=== PATIENT | male | born 1950 | race African-American/Black ===

== ENCOUNTER 2021-02-04 15:06 | Observation (INO) ==
[2021-02-04] MEDS ORDERED: diphenhydrAMINE 50 MG/ML VIAL IV STA (16:01)
[2021-02-04] MEDS ORDERED: FAMOTIDINE 20MG IV PUSH 20 MG/5 ML SYR IV STA (16:01)
[2021-02-04] MEDS ORDERED: dexAMETHasone**PF** 10 MG/ML VIAL IV ONE (16:01)
--- NOTE | 2021-02-04 16:18 | XRay Report ---
SINGLE VIEW CHEST CLINICAL HISTORY: Atypical chest pain. FINDINGS: 2 AP, portable, upright chest radiographs are compared to study dated 11/09/2017. The heart i s mildly enlarged. The pulmonary vasculature is noncongested. There is bibasilar atelectasis. The aniceto gs and pleural spaces are otherwise clear. No pneumothorax is seen. The skeletal structures are osteo penic. The bony thorax is grossly intact. Degenerative change is noted in the thoracic spine. IMPRESSION: No active disease in the chest. ACT 112: Negative or not required by law. Electronically signed by: Warren Gan M.D. 02/04/2021 4:17 PM
[2021-02-04 16:42] LABS: Basophils # (auto) 0.02 K/uL (0-0.2); Basophils % (auto) 0.2 %; Eosinophils # (auto) 0.04 K/uL (0-0.5); Eosinophils % (auto) 0.4 %; Hematocrit (blood only) 38.8 % (42-52); Hemoglobin 13.5 g/dL (14.0-18.0); Immature Granulocytes # (auto) 0.02 K/uL (0.00-0.02); Immature Granulocytes % (auto) 0.2 %; Lymphocytes # (auto) 0.83 K/uL (1.2-3.4); Lymphocytes % (auto) 9.3 %; Mean Corpuscular Hemoglobin 32.8 pg (25-34); Mean Corpuscular Hgb Conc 34.8 g/dL (32-36); Mean Corpuscular Volume 94.2 fL (80-100); Mean Platelet Volume 9.3 fL (7.4-10.4); Monocytes # (auto) 0.22 K/uL (0.11-0.59); Monocytes % (auto) 2.5 %; Neutrophils # (auto) 7.82 K/uL (1.4-6.5); Neutrophils % (auto) 87.4 %; Platelet Count 285 K/uL (130-400); RDW Coefficient of Variation 13.4 % (11.5-14.5); RDW Standard Deviation 46.4 fL (36.4-46.3); Red Blood Count 4.12 M/uL (4.7-6.1); White Blood Count 8.95 K/uL (4.8-10.8)
[2021-02-04 16:53] LABS: Partial Thromboplastin Time 27.1 Seconds (21.0-31.0); Prothrombin Time 9.9 Seconds (9.0-12.0)
[2021-02-04 17:00] LABS: Albumin Level 3.6 gm/dl (3.4-5.0); Aspartate Aminotransferase 36 U/L (15-37); BUN Creatinine Ratio 9.9 (10-20); Blood Urea Nitrogen 14 mg/dl (7-18); Calcium 9.2 mg/dl (8.5-10.1); Carbon Dioxide 26 mmol/L (21-32); Chloride 108 mmol/L (98-107); Creatinine Clr Calc Pharmacy 64.3 ml/min; Est GFR (African American) 56.1 ml/min; Est GFR (Non-African American) 48.4 ml/min; Glucose 208 mg/dl (70-99); Lipase 86 U/L (73-393); Potassium 4.8 mmol/L (3.5-5.1); Sodium 139 mmol/L (136-145)
--- NOTE | 2021-02-04 17:03 | Emergency Department Note ---
Impression & Plan Angioedema ED Provider Note NAME: GABRIEL GORMAN AGE: 70 SEX: M : 1950 ARRIVES VIA: Walk-In INFORMANT: Patient, ED PROVIDER(S): Tunde Mckeon DO CHIEF COMPLAINT: Swelling HPI: The patient is a 70-year-old male who presented to the emergency department for evaluation of swelling. The patient has been experiencing a rash over the course of the last month. He has a history of chronic renal disease. He has been seen by his primary care physician for the symptoms. He was also recently started on prednisone. He took the first dose of prednisone this morning. He started noticing swelling over his face and lips. He states the rash is no different. He denies having any difficulty breathing. He denies having any c ough or fever. He does take an ARMANDO inhibitor but has been taking this medication for many years. The patient has been taking all of his outpatient medications as usual. ROS: See above HPI for pertinent positives & negatives. A total of 10 systems reviewed and were otherwise negative. PAST MEDICAL HISTORY: See Below PAST SURGICAL HISTORY: See Below FAMILY HISTORY: See Below SOCIAL HISTORY: See Below HOME MEDICATIONS: See Below ALLERGIES: See Below VITALS: See Below PHYSICAL EXAMINATION: GENERAL: Patient is awake alert in no acute distress patient is resting comfo rtably and showing no signs of anxiety EYES: The conjunctivae are clear. The pupils are round and reactive. EARS, NOSE, MOUTH AND THROAT: The nose is without any evidence of any deformity. There is significant anterior angioedema noted of the lips and the buccal mucosa. There is no significant posterior angioedema appreciated. NECK: The neck is nontender and supple. RESPIRATORY: Normal respiratory effort is noted there is no evidence of wheezing rhonchi or rales CARDIOVASCULAR: Regular rate and rhythm noted there no murmurs rubs or gallops normal S1 normal S2. GASTROINTESTINAL: The abdomen is soft. Abdomen is nontender. MUSCULOSKELETAL/EXTREMITIES: There is no evidence of gross deformity full range of motion is noted in the hips and shoulders. SKIN: Trace pedal edema was noted bilaterally. Erythema was noted over the body with diffuse erythematous rash. NEUROLOGIC: Patient is awake alert and oriented x3. MEDICAL DECISION MAKING: The patient is a 70-year-old male who presents to the emergency department for an evaluation of angioedema. The patient was found to have angioedema and was sent to the emergency department for further evaluation. He was recently started on prednisone for a rash. I am not sure that the patient's angioedema secondary to prednisone. The patient also takes an ARMANDO inhibitor but he has been on this medication for many years. He was treated with Decadron Benadryl and Pepcid in the emergency department. On reevaluation he was slightly improved especially in his upper lip. There is no signs of a posterior angioedema. I discussed the patient's laboratory and radiographic studies with him. I discussed his case with the on-call [facility]. They have agreed to evaluate the patient in the emergency department for further management and disposition. Triage Nursing notes reviewed. Prior medical records reviewed Vital Signs: reviewed and remarkable for elevated blood pressure. Differential diagnosis: Allergic reaction, anaphylaxis, urticaria, Cantrell-Orlando syndrome, toxic epidermal necrolysis, erythema multiforme, contact dermatitis, cellulitis, as well as other pathologies. ER treatment provided: See below Diagnostics interpreted by me: ECG: EKG was obtained in the emergency department. My interpretation is normal sinus rhythm at 100 bpm. There is no ectopy. There was no acute ST segment abnormalities noted. This was compared to a tracing from November [id number]. No significant changes were noted. Cardiac Monitoring: An order was placed for continuous cardiac monitoring. The monitor shows a rate of 99 bpm with sinus rhythm. Laboratory studies: As stated above and show below. Imaging studies: See below Consultation(s): I discussed this case with Concha who is on-call for the [facility] group. She will evaluate the patient in the emergency department for further management and disposition. Past Med/Surg History Medical History Diabetes mellitus type 2, controlled Diabetic retinopathy Dyslipidemia Hypertension Near syncope Sleep apnea "CPAP" Social History Smoking Status: Never smoker Preferred Language: Setswana Feels Safe at Home: Yes Allergies Allergies Allergy/AdvReac Type Severity Reaction Status Date / Time prednisone Allergy Severe FACE, Verified 02/04/21 17:24 LIPS, & TONGUE SWELLS Home Meds Home Medications Medication Instructions Recorded Confirmed aspirin 81 mg tablet,delayed 81 mg PO DAILY 02/04/21 02/04/21 release atorvastatin 10 mg tablet 10 mg PO HS 02/04/21 02/04/21 carvedilol 12.5 mg tablet 12.5 mg PO BID 02/04/21 02/04/21 ergocalciferol (vitamin D2) 1,250 1,250 mcg PO MONTHLY 02/04/21 02/04/21 mcg (50,000 unit) capsule (Vitamin D2) fluocinolone 0.025 % topical 1 applic TOPICAL BID PRN 02/04/21 02/04/21 ointment glimepiride 4 mg tablet 4 mg PO DAILY 02/04/21 02/04/21 liraglutide 0.6 mg/0.1 mL (18 mg/3 1.2 mg SUBCUT DAILY 02/04/21 02/04/21 mL) subcutaneous pen injector (Calligoza 3-Everette) lisinopril 40 mg tablet 40 mg PO DAILY 02/04/21 02/04/21 metformin 500 mg tablet,extended 1,000 mg PO DAILY 02/04/21 02/04/21 release 24 hr sildenafil 50 mg tablet 50 mg PO DAILY PRN 02/04/21 02/04/21 travoprost 0.004 % eye drops 1 drp OPB HS 02/04/21 02/04/21 triamcinolone acetonide 0.1 % 1 applic TOPICAL DIRECTED PRN 02/04/21 02/04/21 topical cream Results & Data (ED) Vital Signs Vital Signs - 24 hr 02/04/21 15:49 02/04/21 17:33 Temperature 36.0 C L Temperature Source Temporal Artery Scan Pulse Rate 68 Pulse Rate [Right Finger] 99 H Respiratory Rate 18 18 Respiratory Effort / Characteristics Non-Labored Spontaneous Respiratory Depth Normal Blood Pressure 196/93 H Blood Pressure [Right Arm] 195/107 H Blood Pressure Mean 127 Blood Pressure Mean [Right Arm] 136 Blood Pressure Position [Right Arm] Lying Pulse Oximetry 96 95 Oxygen Delivery Method Room Air Room Air Sepsis Recent Fever Within 48 Hours No Sepsis New/Unexplained Change in Mental Status N/A Sepsis Action Taken by Nursing No Action Required Home Medications Current Medication List: was personally reviewed by me Laboratory Data Attestation: I reviewed the patient's lab results. Result diagrams: 02/04/21 16:34 02/04/21 16:34 Lab Results 02/04/21 02/04/21 02/04/21 Range/Units 16:34 16:34 16:34 WBC 8.95 (4.8-10.8) K/uL RBC 4.12 L (4.7-6.1) M/uL Hgb 13.5 L (14.0-18.0) g/dL Hct 38.8 L (42-52) % MCV 94.2 (80-100) fL MCH 32.8 (25-34) pg MCHC 34.8 (32-36) g/dL RDW Std Deviation 46.4 H (36.4-46.3) fL RDW Coeff of Kaelyn 13.4 (11.5-14.5) % Plt Count 285 (130-400) K/uL MPV 9.3 (7.4-10.4) fL Immature Gran % (Auto) 0.2 % Neut % (Auto) 87.4 % Lymph % (Auto) 9.3 % Harding % (Auto) 2.5 % Eos % (Auto) 0.4 % Baso % (Auto) 0.2 % Neut # (Auto) 7.82 H (1.4-6.5) K/uL Lymph # (Auto) 0.83 L (1.2-3.4) K/uL Harding # (Auto) 0.22 (0.11-0.59) K/uL Eos # (Auto) 0.04 (0-0.5) K/uL Baso # (Auto) 0.02 (0-0.2) K/uL Immature Gran # (Auto) 0.02 (0.00-0.02) K/uL PT 9.9 (9.0-12.0) Seconds INR 1.0 (0.9-1.1) APTT 27.1 (21.0-31.0) Seconds PTT Ratio 1.0 Sodium (136-145) mmol/L Potassium (3.5-5.1) mmol/L Chloride (98-107) mmol/L Carbon Dioxide (21-32) mmol/L Anion Gap (3-11) BUN (7-18) mg/dl Creatinine (0.6-1.4) mg/dl Est Cr Clr Drug Dosing ml/min Est GFR ( Amer) ml/min Est GFR (Non-Af Amer) ml/min BUN/Creatinine Ratio (10-20) Glucose (70-99) mg/dl Calcium (8.5-10.1) mg/dl Total Bilirubin (0.2-1) mg/dl AST (15-37) U/L ALT (12-78) U/L Alkaline Phosphatase (45-117) U/L Troponin I (0-0.045) ng/ml Total Protein (6.4-8.2) gm/dl Albumin (3.4-5.0) gm/dl Globulin (2.5-4.0) gm/dl Albumin/Globulin Ratio (0.9-2) Lipase (73-393) U/L COVID-19 Eval Order SARS-CoV-2 (PCR) (Negative) Blood Type O Positive Antibody Screen NEGATIVE 02/04/21 02/04/21 02/04/21 Range/Units 16:34 16:50 16:50 WBC (4.8-10.8) K/uL RBC (4.7-6.1) M/uL Hgb (14.0-18.0) g/dL Hct (42-52) % MCV (80-100) fL MCH (25-34) pg MCHC (32-36) g/dL RDW Std Deviation (36.4-46.3) fL RDW Coeff of Kaelyn (11.5-14.5) % Plt Count (130-400) K/uL MPV (7.4-10.4) fL Immature Gran % (Auto) % Neut % (Auto) % Lymph % (Auto) % Harding % (Auto) % Eos % (Auto) % Baso % (Auto) % Neut # (Auto) (1.4-6.5) K/uL Lymph # (Auto) (1.2-3.4) K/uL Harding # (Auto) (0.11-0.59) K/uL Eos # (Auto) (0-0.5) K/uL Baso # (Auto) (0-0.2) K/uL Immature Gran # (Auto) (0.00-0.02) K/uL PT (9.0-12.0) Seconds INR (0.9-1.1) APTT (21.0-31.0) Seconds PTT Ratio Sodium 139 (136-145) mmol/L Potassium 4.8 (3.5-5.1) mmol/L Chloride 108 H (98-107) mmol/L Carbon Dioxide 26 (21-32) mmol/L Anion Gap 5.0 (3-11) BUN 14 (7-18) mg/dl Creatinine 1.45 H (0.6-1.4) mg/dl Est Cr Clr Drug Dosing 64.3 ml/min Est GFR ( Amer) 56.1 ml/min Est GFR (Non-Af Amer) 48.4 ml/min BUN/Creatinine Ratio 9.9 L (10-20) Glucose 208 H (70-99) mg/dl Calcium 9.2 (8.5-10.1) mg/dl Total Bilirubin 0.4 (0.2-1) mg/dl AST 36 (15-37) U/L ALT 49 (12-78) U/L Alkaline Phosphatase 76 (45-117) U/L Troponin I < 0.015 (0-0.045) ng/ml Total Protein 7.6 (6.4-8.2) gm/dl Albumin 3.6 (3.4-5.0) gm/dl Globulin 4.0 (2.5-4.0) gm/dl Albumin/Globulin Ratio 0.9 (0.9-2) Lipase 86 (73-393) U/L COVID-19 Eval Order Covid19 at [facility] SARS-CoV-2 (PCR) NEGATIVE (Negative) Blood Type Antibody Screen Administered Medications Discontinued Medications Dexamethasone Sodium Phosphate (DexamethasonePf 10 Mg/Ml Vial) 10 mg IV NOW ONE Stop: 02/04/21 16:02 Last Admin: 02/04/21 16:36 Dose: 10 mg Documented by: [id number] Diphenhydramine HCl (Diphenhydramine 50 Mg/Ml Vial) 25 mg IV NOW STA Stop: 02/04/21 16:02 Last Admin: 02/04/21 16:36 Dose: 25 mg Documented by: [id number] Famotidine (Pepcid 20mg Iv Push) 20 mg in 5 mls @ 2.5 mls/min IV NOW STA Stop: 02/04/21 16:02 Last Admin: 02/04/21 16:36 Dose: 2.5 mls/min Documented by: [id number] Imaging Data Radiologist's Impression: Chest X-Ray 02/04/21 16:01 SINGLE VIEW CHEST CLINICAL HISTORY: Atypical chest pain. FINDINGS: 2 AP, portable, upright chest radiographs are compared to study dated 11/09/2017. The heart is mildly enlarged. The pulmonary vasculature is noncongested. There is bibasilar atelectasis. The lungs and pleural spaces are otherwise clear. No pneumothorax is seen. The skeletal structures are osteopenic. The bony thorax is grossly intact. Degenerative change is noted in the thoracic spine. IMPRESSION: No active disease in the chest. ACT 112: Negative or not required by law. Electronically signed by: Warren Gan M.D. 02/04/2021 4:17 PM Discharge Plan Visit Data Chief Complaint: Allergic Reaction Stated Complaint: FACIAL SWELLING ED Provider: Tunde Mckeon Discharge Problem: Angioedema Patient Disposition: Being Evaluated by Hospitalist Condition: Good Forms Stand Alone Forms: My [facility] Prescriptions Prescriptions: No Action carvedilol 12.5 mg tablet 12.5 mg PO BID RF: 0 sildenafil 50 mg tablet 50 mg PO DAILY PRN (Reason: Erectile Dysfunction) RF: 0 atorvastatin 10 mg tablet 10 mg PO HS RF: 0 travoprost 0.004 % drops 1 drp OPB HS RF: 0 aspirin 81 mg tablet,delayed release (DR/EC) 81 mg PO DAILY RF: 0 triamcinolone acetonide 0.1 % cream 1 applic TOPICAL DIRECTED PRN (Reason: AFFECTED AREA) RF: 0 glimepiride 4 mg tablet 4 mg PO DAILY RF: 0 fluocinolone 0.025 % ointment 1 applic TOPICAL BID PRN (Reason: Rash) RF: 0 ergocalciferol (vitamin D2) [Vitamin D2] 1,250 mcg (50,000 unit) Capsule 1,250 mcg PO MONTHLY RF: 0 lisinopril 40 mg tablet 40 mg PO DAILY RF: 0 metformin 500 mg tablet extended release 24 hr 1,000 mg PO DAILY RF: 0 Victoza 3-Everette 0.6 mg/0.1 mL (18 mg/3 mL) pen injector 1.2 mg SUBCUT DAILY RF: 0 Referrals Referrals: Dale White MD [Primary Care Provider] -
[2021-02-04 17:05] LABS: Alanine Aminotransferase 49 U/L (12-78); Albumin Globulin Ratio 0.9 (0.9-2); Alkaline Phosphatase 76 U/L (45-117); Bilirubin,Total 0.4 mg/dl (0.2-1); Total Protein 7.6 gm/dl (6.4-8.2); Troponin I < 0.015 ng/ml (0-0.045)
[2021-02-04] MEDS ORDERED: LABETALOL HCL IV 5 MG/ML 20ML IV PRN (19:11)
[2021-02-04] MEDS ORDERED: carvediloL 12.5 MG TAB PO ONE (19:17)
--- NOTE | 2021-02-04 19:18 | History & Physical Report ---
Date of Service February 04, 2021 Assessment & Plan (1) Angioedema: Plan: Pt is 70 y/o M with PMH DM 2, HTN, dyslipidemia, CKD III, LVH, gout, sleep apnea, obesity presented to ER with complaint of facial swelling started approximately 2 PM today. Patient with ongoing pruritic rash for several months. Took prednisone x 1 dose today for rash and later developed facial edema. Denies dysphagia, SOB, wheezing, N/V/D, abdominal pain. Patient is on ARMANDO inhibitor. Had discontinued all medications 1 month ago and resumed 2 days ago. In ER patient without any noted airway compromise, was given Benadryl 25 mg IV, Pepcid 20 mg IV, dexamethasone 10 mg IV. During ER course patient with moderate improvement with decreased facial edema Angioedema possible secondary to ARMANDO inhibitor Monitor closely Hold lisinopril Will hold prednisone currently Pepcid, Benadryl IV, dexamethasone IVF (2) Dermatitis: Plan: Patient with ongoing pruritic rash for several months and is following up with [facility] dermatology. Started light therapy Patient had skin biopsy on 01/08/2021: Subacute spongiotic dermatitis Continue topical steroid as needed Continue outpatient dermatology follow-up (3) Hypertension: Plan: In ER BP: 196/93, 206/105. BP retaken with large adult cuff: 171/91 Patient had discontinued medications for a month and resumed 2 days ago. Did not have any BP meds today Continue carvedilol Hold lisinopril as possible source of angioedema Labetalol IV as needed Follow BP, anticipate will need to add different BP agent (4) Diabetes mellitus, type II: Plan: Hold home Metformin, glimepiride, Victoza Basal bolus insulin per protocol A1c in a.m. (5) CKD (chronic kidney disease), stage III: Plan: Cr: 1.45. Baseline Cr: 1.3-1.5 Avoid nephrotoxic agents when possible, monitor renal function (6) Dyslipidemia: Plan: Continue atorvastatin DVT Prophylaxis -SCDs Full Code as per discussion with pt Follows with Dr White for routine care Pt was seen and care coordinated with Dr Souza. See addendum History of Present Illness Chief Complaint: Facial swelling Primary Care Provider: Dale White MD Pt is 70 y/o M with PMH DM 2, HTN, dyslipidemia, CKD III, LVH, gout, sleep apnea, obesity presented to ER with complaint of facial swelling started approximately 2 PM today. Patient with ongoing pruritic rash for several months and is following up with [facility] dermatology. He has been treated with topical steroid ointments and last week started light therapy. Patient states overall rash has improved however his skin has sloughed off and still has some itching. Today cardiology had prescribed prednisone 20 mg daily for this rash. Patient states he took a dose and then took a nap and when he woke up he noticed that his face was swollen. Reports entire face swollen including periorbital and lips. Denies any noted tongue edema. Denies trouble swallowing, shortness of breath, wheezing, nausea, vomiting, diarrhea, abdominal pain. Denies any new rash or hives. Of note patient discontinued all of his medications 01/08/2021 as he was concerned medications may be causing his rash. 2 days ago he resumed taking his medications however has not had medications today. Denies any other new medications, OTC meds, supplements, or topicals. Denies fever/chills, diaphoresis, ORTIZ, dizziness, syncope, vision changes, neck pain, CP, SOB, orthopnea, palpitations, cough, sore throat, choking, otalgia, rhinorrhea, abdominal pain, paresthesias, weakness, extremity weakness, extremity edema, urinary symptoms. In ER patient without any noted airway compromise, was given Benadryl 25 mg IV, Pepcid 20 mg IV, dexamethasone 10 mg IV. During ER course patient with decreased facial edema. Patient being admitted for further observation. Allergies Allergy/AdvReac Type Severity Reaction Status Date / Time prednisone Allergy Severe FACE, Verified 02/04/21 17:24 LIPS, & TONGUE SWELLS lisinopril Allergy Angioedema Verified 02/04/21 20:37 Home Medications Medication Instructions Recorded Confirmed Type aspirin 81 mg tablet,delayed 81 mg PO DAILY 02/04/21 02/04/21 History release atorvastatin 10 mg tablet 10 mg PO HS 02/04/21 02/04/21 History carvedilol 12.5 mg tablet 12.5 mg PO BID 02/04/21 02/04/21 History ergocalciferol (vitamin D2) 1,250 1,250 mcg PO MONTHLY 02/04/21 02/04/21 History mcg (50,000 unit) capsule (Vitamin D2) fluocinolone 0.025 % topical 1 applic TOPICAL BID PRN 02/04/21 02/04/21 History ointment glimepiride 4 mg tablet 4 mg PO DAILY 02/04/21 02/04/21 History liraglutide 0.6 mg/0.1 mL (18 mg/3 1.2 mg SUBCUT DAILY 02/04/21 02/04/21 History mL) subcutaneous pen injector (Victoza 3-Everette) lisinopril 40 mg tablet 40 mg PO DAILY 02/04/21 02/04/21 History metformin 500 mg tablet,extended 1,000 mg PO DAILY 02/04/21 02/04/21 History release 24 hr prednisone 20 mg tablet 20 mg PO DAILY 02/04/21 02/04/21 History sildenafil 50 mg tablet 50 mg PO DAILY PRN 02/04/21 02/04/21 History travoprost 0.004 % eye drops 1 drp OPB HS 02/04/21 02/04/21 History triamcinolone acetonide 0.1 % 1 applic TOPICAL DIRECTED PRN 02/04/21 02/04/21 History topical cream Past Med/Surg History Medical History (Updated 02/04/21 @ 19:47 by Isa Carrillo PA-C) CKD (chronic kidney disease), stage III Diabetes mellitus, type II Diabetic retinopathy Dyslipidemia Hypertension Near syncope Sleep apnea "CPAP" Surgical History (Updated 02/04/21 @ 19:33 by Isa Carrillo PA-C) Hx of colonoscopy Family History (Updated 02/04/21 @ 19:33 by Isa Carrillo PA-C) Other Cancer Coronary heart disease Diabetes Hypertension Social History (Updated 02/04/21 @ 19:33 by Isa Carrillo PA-C) Smoking Status: Never smoker Hx Alcohol Use: Yes Alcohol Intake Frequency: 2-4 x/Month Hx Substance Use: No Preferred Language: Lithuanian Feels Safe at Home: Yes Review of Systems Review of Systems: All systems reviewed & are unremarkable except as noted in HPI & below Physical Exam Physical Exam: General: no distress, obese Head: normocephalic, atraumatic Eyes: PERRL, EOM's intact, conjunctiva non-injected, anicteric; no periorbital edema Face: lower lip edema, slight edema over maxillary region/cheeks ENT: normal inspection external ears, nose, mucous membranes moist; no tongue edema, no uvula edema Neck: supple, trachea midline, non-tender Lungs: clear, no respiratory distress, no wheezing/rhonchi/rales CV: RRR, no murmur, no pretibial edema Abd: normal BS, soft, non-tender Ext: no cyanosis, no calf tenderness Neuro: A&O x 3, no focal deficits noted, normal affect Skin: warm, diffuse dry peeling skin Results & Data Results & Data ([facility]) Vital Signs (Past 12 Hours) Vital Signs Temp Pulse Pulse Resp BP BP Pulse Ox 02/04/21 18:42 88 16 206/105 H 95 02/04/21 17:33 99 H 18 195/107 H 95 02/04/21 15:49 36.0 C L 68 18 196/93 H 96 Laboratory Results Short CBC 02/04/21 02/04/21 Range/Units 16:34 16:34 WBC 8.95 (4.8-10.8) K/uL Hgb 13.5 L (14.0-18.0) g/dL Hct 38.8 L (42-52) % Plt Count 285 (130-400) K/uL Creatinine 1.45 H (0.6-1.4) mg/dl BMP 02/04/21 16:34 Sodium 139 Potassium 4.8 Chloride 108 H Carbon Dioxide 26 BUN 14 Creatinine 1.45 H Glucose 208 H Calcium 9.2 Cardiac Enzymes 02/04/21 Range/Units 16:34 Troponin I < 0.015 (0-0.045) ng/ml Liver Function 02/04/21 Range/Units 16:34 Total Bilirubin 0.4 (0.2-1) mg/dl AST 36 (15-37) U/L ALT 49 (12-78) U/L Alkaline Phosphatase 76 (45-117) U/L Albumin 3.6 (3.4-5.0) gm/dl Diagnostic Findings Chest X-Ray 02/04/21 16:01 SINGLE VIEW CHEST CLINICAL HISTORY: Atypical chest pain. FINDINGS: 2 AP, portable, upright chest radiographs are compared to study dated 11/09/2017. The heart is mildly enlarged. The pulmonary vasculature is noncongested. There is bibasilar atelectasis. The lungs and pleural spaces are otherwise clear. No pneumothorax is seen. The skeletal structures are osteopenic. The bony thorax is grossly intact. Degenerative change is noted in the thoracic spine. IMPRESSION: No active disease in the chest. ACT 112: Negative or not required by law. Electronically signed by: Warren Gan M.D. 02/04/2021 4:17 PM Code Status & VTE Plan VTE Prophylaxis Plan VTE Prophylaxis will be ordered: Yes Supervising Physician Co-Signing Physician Notes Patient is a 70-year-old male with history of diabetes mellitus, hypertension, CKD and other medical problems presents with history of facial swelling which he started to notice today afternoon. Patient is currently being treated for generalized pruritic rash for the last several months by [facility] dermatology and was recently started on prednisone. Patient noticed to have swelling of his lips and face after having a nap today. He denies any dysphagia, odynophagia, shortness of breath, wheezing, hoarseness. He believes the reaction is secondary to prednisone. Patient discontinued his home medications 3 weeks ago due to concern for causing the generalized rash and resumed taking them 2 days ago. He denies taking lisinopril today. Please review HPI for complete details of presentation. He tolerated dexamethasone while in ED. Swelling much improved. Blood work showed creatinine 1.45, hyperglycemia 208. Chest x-ray showed no acute findings. On exam patient is morbidly obese, no apparent distress, normocephalic atraumatic, EOMI, no periorbital edema,+ upper and lower lip swelling, no tongue edema noted, lungs are clear to auscultation, normal breath sounds, S1-S2, no murmur, abdomen soft, nontender, normal bowel sounds, alert, awake, oriented, grossly no focal deficits,+ generalized rash noted. Patient is admitted from management of angioedema. Likely secondary to lisinopril. Will hold lisinopril. Agree with IV dexamethasone, Pepcid, Benadryl. Close monitoring for airway compromise. Agree with insulin therapy while hospitalized for management of diabetes mellitus and holding Metformin. Needs follow-up with dermatology upon discharge. I personally reviewed the record. Patient is interviewed and examined at bedside. Patient's care is coordinated with Isa Carrillo PA-C. Please refer to the documentation above for details of patient's presentation and for discussion of other issues. (1) Angioedema Encounter type: initial encounter Qualified Code(s): T78.3XXA - Angioneurotic edema, initial encounter
[2021-02-05] MEDS ORDERED: PHARMACY GLYCEMIC MGMT CONSULT PRN (04:39)
[2021-02-05] MEDS ORDERED: ACETAMINOPHEN 325 MG TAB PO PRN (04:39)
[2021-02-05] MEDS ORDERED: POLYETHYLENE (MIRALAX) 17 GM PACK PO PRN (04:39)
[2021-02-05] MEDS ORDERED: ONDANSETRON INJ 2 MG/ML 2 ML VIAL IV PRN (04:39)
[2021-02-05] MEDS ORDERED: DEXTROSE 50% 50 ML SYRINGE IV PRN (04:39)
[2021-02-05] MEDS ORDERED: diphenhydrAMINE 50 MG/ML VIAL IV SCH ×2 (04:39→06:00)
[2021-02-05] MEDS ORDERED: GLUCOSE 10 TABS/TUBE PO PRN (04:39)
[2021-02-05] MEDS ORDERED: GLUCOSE 40% GEL 15 GM TUBE PO PRN (04:39)
[2021-02-05] MEDS ORDERED: CARBOHYDRATES FOR HYPOGLYCEMIA PO PRN (04:39)
[2021-02-05] MEDS ORDERED: GLUCAGON FOR INJ 1 MG VIAL SQ PRN (04:39)
[2021-02-05] MEDS ORDERED: SODIUM CHLORIDE 0.9% 1000ML 1,000 ML IV SCH (05:30)
[2021-02-05] MEDS ORDERED: INSULIN GLARGINE SOLOSTAR 100 UNITS/ML 3 ML PEN SC STA ×2 (05:41→05:58)
[2021-02-05 05:42] LABS: Hematocrit (blood only) 34.9 % (42-52); Hemoglobin 12.2 g/dL (14.0-18.0); Mean Corpuscular Hemoglobin 32.3 pg (25-34); Mean Corpuscular Volume 92.3 fL (80-100); Mean Platelet Volume 9.4 fL (7.4-10.4); Platelet Count 299 K/uL (130-400); RDW Coefficient of Variation 13.1 % (11.5-14.5); RDW Standard Deviation 43.7 fL (36.4-46.3); Red Blood Count 3.78 M/uL (4.7-6.1); White Blood Count 10.01 K/uL (4.8-10.8)
[2021-02-05] MEDS ORDERED: dexAMETHasone 6 MG in SYRINGE 0 ML IV SCH (06:00)
[2021-02-05] MEDS ORDERED: FAMOTIDINE 20 MG in SYRINGE 3 ML IV SCH (06:00)
[2021-02-05] MEDS: INSULIN ASPART 100 UNITS/ML 3 ML PEN SC SCH ×2 (06:04→09:59)
[2021-02-05 06:14] LABS: BUN Creatinine Ratio 11.3 (10-20); Calcium 8.6 mg/dl (8.5-10.1); Creatinine Clr Calc Pharmacy 65.6 ml/min; Est GFR (African American) 57.6 ml/min; Est GFR (Non-African American) 49.7 ml/min; Magnesium 2.2 mg/dl (1.8-2.4); Potassium 4.3 mmol/L (3.5-5.1)
[2021-02-05 06:37] LABS: Beta-Hydroxybutyrate 1.01 mg/dl (0.2-2.81)
[2021-02-05] MEDS ORDERED: INSULIN HUMAN REGULAR PER UNIT 5 UNITS in SYRINGE 4.95 ML IV STA (06:56)
[2021-02-05 07:29] LABS: Estimated Average Glucose 151 mg/dl; Hemoglobin A1C 6.9 % (4.5-5.6)
--- NOTE | 2021-02-05 08:50 | Hospitalist Progress Note ---
Date of Service February 05, 2021 Assessment & Plan (1) Angioedema: Plan: Pt is a 70 y/o M w/ DM 2, HTN, dyslipidemia, CKD III, LVH, gout, sleep apnea, obesity presented to ER with complaint of facial swelling started approximately 2 PM. Patient with ongoing pruritic rash for several months. Took prednisone x 1 dose today for rash and later developed facial edema. Denies dysphagia, SOB, wheezing, N/V/D, abdominal pain. Patient is on ARMANDO inhibitor. Had discontinued all medications 1 month ago and resumed 2 days ago. In ER patient without any noted airway compromise, was given Benadryl 25 mg IV, Pepcid 20 mg IV, dexamethasone 10 mg IV. During ER course patient with moderate improvement with decreased facial edema Angioedema possible secondary to ARMANDO inhibitor Monitor closely Hold lisinopril Will hold prednisone currently Pepcid, Benadryl IV, dexamethasone IVF 02/06 -clinically patient is doing well, never had any neck swelling, shortness of breath, wheezing He is eager to go home Recommend to avoid any unusual foods, fruits, or nuts Recommend to stop lisinopril for now and monitor blood pressure at home Patient will closely follow-up with PCP and dermatology, both appointments already scheduled Will discharge on Pepcid and Benadryl (2) Dermatitis: Plan: Patient with ongoing pruritic rash for several months and is following up with [facility] dermatology. Started light therapy Patient had skin biopsy on 01/08/2021: Subacute spongiotic dermatitis Continue topical steroid as needed Continue outpatient dermatology follow-up -next appointment tomorrow, February 06 (3) Hypertension: Plan: In ER BP: 196/93, 206/105. BP retaken with large adult cuff: 171/91 Current BP this AM 159/88. Patient had discontinued medications for a month and resumed 2 days ago. Did not have any BP meds on day of admission Continue carvedilol Hold lisinopril as possible source of angioedema Labetalol IV as needed Follow BP, anticipate will need to add different BP agent Patient follow-up as outpatient for BP (4) Diabetes mellitus, type II: Plan: Hold home Metformin, glimepiride, Victoza Basal bolus insulin per protocol current A1c 6.9% Resume home meds on DC (5) CKD (chronic kidney disease), stage III: Plan: Cr: 1.45. Baseline Cr: 1.3-1.5 Avoid nephrotoxic agents when possible, monitor renal function (6) Dyslipidemia: Plan: Continue atorvastatin DVT Prophylaxis -SCDs Full Code as per discussion with pt Follows with Dr White for routine care Admission and Anticipated Discharge Date Admission Date: February 04, 2021 Subjective Patient seen in follow-up of angioedema Patient reports that his facial swelling and lip swelling is significantly decreased and he is eager to go home He never had any shortness of breath, neck swelling, chest pain His only complaint is skin pruritus While talking to the patient, scheduling from dermatology called the patient about the appointment tomorrow. His appointment was rescheduled from 10 AM to 2 PM. Review of Systems Review of Systems: All systems reviewed & are unremarkable except as noted in Subjective Physical Exam Physical Exam: General: no distress, obese M Head: normocephalic, atraumatic Eyes: PERRL, EOM's intact, conjunctiva non-injected, anicteric; no periorbital edema Face: lower lip edema, slight edema over maxillary region/cheeks ENT: normal inspection external ears, nose, mucous membranes moist; no tongue edema, no uvula edema Neck: supple, trachea midline, non-tender Lungs: clear, no respiratory distress, no wheezing/rhonchi/rales CV: RRR, no murmur, no pretibial edema Abd: normal BS, soft, non-tender, +obese Ext: no cyanosis, no calf tenderness, moves extremities spontaneously and to difficulty Neuro: A&O x 3, answers questions appropriately, no facial asymmetry, speech fluent, moves extremities Skin: warm, diffuse dry peeling skin Results & Data Results & Data ([facility]) Vital Signs (Past 12 Hours) Vital Signs Temp Pulse Pulse Resp BP BP Pulse Ox 02/05/21 04:21 94 H 18 184/90 H 95 02/04/21 23:00 37 C 85 90 16 181/96 H 181/96 H 99 02/04/21 22:27 216/94 H 02/04/21 21:20 86 19 188/79 H 98 Laboratory Results 02/05/21 02/05/21 02/05/21 Range/Units 05:55 05:14 05:14 WBC 10.01 (4.8-10.8) K/uL RBC 3.78 L (4.7-6.1) M/uL Hgb 12.2 L (14.0-18.0) g/dL Hct 34.9 L (42-52) % MCV 92.3 (80-100) fL MCH 32.3 (25-34) pg MCHC 35.0 (32-36) g/dL RDW Std Deviation 43.7 (36.4-46.3) fL RDW Coeff of Kaelyn 13.1 (11.5-14.5) % Plt Count 299 (130-400) K/uL MPV 9.4 (7.4-10.4) fL Immature Gran % (Auto) % Neut % (Auto) % Lymph % (Auto) % [place] % (Auto) % Eos % (Auto) % Baso % (Auto) % Neut # (Auto) (1.4-6.5) K/uL Lymph # (Auto) (1.2-3.4) K/uL [place] # (Auto) (0.11-0.59) K/uL Eos # (Auto) (0-0.5) K/uL Baso # (Auto) (0-0.2) K/uL Immature Gran # (Auto) (0.00-0.02) K/uL PT (9.0-12.0) Seconds INR (0.9-1.1) APTT (21.0-31.0) Seconds PTT Ratio Sodium (136-145) mmol/L Potassium (3.5-5.1) mmol/L Chloride (98-107) mmol/L Carbon Dioxide (21-32) mmol/L Anion Gap (3-11) BUN (7-18) mg/dl Creatinine (0.6-1.4) mg/dl Est Cr Clr Drug Dosing ml/min Est GFR ( Amer) ml/min Est GFR (Non-Af Amer) ml/min BUN/Creatinine Ratio (10-20) Glucose (70-99) mg/dl POC Glucose 301 H* (70-99) mg/dl Estimat Average Glucose 151 mg/dl Hemoglobin A1c 6.9 H (4.5-5.6) % Calcium (8.5-10.1) mg/dl Magnesium (1.8-2.4) mg/dl Total Bilirubin (0.2-1) mg/dl AST (15-37) U/L ALT (12-78) U/L Alkaline Phosphatase (45-117) U/L Troponin I (0-0.045) ng/ml Total Protein (6.4-8.2) gm/dl Albumin (3.4-5.0) gm/dl Globulin (2.5-4.0) gm/dl Albumin/Globulin Ratio (0.9-2) Lipase (73-393) U/L Beta-Hydroxybutyric Acd (0.2-2.81) mg/dl COVID-19 Eval Order SARS-CoV-2 (PCR) (Negative) Blood Type Antibody Screen 02/05/21 02/04/21 02/04/21 Range/Units 05:14 16:50 16:50 WBC (4.8-10.8) K/uL RBC (4.7-6.1) M/uL Hgb (14.0-18.0) g/dL Hct (42-52) % MCV (80-100) fL MCH (25-34) pg MCHC (32-36) g/dL RDW Std Deviation (36.4-46.3) fL RDW Coeff of Kaelyn (11.5-14.5) % Plt Count (130-400) K/uL MPV (7.4-10.4) fL Immature Gran % (Auto) % Neut % (Auto) % Lymph % (Auto) % [place] % (Auto) % Eos % (Auto) % Baso % (Auto) % Neut # (Auto) (1.4-6.5) K/uL Lymph # (Auto) (1.2-3.4) K/uL [place] # (Auto) (0.11-0.59) K/uL Eos # (Auto) (0-0.5) K/uL Baso # (Auto) (0-0.2) K/uL Immature Gran # (Auto) (0.00-0.02) K/uL PT (9.0-12.0) Seconds INR (0.9-1.1) APTT (21.0-31.0) Seconds PTT Ratio Sodium 139 (136-145) mmol/L Potassium 4.3 (3.5-5.1) mmol/L Chloride 109 H (98-107) mmol/L Carbon Dioxide 25 (21-32) mmol/L Anion Gap 5.0 (3-11) BUN 16 (7-18) mg/dl Creatinine 1.42 H (0.6-1.4) mg/dl Est Cr Clr Drug Dosing 65.6 ml/min Est GFR ( Amer) 57.6 ml/min Est GFR (Non-Af Amer) 49.7 ml/min BUN/Creatinine Ratio 11.3 (10-20) Glucose 328 H* (70-99) mg/dl POC Glucose (70-99) mg/dl Estimat Average Glucose mg/dl Hemoglobin A1c (4.5-5.6) % Calcium 8.6 (8.5-10.1) mg/dl Magnesium 2.2 (1.8-2.4) mg/dl Total Bilirubin (0.2-1) mg/dl AST (15-37) U/L ALT (12-78) U/L Alkaline Phosphatase (45-117) U/L Troponin I (0-0.045) ng/ml Total Protein (6.4-8.2) gm/dl Albumin (3.4-5.0) gm/dl Globulin (2.5-4.0) gm/dl Albumin/Globulin Ratio (0.9-2) Lipase (73-393) U/L Beta-Hydroxybutyric Acd 1.01 (0.2-2.81) mg/dl COVID-19 Eval Order Covid19 at [facility] SARS-CoV-2 (PCR) NEGATIVE (Negative) Blood Type Antibody Screen 02/04/21 02/04/21 02/04/21 Range/Units 16:34 16:34 16:34 WBC 8.95 (4.8-10.8) K/uL RBC 4.12 L (4.7-6.1) M/uL Hgb 13.5 L (14.0-18.0) g/dL Hct 38.8 L (42-52) % MCV 94.2 (80-100) fL MCH 32.8 (25-34) pg MCHC 34.8 (32-36) g/dL RDW Std Deviation 46.4 H (36.4-46.3) fL RDW Coeff of Kaelyn 13.4 (11.5-14.5) % Plt Count 285 (130-400) K/uL MPV 9.3 (7.4-10.4) fL Immature Gran % (Auto) 0.2 % Neut % (Auto) 87.4 % Lymph % (Auto) 9.3 % [place] % (Auto) 2.5 % Eos % (Auto) 0.4 % Baso % (Auto) 0.2 % Neut # (Auto) 7.82 H (1.4-6.5) K/uL Lymph # (Auto) 0.83 L (1.2-3.4) K/uL [place] # (Auto) 0.22 (0.11-0.59) K/uL Eos # (Auto) 0.04 (0-0.5) K/uL Baso # (Auto) 0.02 (0-0.2) K/uL Immature Gran # (Auto) 0.02 (0.00-0.02) K/uL PT 9.9 (9.0-12.0) Seconds INR 1.0 (0.9-1.1) APTT 27.1 (21.0-31.0) Seconds PTT Ratio 1.0 Sodium 139 (136-145) mmol/L Potassium 4.8 (3.5-5.1) mmol/L Chloride 108 H (98-107) mmol/L Carbon Dioxide 26 (21-32) mmol/L Anion Gap 5.0 (3-11) BUN 14 (7-18) mg/dl Creatinine 1.45 H (0.6-1.4) mg/dl Est Cr Clr Drug Dosing 64.3 ml/min Est GFR ( Amer) 56.1 ml/min Est GFR (Non-Af Amer) 48.4 ml/min BUN/Creatinine Ratio 9.9 L (10-20) Glucose 208 H (70-99) mg/dl POC Glucose (70-99) mg/dl Estimat Average Glucose mg/dl Hemoglobin A1c (4.5-5.6) % Calcium 9.2 (8.5-10.1) mg/dl Magnesium (1.8-2.4) mg/dl Total Bilirubin 0.4 (0.2-1) mg/dl AST 36 (15-37) U/L ALT 49 (12-78) U/L Alkaline Phosphatase 76 (45-117) U/L Troponin I < 0.015 (0-0.045) ng/ml Total Protein 7.6 (6.4-8.2) gm/dl Albumin 3.6 (3.4-5.0) gm/dl Globulin 4.0 (2.5-4.0) gm/dl Albumin/Globulin Ratio 0.9 (0.9-2) Lipase 86 (73-393) U/L Beta-Hydroxybutyric Acd (0.2-2.81) mg/dl COVID-19 Eval Order SARS-CoV-2 (PCR) (Negative) Blood Type Antibody Screen 02/04/21 Range/Units 16:34 WBC (4.8-10.8) K/uL RBC (4.7-6.1) M/uL Hgb (14.0-18.0) g/dL Hct (42-52) % MCV (80-100) fL MCH (25-34) pg MCHC (32-36) g/dL RDW Std Deviation (36.4-46.3) fL RDW Coeff of Kaelyn (11.5-14.5) % Plt Count (130-400) K/uL MPV (7.4-10.4) fL Immature Gran % (Auto) % Neut % (Auto) % Lymph % (Auto) % [place] % (Auto) % Eos % (Auto) % Baso % (Auto) % Neut # (Auto) (1.4-6.5) K/uL Lymph # (Auto) (1.2-3.4) K/uL [place] # (Auto) (0.11-0.59) K/uL Eos # (Auto) (0-0.5) K/uL Baso # (Auto) (0-0.2) K/uL Immature Gran # (Auto) (0.00-0.02) K/uL PT (9.0-12.0) Seconds INR (0.9-1.1) APTT (21.0-31.0) Seconds PTT Ratio Sodium (136-145) mmol/L Potassium (3.5-5.1) mmol/L Chloride (98-107) mmol/L Carbon Dioxide (21-32) mmol/L Anion Gap (3-11) BUN (7-18) mg/dl Creatinine (0.6-1.4) mg/dl Est Cr Clr Drug Dosing ml/min Est GFR ( Amer) ml/min Est GFR (Non-Af Amer) ml/min BUN/Creatinine Ratio (10-20) Glucose (70-99) mg/dl POC Glucose (70-99) mg/dl Estimat Average Glucose mg/dl Hemoglobin A1c (4.5-5.6) % Calcium (8.5-10.1) mg/dl Magnesium (1.8-2.4) mg/dl Total Bilirubin (0.2-1) mg/dl AST (15-37) U/L ALT (12-78) U/L Alkaline Phosphatase (45-117) U/L Troponin I (0-0.045) ng/ml Total Protein (6.4-8.2) gm/dl Albumin (3.4-5.0) gm/dl Globulin (2.5-4.0) gm/dl Albumin/Globulin Ratio (0.9-2) Lipase (73-393) U/L Beta-Hydroxybutyric Acd (0.2-2.81) mg/dl COVID-19 Eval Order SARS-CoV-2 (PCR) (Negative) Blood Type O Positive Antibody Screen NEGATIVE Medications Administered Current Inpatient Medications Acetaminophen (Acetaminophen 325 Mg Tab) 650 mg PO Q4H PRN PRN Reason: Pain or Fever Stop: 03/07/21 04:38 Aspirin (Aspirin 81 Mg Ectab) 81 mg PO DAILY SHMUEL Stop: 03/07/21 08:59 Atorvastatin Calcium (Atorvastatin 10 Mg Tab) 10 mg PO HS SHMUEL Stop: 03/07/21 20:59 Carvedilol (Carvedilol 12.5 Mg Tab) 12.5 mg PO BID SHMUEL Stop: 03/07/21 08:59 Dextrose (Dextrose 50% 50 Ml Syringe) 25 - 50 ml IV UD PRN; Protocol PRN Reason: Hypoglycemia Protocol Stop: 03/07/21 04:38 Diphenhydramine HCl (Diphenhydramine 50 Mg/Ml Vial) 25 mg IV Q6H SHMUEL Stop: 03/07/21 05:59 Last Admin: 02/05/21 06:08 Dose: 25 mg Documented by: Glucagon (Glucagon For Inj 1 Mg Vial) 1 mg SQ UD PRN; Protocol PRN Reason: Hypoglycemia Protocol Stop: 03/07/21 04:38 Glucose (Glucose 10 Tabs/Tube) 4 - 8 tabs PO UD PRN; Protocol PRN Reason: Hypoglycemia Protocol Stop: 03/07/21 04:38 Glucose (Glucose 40% Gel 15 Gm Tube) 15 - 30 gm PO UD PRN; Protocol PRN Reason: Hypoglycemia Protocol Stop: 03/07/21 04:38 Sodium Chloride (Nss 1000ml) 1,000 mls @ 80 mls/hr IV .[id number] [facility] Stop: 02/05/21 17:59 Last Admin: 02/05/21 06:28 Dose: 80 mls/hr Documented by: Famotidine 20 mg/ Syringe 5 mls @ 2.5 mls/min IV Q12H [facility] Stop: 03/07/21 05:59 Last Admin: 02/05/21 06:07 Dose: 2.5 mls/min Documented by: Dexamethasone 6 mg/ Syringe 1.5 mls @ 1 mls/min IV Q8H [facility] Stop: 03/07/21 05:59 Last Admin: 02/05/21 06:06 Dose: 1 mls/min Documented by: Insulin Aspart (Insulin Aspart 100 Units/Ml 3 Ml Pen) 0 units SC ACHS [facility]; Protocol Stop: 03/07/21 05:44 Last Admin: 02/05/21 06:04 Dose: 11 units Documented by: Labetalol HCl (Labetalol Hcl Iv 5 Mg/Ml 20ml) 10 mg IV Q6H PRN PRN Reason: Hypertension Stop: 03/06/21 19:10 Miscellaneous (Carbohydrates For Hypoglycemia ) 15 - 30 gm PO UD PRN PRN Reason: Hypoglycemia Protocol Stop: 03/07/21 04:38 Miscellaneous (*Fluocinolone*Order Awaiting Action) 1 ea N/A QS SHMUEL Stop: 03/07/21 07:59 Miscellaneous Information (Pharmacy Glycemic Mgmt Consult) 1 ea N/A UD PRN PRN Reason: Consult Stop: 03/07/21 04:38 Ondansetron HCl (Ondansetron Inj 2 Mg/Ml 2 Ml Vial) 4 mg IV Q6H PRN PRN Reason: Nausea Stop: 03/07/21 04:38 Polyethylene Glycol (Polyethylene (Miralax) 17 Gm Pack) 17 gm PO DAILY PRN PRN Reason: Constipation Stop: 03/07/21 04:38 Travoprost (Travoprost Z 0.004% Oph Soln 2.5 Ml Btl) 1 drops OPB HS SHMUEL Stop: 03/07/21 20:59 (1) Angioedema Encounter type: initial encounter Qualified Code(s): T78.3XXA - Angioneurotic edema, initial encounter
[2021-02-05] MEDS ORDERED: carvediloL 12.5 MG TAB PO SCH (09:00)
[2021-02-05] MEDS ORDERED: ASPIRIN 81 MG ECTAB PO SCH (09:00)
[2021-02-05 09:04] VITALS: TEMP 98.2
--- NOTE | 2021-02-05 09:45 | Discharge Summary ---
Date of Service February 05, 2021 Admission HPI Per Admitting Provider Pt is 70 y/o M with PMH DM 2, HTN, dyslipidemia, CKD III, LVH, gout, sleep apnea, obesity presented to ER with complaint of facial swelling started approximately 2 PM today. Patient with ongoing pruritic rash for several months and is following up with [facility] dermatology. He has been treated with topical steroid ointments and last week started light therapy. Patient states overall rash has improved however his skin has sloughed off and still has some itching. Today cardiology had prescribed prednisone 20 mg daily for this rash. Patient states he took a dose and then took a nap and when he woke up he noticed that his face was swollen. Reports entire face swollen including periorbital and lips. Denies any noted tongue edema. Denies trouble swallowing, shortness of breath, wheezing, nausea, vomiting, diarrhea, abdominal pain. Denies any new rash or hives. Of note patient discontinued all of his medications 01/08/2021 as he was concerned medications may be causing his rash. 2 days ago he resumed taking his medications however has not had medications today. Denies any other new medications, OTC meds, supplements, or topicals. Denies fever/chills, diaphoresis, ORTIZ, dizziness, syncope, vision changes, neck pain, CP, SOB, orthopnea, palpitations, cough, sore throat, choking, otalgia, rhinorrhea, abdominal pain, paresthesias, weakness, extremity weakness, extremity edema, urinary symptoms. In ER patient without any noted airway compromise, was given Benadryl 25 mg IV, Pepcid 20 mg IV, dexamethasone 10 mg IV. During ER course patient with decreased facial edema. Patient being admitted for further observation. Admission Exam Per Admitting Provider General: no distress, obese Head: normocephalic, atraumatic Eyes: PERRL, EOM's intact, conjunctiva non-injected, anicteric; no periorbital edema Face: lower lip edema, slight edema over maxillary region/cheeks ENT: normal inspection external ears, nose, mucous membranes moist; no tongue edema, no uvula edema Neck: supple, trachea midline, non-tender Lungs: clear, no respiratory distress, no wheezing/rhonchi/rales CV: RRR, no murmur, no pretibial edema Abd: normal BS, soft, non-tender Ext: no cyanosis, no calf tenderness Neuro: A&O x 3, no focal deficits noted, normal affect Skin: warm, diffuse dry peeling skin Principal Diagnosis Angioedema, possibly secondary to medication/lisinopril Discharge Exam General: no distress, obese M Head: normocephalic, atraumatic Eyes: PERRL, EOM's intact, conjunctiva non-injected, anicteric; no periorbital edema Face: lower lip edema, slight edema over maxillary region/cheeks ENT: normal inspection external ears, nose, mucous membranes moist; no tongue edema, no uvula edema Neck: supple, trachea midline, non-tender Lungs: clear, no respiratory distress, no wheezing/rhonchi/rales CV: RRR, no murmur, no pretibial edema Abd: normal BS, soft, non-tender, +obese Ext: no cyanosis, no calf tenderness, moves extremities spontaneously and to difficulty Neuro: A&O x 3, answers questions appropriately, no facial asymmetry, speech fluent, moves extremities Skin: warm, diffuse dry peeling skin Discharge Data Allergies Allergy/AdvReac Type Severity Reaction Status Date / Time prednisone Allergy Severe FACE, Verified 02/04/21 17:24 LIPS, & TONGUE SWELLS lisinopril Allergy Angioedema Verified 02/04/21 20:37 Consultations 02/04/21 17:57 ED Decision to Admit Stat Hospital Course (1) Angioedema: Pt is a 70 y/o M w/ DM 2, HTN, dyslipidemia, CKD III, LVH, gout, sleep apnea, obesity presented to ER with complaint of facial swelling started approximately 2 PM. Patient with ongoing pruritic rash for several months. Took prednisone x 1 dose today for rash and later developed facial edema. Denies dysphagia, SOB, wheezing, N/V/D, abdominal pain. Patient is on ARMANDO inhibitor. Had discontinued all medications 1 month ago and resumed 2 days ago. In ER patient without any noted airway compromise, was given Benadryl 25 mg IV, Pepcid 20 mg IV, dexamethasone 10 mg IV. During ER course patient with moderate improvement with decreased facial edema Angioedema possible secondary to ARMANDO inhibitor Monitor closely Hold lisinopril Will hold prednisone currently Pepcid, Benadryl IV, dexamethasone IVF 02/06 -clinically patient is doing well, never had any neck swelling, shortness of breath, wheezing He is eager to go home Recommend to avoid any unusual foods, fruits, or nuts Recommend to stop lisinopril for now and monitor blood pressure at home Patient will closely follow-up with PCP and dermatology, both appointments already scheduled Will discharge on Pepcid and Benadryl (2) Dermatitis: Patient with ongoing pruritic rash for several months and is following up with [facility] dermatology. Started light therapy Patient had skin biopsy on 01/08/2021: Subacute spongiotic dermatitis Continue topical steroid as needed Continue outpatient dermatology follow-up -next appointment tomorrow, February 06 (3) Hypertension: In ER BP: 196/93, 206/105. BP retaken with large adult cuff: 171/91 Current BP this AM 159/88. Patient had discontinued medications for a month and resumed 2 days ago. Did not have any BP meds on day of admission Continue carvedilol Hold lisinopril as possible source of angioedema Labetalol IV as needed Follow BP, anticipate will need to add different BP agent Patient follow-up as outpatient for BP (4) Diabetes mellitus, type II: Hold home Metformin, glimepiride, Victoza Basal bolus insulin per protocol current A1c 6.9% Resume home meds on DC (5) CKD (chronic kidney disease), stage III: Cr: 1.45. Baseline Cr: 1.3-1.5 Avoid nephrotoxic agents when possible, monitor renal function (6) Dyslipidemia: Continue atorvastatin DVT Prophylaxis -SCDs Full Code as per discussion with pt Follows with Dr White for routine care Total Time Total Time Spent Total Time Spent (In Minutes): 35 Discharge Plan Discharge Items Patient Disposition: Home - Self-Care Reason For Visit: ANGIOEDEMA Discharge Diagnosis: Angioedema, possibly secondary to medication/lisinopril Condition on Discharge: Good Activity: Per Instructions section Non-emergency contact: Primary Care Provider Call non-emergency contact if: you have any medication questions and your symptoms worsen Follow-up/Referrals: Dale White MD [Primary Care Provider] - (Date & Time 02/11/2021 11:20 AM Provider Dale White MD Department General Internal Medicine [facility] ) Diet: Carb Consistent or DM2, Heart Healthy and Low Sodium (2gm) Fluids: 1800ml (7 cups) Addtl Attending Provider Instructions: Please follow-up with your primary care doctor, the appointment was scheduled for you for January 11. You also have an appointment with dermatology, tomorrow, February 06, at 2 PM. Recommend low-sodium diet and fluid restriction up to 7 cups a day of fluid. Recommend checking your blood pressure at home if you are able to. Your blood pressure medications may need further adjustment, therefore it is very important that you follow-up with your primary care doctor. As discussed, for now do not take lisinopril as this may have caused your swelling/allergic reaction. Also do not take prednisone for now until discussed further with your healthcare providers. Take Pepcid and Benadryl, as prescribed, to help with facial swelling. Benadryl can make you drowsy, and so avoid driving or operating heavy machinery while taking it. Pending Studies at Discharge: No Stand-Alone Forms: My [facility] [employer], Smoking Cessation Medications and DC Order Prescriptions: New diphenhydramine HCl [Benadryl] 25 mg capsule 25 mg PO Q6H Qty: 14 RF: 0 famotidine [Pepcid AC] 20 mg tablet 20 mg PO BID 5 Days Qty: 10 RF: 0 Continued carvedilol 12.5 mg tablet 12.5 mg PO BID RF: 0 atorvastatin 10 mg tablet 10 mg PO HS RF: 0 travoprost 0.004 % drops 1 drp OPB HS RF: 0 aspirin 81 mg tablet,delayed release (DR/EC) 81 mg PO DAILY RF: 0 triamcinolone acetonide 0.1 % cream 1 applic TOPICAL DIRECTED PRN (Reason: AFFECTED AREA) RF: 0 glimepiride 4 mg tablet 4 mg PO DAILY RF: 0 fluocinolone 0.025 % ointment 1 applic TOPICAL BID PRN (Reason: Rash) RF: 0 ergocalciferol (vitamin D2) [Vitamin D2] 1,250 mcg (50,000 unit) Capsule 1,250 mcg PO MONTHLY RF: 0 metformin 500 mg tablet extended release 24 hr 1,000 mg PO DAILY RF: 0 Victoza 3-Everette 0.6 mg/0.1 mL (18 mg/3 mL) pen injector 1.2 mg SUBCUT DAILY RF: 0 Discontinued sildenafil 50 mg tablet 50 mg PO DAILY PRN (Reason: Erectile Dysfunction) RF: 0 lisinopril 40 mg tablet 40 mg PO DAILY RF: 0 prednisone 20 mg tablet 20 mg PO DAILY RF: 0 Discharge Orders: Discharge Order (Routine); Ordered 02/05/21 Ordered By: Joe Burris/Other Patient Handouts: A1C, Managing Type 2 Diabetes Admission Data Admit Date/Time: 02/04/21 18:29 Attending Provider: Joe Alva Admit Provider: Kel Souza Primary Care Provider: Dale White Other Providers: Kel Souza
[2021-02-05 11:00] VITALS: PULSE 70
[2021-02-05 11:56] VITALS: BP 148/82; O2SAT 98
[2021-02-05] MEDS ORDERED: ATORVASTATIN 10 MG TAB PO SCH (21:00)
[2021-02-05] MEDS ORDERED: TRAVOPROST Z 0.004% OPH SOLN 2.5 ML BTL OPB SCH (21:00)
--- NOTE | 2021-02-06 05:39 | Electrocardiogram Report ---
Test Reason : Blood Pressure : / mmHG Vent. Rate : 100 BPM Atrial Rate : 100 BPM P-R Int : 186 ms QRS Dur : 096 ms QT Int : 362 ms P-R-T Axes : 059 -42 071 degrees QTc Int : 466 ms Normal sinus rhythm Left axis deviation Abnormal ECG When compared with ECG of 11-NOV-2017 07:18, No significant change was found Confirmed by Xavier Anderson ([id number] on 02/06/2021 5:39:10 AM Referred By: REFERRED SELF Confirmed By:Xavier Anderson
== END 2021-02-05 12:40 | disposition home or self-care (01) ==
LOC: ED 15:06 → EDINP 15:06 → SUATTDRO 18:29 → EDINP 23:00
DX: T78.3XXA Angioneurotic edema, initial encounter; E66.9 Obesity, unspecified; L30.9 Dermatitis, unspecified; Z79.899 Other long term (current) drug therapy; G47.30 Sleep apnea, unspecified; Z79.84 Long term (current) use of oral hypoglycemic drugs; Z79.82 Long term (current) use of aspirin; E11.22 Type 2 diabetes mellitus with diabetic chronic kidney disease; I12.9 Hypertensive chronic kidney disease with stage 1 through stage 4 chronic kidney disease, or unspecified chronic kidney disease; N18.30 Chronic kidney disease, stage 3 unspecified; E78.5 Hyperlipidemia, unspecified

== ENCOUNTER 2021-02-16 16:01 | Inpatient (IN) ==
[2021-02-16] MEDS ORDERED: SODIUM CHLORIDE 0.9% 1000ML 1,000 ML IV ONE ×3 (16:07→17:44)
[2021-02-16] MEDS ORDERED: ACETAMINOPHEN 500 MG TAB PO STA (16:07)
[2021-02-16] MEDS ORDERED: PIPERACILLIN/TAZOBACTAM 4.5 GM/120 ML BAG IV ONE (16:08)
[2021-02-16] MEDS ORDERED: PIPERACILL/TAZOBAC CONSULT ACTIVE PRN (16:08)
[2021-02-16] MEDS ORDERED: ACETAMINOPHEN 650 MG SUPP PR STA (16:08)
[2021-02-16] MEDS ORDERED: ACETAMINOPHEN 1000 MG/100 ML IV IV ONE (16:10)
[2021-02-16] MEDS ORDERED: RAPID SEQUENCE INDUCTION BAG ONE (16:13)
--- NOTE | 2021-02-16 16:39 | Emergency Department Note ---
Impression & Plan Hyperthermia, Acute alteration in mental status, Respiratory failure, Acute hyperglycemia, Lung mass, Sepsis ED Provider Note NAME: GABRIEL GORMAN AGE: 70 SEX: M : 1950 ARRIVES VIA: Ambulance INFORMANT: EMS personnel ED PROVIDER(S): Tunde Mckeon DO CHIEF COMPLAINT: Altered normal status HPI: The patient is a 70-year-old male who presented to the emergency department for an evaluation of altered mental status. I received a prehospital notification about the patient. He was hyperthermic and altered in his car. The patient's gives some of the history. She states that over the last few days he has been very tired and sleeping more than usual. He was going to call off of work today but instead decided to go to work because he could not get coverage for his job. She thinks that he left the house at around 230. She went out and saw his car was still in the driveway. She is unsure if he drove anywhere but when she went to look into the vehicle she realized he was still in the car. He was obtunded. 911 was called. They found him to have an axillary temperature of 106 degrees. The patient was wearing a heavy coat. The patient had no history of trauma. He is being treated for a rash that has been taking Benadryl and prednisone. This is his only new medication and has been on it for many weeks. The patient was recently mid to our facility for angioedema. He was not complaining of any headache. He has had no lower extremity pain but has had swelling. The patient otherwise has been compliant with his outpatient occasions he was for to be tensive and hyperglycemic prior to arrival as well. ROS: See above HPI for pertinent positives & negatives. A total of 10 systems reviewed and were otherwise negative. PAST MEDICAL HISTORY: See Below PAST SURGICAL HISTORY: See Below FAMILY HISTORY: See Below SOCIAL HISTORY: See Below HOME MEDICATIONS: See Below ALLERGIES: See Below VITALS: See Below PHYSICAL EXAMINATION: GENERAL: The patient is obtunded and has an I gel airway in place. The patient is breathing on his own. EYES: The conjunctivae are clear. The pupils are round and reactive. EARS, NOSE, MOUTH AND THROAT: The nose is without any evidence of any deformity. Mucous membranes are dry. NECK: The neck is nontender and supple. RESPIRATORY: Diminished and ineffective breath sounds are noted bilaterally. CARDIOVASCULAR: Irregular rhythm was noted to auscultation. Tachycardic rate was also noted. GASTROINTESTINAL: The abdomen is soft. Abdomen is nontender. MUSCULOSKELETAL/EXTREMITIES: There is no evidence of gross deformity full range of motion is noted in the hips and shoulders. SKIN: Skin was warm and dry. Pedal edema was noted bilaterally. NEUROLOGIC: GCS of 3. The patient does not appear to be moving his extremities at all. Reportedly the patient moves his right leg with a started running fluid through an IO in his right leg. MEDICAL DECISION MAKING: The patient is a 70-year-old male who presented to the emergency department for an evaluation of altered mental status. The patient was found in his vehicle. He was hypothermic. He required airway intervention prior to arrival and then definitive airway management upon arrival to the emergency department. The patient was treated as he was septic but he was also treated for heatstroke. His temperature was brought down gradually and eventually significantly improved. The patient continued to have dysautonomia. He was very diaphoretic. His blood pressure was fluctuating but most of the time was hypotension. He was treated with IV fluids and IV antibiotics. His blood glucose was treated with IV fluids. He was reevaluated multiple times. The patient required a central line for further resuscitation. [facility] have agreed to evaluate the patient in the emergency department for further management and disposition. The patient had a lumbar puncture. The patient also had further neuroimaging ordered by the admitting team. Triage Nursing notes reviewed. Prior medical records reviewed Vital Signs: reviewed and remarkable for hypotension. Differential diagnosis: Infection, hypoglycemia, electrolyte abnormalities, overdose, toxicologic, card iac sources, intracerebral event, neurologic, trauma, as well as other pathologies. ER treatment provided: See below Diagnostics interpreted by me: ECG: EKG was obtained in the emergency department. My interpretation is sinus tachycardia at [address] segment abnormalities were noted. Peak T waves are noted. This was compared to a tracing from February 042020. The ST segment in the T wave abnormalities are new compared to previous. Cardiac Monitoring: An order was placed for continuous cardiac monitoring. The monitor shows a rate of 87 bpm with sinus rhythm. Laboratory studies: As stated above and show below. Imaging studies: See below Consultation(s): 1900: I discussed this case with Gabbie [facility] will evaluate the patient in the emergency department. ED COURSE: Procedures: Endotracheal Intubation Indication respiratory failure. The patient was on 100% oxygen via NRB prior to the procedure. Suction, airway equipment, RSI drugs, respiratory equipment, and appropriate personnel were prepared prior to the initiation of the procedure. A time out was taken. Induction was performed with etomidate and rocuronium. After observing the clinical benefit of the medications, the airway was easily visualized utilizing a glide scope. A 8.0 size ETT tube was placed atraumatically to 25 cm using standard technique. The cuff inflated without signs of malfunction. There were bilateral breath sounds, positive colormetric change, no gastric sounds, a good capnography waveform, and post procedure pulse oximetry was 98%. There were no complications. Femoral Central Venous Catheter Indication: Sepsis Catheter Type: Triple-lumen Location: Left femoral vein At this time, the risks of the procedure are less than the risks of NOT performing the procedure. A time out was taken and the correct patient and site identified. The patient was placed in the supine position and the skin was prepped in the standard fashion with chlorhexidine and full sterile drapes applied. The proper landmarks were identified with ultrasound, anesthetized with 1% lidocaine without epinephrine, and the needle was inserted through the skin in the standard fashion. The needle was carefully advanced into blood vessel lumen with ultrasound guidance. The guidewire was placed uneventfully. The vessel is dilated and the catheter was placed. It was sutured into posit ion. There was good blood return from all ports. The patient tolerated the procedure well and there were no complications. Lumbar Puncture Indication: Fever . Verbal consent was obtained after the risks and benefits were explained, including but not limited to headache, bleeding/clotting, scarring, infection, pain, and bone/joint/nerve damage. At this time, the risks of the procedure are less than the risks of NOT performing the procedure. A time out was taken and the correct patient and site identified. The patient was placed in the right lateral recumbent position and the back was prepped with betadine and draped in the standard fashion. The L3 intervertebral space was identified, and the spinal needle was inserted through the skin with the bevel parallel to the dural fibers. The needle was carefully advanced into the lumbar cistern and 4 tubes of bloody CSF was obtained. The stylet was replaced and the needle was removed. A bandaid was placed and the patient was placed in the supine position. The patient tolerated the procedure well and there were no complications. PDMP:reviewed and no issues Critical Care: I have personally spent greater than 65 minutes of critical care time in the direct management of this patient. This includes bedside care, interpretation of diagnostic studies, and testing, discussion with consultants, patient, and f amily members, and other required patient management activities. This 65 minutes is in excess of all separately billable procedures. Past Med/Surg History Medical History CKD (chronic kidney disease), stage III Diabetes mellitus, type II Diabetic retinopathy Dyslipidemia Hypertension Near syncope Sleep apnea "CPAP" Surgical History Hx of colonoscopy Family History Other Cancer Coronary heart disease Diabetes Hypertension Social History Smoking Status: Never smoker Hx Alcohol Use: No Hx Substance Use: No Preferred Language: Citizen Of [place] Communication Ability: Effective Mental Health Worker Required: No Beliefs That Will Affect Care: None Current Living Situation: Spouse and Family Other Information That Helps Us Care for You: No Feels Safe at Home: Yes Safety Concerns: Feels Safe At This Time Assistive Devices: Oxygen - Continuous Allergies Allergies Allergy/AdvReac Type Severity Reaction Status Date / Time lisinopril Allergy Severe Angioedema Verified 02/16/21 17:06 prednisone Allergy Severe FACE, Verified 02/16/21 17:06 LIPS, & TONGUE SWELLS Home Meds Home Medications Medication Instructions Recorded Confirmed aspirin 81 mg tablet,delayed 81 mg PO DAILY 02/04/21 02/16/21 release atorvastatin 10 mg tablet 10 mg PO HS 02/04/21 02/16/21 carvedilol 12.5 mg tablet 12.5 mg PO BID 02/04/21 02/16/21 ergocalciferol (vitamin D2) 1,250 1,250 mcg PO MONTHLY 02/04/21 02/16/21 mcg (50,000 unit) capsule (Vitamin D2) fluocinolone 0.025 % topical 1 applic TOPICAL BID PRN 02/04/21 02/16/21 ointment glimepiride 4 mg tablet 4 mg PO DAILY 02/04/21 02/16/21 liraglutide 0.6 mg/0.1 mL (18 mg/3 1.2 mg SUBCUT DAILY 02/04/21 02/16/21 mL) subcutaneous pen injector (Victoza 3-Everette) metformin 500 mg tablet,extended 1,000 mg PO DAILY 02/04/21 02/16/21 release 24 hr travoprost 0.004 % eye drops 1 drp OPB HS 02/04/21 02/16/21 triamcinolone acetonide 0.1 % 1 applic TOPICAL DIRECTED PRN 02/04/21 02/16/21 topical cream famotidine 20 mg tablet (Pepcid) 20 mg PO BID 02/16/21 02/16/21 Previous Rx's Medication Instructions Recorded diphenhydramine HCl 25 mg capsule 25 mg PO Q6H #14 cap 02/05/21 (Benadryl) Results & Data (ED) Vital Signs Vital Signs - 24 hr 02/16/21 16:07 02/16/21 16:23 02/16/21 16:31 Temperature Temperature Source Pulse Rate 120 H 144 H 135 H Pulse Rate from SpO2 Sensor 125 H 144 H Respiratory Rate 32 H 18 19 Respiratory Effort / Characteristics Blood Pressure 80/44 L 115/87 Blood Pressure Mean 56 96 Pulse Oximetry 100 98 96 Oxygen Delivery Method Oxygen Flow Rate Fraction of Inspired Oxygen 60 Sepsis New/Unexplained Change in Mental Status Sepsis Action Taken by Nursing End-Tidal CO2 02/16/21 16:41 02/16/21 17:15 02/16/21 17:30 Temperature 38.2 C H Temperature Source Rectal Pulse Rate 127 H 113 H Pulse Rate from SpO2 Sensor 118 H 112 H Respiratory Rate 24 Respiratory Effort / Characteristics Mechanically Ventilated Blood Pressure 80/44 L 129/67 97/72 L Blood Pressure Mean 56 87 80 Pulse Oximetry 98 97 Oxygen Delivery Method Mechanical Vent Oxygen Flow Rate Fraction of Inspired Oxygen Sepsis New/Unexplained Change in Mental Status N/A Sepsis Action Taken by Nursing Physician Notified End-Tidal CO2 43 42 02/16/21 17:39 02/16/21 17:45 02/16/21 18:00 Temperature 37.9 C H Temperature Source Rectal Pulse Rate 109 H 107 H Pulse Rate from SpO2 Sensor 109 H 107 H Respiratory Rate Respiratory Effort / Characteristics Blood Pressure 89/74 L 152/131 H Blood Pressure Mean 79 138 Pulse Oximetry 98 98 Oxygen Delivery Method Mechanical Vent Mechanical Vent Other Oxygen Flow Rate 60 60 Fraction of Inspired Oxygen Sepsis New/Unexplained Change in Mental Status Sepsis Action Taken by Nursing End-Tidal CO2 39 40 02/16/21 18:17 02/16/21 18:28 02/16/21 18:30 Temperature 36.8 C Temperature Source Rectal Pulse Rate 102 H 101 H Pulse Rate from SpO2 Sensor 100 H Respiratory Rate Respiratory Effort / Characteristics Blood Pressure 132/61 Blood Pressure Mean 84 Pulse Oximetry 93 96 Oxygen Delivery Method Mechanical Vent Mechanical Vent Oxygen Flow Rate 60 60 Fraction of Inspired Oxygen Sepsis New/Unexplained Change in Mental Status Sepsis Action Taken by Nursing End-Tidal CO2 38 37 02/16/21 19:00 02/16/21 19:12 02/16/21 19:14 Temperature Temperature Source Pulse Rate 92 H Pulse Rate from SpO2 Sensor Respiratory Rate Respiratory Effort / Characteristics Blood Pressure 120/62 Blood Pressure Mean 81 Pulse Oximetry 92 100 99 Oxygen Delivery Method Mechanical Vent Mechanical Vent Oxygen Flow Rate Fraction of Inspired Oxygen Sepsis New/Unexplained Change in Mental Status Sepsis Action Taken by Nursing End-Tidal CO2 31 02/16/21 19:15 02/16/21 19:30 02/16/21 19:45 Temperature Temperature Source Pulse Rate 86 83 81 Pulse Rate from SpO2 Sensor Respiratory Rate Respiratory Effort / Characteristics Blood Pressure 103/54 L 83/63 L 88/54 L Blood Pressure Mean 70 69 65 Pulse Oximetry Oxygen Delivery Method Oxygen Flow Rate Fraction of Inspired Oxygen Sepsis New/Unexplained Change in Mental Status Sepsis Action Taken by Nursing End-Tidal CO2 26 27 02/16/21 20:00 Temperature 34.9 C L Temperature Source Pulse Rate 79 Pulse Rate from SpO2 Sensor Respiratory Rate Respiratory Effort / Characteristics Blood Pressure 88/65 L Blood Pressure Mean 72 Pulse Oximetry 100 Oxygen Delivery Method Oxygen Flow Rate Fraction of Inspired Oxygen Sepsis New/Unexplained Change in Mental Status Sepsis Action Taken by Nursing End-Tidal CO2 26 Home Medications Current Medication List: was personally reviewed by me Laboratory Data Attestation: I reviewed the patient's lab results. Result diagrams: 02/17/21 05:14 02/17/21 05:14 Lab Results 02/16/21 02/16/21 02/16/21 Range/Units 17:41 17:41 17:41 WBC 12.19 H (4.8-10.8) K/uL RBC 3.96 L (4.7-6.1) M/uL Hgb 12.9 L (14.0-18.0) g/dL POC Hgb (14.0-18.0) g/dl Hct 38.5 L (42-52) % POC Hct (42-52) % MCV 97.2 (80-100) fL MCH 32.6 (25-34) pg MCHC 33.5 (32-36) g/dL RDW Std Deviation 48.0 H (36.4-46.3) fL RDW Coeff of Kaelyn 13.6 (11.5-14.5) % Plt Count 316 (130-400) K/uL MPV 9.4 (7.4-10.4) fL Immature Gran % (Auto) 0.9 % Neut % (Auto) 79.5 % Lymph % (Auto) 12.6 % Sevier % (Auto) 3.6 % Eos % (Auto) 3.2 % Baso % (Auto) 0.2 % Neut # (Auto) 9.69 H (1.4-6.5) K/uL Lymph # (Auto) 1.54 (1.2-3.4) K/uL Sevier # (Auto) 0.44 (0.11-0.59) K/uL Eos # (Auto) 0.39 (0-0.5) K/uL Baso # (Auto) 0.02 (0-0.2) K/uL Immature Gran # (Auto) 0.11 H (0.00-0.02) K/uL Absolute Nucleated RBC 0.04 H (0-0) K/uL Nucleated RBC % (auto) 0.3 % PT 14.8 H (9.0-12.0) Seconds INR 1.5 H (0.9-1.1) APTT 25.9 (21.0-31.0) Seconds PTT Ratio 1.0 ABG pH (7.35-7.45) ABG pCO2 (35-46) mmHg ABG pO2 (80-95) mmHg ABG HCO3 (19-24) mmol/L ABG O2 Saturation (90-95) % ABG Base Excess (-9-1.8) mEq/L Lb Test (Pos) VBG pH (7.36-7.41) VBG pCO2 (38-50) mmHg VBG pO2 mmHg VBG HCO3 mmol/L VBG O2 Saturation % VBG Base Excess mEq/L Carboxyhemoglobin % THgb Barometric Pressure mm/Hg Oxygen Given POC Sodium (135-144) mmol/L Sodium 138 (136-145) mmol/L POC Potassium (3.3-5.0) mmol/L Potassium 5.2 H (3.5-5.1) mmol/L POC Chloride (101-112) mmol/L Chloride 110 H (98-107) mmol/L Carbon Dioxide 22 (21-32) mmol/L POC Total CO2 (24-31) mmol/L Anion Gap 7.0 (3-11) POC Anion Gap (16-25) mmol/L POC BUN (7-18) mg/dl BUN 21 H (7-18) mg/dl Creatinine 2.72 H (0.6-1.4) mg/dl POC Creatinine (0.6-1.3) mg/dl Est Cr Clr Drug Dosing Not Reportable Est GFR ( Amer) 26.2 ml/min Est GFR (Non-Af Amer) 22.6 ml/min BUN/Creatinine Ratio 7.8 L (10-20) Glucose 350 H* (70-99) mg/dl POC Glucose (70-99) mg/dl POC Glucose (other) (70-99) mg/dl Osmolality (280-300) mOsm/kg Lactate (0.4-2.0) mmol/L Calcium 7.1 L (8.5-10.1) mg/dl POC Ioniz Calcium Mahsa (1.12-1.32) mmol/l Magnesium 1.6 L (1.8-2.4) mg/dl Total Bilirubin 0.5 (0.2-1) mg/dl AST 31 (15-37) U/L ALT 29 (12-78) U/L Alkaline Phosphatase 66 (45-117) U/L Ammonia (11-32) umol/L Total Creatine Kinase 248 (39-308) U/L CK-MB (CK-2) 1.4 (0.5-3.6) ng/ml CK/CKMB % Calc 0.6 (0-3.0) Troponin I 0.089 H* (0-0.045) ng/ml C-Reactive Protein (0-0.29) mg/dl NT-Pro-B Natriuret Pep 329 (0-900) pg/ml Total Protein 6.2 L (6.4-8.2) gm/dl Albumin 2.5 L (3.4-5.0) gm/dl Globulin 3.7 (2.5-4.0) gm/dl Albumin/Globulin Ratio 0.7 L (0.9-2) Beta-Hydroxybutyric Acd 2.88 H (0.2-2.81) mg/dl Procalcitonin (0-0.5) ng/ml Random Cortisol mcg/dl Urine Color Urine Appearance (Clear) Urine pH (4.5-7.5) Ur Specific [place] (1.000-1.030) Urine Protein (Negative) Urine Glucose (UA) (Negative) Urine Ketones (Negative) Urine Blood (Negative) Urine Nitrite (Negative) Urine Bilirubin (Negative) Urine Urobilinogen (Negative) Ur Leukocyte Esterase (Negative) Urine WBC (Auto) (0-5) /hpf Urine RBC (Auto) (0-4) /hpf U Hyaline Cast (Auto) (0-5) /lpf U Epithel Cells (Auto) (0-5) /lpf Urine Bacteria (Auto) (Negative) Urine Yeast Urine Osmolality (500-800) mOsm/kg Ur Random Sodium mmol/L Urine Opiates Screen (Neg) Ur Methadone, Qual (Neg) Urine Barbiturates (Neg) Ur Phencyclidine (PCP) (Neg) U Amphetamin/Meth Scrn (Neg) MDMA (Ecstasy) Screen (Neg) U Benzodiazepines Scrn (Neg) Ur Cocaine Metabolite (Neg) U Marijuana (THC) Screen (Neg) Ethyl Alcohol mg/dL (0-3) mg/dl COVID-19 Eval Order SARS-CoV-2 (PCR) (Negative) 02/16/21 02/16/21 02/16/21 Range/Units 17:41 17:41 17:41 WBC (4.8-10.8) K/uL RBC (4.7-6.1) M/uL Hgb (14.0-18.0) g/dL POC Hgb (14.0-18.0) g/dl Hct (42-52) % POC Hct (42-52) % MCV (80-100) fL MCH (25-34) pg MCHC (32-36) g/dL RDW Std Deviation (36.4-46.3) fL RDW Coeff of Kaelyn (11.5-14.5) % Plt Count (130-400) K/uL MPV (7.4-10.4) fL Immature Gran % (Auto) % Neut % (Auto) % Lymph % (Auto) % [place]vier % (Auto) % Eos % (Auto) % Baso % (Auto) % Neut # (Auto) (1.4-6.5) K/uL Lymph # (Auto) (1.2-3.4) K/uL [place] # (Auto) (0.11-0.59) K/uL Eos # (Auto) (0-0.5) K/uL Baso # (Auto) (0-0.2) K/uL Immature Gran # (Auto) (0.00-0.02) K/uL Absolute Nucleated RBC (0-0) K/uL Nucleated RBC % (auto) % PT (9.0-12.0) Seconds INR (0.9-1.1) APTT (21.0-31.0) Seconds PTT Ratio ABG pH (7.35-7.45) ABG pCO2 (35-46) mmHg ABG pO2 (80-95) mmHg ABG HCO3 (19-24) mmol/L ABG O2 Saturation (90-95) % ABG Base Excess (-9-1.8) mEq/L Lb Test (Pos) VBG pH 7.26 L (7.36-7.41) VBG pCO2 50 (38-50) mmHg VBG pO2 54 mmHg VBG HCO3 22 mmol/L VBG O2 Saturation 80.9 % VBG Base Excess -5.4 mEq/L Carboxyhemoglobin 0.0 % THgb Barometric Pressure 733.8 mm/Hg Oxygen Given POC Sodium (135-144) mmol/L Sodium (136-145) mmol/L POC Potassium (3.3-5.0) mmol/L Potassium (3.5-5.1) mmol/L POC Chloride (101-112) mmol/L Chloride (98-107) mmol/L Carbon Dioxide (21-32) mmol/L POC Total CO2 (24-31) mmol/L Anion Gap (3-11) POC Anion Gap (16-25) mmol/L POC BUN (7-18) mg/dl BUN (7-18) mg/dl Creatinine (0.6-1.4) mg/dl POC Creatinine (0.6-1.3) mg/dl Est Cr Clr Drug Dosing Est GFR ( Amer) ml/min Est GFR (Non-Af Amer) ml/min BUN/Creatinine Ratio (10-20) Glucose (70-99) mg/dl POC Glucose (70-99) mg/dl POC Glucose (other) (70-99) mg/dl Osmolality (280-300) mOsm/kg Lactate 2.8 H* (0.4-2.0) mmol/L Calcium (8.5-10.1) mg/dl POC Ioniz Calcium Mahsa (1.12-1.32) mmol/l Magnesium (1.8-2.4) mg/dl Total Bilirubin (0.2-1) mg/dl AST (15-37) U/L ALT (12-78) U/L Alkaline Phosphatase (45-117) U/L Ammonia (11-32) umol/L Total Creatine Kinase (39-308) U/L CK-MB (CK-2) (0.5-3.6) ng/ml CK/CKMB % Calc (0-3.0) Troponin I (0-0.045) ng/ml C-Reactive Protein (0-0.29) mg/dl NT-Pro-B Natriuret Pep (0-900) pg/ml Total Protein (6.4-8.2) gm/dl Albumin (3.4-5.0) gm/dl Globulin (2.5-4.0) gm/dl Albumin/Globulin Ratio (0.9-2) Beta-Hydroxybutyric Acd (0.2-2.81) mg/dl Procalcitonin (0-0.5) ng/ml Random Cortisol mcg/dl Urine Color Urine Appearance (Clear) Urine pH (4.5-7.5) Ur Specific [place] (1.000-1.030) Urine Protein (Negative) Urine Glucose (UA) (Negative) Urine Ketones (Negative) Urine Blood (Negative) Urine Nitrite (Negative) Urine Bilirubin (Negative) Urine Urobilinogen (Negative) Ur Leukocyte Esterase (Negative) Urine WBC (Auto) (0-5) /hpf Urine RBC (Auto) (0-4) /hpf U Hyaline Cast (Auto) (0-5) /lpf U Epithel Cells (Auto) (0-5) /lpf Urine Bacteria (Auto) (Negative) Urine Yeast Urine Osmolality (500-800) mOsm/kg Ur Random Sodium mmol/L Urine Opiates Screen (Neg) Ur Methadone, Qual (Neg) Urine Barbiturates (Neg) Ur Phencyclidine (PCP) (Neg) U Amphetamin/Meth Scrn (Neg) MDMA (Ecstasy) Screen (Neg) U Benzodiazepines Scrn (Neg) Ur Cocaine Metabolite (Neg) U Marijuana (THC) Screen (Neg) Ethyl Alcohol mg/dL (0-3) mg/dl COVID-19 Eval Order SARS-CoV-2 (PCR) (Negative) 02/16/21 02/16/21 02/16/21 Range/Units 17:41 17:41 17:41 WBC (4.8-10.8) K/uL RBC (4.7-6.1) M/uL Hgb (14.0-18.0) g/dL POC Hgb (14.0-18.0) g/dl Hct (42-52) % POC Hct (42-52) % MCV (80-100) fL MCH (25-34) pg MCHC (32-36) g/dL RDW Std Deviation (36.4-46.3) fL RDW Coeff of Akelyn (11.5-14.5) % Plt Count (130-400) K/uL MPV (7.4-10.4) fL Immature Gran % (Auto) % Neut % (Auto) % Lymph % (Auto) % Sevier % (Auto) % Eos % (Auto) % Baso % (Auto) % Neut # (Auto) (1.4-6.5) K/uL Lymph # (Auto) (1.2-3.4) K/uL [place] # (Auto) (0.11-0.59) K/uL Eos # (Auto) (0-0.5) K/uL Baso # (Auto) (0-0.2) K/uL Immature Gran # (Auto) (0.00-0.02) K/uL Absolute Nucleated RBC (0-0) K/uL Nucleated RBC % (auto) % PT (9.0-12.0) Seconds INR (0.9-1.1) APTT (21.0-31.0) Seconds PTT Ratio ABG pH (7.35-7.45) ABG pCO2 (35-46) mmHg ABG pO2 (80-95) mmHg ABG HCO3 (19-24) mmol/L ABG O2 Saturation (90-95) % ABG Base Excess (-9-1.8) mEq/L Lb Test (Pos) VBG pH (7.36-7.41) VBG pCO2 (38-50) mmHg VBG pO2 mmHg VBG HCO3 mmol/L VBG O2 Saturation % VBG Base Excess mEq/L Carboxyhemoglobin % THgb Barometric Pressure mm/Hg Oxygen Given POC Sodium (135-144) mmol/L Sodium (136-145) mmol/L POC Potassium (3.3-5.0) mmol/L Potassium (3.5-5.1) mmol/L POC Chloride (101-112) mmol/L Chloride (98-107) mmol/L Carbon Dioxide (21-32) mmol/L POC Total CO2 (24-31) mmol/L Anion Gap (3-11) POC Anion Gap (16-25) mmol/L POC BUN (7-18) mg/dl BUN (7-18) mg/dl Creatinine (0.6-1.4) mg/dl POC Creatinine (0.6-1.3) mg/dl Est Cr Clr Drug Dosing Est GFR ( Amer) ml/min Est GFR (Non-Af Amer) ml/min BUN/Creatinine Ratio (10-20) Glucose (70-99) mg/dl POC Glucose (70-99) mg/dl POC Glucose (other) (70-99) mg/dl Osmolality 307 H (280-300) mOsm/kg Lactate (0.4-2.0) mmol/L Calcium (8.5-10.1) mg/dl POC Ioniz Calcium Mahsa (1.12-1.32) mmol/l Magnesium (1.8-2.4) mg/dl Total Bilirubin (0.2-1) mg/dl AST (15-37) U/L ALT (12-78) U/L Alkaline Phosphatase (45-117) U/L Ammonia (11-32) umol/L Total Creatine Kinase (39-308) U/L CK-MB (CK-2) (0.5-3.6) ng/ml CK/CKMB % Calc (0-3.0) Troponin I (0-0.045) ng/ml C-Reactive Protein (0-0.29) mg/dl NT-Pro-B Natriuret Pep (0-900) pg/ml Total Protein (6.4-8.2) gm/dl Albumin (3.4-5.0) gm/dl Globulin (2.5-4.0) gm/dl Albumin/Globulin Ratio (0.9-2) Beta-Hydroxybutyric Acd (0.2-2.81) mg/dl Procalcitonin 12.26 H (0-0.5) ng/ml Random Cortisol 31.19 mcg/dl Urine Color Urine Appearance (Clear) Urine pH (4.5-7.5) Ur Specific [place] (1.000-1.030) Urine Protein (Negative) Urine Glucose (UA) (Negative) Urine Ketones (Negative) Urine Blood (Negative) Urine Nitrite (Negative) Urine Bilirubin (Negative) Urine Urobilinogen (Negative) Ur Leukocyte Esterase (Negative) Urine WBC (Auto) (0-5) /hpf Urine RBC (Auto) (0-4) /hpf U Hyaline Cast (Auto) (0-5) /lpf U Epithel Cells (Auto) (0-5) /lpf Urine Bacteria (Auto) (Negative) Urine Yeast Urine Osmolality (500-800) mOsm/kg Ur Random Sodium mmol/L Urine Opiates Screen (Neg) Ur Methadone, Qual (Neg) Urine Barbiturates (Neg) Ur Phencyclidine (PCP) (Neg) U Amphetamin/Meth Scrn (Neg) MDMA (Ecstasy) Screen (Neg) U Benzodiazepines Scrn (Neg) Ur Cocaine Metabolite (Neg) U Marijuana (THC) Screen (Neg) Ethyl Alcohol mg/dL (0-3) mg/dl COVID-19 Eval Order SARS-CoV-2 (PCR) (Negative) 02/16/21 02/16/21 02/16/21 Range/Units 17:46 17:53 18:12 WBC (4.8-10.8) K/uL RBC (4.7-6.1) M/uL Hgb (14.0-18.0) g/dL POC Hgb 12.9 L (14.0-18.0) g/dl Hct (42-52) % POC Hct 38 L (42-52) % MCV (80-100) fL MCH (25-34) pg MCHC (32-36) g/dL RDW Std Deviation (36.4-46.3) fL RDW Coeff of Kaelyn (11.5-14.5) % Plt Count (130-400) K/uL MPV (7.4-10.4) fL Immature Gran % (Auto) % Neut % (Auto) % Lymph % (Auto) % [place] % (Auto) % Eos % (Auto) % Baso % (Auto) % Neut # (Auto) (1.4-6.5) K/uL Lymph # (Auto) (1.2-3.4) K/uL [place] # (Auto) (0.11-0.59) K/uL Eos # (Auto) (0-0.5) K/uL Baso # (Auto) (0-0.2) K/uL Immature Gran # (Auto) (0.00-0.02) K/uL Absolute Nucleated RBC (0-0) K/uL Nucleated RBC % (auto) % PT (9.0-12.0) Seconds INR (0.9-1.1) APTT (21.0-31.0) Seconds PTT Ratio ABG pH (7.35-7.45) ABG pCO2 (35-46) mmHg ABG pO2 (80-95) mmHg ABG HCO3 (19-24) mmol/L ABG O2 Saturation (90-95) % ABG Base Excess (-9-1.8) mEq/L Lb Test (Pos) VBG pH (7.36-7.41) VBG pCO2 (38-50) mmHg VBG pO2 mmHg VBG HCO3 mmol/L VBG O2 Saturation % VBG Base Excess mEq/L Carboxyhemoglobin % THgb Barometric Pressure mm/Hg Oxygen Given POC Sodium 139 (135-144) mmol/L Sodium (136-145) mmol/L POC Potassium 5.3 H (3.3-5.0) mmol/L Potassium (3.5-5.1) mmol/L POC Chloride 105 (101-112) mmol/L Chloride (98-107) mmol/L Carbon Dioxide (21-32) mmol/L POC Total CO2 21 L (24-31) mmol/L Anion Gap (3-11) POC Anion Gap 19.0 (16-25) mmol/L POC BUN 21 H (7-18) mg/dl BUN (7-18) mg/dl Creatinine (0.6-1.4) mg/dl POC Creatinine 2.6 H (0.6-1.3) mg/dl Est Cr Clr Drug Dosing Est GFR ( Amer) ml/min Est GFR (Non-Af Amer) ml/min BUN/Creatinine Ratio (10-20) Glucose (70-99) mg/dl POC Glucose (70-99) mg/dl POC Glucose (other) 341 H (70-99) mg/dl Osmolality (280-300) mOsm/kg Lactate (0.4-2.0) mmol/L Calcium (8.5-10.1) mg/dl POC Ioniz Calcium Mahsa 1.07 L (1.12-1.32) mmol/l Magnesium (1.8-2.4) mg/dl Total Bilirubin (0.2-1) mg/dl AST (15-37) U/L ALT (12-78) U/L Alkaline Phosphatase (45-117) U/L Ammonia (11-32) umol/L Total Creatine Kinase (39-308) U/L CK-MB (CK-2) (0.5-3.6) ng/ml CK/CKMB % Calc (0-3.0) Troponin I 0.096 H* (0-0.045) ng/ml C-Reactive Protein 5.01 H (0-0.29) mg/dl NT-Pro-B Natriuret Pep (0-900) pg/ml Total Protein (6.4-8.2) gm/dl Albumin (3.4-5.0) gm/dl Globulin (2.5-4.0) gm/dl Albumin/Globulin Ratio (0.9-2) Beta-Hydroxybutyric Acd (0.2-2.81) mg/dl Procalcitonin (0-0.5) ng/ml Random Cortisol mcg/dl Urine Color Urine Appearance (Clear) Urine pH (4.5-7.5) Ur Specific [place] (1.000-1.030) Urine Protein (Negative) Urine Glucose (UA) (Negative) Urine Ketones (Negative) Urine Blood (Negative) Urine Nitrite (Negative) Urine Bilirubin (Negative) Urine Urobilinogen (Negative) Ur Leukocyte Esterase (Negative) Urine WBC (Auto) (0-5) /hpf Urine RBC (Auto) (0-4) /hpf U Hyaline Cast (Auto) (0-5) /lpf U Epithel Cells (Auto) (0-5) /lpf Urine Bacteria (Auto) (Negative) Urine Yeast Urine Osmolality (500-800) mOsm/kg Ur Random Sodium mmol/L Urine Opiates Screen (Neg) Ur Methadone, Qual (Neg) Urine Barbiturates (Neg) Ur Phencyclidine (PCP) (Neg) U Amphetamin/Meth Scrn (Neg) MDMA (Ecstasy) Screen (Neg) U Benzodiazepines Scrn (Neg) Ur Cocaine Metabolite (Neg) U Marijuana (THC) Screen (Neg) Ethyl Alcohol mg/dL (0-3) mg/dl COVID-19 Eval Order Covid19 at [facility] SARS-CoV-2 (PCR) (Negative) 02/16/21 02/16/21 02/16/21 Range/Units 18:12 18:16 18:16 WBC (4.8-10.8) K/uL RBC (4.7-6.1) M/uL Hgb (14.0-18.0) g/dL POC Hgb (14.0-18.0) g/dl Hct (42-52) % POC Hct (42-52) % MCV (80-100) fL MCH (25-34) pg MCHC (32-36) g/dL RDW Std Deviation (36.4-46.3) fL RDW Coeff of Kaelyn (11.5-14.5) % Plt Count (130-400) K/uL MPV (7.4-10.4) fL Immature Gran % (Auto) % Neut % (Auto) % Lymph % (Auto) % [place] % (Auto) % Eos % (Auto) % Baso % (Auto) % Neut # (Auto) (1.4-6.5) K/uL Lymph # (Auto) (1.2-3.4) K/uL [place] # (Auto) (0.11-0.59) K/uL Eos # (Auto) (0-0.5) K/uL Baso # (Auto) (0-0.2) K/uL Immature Gran # (Auto) (0.00-0.02) K/uL Absolute Nucleated RBC (0-0) K/uL Nucleated RBC % (auto) % PT (9.0-12.0) Seconds INR (0.9-1.1) APTT (21.0-31.0) Seconds PTT Ratio ABG pH (7.35-7.45) ABG pCO2 (35-46) mmHg ABG pO2 (80-95) mmHg ABG HCO3 (19-24) mmol/L ABG O2 Saturation (90-95) % ABG Base Excess (-9-1.8) mEq/L Lb Test (Pos) VBG pH (7.36-7.41) VBG pCO2 (38-50) mmHg VBG pO2 mmHg VBG HCO3 mmol/L VBG O2 Saturation % VBG Base Excess mEq/L Carboxyhemoglobin % THgb Barometric Pressure mm/Hg Oxygen Given POC Sodium (135-144) mmol/L Sodium (136-145) mmol/L POC Potassium (3.3-5.0) mmol/L Potassium (3.5-5.1) mmol/L POC Chloride (101-112) mmol/L Chloride (98-107) mmol/L Carbon Dioxide (21-32) mmol/L POC Total CO2 (24-31) mmol/L Anion Gap (3-11) POC Anion Gap (16-25) mmol/L POC BUN (7-18) mg/dl BUN (7-18) mg/dl Creatinine (0.6-1.4) mg/dl POC Creatinine (0.6-1.3) mg/dl Est Cr Clr Drug Dosing Est GFR ( Amer) ml/min Est GFR (Non-Af Amer) ml/min BUN/Creatinine Ratio (10-20) Glucose (70-99) mg/dl POC Glucose (70-99) mg/dl POC Glucose (other) (70-99) mg/dl Osmolality (280-300) mOsm/kg Lactate (0.4-2.0) mmol/L Calcium (8.5-10.1) mg/dl POC Ioniz Calcium Mahsa (1.12-1.32) mmol/l Magnesium (1.8-2.4) mg/dl Total Bilirubin (0.2-1) mg/dl AST (15-37) U/L ALT (12-78) U/L Alkaline Phosphatase (45-117) U/L Ammonia (11-32) umol/L Total Creatine Kinase (39-308) U/L CK-MB (CK-2) (0.5-3.6) ng/ml CK/CKMB % Calc (0-3.0) Troponin I (0-0.045) ng/ml C-Reactive Protein (0-0.29) mg/dl NT-Pro-B Natriuret Pep (0-900) pg/ml Total Protein (6.4-8.2) gm/dl Albumin (3.4-5.0) gm/dl Globulin (2.5-4.0) gm/dl Albumin/Globulin Ratio (0.9-2) Beta-Hydroxybutyric Acd (0.2-2.81) mg/dl Procalcitonin (0-0.5) ng/ml Random Cortisol mcg/dl Urine Color Dark Yellow Urine Appearance Turbid A (Clear) Urine pH 5.0 (4.5-7.5) Ur Specific [place] 1.024 (1.000-1.030) Urine Protein 1+ H (Negative) Urine Glucose (UA) Negative (Negative) Urine Ketones Trace H (Negative) Urine Blood 3+ H (Negative) Urine Nitrite Negative (Negative) Urine Bilirubin Negative (Negative) Urine Urobilinogen Negative (Negative) Ur Leukocyte Esterase Trace H (Negative) Urine WBC (Auto) 5-10 H (0-5) /hpf Urine RBC (Auto) >30 H (0-4) /hpf U Hyaline Cast (Auto) 5-10 H (0-5) /lpf U Epithel Cells (Auto) >30 H (0-5) /lpf Urine Bacteria (Auto) Negative (Negative) Urine Yeast Not Reportable Urine Osmolality (500-800) mOsm/kg Ur Random Sodium mmol/L Urine Opiates Screen Neg (Neg) Ur Methadone, Qual Neg (Neg) Urine Barbiturates Neg (Neg) Ur Phencyclidine (PCP) Neg (Neg) U Amphetamin/Meth Scrn Neg (Neg) MDMA (Ecstasy) Screen Neg (Neg) U Benzodiazepines Scrn Neg (Neg) Ur Cocaine Metabolite Neg (Neg) U Marijuana (THC) Screen Neg (Neg) Ethyl Alcohol mg/dL (0-3) mg/dl COVID-19 Eval Order SARS-CoV-2 (PCR) NEGATIVE (Negative) 02/16/21 02/16/21 02/16/21 Range/Units 18:16 18:16 19:13 WBC (4.8-10.8) K/uL RBC (4.7-6.1) M/uL Hgb (14.0-18.0) g/dL POC Hgb (14.0-18.0) g/dl Hct (42-52) % POC Hct (42-52) % MCV (80-100) fL MCH (25-34) pg MCHC (32-36) g/dL RDW Std Deviation (36.4-46.3) fL RDW Coeff of Kaelyn (11.5-14.5) % Plt Count (130-400) K/uL MPV (7.4-10.4) fL Immature Gran % (Auto) % Neut % (Auto) % Lymph % (Auto) % [place] % (Auto) % Eos % (Auto) % Baso % (Auto) % Neut # (Auto) (1.4-6.5) K/uL Lymph # (Auto) (1.2-3.4) K/uL [place] # (Auto) (0.11-0.59) K/uL Eos # (Auto) (0-0.5) K/uL Baso # (Auto) (0-0.2) K/uL Immature Gran # (Auto) (0.00-0.02) K/uL Absolute Nucleated RBC (0-0) K/uL Nucleated RBC % (auto) % PT (9.0-12.0) Seconds INR (0.9-1.1) APTT (21.0-31.0) Seconds PTT Ratio ABG pH 7.31 L (7.35-7.45) ABG pCO2 42 (35-46) mmHg ABG pO2 133 H (80-95) mmHg ABG HCO3 21 (19-24) mmol/L ABG O2 Saturation 98.6 H (90-95) % ABG Base Excess -5.3 (-9-1.8) mEq/L Lb Test Pos (Pos) VBG pH (7.36-7.41) VBG pCO2 (38-50) mmHg VBG pO2 mmHg VBG HCO3 mmol/L VBG O2 Saturation % VBG Base Excess mEq/L Carboxyhemoglobin % THgb Barometric Pressure 734.4 mm/Hg Oxygen Given 60% POC Sodium (135-144) mmol/L Sodium (136-145) mmol/L POC Potassium (3.3-5.0) mmol/L Potassium (3.5-5.1) mmol/L POC Chloride (101-112) mmol/L Chloride (98-107) mmol/L Carbon Dioxide (21-32) mmol/L POC Total CO2 (24-31) mmol/L Anion Gap (3-11) POC Anion Gap (16-25) mmol/L POC BUN (7-18) mg/dl BUN (7-18) mg/dl Creatinine (0.6-1.4) mg/dl POC Creatinine (0.6-1.3) mg/dl Est Cr Clr Drug Dosing Est GFR ( Amer) ml/min Est GFR (Non-Af Amer) ml/min BUN/Creatinine Ratio (10-20) Glucose (70-99) mg/dl POC Glucose (70-99) mg/dl POC Glucose (other) (70-99) mg/dl Osmolality (280-300) mOsm/kg Lactate (0.4-2.0) mmol/L Calcium (8.5-10.1) mg/dl POC Ioniz Calcium Mahsa (1.12-1.32) mmol/l Magnesium (1.8-2.4) mg/dl Total Bilirubin (0.2-1) mg/dl AST (15-37) U/L ALT (12-78) U/L Alkaline Phosphatase (45-117) U/L Ammonia (11-32) umol/L Total Creatine Kinase (39-308) U/L CK-MB (CK-2) (0.5-3.6) ng/ml CK/CKMB % Calc (0-3.0) Troponin I (0-0.045) ng/ml C-Reactive Protein (0-0.29) mg/dl NT-Pro-B Natriuret Pep (0-900) pg/ml Total Protein (6.4-8.2) gm/dl Albumin (3.4-5.0) gm/dl Globulin (2.5-4.0) gm/dl Albumin/Globulin Ratio (0.9-2) Beta-Hydroxybutyric Acd (0.2-2.81) mg/dl Procalcitonin (0-0.5) ng/ml Random Cortisol mcg/dl Urine Color Urine Appearance (Clear) Urine pH (4.5-7.5) Ur Specific [place] (1.000-1.030) Urine Protein (Negative) Urine Glucose (UA) (Negative) Urine Ketones (Negative) Urine Blood (Negative) Urine Nitrite (Negative) Urine Bilirubin (Negative) Urine Urobilinogen (Negative) Ur Leukocyte Esterase (Negative) Urine WBC (Auto) (0-5) /hpf Urine RBC (Auto) (0-4) /hpf U Hyaline Cast (Auto) (0-5) /lpf U Epithel Cells (Auto) (0-5) /lpf Urine Bacteria (Auto) (Negative) Urine Yeast Urine Osmolality 546 (500-800) mOsm/kg Ur Random Sodium 64 mmol/L Urine Opiates Screen (Neg) Ur Methadone, Qual (Neg) Urine Barbiturates (Neg) Ur Phencyclidine (PCP) (Neg) U Amphetamin/Meth Scrn (Neg) MDMA (Ecstasy) Screen (Neg) U Benzodiazepines Scrn (Neg) Ur Cocaine Metabolite (Neg) U Marijuana (THC) Screen (Neg) Ethyl Alcohol mg/dL (0-3) mg/dl COVID-19 Eval Order SARS-CoV-2 (PCR) (Negative) 02/16/21 02/16/21 02/16/21 Range/Units 19:35 19:42 19:42 WBC (4.8-10.8) K/uL RBC (4.7-6.1) M/uL Hgb (14.0-18.0) g/dL POC Hgb (14.0-18.0) g/dl Hct (42-52) % POC Hct (42-52) % MCV (80-100) fL MCH (25-34) pg MCHC (32-36) g/dL RDW Std Deviation (36.4-46.3) fL RDW Coeff of Kaelyn (11.5-14.5) % Plt Count (130-400) K/uL MPV (7.4-10.4) fL Immature Gran % (Auto) % Neut % (Auto) % Lymph % (Auto) % [place] % (Auto) % Eos % (Auto) % Baso % (Auto) % Neut # (Auto) (1.4-6.5) K/uL Lymph # (Auto) (1.2-3.4) K/uL [place] # (Auto) (0.11-0.59) K/uL Eos # (Auto) (0-0.5) K/uL Baso # (Auto) (0-0.2) K/uL Immature Gran # (Auto) (0.00-0.02) K/uL Absolute Nucleated RBC (0-0) K/uL Nucleated RBC % (auto) % PT (9.0-12.0) Seconds INR (0.9-1.1) APTT (21.0-31.0) Seconds PTT Ratio ABG pH (7.35-7.45) ABG pCO2 (35-46) mmHg ABG pO2 (80-95) mmHg ABG HCO3 (19-24) mmol/L ABG O2 Saturation (90-95) % ABG Base Excess (-9-1.8) mEq/L Lb Test (Pos) VBG pH (7.36-7.41) VBG pCO2 (38-50) mmHg VBG pO2 mmHg VBG HCO3 mmol/L VBG O2 Saturation % VBG Base Excess mEq/L Carboxyhemoglobin % THgb Barometric Pressure mm/Hg Oxygen Given POC Sodium (135-144) mmol/L Sodium 139 (136-145) mmol/L POC Potassium (3.3-5.0) mmol/L Potassium 5.5 H (3.5-5.1) mmol/L POC Chloride (101-112) mmol/L Chloride 111 H (98-107) mmol/L Carbon Dioxide 22 (21-32) mmol/L POC Total CO2 (24-31) mmol/L Anion Gap 6.0 (3-11) POC Anion Gap (16-25) mmol/L POC BUN (7-18) mg/dl BUN 22 H (7-18) mg/dl Creatinine 2.76 H (0.6-1.4) mg/dl POC Creatinine (0.6-1.3) mg/dl Est Cr Clr Drug Dosing 33.1 Est GFR ( Amer) 25.8 ml/min Est GFR (Non-Af Amer) 22.2 ml/min BUN/Creatinine Ratio 7.8 L (10-20) Glucose 379 H* (70-99) mg/dl POC Glucose (70-99) mg/dl POC Glucose (other) (70-99) mg/dl Osmolality (280-300) mOsm/kg Lactate 2.5 H* (0.4-2.0) mmol/L Calcium 6.9 L (8.5-10.1) mg/dl POC Ioniz Calcium Mahsa (1.12-1.32) mmol/l Magnesium (1.8-2.4) mg/dl Total Bilirubin (0.2-1) mg/dl AST (15-37) U/L ALT (12-78) U/L Alkaline Phosphatase (45-117) U/L Ammonia 17.8 (11-32) umol/L Total Creatine Kinase 354 H (39-308) U/L CK-MB (CK-2) (0.5-3.6) ng/ml CK/CKMB % Calc (0-3.0) Troponin I (0-0.045) ng/ml C-Reactive Protein (0-0.29) mg/dl NT-Pro-B Natriuret Pep (0-900) pg/ml Total Protein (6.4-8.2) gm/dl Albumin (3.4-5.0) gm/dl Globulin (2.5-4.0) gm/dl Albumin/Globulin Ratio (0.9-2) Beta-Hydroxybutyric Acd 4.70 H (0.2-2.81) mg/dl Procalcitonin (0-0.5) ng/ml Random Cortisol mcg/dl Urine Color Urine Appearance (Clear) Urine pH (4.5-7.5) Ur Specific [place] (1.000-1.030) Urine Protein (Negative) Urine Glucose (UA) (Negative) Urine Ketones (Negative) Urine Blood (Negative) Urine Nitrite (Negative) Urine Bilirubin (Negative) Urine Urobilinogen (Negative) Ur Leukocyte Esterase (Negative) Urine WBC (Auto) (0-5) /hpf Urine RBC (Auto) (0-4) /hpf U Hyaline Cast (Auto) (0-5) /lpf U Epithel Cells (Auto) (0-5) /lpf Urine Bacteria (Auto) (Negative) Urine Yeast Urine Osmolality (500-800) mOsm/kg Ur Random Sodium mmol/L Urine Opiates Screen (Neg) Ur Methadone, Qual (Neg) Urine Barbiturates (Neg) Ur Phencyclidine (PCP) (Neg) U Amphetamin/Meth Scrn (Neg) MDMA (Ecstasy) Screen (Neg) U Benzodiazepines Scrn (Neg) Ur Cocaine Metabolite (Neg) U Marijuana (THC) Screen (Neg) Ethyl Alcohol mg/dL (0-3) mg/dl COVID-19 Eval Order SARS-CoV-2 (PCR) (Negative) 02/16/21 02/16/21 Range/Units 19:42 19:51 WBC (4.8-10.8) K/uL RBC (4.7-6.1) M/uL Hgb (14.0-18.0) g/dL POC Hgb (14.0-18.0) g/dl Hct (42-52) % POC Hct (42-52) % MCV (80-100) fL MCH (25-34) pg MCHC (32-36) g/dL RDW Std Deviation (36.4-46.3) fL RDW Coeff of Kaelyn (11.5-14.5) % Plt Count (130-400) K/uL MPV (7.4-10.4) fL Immature Gran % (Auto) % Neut % (Auto) % Lymph % (Auto) % [place] % (Auto) % Eos % (Auto) % Baso % (Auto) % Neut # (Auto) (1.4-6.5) K/uL Lymph # (Auto) (1.2-3.4) K/uL [place] # (Auto) (0.11-0.59) K/uL Eos # (Auto) (0-0.5) K/uL Baso # (Auto) (0-0.2) K/uL Immature Gran # (Auto) (0.00-0.02) K/uL Absolute Nucleated RBC (0-0) K/uL Nucleated RBC % (auto) % PT (9.0-12.0) Seconds INR (0.9-1.1) APTT (21.0-31.0) Seconds PTT Ratio ABG pH (7.35-7.45) ABG pCO2 (35-46) mmHg ABG pO2 (80-95) mmHg ABG HCO3 (19-24) mmol/L ABG O2 Saturation (90-95) % ABG Base Excess (-9-1.8) mEq/L Lb Test (Pos) VBG pH (7.36-7.41) VBG pCO2 (38-50) mmHg VBG pO2 mmHg VBG HCO3 mmol/L VBG O2 Saturation % VBG Base Excess mEq/L Carboxyhemoglobin % THgb Barometric Pressure mm/Hg Oxygen Given POC Sodium (135-144) mmol/L Sodium (136-145) mmol/L POC Potassium (3.3-5.0) mmol/L Potassium (3.5-5.1) mmol/L POC Chloride (101-112) mmol/L Chloride (98-107) mmol/L Carbon Dioxide (21-32) mmol/L POC Total CO2 (24-31) mmol/L Anion Gap (3-11) POC Anion Gap (16-25) mmol/L POC BUN (7-18) mg/dl BUN (7-18) mg/dl Creatinine (0.6-1.4) mg/dl POC Creatinine (0.6-1.3) mg/dl Est Cr Clr Drug Dosing Est GFR ( Amer) ml/min Est GFR (Non-Af Amer) ml/min BUN/Creatinine Ratio (10-20) Glucose (70-99) mg/dl POC Glucose 334 H* (70-99) mg/dl POC Glucose (other) (70-99) mg/dl Osmolality (280-300) mOsm/kg Lactate (0.4-2.0) mmol/L Calcium (8.5-10.1) mg/dl POC Ioniz Calcium Mahsa (1.12-1.32) mmol/l Magnesium (1.8-2.4) mg/dl Total Bilirubin (0.2-1) mg/dl AST (15-37) U/L ALT (12-78) U/L Alkaline Phosphatase (45-117) U/L Ammonia (11-32) umol/L Total Creatine Kinase (39-308) U/L CK-MB (CK-2) (0.5-3.6) ng/ml CK/CKMB % Calc (0-3.0) Troponin I (0-0.045) ng/ml C-Reactive Protein (0-0.29) mg/dl NT-Pro-B Natriuret Pep (0-900) pg/ml Total Protein (6.4-8.2) gm/dl Albumin (3.4-5.0) gm/dl Globulin (2.5-4.0) gm/dl Albumin/Globulin Ratio (0.9-2) Beta-Hydroxybutyric Acd (0.2-2.81) mg/dl Procalcitonin (0-0.5) ng/ml Random Cortisol mcg/dl Urine Color Urine Appearance (Clear) Urine pH (4.5-7.5) Ur Specific [place] (1.000-1.030) Urine Protein (Negative) Urine Glucose (UA) (Negative) Urine Ketones (Negative) Urine Blood (Negative) Urine Nitrite (Negative) Urine Bilirubin (Negative) Urine Urobilinogen (Negative) Ur Leukocyte Esterase (Negative) Urine WBC (Auto) (0-5) /hpf Urine RBC (Auto) (0-4) /hpf U Hyaline Cast (Auto) (0-5) /lpf U Epithel Cells (Auto) (0-5) /lpf Urine Bacteria (Auto) (Negative) Urine Yeast Urine Osmolality (500-800) mOsm/kg Ur Random Sodium mmol/L Urine Opiates Screen (Neg) Ur Methadone, Qual (Neg) Urine Barbiturates (Neg) Ur Phencyclidine (PCP) (Neg) U Amphetamin/Meth Scrn (Neg) MDMA (Ecstasy) Screen (Neg) U Benzodiazepines Scrn (Neg) Ur Cocaine Metabolite (Neg) U Marijuana (THC) Screen (Neg) Ethyl Alcohol mg/dL < 3.0 (0-3) mg/dl COVID-19 Eval Order SARS-CoV-2 (PCR) (Negative) Administered Medications Albuterol (Albut/Ipratrop 3mg/0.5mg Neb 3 Ml Vial) 3 ml NEB Q6 [facility] Stop: 03/19/21 06:59 Last Admin: 02/17/21 07:41 Dose: 3 ml Documented by: [id number] Aspirin (Aspirin 81 Mg Ectab) 81 mg PO DAILY [facility] Stop: 03/19/21 08:59 Last Admin: 02/17/21 08:05 Dose: Not Given Documented by: [id number] Fentanyl Citrate (Fentanyl Bolus From Bag) 50 mcg IV Q60M PRN PRN Reason: Pain or Agitation Stop: 03/02/21 20:33 Last Admin: 02/17/21 00:40 Dose: 50 mcg Documented by: [id number] Admin: 02/16/21 23:00 Dose: 50 mcg Documented by: [id number] Admin: 02/16/21 22:00 Dose: 50 mcg Documented by: [id number] Heparin Sodium (Porcine) (Heparin Sod 5,000 Unit/0.5 Ml Vial) 5,000 units SQ Q8 [facility] Stop: 03/18/21 21:59 Last Admin: 02/17/21 05:18 Dose: 5,000 units Documented by: [id number] Admin: 02/16/21 23:48 Dose: Not Given Documented by: [id number] Insulin Human Regular 250 (units/ Sodium Chloride) 250 mls @ 9 mls/hr IV .Q24H [facility]; Protocol Stop: 03/18/21 19:44 Last Titration: 02/17/21 07:04 Dose: 5.4 units/hr, 5.4 mls/hr Documented by: [id number] Cosigned by: [id number] Titration: 02/17/21 06:00 Dose: 5.4 units/hr, 5.4 mls/hr Documented by: [id number] Cosigned by: [id number] Titration: 02/17/21 05:30 Dose: 5.4 units/hr, 5.4 mls/hr Documented by: [id number] Cosigned by: [id number] Titration: 02/17/21 05:00 Dose: 0 units/hr, 0 mls/hr Documented by: [id number] Cosigned by: [id number] Titration: 02/17/21 04:04 Dose: 9 units/hr, 9 mls/hr Documented by: [id number] Cosigned by: [id number] Titration: 02/17/21 03:10 Dose: 7.5 units/hr, 7.5 mls/hr Documented by: [id number] Cosigned by: [id number] Titration: 02/17/21 02:00 Dose: 9.4 units/hr, 9.4 mls/hr Documented by: [id number] Cosigned by: [id number] Titration: 02/17/21 01:00 Dose: 6.7 units/hr, 6.7 mls/hr Documented by: [id number] Cosigned by: [id number] Titration: 02/17/21 00:04 Dose: 6.7 units/hr, 6.7 mls/hr Documented by: [id number] Cosigned by: [id number] Titration: 02/16/21 22:38 Dose: 5.6 units/hr, 5.6 mls/hr Documented by: [id number] Cosigned by: [id number] Admin: 02/16/21 21:45 Dose: 4.7 units/hr, 4.7 mls/hr Documented by: [id number] Cosigned by: [id number] Fentanyl Citrate (Fentanyl Drip) 1,250 mcg in 250 mls @ 35 mls/hr IV .Q7H9M [facility]; Protocol Stop: 03/02/21 20:44 Last Titration: 02/17/21 07:04 Dose: 175 mcg/hr, 35 mls/hr Documented by: [id number] Cosigned by: [id number] Titration: 02/17/21 06:33 Dose: 175 mcg/hr, 35 mls/hr Documented by: [id number] Cosigned by: [id number] Titration: 02/17/21 04:30 Dose: 225 mcg/hr, 45 mls/hr Documented by: [id number] Cosigned by: [id number] Admin: 02/17/21 04:03 Dose: 200 mcg/hr, 40 mls/hr Documented by: [id number] Cosigned by: [id number] Titration: 02/17/21 04:03 Dose: 200 mcg/hr, 40 mls/hr Documented by: [id number] Cosigned by: [id number] Titration: 02/17/21 00:20 Dose: 200 mcg/hr, 40 mls/hr Documented by: [id number] Cosigned by: [id number] Titration: 02/16/21 23:00 Dose: 100 mcg/hr, 20 mls/hr Documented by: [id number] Cosigned by: [id number] Admin: 02/16/21 21:48 Dose: 25 mcg/hr, 5 mls/hr Documented by: [id number] Cosigned by: [id number] Famotidine 20 mg/ Syringe 5 mls @ 2.5 mls/min IV BID [facility] Stop: 03/18/21 21:40 Last Admin: 02/17/21 08:05 Dose: 2.5 mls/min Documented by: [id number] Admin: 02/16/21 22:11 Dose: 2.5 mls/min Documented by: [id number] Norepinephrine Bitartrate (Levophed/D5w) 8 mg in 508 mls @ 63.795 mls/hr IV .Q7H58M [facility]; Protocol Stop: 03/19/21 00:29 Last Titration: 02/17/21 07:03 Dose: 0.13 mcg/kg/min, 63.8 mls/hr Documented by: [id number] Cosigned by: [id number] Titration: 02/17/21 06:41 Dose: 0.13 mcg/kg/min, 63.8 mls/hr Documented by: [id number] Titration: 02/17/21 06:30 Dose: 0.11 mcg/kg/min, 54 mls/hr Documented by: [id number] Titration: 02/17/21 06:12 Dose: 0.09 mcg/kg/min, 44.2 mls/hr Documented by: [id number] Titration: 02/17/21 05:30 Dose: 0.07 mcg/kg/min, 34.4 mls/hr Documented by: [id number] Admin: 02/17/21 00:46 Dose: 0.05 mcg/kg/min, 24.5 mls/hr Documented by: [id number] Cosigned by: [id number] Doxycycline Hyclate 100 mg/ (Dextrose) 110 mls @ 50 mls/hr IV Q12H [facility] Stop: 02/24/21 07:29 Last Admin: 02/17/21 08:05 Dose: 50 mls/hr Documented by: [id number] Insulin Aspart (Insulin Aspart 100 Units/Ml 3 Ml Pen) 0 units SC ACHS [facility] Stop: 03/18/21 20:59 Last Admin: 02/17/21 08:06 Dose: Not Given Documented by: [id number] Cosigned by: [id number] Admin: 02/16/21 22:11 Dose: Not Given Documented by: [id number] Midazolam HCl (Midazolam Hcl 1 Mg/Ml 2ml Vial) 2 mg IV Q2H PRN PRN Reason: RASS goal -1 Stop: 03/18/21 20:33 Last Admin: 02/17/21 00:23 Dose: 2 mg Documented by: [id number] Admin: 02/16/21 22:08 Dose: 2 mg Documented by: [id number] Travoprost (Travoprost Z 0.004% Oph Soln 2.5 Ml Btl) 1 drops OPB HS [facility] Stop: 03/18/21 21:40 Last Admin: 02/17/21 00:19 Dose: 1 drops Documented by: [id number] Discontinued Medications Acetaminophen (Acetaminophen 500 Mg Tab) 1,000 mg PO NOW STA Stop: 02/16/21 16:08 Last Admin: 02/16/21 16:14 Dose: 1,000 mg Documented by: [id number] Acetaminophen (Acetaminophen 650 Mg Supp) 650 mg IA NOW STA Stop: 02/16/21 16:09 Last Admin: 02/16/21 17:31 Dose: Not Given Documented by: [id number] Acetaminophen (Acetaminophen 1000 Mg/100 Ml Iv) Confirm Administered Dose 1,000 mg IV .STK-MED ONE Stop: 02/16/21 16:11 Last Admin: 02/16/21 17:31 Dose: Not Given Documented by: [id number] Acetaminophen (Acetaminophen 1000 Mg/100 Ml Iv) 1,000 mg IV ONE ONE Stop: 02/16/21 16:41 Last Admin: 02/16/21 17:33 Dose: 1,000 mg Documented by: [id number] Albuterol (Albuterol Hfa 8 Gm Inhaler) 4 puffs INH Q6R [facility] Stop: 03/19/21 00:59 Last Admin: 02/17/21 05:35 Dose: Not Given Documented by: [id number] Fentanyl Citrate (Fentanyl Citrate 100 Mcg/2 Ml Vial) Confirm Administered Dose 100 mcg .ROUTE .STK-MED ONE Stop: 02/16/21 21:02 Last Admin: 02/16/21 21:05 Dose: Not Given Documented by: [id number] Fentanyl Citrate (Fentanyl Citrate 100 Mcg/2 Ml Vial) 100 mcg IV NOW STA Stop: 02/16/21 21:03 Last Admin: 02/16/21 21:05 Dose: 100 mcg Documented by: [id number] Sodium Chloride (Nss 1000ml) 1,000 mls @ 999 mls/hr IV .Q1H1M ONE Stop: 02/16/21 17:07 Last Infusion: 02/16/21 18:22 Dose: 0 mls/hr Documented by: [id number] Admin: 02/16/21 17:16 Dose: 999 mls/hr Documented by: [id number] Piperacillin Sod/Tazobactam Sod (Zosyn) 4.5 gm in 120 mls @ 240 mls/hr IV NOW ONE Stop: 02/16/21 16:37 Last Infusion: 02/16/21 18:09 Dose: 0 mls/hr Documented by: [id number] Admin: 02/16/21 17:14 Dose: 240 mls/hr Documented by: [id number] Sodium Chloride (Nss 1000ml) 1,000 mls @ 999 mls/hr IV .Q1H1M ONE Stop: 02/16/21 17:28 Last Infusion: 02/16/21 18:52 Dose: 0 mls/hr Documented by: [id number] Admin: 02/16/21 17:34 Dose: 999 mls/hr Documented by: [id number] Sodium Chloride (Nss 1000ml) 1,000 mls @ 999 mls/hr IV .Q1H1M ONE Stop: 02/16/21 18:44 Last Infusion: 02/16/21 18:53 Dose: 0 mls/hr Documented by: [id number] Admin: 02/16/21 17:46 Dose: 999 mls/hr Documented by: [id number] Sodium Chloride (Nss 1000ml) 1,000 mls @ 250 mls/hr IV .Q4H STA Stop: 02/16/21 23:22 Last Infusion: 02/16/21 23:31 Dose: 0 mls/hr Documented by: [id number] Admin: 02/16/21 19:31 Dose: 250 mls/hr Documented by: [id number] Magnesium Sulfate/Dextrose (Magnesium Sulfate / D5w) 1 gm in 100 mls @ 100 mls/hr IV Q1H [facility] Stop: 02/16/21 21:26 Last Infusion: 02/16/21 21:30 Dose: 0 mls/hr Documented by: [id number] Admin: 02/16/21 20:30 Dose: 100 mls/hr Documented by: [id number] Infusion: 02/16/21 20:30 Dose: 100 mls/hr Documented by: [id number] Admin: 02/16/21 19:36 Dose: 100 mls/hr Documented by: [id number] Vancomycin HCl 2,500 mg/ (Sodium Chloride) 550 mls @ 180 mls/hr IV ONE STA Stop: 02/16/21 23:13 Last Infusion: 02/16/21 23:50 Dose: 0 mls/hr Documented by: [id number] Admin: 02/16/21 20:46 Dose: 180 mls/hr Documented by: [id number] Calcium Gluconate () 1,000 mg in 60 mls @ 240 mls/hr IV NOW STA Stop: 02/16/21 20:53 Last Infusion: 02/16/21 21:04 Dose: 0 mls/hr Documented by: [id number] Admin: 02/16/21 20:49 Dose: 240 mls/hr Documented by: [id number] Sodium Chloride (Nss 1000ml) 1,000 mls @ 125 mls/hr IV .Q8H [facility] Stop: 03/18/21 23:29 Last Admin: 02/17/21 07:36 Dose: Not Given Documented by: [id number] Infusion: 02/17/21 07:36 Dose: 0 mls/hr Documented by: [id number] Infusion: 02/17/21 05:49 Dose: 125 mls/hr Documented by: [id number] Infusion: 02/17/21 05:19 Dose: 0 mls/hr Documented by: [id number] Infusion: 02/17/21 02:38 Dose: 125 mls/hr Documented by: [id number] Admin: 02/17/21 00:39 Dose: 200 mls/hr Documented by: [id number] Piperacillin Sod/Tazobactam (Sod 4.5 gm/ Dextrose) 120 mls @ 30 mls/hr IV Q8H SHMUEL; Protocol Stop: 02/23/21 21:59 Last Infusion: 02/16/21 22:11 Dose: 0 mls/hr Documented by: [id number] Admin: 02/16/21 22:11 Dose: 30 mls/hr Documented by: [id number] Ceftriaxone Sodium 2,000 mg/ (Dextrose) 70 mls @ 140 mls/hr IV Q12H SHMUEL; Protocol Stop: 02/26/21 22:29 Last Infusion: 02/17/21 00:53 Dose: 0 mls/hr Documented by: [id number] Admin: 02/17/21 00:23 Dose: 140 mls/hr Documented by: [id number] Ampicillin Sodium 2,000 mg/ (Sodium Chloride) 100 mls @ 200 mls/hr IV Q6H SHMUEL; Protocol Stop: 02/26/21 22:29 Last Infusion: 02/17/21 05:49 Dose: 0 mls/hr Documented by: [id number] Admin: 02/17/21 05:19 Dose: 200 mls/hr Documented by: [id number] Infusion: 02/17/21 00:53 Dose: 0 mls/hr Documented by: [id number] Admin: 02/17/21 00:23 Dose: 200 mls/hr Documented by: [id number] Acyclovir Sodium 730 mg/ (Dextrose) 264.6 mls @ 250 mls/hr IV Q12H SHMUEL; Protocol Stop: 02/26/21 22:29 Last Infusion: 02/17/21 01:43 Dose: 0 mls/hr Documented by: [id number] Admin: 02/17/21 00:39 Dose: 250 mls/hr Documented by: [id number] Dexamethasone 10 mg/ Syringe 2.5 mls @ 1 mls/min IV ONE ONE Stop: 02/16/21 22:47 Last Admin: 02/17/21 00:18 Dose: 1 mls/min Documented by: [id number] Insulin Human Regular (Novolin-R Bolus From Bag) 4.5 units IV ONE ONE Stop: 02/16/21 20:16 Last Admin: 02/16/21 21:46 Dose: 4.5 units Documented by: [id number] Cosigned by: [id number] Ipratropium Orange (Ipratropium Orange Hfa Inhaler) 4 puffs INH Q6R SHMUEL Stop: 03/19/21 00:59 Last Admin: 02/17/21 05:35 Dose: Not Given Documented by: [id number] Midazolam HCl (Midazolam Hcl 1 Mg/Ml 2ml Vial) 2 mg IV NOW STA Stop: 02/16/21 19:23 Last Admin: 02/16/21 19:36 Dose: 2 mg Documented by: [id number] Midazolam HCl (Midazolam Hcl 1 Mg/Ml 2ml Vial) Confirm Administered Dose 2 mg .ROUTE .STK-MED ONE Stop: 02/16/21 19:24 Last Admin: 02/16/21 19:36 Dose: Not Given Documented by: [id number] Miscellaneous (Rapid Sequence Induction Bag) Confirm Administered Dose 1 ea .ROUTE .STK-MED ONE Stop: 02/16/21 16:14 Last Admin: 02/16/21 18:09 Dose: 1 ea Documented by: [id number] Miscellaneous (Stat Iv Infusion Titration Per Protocol) 1 ea N/A NOW STA Stop: 02/17/21 00:30 Last Admin: 02/17/21 01:16 Dose: 1 ea Documented by: [id number] Naloxone HCl (Naloxone Hcl 0.4 Mg/1 Ml Vial/Carp) 0.4 mg IV NOW STA Stop: 02/16/21 20:16 Last Admin: 02/16/21 20:46 Dose: Not Given Documented by: [id number] Imaging Data Radiologist's Impression: Head CT 02/16/21 16:07 CT head/brain wo con CLINICAL HISTORY: ams COMPARISON STUDY: November 09, 2017 TECHNIQUE: Axial CT of the brain is performed from the vertex to the skull base. IV contrast was not administered for this examination. A dose lowering technique was utilized adhering to the principles of ALARA. CT DOSE: 638.56 mGycm FINDINGS: No intra or extra-axial mass lesions are visualized. There is no CT evidence of acute cortical infarction. There is no evidence of midline shift. There is no acute hemorrhage. No acute depressed calvarial fractures are visualized. There are patchy white matter hypodensities likely on a small vessel basis. There is no evidence of pathologic ventricular dilatation. Opacification of bilateral ethmoid air cells is seen and extending to nasopharyngeal region with opacification of upper airways. Visualized portion of bilateral frontal and maxillary sinuses as well as mastoid air cells are patent and well-aerated. IMPRESSION: 1. No acute intracranial hemorrhage, no midline shift or space occupying lesions. 2. Opacification of bilateral ethmoid air cells as well as visualized upper airways. Further evaluation with CT evaluation of paranasal sinuses is suggested. ACT 112: Negative or not required by law. The above report was generated using voice recognition software. It may contain grammatical, syntax or spelling errors. Electronically signed by: Juliane Vazquez DO 02/16/2021 5:41 PM Abdomen/Pelvis CT 02/16/21 16:12 CT SCAN OF THE ABDOMEN AND PELVIS WITHOUT CONTRAST CLINICAL HISTORY: ams COMPARISON STUDY: December 27, 2007 TECHNIQUE: CT scan of the abdomen and pelvis was performed from the lung bases to the proximal femurs. Images are reviewed in the axial, sagittal, and coronal planes. IV contrast was not administered for this examination. A dose lowering technique was utilized adhering to the principles of ALARA. CT DOSE: FINDINGS: Lower chest: For findings and lower chest please refer to report of the CT of the chest performed at the same time. Liver: The unenhanced liver is normal in size, contour, and attenuation. S uboptimal evaluation due to beam hardening artifact Gallbladder: Unremarkable. Spleen: Normal in size and attenuation. Pancreas: Unremarkable. Adrenal glands: Unremarkable. Kidneys: The unenhanced kidneys are normal in size without hydronephrosis. There is no contour deforming renal mass lesion. No renal calculi are identified. Bowel: Small hiatal hernia is seen. Bowel loops are nondilated. Appendix shows normal morphology and gas filled. Moderate stool content is seen within transverse colon. Catheter is seen within distal rectum. Peritoneum: There is no intraperitoneal free air or abdominal ascites. Vasculature: Abdominal aorta is normal in caliber, slightly tortuous with multiple calcifications within its wall. Adenopathy: Multiple retroperitoneal lymph nodes are seen measuring up to 1.0 cm in short axis. Pelvic viscera: Urinary bladder is decompressed with Baez balloon within its lumen. Prostate gland is mildly enlarged. Skeletal structures: Multilevel degenerative changes of the spine. No definite aggressive osseous lesions are seen. IMPRESSION: 1. No acute intra-abdominal process. Nondilated loops of bowel. Normal appendix. 2. Decompressed urinary bladder with Baez balloon within its lumen. 3. No hydronephrosis or nephrolithiasis. 4. The rest of findings as above. ACT 112: Negative or not required by law. The above report was generated using voice recognition software. It may contain grammatical, syntax or spelling errors. Electronically signed by: Juliane Vazquez DO 02/16/2021 6:[address] 02/16/21 16:12 CT chest diagnostic wo con CLINICAL HISTORY: ams COMPARISON STUDY: No previous studies for comparison. CT DOSE: 1560.07 mGycm TECHNIQUE: CT of the thorax was performed from the thoracic inlet to the lung bases. Images are reviewed in the axial, sagittal, and coronal planes. IV contrast was not administered for this examination. A dose lowering technique was utilized adhering to the principles of ALARA. FINDINGS: Suboptimal exam due to beam hardening artifact from patient's arms. Bilateral axillary lymph nodes are prominent, measuring up to 1.9 cm on the left. Multiple supra clavicle lymph nodes are seen. Limited exam due to beam hardening artifact from overlying EKG leads. Mottled mediastinal lymph nodes is difficult to evaluate due to beam hardening and motion artifact. Thyroid: Visualized portion of thyroid gland shows no evidence of focal lesions. Esophagus is fluid-filled, not well visualized. Thoracic aorta: The thoracic aorta is normal in course and caliber, noting standard 3 vessel arch anatomy. Heart: The heart is normal in size and configuration, without pericardial effusion. Lungs and pleural spaces: Tracheobronchial tree is patent. Tracheal tube is terminating within lumen of intrathoracic trachea. Consolidative opacities are seen at dependent portions of bilateral lower lobes which might represent atelectasis or related to aspiration. Minimal pleural effusion is seen on the right. -15 x 11 mm solid pulmonary nodule is seen within subpleural aspect of the right middle lobe and is concerning for neoplastic etiology. () Upper abdomen: Partially visualized upper abdominal viscera is within normal limits. Skeletal structures: Multilevel degenerative changes of the spine. No definite aggressive osseous lesions are seen. IMPRESSION: 1. Mild opacities at dependent portions of bilateral lower lobes might represent atelectasis or related to aspiration. 2. Large solid nodule within the right middle lobe and bilateral axillary lymphadenopathy is concerning for neoplastic etiology. Please correlate this findings with prior history of malignancy. 3. Suboptimal exam due to beam hardening artifact. 4. The rest of findings as above. ACT 112: Negative or not required by law. The above report was generated using voice recognition software. It may contain grammatical, syntax or spelling errors. Electronically signed by: Juliane Vazquez DO 02/16/2021 6:04 PM Discharge Plan Visit Data Chief Complaint: Unresponsive Stated Complaint: UNRESPONSIVE ED Provider: Tunde Mckeon Discharge Problem: Hyperthermia, Acute alteration in mental status, Respiratory failure, Acute hyperglycemia, Lung mass, Sepsis Patient Disposition: Admitted As Inpatient Condition: Critical Discharge Instructions Interventions: ED Discharge Assessment Last Done: 02/16/21 21:27 Discharge Problem: Respiratory failure Qualifiers: Chronicity: acute Respiratory failure complication: unspecified whether with hypoxia or hypercapnia Qualified Code(s): J96.00 - Acute respiratory failure, unspecified whether with hypoxia or hypercapnia Sepsis Qualifiers: Sepsis type: sepsis due to unspecified organism Sepsis acute organ dysfunction status: with acute organ dysfunction Severe sepsis acute organ dysfunction type: encephalopathy Severe sepsis shock status: unspecified Qualified Code(s): A41.9 - Sepsis, unspecified organism
[2021-02-16] MEDS: ACETAMINOPHEN 1000 MG/100 ML IV IV ONE ×2 (16:44→17:33)
--- NOTE | 2021-02-16 17:42 | CT Scan Report ---
CT head/brain wo con CLINICAL HISTORY: ams COMPARISON STUDY: November 09, 2017 TECHNIQUE: Axial CT of the brain is performed from the vertex to the skull base. IV contrast was not administered for this examination. A dose lowering technique was utilized adhering to the principles of ALARA. CT DOSE: 638.56 mGycm FINDINGS: No intra or extra-axial mass lesions are visualized. There is no CT evidence of acute cortical infarc tion. There is no evidence of midline shift. There is no acute hemorrhage. No acute depressed calvar ial fractures are visualized. There are patchy white matter hypodensities likely on a small vessel basis. There is no evidence of pathologic ventricular dilatation. Opacification of bilateral ethmoid air cells is seen and extending to nasopharyngeal region with opac ification of upper airways. Visualized portion of bilateral frontal and maxillary sinuses as well as mastoid air cells are patent and well-aerated. IMPRESSION: 1. No acute intracranial hemorrhage, no midline shift or space occupying lesions. 2. Opacification of bilateral ethmoid air cells as well as visualized upper airways. Further evaluat ion with CT evaluation of paranasal sinuses is suggested. ACT 112: Negative or not required by law. The above report was generated using voice recognition software. It may contain grammatical, syntax o r spelling errors. Electronically signed by: Juliane Vazquez DO 02/16/2021 5:41 PM
[2021-02-16 17:54] LABS: Basophils # (auto) 0.02 K/uL (0-0.2); Basophils % (auto) 0.2 %; Eosinophils # (auto) 0.39 K/uL (0-0.5); Eosinophils % (auto) 3.2 %; Hematocrit (blood only) 38.5 % (42-52); Hemoglobin 12.9 g/dL (14.0-18.0); Immature Granulocytes # (auto) 0.11 K/uL (0.00-0.02); Immature Granulocytes % (auto) 0.9 %; Lymphocytes # (auto) 1.54 K/uL (1.2-3.4); Lymphocytes % (auto) 12.6 %; Mean Corpuscular Hemoglobin 32.6 pg (25-34); Mean Corpuscular Hgb Conc 33.5 g/dL (32-36); Mean Corpuscular Volume 97.2 fL (80-100); Mean Platelet Volume 9.4 fL (7.4-10.4); Monocytes # (auto) 0.44 K/uL (0.11-0.59); Monocytes % (auto) 3.6 %; Neutrophils # (auto) 9.69 K/uL (1.4-6.5); Neutrophils % (auto) 79.5 %; Nucleated RBC # (auto) 0.04 K/uL (0-0); Nucleated RBC % (auto) 0.3 %; Platelet Count 316 K/uL (130-400); RDW Coefficient of Variation 13.6 % (11.5-14.5); Red Blood Count 3.96 M/uL (4.7-6.1); White Blood Count 12.19 K/uL (4.8-10.8)
[2021-02-16 18:01] LABS: Base Excess VBG -5.4 mEq/L; Oxygen Saturation VBG 80.9 %; pH VBG 7.26 (7.36-7.41)
[2021-02-16 18:04] LABS: INR 1.5 (0.9-1.1); Partial Thromboplastin Time 25.9 Seconds (21.0-31.0); Prothrombin Time 14.8 Seconds (9.0-12.0)
[2021-02-16 18:05] LABS: iSTAT Creatinine 2.6 mg/dl (0.6-1.3); iSTAT Hemoglobin 12.9 g/dl (14.0-18.0); iSTAT Ionized Calcium 1.07 mmol/l (1.12-1.32); iSTAT Potassium 5.3 mmol/L (3.3-5.0)
--- NOTE | 2021-02-16 18:05 | CT Scan Report ---
CT chest diagnostic wo con CLINICAL HISTORY: ams COMPARISON STUDY: No previous studies for comparison. CT DOSE: 1560.07 mGycm TECHNIQUE: CT of the thorax was performed from the thoracic inlet to the lung bases. Images are revi ewed in the axial, sagittal, and coronal planes. IV contrast was not administered for this examinatio n. A dose lowering technique was utilized adhering to the principles of ALARA. FINDINGS: Suboptimal exam due to beam hardening artifact from patient's arms. Bilateral axillary lymph nodes are prominent, measuring up to 1.9 cm on the left. Multiple supra clav icle lymph nodes are seen. Limited exam due to beam hardening artifact from overlying EKG leads. Tracy led mediastinal lymph nodes is difficult to evaluate due to beam hardening and motion artifact. Thyroid: Visualized portion of thyroid gland shows no evidence of focal lesions. Esophagus is fluid-f illed, not well visualized. Thoracic aorta: The thoracic aorta is normal in course and caliber, noting standard 3 vessel arch debby heidi. Heart: The heart is normal in size and configuration, without pericardial effusion. Lungs and pleural spaces: Tracheobronchial tree is patent. Tracheal tube is terminating within lumen of intrathoracic trachea. Consolidative opacities are seen at dependent portions of bilateral lower lobes which might represent atelectasis or related to aspiration. Minimal pleural effusion is seen on the right. -15 x 11 mm solid pulmonary nodule is seen within subpleural aspect of the right middle lobe and is c oncerning for neoplastic etiology. () Upper abdomen: Partially visualized upper abdominal viscera is within normal limits. Skeletal structures: Multilevel degenerative changes of the spine. No definite aggressive osseous les ions are seen. IMPRESSION: 1. Mild opacities at dependent portions of bilateral lower lobes might represent atelectasis or rela jyoti to aspiration. 2. Large solid nodule within the right middle lobe and bilateral axillary lymphadenopathy is concern ing for neoplastic etiology. Please correlate this findings with prior history of malignancy. 3. Suboptimal exam due to beam hardening artifact. 4. The rest of findings as above. ACT 112: Negative or not required by law. The above report was generated using voice recognition software. It may contain grammatical, syntax o r spelling errors. Electronically signed by: Juliane Vazquez DO 02/16/2021 6:04 PM
--- NOTE | 2021-02-16 18:14 | CT Scan Report ---
CT SCAN OF THE ABDOMEN AND PELVIS WITHOUT CONTRAST CLINICAL HISTORY: ams COMPARISON STUDY: December 27, 2007 TECHNIQUE: CT scan of the abdomen and pelvis was performed from the lung bases to the proximal femurs . Images are reviewed in the axial, sagittal, and coronal planes. IV contrast was not administered fo r this examination. A dose lowering technique was utilized adhering to the principles of ALARA. CT DOSE: FINDINGS: Lower chest: For findings and lower chest please refer to report of the CT of the chest performed at the same time. Liver: The unenhanced liver is normal in size, contour, and attenuation. Suboptimal evaluation due to beam hardening artifact Gallbladder: Unremarkable. Spleen: Normal in size and attenuation. Pancreas: Unremarkable. Adrenal glands: Unremarkable. Kidneys: The unenhanced kidneys are normal in size without hydronephrosis. There is no contour deform ing renal mass lesion. No renal calculi are identified. Bowel: Small hiatal hernia is seen. Bowel loops are nondilated. Appendix shows normal morphology and gas filled. Moderate stool content is seen within transverse colon. Catheter is seen within distal re ctum. Peritoneum: There is no intraperitoneal free air or abdominal ascites. Vasculature: Abdominal aorta is normal in caliber, slightly tortuous with multiple calcifications wit hin its wall. Adenopathy: Multiple retroperitoneal lymph nodes are seen measuring up to 1.0 cm in short axis. Pelvic viscera: Urinary bladder is decompressed with Baez balloon within its lumen. Prostate gland i s mildly enlarged. Skeletal structures: Multilevel degenerative changes of the spine. No definite aggressive osseous les ions are seen. IMPRESSION: 1. No acute intra-abdominal process. Nondilated loops of bowel. Normal appendix. 2. Decompressed urinary bladder with Baez balloon within its lumen. 3. No hydronephrosis or nephrolithiasis. 4. The rest of findings as above. ACT 112: Negative or not required by law. The above report was generated using voice recognition software. It may contain grammatical, syntax o r spelling errors. Electronically signed by: Juliane Vazquez DO 02/16/2021 6:12 PM
[2021-02-16 18:34] LABS: Appearance Urine Turbid (Clear); Bacteria Urine Automated Negative (Negative); Bilirubin Urine Negative (Negative); Blood Urine 3+ (Negative); Color Urine Dark Yellow; Epithelial Cell Urine Auto >30 /lpf (0-5); Glucose Urine UA Negative (Negative); Ketones Urine Trace (Negative); Leukocyte Esterase Urine Trace (Negative); Nitrite Urine Negative (Negative); Protein Urine 1+ (Negative); Specific Gravity Urine 1.024 (1.000-1.030); Urobilinogen Urine Negative (Negative)
[2021-02-16 18:53] LABS: Alanine Aminotransferase 29 U/L (12-78); Albumin Level 2.5 gm/dl (3.4-5.0); Aspartate Aminotransferase 31 U/L (15-37); Bilirubin,Total 0.5 mg/dl (0.2-1); Est GFR (African American) 26.2 ml/min; Est GFR (Non-African American) 22.6 ml/min
[2021-02-16 18:54] LABS: Albumin Globulin Ratio 0.7 (0.9-2); Alkaline Phosphatase 66 U/L (45-117); BUN Creatinine Ratio 7.8 (10-20); Beta-Hydroxybutyrate 2.88 mg/dl (0.2-2.81); Blood Urea Nitrogen 21 mg/dl (7-18); Calcium 7.1 mg/dl (8.5-10.1); Carbon Dioxide 22 mmol/L (21-32); Chloride 110 mmol/L (98-107); Creatine Kinase 248 U/L (39-308); Creatine Kinase MB 1.4 ng/ml (0.5-3.6); Globulin 3.7 gm/dl (2.5-4.0); Glucose 350 mg/dl (70-99); Magnesium 1.6 mg/dl (1.8-2.4); NT Pro B Type Natriuretic Pept 329 pg/ml (0-900); Potassium 5.2 mmol/L (3.5-5.1); Sodium 138 mmol/L (136-145); Total Protein 6.2 gm/dl (6.4-8.2); Troponin I 0.089 ng/ml (0-0.045)
[2021-02-16 18:54] LABS: RBC Urine Automated >30 /hpf (0-4)
[2021-02-16] MEDS ORDERED: MIDAZOLAM HCL 1 MG/ML 2ML VIAL IV STA (19:22)
[2021-02-16] MEDS ORDERED: MIDAZOLAM HCL 1 MG/ML 2ML VIAL ONE (19:23)
[2021-02-16] MEDS ORDERED: SODIUM CHLORIDE 0.9% 1000ML 1,000 ML IV STA (19:23)
[2021-02-16 19:34] LABS: Amphetamines+Metham, Urine Neg (Neg); Barbiturates, Urine Neg (Neg); Benzodiazepine, Urine Neg (Neg); Cocaine, Urine Neg (Neg); MDMA (Ecstacy), Urine Neg (Neg); Methadone, Urine Neg (Neg); Opiate, Urine Neg (Neg); Phencyclidine, Urine Neg (Neg)
[2021-02-16] MEDS ORDERED: INSULIN PROTOCOL GOAL RANGE ONE (19:34)
[2021-02-16] MEDS ORDERED: STAT IV Infusion **Titration per Protocol STA ×2 (19:34→20:34)
[2021-02-16] MEDS ORDERED: SEVERE STRESS LEVEL ONE (19:34)
[2021-02-16] MEDS: MAGNESIUM SULFATE / D5W 1 GM/100 ML BAG IV SCH ×2 (19:36→20:30)
[2021-02-16] MEDS ORDERED: VANCOMYCIN CONSULT ACTIVE PRN ×2 (19:43)
[2021-02-16] MEDS ORDERED: VANCOMYCIN HCL 1,000 MG/270 ML BAG IV STA (19:43)
[2021-02-16 19:44] LABS: Base Excess ABG -5.3 mEq/L (-9-1.8); HCO3 ABG 21 mmol/L (19-24); Oxygen Saturation ABG 98.6 % (90-95); PCO2 ABG 42 mmHg (35-46); PO2 ABG 133 mmHg (80-95); pH ABG 7.31 (7.35-7.45)
[2021-02-16] MEDS ORDERED: INSULIN REGULAR 250 UNITS in SODIUM CHLORIDE 0.9% 247.5 ML IV SCH (19:45)
[2021-02-16 19:50] LABS: Allen Test Pos (Pos)
[2021-02-16] MEDS ORDERED: VANCOMYCIN HCL 2,500 MG in SODIUM CHLORIDE 0.9% 500 ML IV STA (20:10)
[2021-02-16] MEDS ORDERED: CARBOHYDRATES FOR HYPOGLYCEMIA PO PRN (20:15)
[2021-02-16] MEDS ORDERED: GLUCAGON FOR INJ 1 MG VIAL IM PRN (20:15)
[2021-02-16] MEDS ORDERED: NALOXONE HCL 0.4 MG/1 ML VIAL/CARP IV STA (20:15)
[2021-02-16] MEDS ORDERED: GLUCOSE 40% GEL 15 GM TUBE PO PRN (20:15)
[2021-02-16] MEDS ORDERED: GLUCOSE 10 TABS/TUBE PO PRN (20:15)
[2021-02-16] MEDS ORDERED: NovoLIN-R BOLUS FROM BAG IV ONE (20:15)
[2021-02-16] MEDS ORDERED: DEXTROSE 50% 50 ML SYRINGE IV PRN (20:15)
--- NOTE | 2021-02-16 20:15 | History & Physical Report ---
Date of Service February 16, 2021 Assessment & Plan (1) Encephalopathy: Plan: Multifactorial : Severe sepsis SIRS plus lactic acid elevation plus ARF on CKD Possible sources : HCAP (recent confinement) possible aspiration Complicated UTI, history of BPH infected skin lesions hx spongiotic dermatitis Hypotension, hypovolemia Hyperglycemia, DM2 on oral medications, recent hemoglobin A1c was 6.9 this month Incidental finding of pulmonary nodule with adenopathy possible malignancy chronic anemia, hemoglobin better than baseline secondary to hemoconcentration ICU CS, Vanco, Zosyn Vent management Monitor creatinine, lactic acid response to IVF May need pressor therapy Appropriate to hold home BP meds given hypotension. IV insulin BG goal 1 40-1 80 Outpatient work-up for pulmonary nodule. DVT prophylaxis. Heparin subcu Full code Total critical care time was 45 minutes. Patient requesting update from providers. Ms. Debra Burroughs, contact #[phone]. Text document was generated using [employer] voice recognition software. It may contain grammatical or spelling errors. Kindly contact undersigned for clarification of any documentation item in question. History of Present Illness Chief Complaint: Altered mental status as per records Primary Care Provider: Dale White MD History obtained from patient's family, and records. Unable to obtain history from patient secondary to intubated state. Medical history significant for hypertension, hyperlipidemia, JENNIFER on CPAP, DM2 on oral medications, CRI (baseline creatinine 1.4), chronic anemia (baseline hemoglobin 12-13), spongiotic dermatitis status post phototherapy. Last confinement February 04-2020 for angioedema possibly secondary to lisinopril. Swelling also coincided with first dose of prednisone taken for spongiotic dermatitis. Patient not well as per family following discharge from the hospital. Patient struggling with itchy skin lesions at home following discharge. Patient able to go to outpatient therapy sessions and follow-up at diabetes physician's office. Patient seen at PCPs office few days ago on hospital follow-up visit. Patient complaining itchy rash and dysuria symptoms. Patient prescribed topical steroids along with hydroxyzine as needed for itching. Some drainage noted from neck scratching as per . Increasing weakness noted over the last few days as per family. Patient looking very tired and sleeping more than usual. Patient found patient in the driveway obtunded today. Patient found to have temperature 100.6. EMS called. Patient subsequently intubated upon arrival at the ER. 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 Allergies Allergy/AdvReac Type Severity Reaction Status Date / Time lisinopril Allergy Severe Angioedema Verified 02/16/21 17:06 prednisone Allergy Severe FACE, Verified 02/16/21 17:06 LIPS, & TONGUE SWELLS Home Medications Medication Instructions Recorded Confirmed Type aspirin 81 mg tablet,delayed 81 mg PO DAILY 02/04/21 02/16/21 History release atorvastatin 10 mg tablet 10 mg PO HS 02/04/21 02/16/21 History carvedilol 12.5 mg tablet 12.5 mg PO BID 02/04/21 02/16/21 History ergocalciferol (vitamin D2) 1,250 1,250 mcg PO MONTHLY 02/04/21 02/16/21 History mcg (50,000 unit) capsule (Vitamin D2) fluocinolone 0.025 % topical 1 applic TOPICAL BID PRN 02/04/21 02/16/21 History ointment glimepiride 4 mg tablet 4 mg PO DAILY 02/04/21 02/16/21 History liraglutide 0.6 mg/0.1 mL (18 mg/3 1.2 mg SUBCUT DAILY 02/04/21 02/16/21 History mL) subcutaneous pen injector (Victoza 3-Everette) metformin 500 mg tablet,extended 1,000 mg PO DAILY 02/04/21 02/16/21 History release 24 hr travoprost 0.004 % eye drops 1 drp OPB HS 02/04/21 02/16/21 History triamcinolone acetonide 0.1 % 1 applic TOPICAL DIRECTED PRN 02/04/21 02/16/21 History topical cream diphenhydramine HCl 25 mg capsule 25 mg PO Q6H #14 cap 02/05/21 02/16/21 Rx (Benadryl) famotidine 20 mg tablet (Pepcid) 20 mg PO BID 02/16/21 02/16/21 History Past Med/Surg History Medical History (Updated 02/17/21 @ 09:03 by Cheyanne Mueller MD, PhD) CKD (chronic kidney disease), stage III Diabetes mellitus, type II Diabetic retinopathy Dyslipidemia Gout Hypertension Near syncope Sleep apnea "CPAP" Spongiotic dermatitis Surgical History Hx of colonoscopy Family History Other Cancer Coronary heart disease Diabetes Hypertension Social History Smoking Status: Never smoker Hx Alcohol Use: No Hx Substance Use: No Preferred Language: Uzbek Communication Ability: Effective 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 Beliefs That Will Affect Care: None Current Living Situation: Spouse and Family Other Information That Helps Us Care for You: No Feels Safe at Home: Yes Safety Concerns: Feels Safe At This Time Assistive Devices: Oxygen - Continuous Review of Systems Review of Systems: Could not be reliably obtained Physical Exam Physical Exam: GENERAL: Sedated, morbidly obese, no respiratory distress SKIN: Normal color, cool HEENT: [place] palpebral conjunctivae, no ptosis, dry buccal mucosa, ET in place NECK : Supple, short neck, thickening anterior neck with scant drainage CHEST : Bilateral rhonchi, no tenderness HEART : RRR, no obvious murmurs ABDOMEN: Some distention, nontender EXTREMITIES :bilateral LE swelling, no LE tenderness, no other conspicuous deformities noted NEUROLOGIC : Sedated, no facial asymmetry, no other gross focality Results & Data Results & Data ([facility]) Vital Signs (Past 12 Hours) Vital Signs Temp Pulse Resp BP Pulse Ox 02/16/21 20:00 34.9 C L 79 88/65 L 100 02/16/21 19:45 81 88/54 L 02/16/21 19:30 83 83/63 L 02/16/21 19:15 86 103/54 L 02/16/21 19:14 99 02/16/21 19:12 100 02/16/21 19:00 92 H 120/62 92 02/16/21 18:30 101 H 132/61 96 02/16/21 18:28 36.8 C 02/16/21 18:17 102 H 93 02/16/21 18:00 107 H 152/131 H 98 02/16/21 17:45 109 H 89/74 L 98 02/16/21 17:39 37.9 C H 02/16/21 17:30 113 H 97/72 L 97 02/16/21 17:15 129/67 98 02/16/21 16:41 38.2 C H 127 H 24 80/44 L 02/16/21 16:31 135 H 19 96 02/16/21 16:23 144 H 18 115/87 98 02/16/21 16:07 120 H 32 H 80/44 L 100 Laboratory Results Laboratory Results WBC 12.19 K/uL (4.8-10.8) H 02/16/21 17:41 RBC 3.96 M/uL (4.7-6.1) L 02/16/21 17:41 Hgb 12.9 g/dL (14.0-18.0) L 02/16/21 17:41 POC Hgb 12.9 g/dl (14.0-18.0) L 02/16/21 17:53 Hct 38.5 % (42-52) L 02/16/21 17:41 POC Hct 38 % (42-52) L 02/16/21 17:53 MCV 97.2 fL (80-100) 02/16/21 17:41 MCH 32.6 pg (25-34) 02/16/21 17:41 MCHC 33.5 g/dL (32-36) 02/16/21 17:41 RDW Std Deviation 48.0 fL (36.4-46.3) H 02/16/21 17:41 RDW Coeff of Kaelyn 13.6 % (11.5-14.5) 02/16/21 17:41 Plt Count 316 K/uL (130-400) 02/16/21 17:41 MPV 9.4 fL (7.4-10.4) 02/16/21 17:41 Immature Gran % (Auto) 0.9 % 02/16/21 17:41 Neut % (Auto) 79.5 % 02/16/21 17:41 Lymph % (Auto) 12.6 % 02/16/21 17:41 [place] % (Auto) 3.6 % 02/16/21 17:41 Eos % (Auto) 3.2 % 02/16/21 17:41 Baso % (Auto) 0.2 % 02/16/21 17:41 Neut # (Auto) 9.69 K/uL (1.4-6.5) H 02/16/21 17:41 Lymph # (Auto) 1.54 K/uL (1.2-3.4) 02/16/21 17:41 [place] # (Auto) 0.44 K/uL (0.11-0.59) 02/16/21 17:41 Eos # (Auto) 0.39 K/uL (0-0.5) 02/16/21 17:41 Baso # (Auto) 0.02 K/uL (0-0.2) 02/16/21 17:41 Immature Gran # (Auto) 0.11 K/uL (0.00-0.02) H 02/16/21 17:41 Absolute Nucleated RBC 0.04 K/uL (0-0) H 02/16/21 17:41 Nucleated RBC % (auto) 0.3 % 02/16/21 17:41 PT 14.8 Seconds (9.0-12.0) H 02/16/21 17:41 INR 1.5 (0.9-1.1) H 02/16/21 17:41 APTT 25.9 Seconds (21.0-31.0) 02/16/21 17:41 PTT Ratio 1.0 02/16/21 17:41 ABG pH 7.31 (7.35-7.45) L 02/16/21 19:13 ABG pCO2 42 mmHg (35-46) 02/16/21 19:13 ABG pO2 133 mmHg (80-95) H 02/16/21 19:13 ABG HCO3 21 mmol/L (19-24) 02/16/21 19:13 ABG O2 Saturation 98.6 % (90-95) H 02/16/21 19:13 ABG Base Excess -5.3 mEq/L (-9-1.8) 02/16/21 19:13 Lb Test Pos (Pos) 02/16/21 19:13 VBG pH 7.26 (7.36-7.41) L 02/16/21 17:41 VBG pCO2 50 mmHg (38-50) 02/16/21 17:41 VBG pO2 54 mmHg 02/16/21 17:41 VBG HCO3 22 mmol/L 02/16/21 17:41 VBG O2 Saturation 80.9 % 02/16/21 17:41 VBG Base Excess -5.4 mEq/L 02/16/21 17:41 Carboxyhemoglobin 0.0 % THgb 02/16/21 17:41 Barometric Pressure 734.4 mm/Hg 02/16/21 19:13 Oxygen Given 60% 02/16/21 19:13 POC Sodium 139 mmol/L (135-144) 02/16/21 17:53 Sodium 138 mmol/L (136-145) 02/16/21 17:41 POC Potassium 5.3 mmol/L (3.3-5.0) H 02/16/21 17:53 Potassium 5.2 mmol/L (3.5-5.1) H 02/16/21 17:41 POC Chloride 105 mmol/L (101-112) 02/16/21 17:53 Chloride 110 mmol/L (98-107) H 02/16/21 17:41 Carbon Dioxide 22 mmol/L (21-32) 02/16/21 17:41 POC Total CO2 21 mmol/L (24-31) L 02/16/21 17:53 Anion Gap 7.0 (3-11) 02/16/21 17:41 POC Anion Gap 19.0 mmol/L (16-25) 02/16/21 17:53 POC BUN 21 mg/dl (7-18) H 02/16/21 17:53 BUN 21 mg/dl (7-18) H 02/16/21 17:41 Creatinine 2.72 mg/dl (0.6-1.4) H 02/16/21 17:41 POC Creatinine 2.6 mg/dl (0.6-1.3) H 02/16/21 17:53 Est Cr Clr Drug Dosing Not Reportable 02/16/21 17:41 Est GFR ( Amer) 26.2 ml/min 02/16/21 17:41 Est GFR (Non-Af Amer) 22.6 ml/min 02/16/21 17:41 BUN/Creatinine Ratio 7.8 (10-20) L 02/16/21 17:41 Glucose 350 mg/dl (70-99) H* 02/16/21 17:41 POC Glucose 334 mg/dl (70-99) H* 02/16/21 19:51 POC Glucose (other) 341 mg/dl (70-99) H 02/16/21 17:53 Lactate 2.8 mmol/L (0.4-2.0) H* 02/16/21 17:41 Calcium 7.1 mg/dl (8.5-10.1) L 02/16/21 17:41 POC Ioniz Calcium [place] 1.07 mmol/l (1.12-1.32) L 02/16/21 17:53 Magnesium 1.6 mg/dl (1.8-2.4) L 02/16/21 17:41 Total Bilirubin 0.5 mg/dl (0.2-1) 02/16/21 17:41 AST 31 U/L (15-37) 02/16/21 17:41 ALT 29 U/L (12-78) 02/16/21 17:41 Alkaline Phosphatase 66 U/L (45-117) 02/16/21 17:41 Ammonia 17.8 umol/L (11-32) 02/16/21 19:42 Total Creatine Kinase 248 U/L (39-308) 02/16/21 17:41 CK-MB (CK-2) 1.4 ng/ml (0.5-3.6) 02/16/21 17:41 CK/CKMB % Calc 0.6 (0-3.0) 02/16/21 17:41 Troponin I 0.089 ng/ml (0-0.045) H* 02/16/21 17:41 NT-Pro-B Natriuret Pep 329 pg/ml (0-900) 02/16/21 17:41 Total Protein 6.2 gm/dl (6.4-8.2) L 02/16/21 17:41 Albumin 2.5 gm/dl (3.4-5.0) L 02/16/21 17:41 Globulin 3.7 gm/dl (2.5-4.0) 02/16/21 17:41 Albumin/Globulin Ratio 0.7 (0.9-2) L 02/16/21 17:41 Beta-Hydroxybutyric Acd 2.88 mg/dl (0.2-2.81) H 02/16/21 17:41 Random Cortisol 31.19 mcg/dl 02/16/21 17:41 Urine Color Dark Yellow 02/16/21 18:16 Urine Appearance Turbid (Clear) A 02/16/21 18:16 Urine pH 5.0 (4.5-7.5) 02/16/21 18:16 Ur Specific [place] 1.024 (1.000-1.030) 02/16/21 18:16 Urine Protein 1+ (Negative) H 02/16/21 18:16 Urine Glucose (UA) Negative (Negative) 02/16/21 18:16 Urine Ketones Trace (Negative) H 02/16/21 18:16 Urine Blood 3+ (Negative) H 02/16/21 18:16 Urine Nitrite Negative (Negative) 02/16/21 18:16 Urine Bilirubin Negative (Negative) 02/16/21 18:16 Urine Urobilinogen Negative (Negative) 02/16/21 18:16 Ur Leukocyte Esterase Trace (Negative) H 02/16/21 18:16 Urine WBC (Auto) 5-10 /hpf (0-5) H 02/16/21 18:16 Urine RBC (Auto) >30 /hpf (0-4) H 02/16/21 18:16 U Hyaline Cast (Auto) 5-10 /lpf (0-5) H 02/16/21 18:16 U Epithel Cells (Auto) >30 /lpf (0-5) H 02/16/21 18:16 Urine Bacteria (Auto) Negative (Negative) 02/16/21 18:16 Urine Yeast Not Reportable 02/16/21 18:16 Urine Osmolality 546 mOsm/kg (500-800) 02/16/21 18:16 Ur Random Sodium 64 mmol/L 02/16/21 18:16 Urine Opiates Screen Neg (Neg) 02/16/21 18:16 Ur Methadone, Qual Neg (Neg) 02/16/21 18:16 Urine Barbiturates Neg (Neg) 02/16/21 18:16 Ur Phencyclidine (PCP) Neg (Neg) 02/16/21 18:16 U Amphetamin/Meth Scrn Neg (Neg) 02/16/21 18:16 MDMA (Ecstasy) Screen Neg (Neg) 02/16/21 18:16 U Benzodiazepines Scrn Neg (Neg) 02/16/21 18:16 Ur Cocaine Metabolite Neg (Neg) 02/16/21 18:16 U Marijuana (THC) Screen Neg (Neg) 02/16/21 18:16 Ethyl Alcohol mg/dL < 3.0 mg/dl (0-3) 02/16/21 19:42 COVID-19 Eval Order Covid19 at [facility] 02/16/21 18:12 SARS-CoV-2 (PCR) NEGATIVE (Negative) 02/16/21 18:[address] 02/16/21 16:07 CT head/brain wo con CLINICAL HISTORY: ams COMPARISON STUDY: November 09, 2017 TECHNIQUE: Axial CT of the brain is performed from the vertex to the skull base. IV contrast was not administered for this examination. A dose lowering technique was utilized adhering to the principles of ALARA. CT DOSE: 638.56 mGycm FINDINGS: No intra or extra-axial mass lesions are visualized. There is no CT evidence of acute cortical infarction. There is no evidence of midline shift. There is no acute hemorrhage. No acute depressed calvarial fractures are visualized. There are patchy white matter hypodensities likely on a small vessel basis. There is no evidence of pathologic ventricular dilatation. Opacification of bilateral ethmoid air cells is seen and extending to nasopharyngeal region with opacification of upper airways. Visualized portion of bilateral frontal and maxillary sinuses as well as mastoid air cells are patent and well-aerated. IMPRESSION: 1. No acute intracranial hemorrhage, no midline shift or space occupying lesions. 2. Opacification of bilateral ethmoid air cells as well as visualized upper airways. Further evaluation with CT evaluation of paranasal sinuses is suggested. ACT 112: Negative or not required by law. The above report was generated using voice recognition software. It may contain grammatical, syntax or spelling errors. Electronically signed by: Juliane Vazquez DO 02/16/2021 5:41 PM Abdomen/Pelvis CT 02/16/21 16:12 CT SCAN OF THE ABDOMEN AND PELVIS WITHOUT CONTRAST CLINICAL HISTORY: ams COMPARISON STUDY: December 27, 2007 TECHNIQUE: CT scan of the abdomen and pelvis was performed from the lung bases to the proximal femurs. Images are reviewed in the axial, sagittal, and coronal planes. IV contrast was not administered for this examination. A dose lowering technique was utilized adhering to the principles of ALARA. CT DOSE: FINDINGS: Lower chest: For findings and lower chest please refer to report of the CT of the chest performed at the same time. Liver: The unenhanced liver is normal in size, contour, and attenuation. Suboptimal evaluation due to beam hardening artifact Gallbladder: Unremarkable. Spleen: Normal in size and attenuation. Pancreas: Unremarkable. Adrenal glands: Unremarkable. Kidneys: The unenhanced kidneys are normal in size without hydronephrosis. There is no contour deforming renal mass lesion. No renal calculi are identified. Bowel: Small hiatal hernia is seen. Bowel loops are nondilated. Appendix shows normal morphology and gas filled. Moderate stool content is seen within transverse colon. Catheter is seen within distal rectum. Peritoneum: There is no intraperitoneal free air or abdominal ascites. Vasculature: Abdominal aorta is normal in caliber, slightly tortuous with multiple calcifications within its wall. Adenopathy: Multiple retroperitoneal lymph nodes are seen measuring up to 1.0 cm in short axis. Pelvic viscera: Urinary bladder is decompressed with Baez balloon within its lumen. Prostate gland is mildly enlarged. Skeletal structures: Multilevel degenerative changes of the spine. No definite aggressive osseous lesions are seen. IMPRESSION: 1. No acute intra-abdominal process. Nondilated loops of bowel. Normal appendix. 2. Decompressed urinary bladder with Baez balloon within its lumen. 3. No hydronephrosis or nephrolithiasis. 4. The rest of findings as above. ACT 112: Negative or not required by law. The above report was generated using voice recognition software. It may contain grammatical, syntax or spelling errors. Electronically signed by: Juliane Vazquez DO 02/16/2021 6:[address] 02/16/21 16:12 CT chest diagnostic wo con CLINICAL HISTORY: ams COMPARISON STUDY: No previous studies for comparison. CT DOSE: 1560.07 mGycm TECHNIQUE: CT of the thorax was performed from the thoracic inlet to the lung bases. Images are reviewed in the axial, sagittal, and coronal planes. IV contrast was not administered for this examination. A dose lowering technique was utilized adhering to the principles of ALARA. FINDINGS: Suboptimal exam due to beam hardening artifact from patient's arms. Bilateral axillary lymph nodes are prominent, measuring up to 1.9 cm on the left. Multiple supra clavicle lymph nodes are seen. Limited exam due to beam hardening artifact from overlying EKG leads. Mottled mediastinal lymph nodes is difficult to evaluate due to beam hardening and motion artifact. Thyroid: Visualized portion of thyroid gland shows no evidence of focal lesions. Esophagus is fluid-filled, not well visualized. Thoracic aorta: The thoracic aorta is normal in course and caliber, noting standard 3 vessel arch anatomy. Heart: The heart is normal in size and configuration, without pericardial effusion. Lungs and pleural spaces: Tracheobronchial tree is patent. Tracheal tube is terminating within lumen of intrathoracic trachea. Consolidative opacities are seen at dependent portions of bilateral lower lobes which might represent atelectasis or related to aspiration. Minimal pleural effusion is seen on the right. -15 x 11 mm solid pulmonary nodule is seen within subpleural aspect of the right middle lobe and is concerning for neoplastic etiology. () Upper abdomen: Partially visualized upper abdominal viscera is within normal limits. Skeletal structures: Multilevel degenerative changes of the spine. No definite aggressive osseous lesions are seen. IMPRESSION: 1. Mild opacities at dependent portions of bilateral lower lobes might represent atelectasis or related to aspiration. 2. Large solid nodule within the right middle lobe and bilateral axillary lymphadenopathy is concerning for neoplastic etiology. Please correlate this findings with prior history of malignancy. 3. Suboptimal exam due to beam hardening artifact. 4. The rest of findings as above. ACT 112: Negative or not required by law. The above report was generated using voice recognition software. It may contain grammatical, syntax or spelling errors. Electronically signed by: Juliane Vazquez DO 02/16/2021 6:04 PM Diagnostic Findings EKG as per my interpretation rate 125, sinus tachycardia, LAD, LAFB, low voltage
[2021-02-16 20:22] LABS: BUN Creatinine Ratio 7.8 (10-20); Calcium 6.9 mg/dl (8.5-10.1); Creatinine Clr Calc Pharmacy 33.1 ml/min; Est GFR (African American) 25.8 ml/min; Est GFR (Non-African American) 22.2 ml/min; Potassium 5.5 mmol/L (3.5-5.1)
[2021-02-16] MEDS ORDERED: CALCIUM GLUCONATE 1,000 MG/60 ML BAG IV STA (20:39)
[2021-02-16] MEDS ORDERED: fentaNYL citrate 100 MCG/2 ML VIAL ONE (21:01)
[2021-02-16] MEDS ORDERED: fentaNYL citrate 100 MCG/2 ML VIAL IV STA (21:02)
--- NOTE | 2021-02-16 21:26 | Critical Care Consultation ---
Date of Consultation February 16, 2021 Assessment & Plan (1) Sepsis: Reason Critically Ill: 70-year-old male presents to the ICU mechanically ventilated for acute hypoxic respiratory failure, sepsis, and encephalopathy after being found unresponsive in his car earlier today. Neuro - Acute encephalopathyunsure of etiology at this time, CT head without acute intracranial finding -Cannot rule out meningitis as a source at this time. LP performed and CSF labs, cultures, bio fire, and cytology pending -10 mg IV Decadron administered -Added acyclovir and modified antibiotics for [employer] coverage -BUN mildly elevated, no liver dysfunction. -Follow-up MRI and EEG Sedationfentanyl drip, Versed push as needed Cardiac - Currently hemodynamically stable without vasopressors, NSR on monitor Troponin 0 0.089, no ST elevation on EKG. Trend troponin for now Continuous monitoring on telemetry We will hold antihypertensive meds for now as patient's blood pressures have been soft with sedation Respiratory - Acute hypoxic respiratory failurelikely in the setting of pneumonia -CT chest with bilateral lower lobe opacities suggestive of aspiration pneumonia -Patient does have a large nodule within the right middle lobe with bilateral axillary lymphadenopathic concerning for neoplastic etiology. -Ventilator settings: 18/450/8/70 percent -See ID for pneumonia -Continuous monitoring pulse ox -Daily chest x-ray -Follow-up a.m. ABG GI - NG tube, low intermittent wall suction CT abdomen and pelvis without acute findings Continue famotidine RENAL/LYTES - JAVON on CKDcreatinine 2.7 with baseline 1.6 -Mild hyperkalemia, no significant acidosis -Suspect this is prerenal in the setting of sepsis, will continue with IV fluid resuscitation and trend BMPs for now -Monitor - Foleystrict I's and O's ENDO - DM type IIholding Metformin -Currently hyperglycemic, starting on insulin drip per ICU hyperglycemic protocol HEME - H&H stable, monitor routine CBCs ID - Sepsispatient with leukocytosis, febrile, elevated lactate, procalcitonin pending -Likely pulmonary source but cannot rule out meningitis at this time -Possible UTI on UA, urine culture pending -Blood cultures pending -LP: [employer] cultures and cytology pending. Meningitis bio fire pending -Continue with broad-spectrum antibiotics with added [employer] coverage for now. Vancomycin, ceftriaxone, ampicillin, acyclovir LINES/IV ACCESS - CVC left femoral, peripheral IVs, ET tube, NG tube, Baez DVT PROPHYLAXIS - SCDs, heparin I have personally spent 70 minutes of critical care time in the direct management of this patient. This is a life/limb threatening event. This includes time spent evaluating patient, direct bedside care, chart review, placing orders, interpretation of diagnostic studies, discussion with consultants, patient, and family members, as well as other required patient management activities. This time is exclusive of all separately billable procedures, and teaching time and separate from and in addition to any other critical care service time. Thank you for allowing us to participate in the care of this patient. Please refer to my attending physician's documentation for any further recommendations. (2) CKD (chronic kidney disease), stage III: (3) Diabetes mellitus, type II: (4) Sleep apnea: (5) Hypertension: (6) Dyslipidemia: (7) Diabetic retinopathy: (8) Pneumonia: (9) Sepsis with acute hypoxic respiratory failure: (10) Fever: (11) Encephalopathy acute: (12) JAVON (acute kidney injury): (13) Hypothyroid: (14) Pulmonary nodule: History of Present Illness Attending Physician: Kel Souza MD History of Present Illness Mr. Burroughs is a 70-year-old male with past medical history including CKD, DM type II dyslipidemia, HTN. He recently was admitted for angioedema from lisinopril and has been being treated for a chronic rash by dermatology. He presented to the emergency department earlier this afternoon with altered mental status. Patient was noted to be found obtunded in his car by his . stated that the patient had been tired and sleeping a lot over the past few days and was initially going to call off work but could not find coverage. He left the house approximately 2:30 this afternoon when she noticed him still in the driveway sitting in the vehicle. EMS arrived to the scene to find the patient hyperthermic and the patient was wearing a heavy coat in the heated car with temperature 106 degrees. Patient's stated that the patient was not complain of a headache prior to this event. Patient was found to be unresponsive on arrival to the emergency department and was intubated emergently. CT head was negative for acute intracranial findings. CT chest was consistent with aspiration pneumonia. CT abdomen pelvis unremarkable. Central line is placed in the emergency department, he has not required vasopressors at this time. Lab work did show elevated lactate, leukocytosis consistent with sepsis. He was treated broad-spectrum antibiotics in the emergency department. Patient admitted to ICU for further management at this time and is currently undergoing work-up for possible meningitis. Allergies Allergy/AdvReac Type Severity Reaction Status Date / Time lisinopril Allergy Severe Angioedema Verified 02/16/21 17:06 prednisone Allergy Severe FACE, Verified 02/16/21 17:06 LIPS, & TONGUE SWELLS Home Medications Medication Instructions Recorded Confirmed Type aspirin 81 mg tablet,delayed 81 mg PO DAILY 02/04/21 02/16/21 History release atorvastatin 10 mg tablet 10 mg PO HS 02/04/21 02/16/21 History carvedilol 12.5 mg tablet 12.5 mg PO BID 02/04/21 02/16/21 History ergocalciferol (vitamin D2) 1,250 1,250 mcg PO MONTHLY 02/04/21 02/16/21 History mcg (50,000 unit) capsule (Vitamin D2) fluocinolone 0.025 % topical 1 applic TOPICAL BID PRN 02/04/21 02/16/21 History ointment glimepiride 4 mg tablet 4 mg PO DAILY 02/04/21 02/16/21 History liraglutide 0.6 mg/0.1 mL (18 mg/3 1.2 mg SUBCUT DAILY 02/04/21 02/16/21 History mL) subcutaneous pen injector (Victoza 3-Everette) metformin 500 mg tablet,extended 1,000 mg PO DAILY 02/04/21 02/16/21 History release 24 hr travoprost 0.004 % eye drops 1 drp OPB HS 02/04/21 02/16/21 History triamcinolone acetonide 0.1 % 1 applic TOPICAL DIRECTED PRN 02/04/21 02/16/21 History topical cream diphenhydramine HCl 25 mg capsule 25 mg PO Q6H #14 cap 02/05/21 02/16/21 Rx (Benadryl) famotidine 20 mg tablet (Pepcid) 20 mg PO BID 02/16/21 02/16/21 History Patient History Medical History CKD (chronic kidney disease), stage III Diabetes mellitus, type II Diabetic retinopathy Dyslipidemia Hypertension Near syncope Sleep apnea "CPAP" Surgical History Hx of colonoscopy Family History Other Cancer Coronary heart disease Diabetes Hypertension Social History Smoking Status: Never smoker Hx Alcohol Use: No Hx Substance Use: No Preferred Language: Peruvian Communication Ability: Effective Metal Window Frame Maker Required: No Beliefs That Will Affect Care: None Current Living Situation: Spouse and Family Other Information That Helps Us Care for You: No Feels Safe at Home: Yes Safety Concerns: Feels Safe At This Time Assistive Devices: Glasses Review of Systems Review of Systems: Unobtainable due to cognitive status and Unobtainable due to endotracheal tube Physical Exam Constitutional: + obese and + mechanically ventilated Eyes: PERRL, conjunctivae normal, anicteric sclerae ENMT: external ear and nose normal, oropharynx normal Neck: trachea midline, no thyromegaly Respiratory: Rhonchi auscultated bilateral lower lobes. Symmetrical chest wall movement. Mechanically ventilated Cardiovascular: RRR, no murmur, no edema Heart Sounds: normal S1 and normal S2 Extremities: normal capillary refill; no edema Gastrointestinal (Abdomen): Abdomen obese, soft, normal bowel sounds auscultated Skin: Skin warm and dry. Generalized rash. Neurologic: Unable to assess due to sedation t/endotracheal tube Psychiatric: Unable to assess due to sedation/endotracheal tube Genitourinary: Indwelling Baez catheter present Results & Data Results & Data ([facility]) Vital Signs (Past 12 Hours) Vital Signs Temp Pulse Resp BP Pulse Ox 02/16/21 20:58 25 H 98 02/16/21 20:28 34.7 C L 02/16/21 20:00 34.9 C L 79 88/65 L 100 02/16/21 19:45 81 88/54 L 02/16/21 19:30 83 83/63 L 02/16/21 19:15 86 103/54 L 02/16/21 19:14 99 02/16/21 19:12 100 02/16/21 19:00 92 H 120/62 92 02/16/21 18:30 101 H 132/61 96 02/16/21 18:28 36.8 C 02/16/21 18:17 102 H 93 02/16/21 18:00 107 H 152/131 H 98 02/16/21 17:45 109 H 89/74 L 98 02/16/21 17:39 37.9 C H 02/16/21 17:30 113 H 97/72 L 97 02/16/21 17:15 129/67 98 02/16/21 16:41 38.2 C H 127 H 24 80/44 L 02/16/21 16:31 135 H 19 96 02/16/21 16:23 144 H 18 115/87 98 02/16/21 16:07 120 H 32 H 80/44 L 100 Coding Level of Care Code Critical Care 1st 30-74 mins Diagnoses CKD (chronic kidney disease), stage III N18.30 Diabetes mellitus, type II E11.9 Sleep apnea G47.30 Hypertension I10 Dyslipidemia E78.5 Diabetic retinopathy E11.319 Sepsis A41.9 Pneumonia J18.9 Sepsis with acute hypoxic respiratory failure A41.9; R65.20; J96.01 Fever R50.9 Encephalopathy acute G93.40 JAVON (acute kidney injury) N17.9 Hypothyroid E03.9 Pulmonary nodule R91.1
[2021-02-16 21:31] LABS: Beta-Hydroxybutyrate 4.7 mg/dl (0.2-2.81)
[2021-02-16] MEDS ORDERED: ACETAMINOPHEN 1,000 MG/100 ML VIAL IV PRN (21:41)
[2021-02-16] MEDS ORDERED: LORazepam 0.5 MG/1 ML VIAL IV PRN (21:41)
[2021-02-16] MEDS ORDERED: LORazepam 1 MG/2 ML VIAL IV PRN (21:41)
[2021-02-16] MEDS ORDERED: PROMETHAZINE HCL 12.5 MG in SODIUM CHLORIDE 0.9% 50 ML IV PRN (21:41)
[2021-02-16] MEDS ORDERED: LORazepam 2 MG/4 ML VIAL IV PRN (21:41)
[2021-02-16] MEDS ORDERED: fentaNYL citrate 100 MCG/2 ML VIAL IV PRN (21:41)
[2021-02-16] MEDS: fentaNYL DRIP 1,250 MCG/250 ML BAG IV SCH (21:48)
[2021-02-16 21:53] LABS: C Reactive Protein 5.01 mg/dl (0-0.29); Troponin I 0.096 ng/ml (0-0.045)
[2021-02-16] MEDS ORDERED: PIPERACILLIN/TAZOBACTAM 4.5 GM in DEXTROSE 5% 100 ML IV SCH (22:00)
[2021-02-16] MEDS: MIDAZOLAM HCL 1 MG/ML 2ML VIAL IV PRN (22:08)
[2021-02-16] MEDS: INSULIN ASPART 100 UNITS/ML 3 ML PEN SC SCH (22:11)
[2021-02-16] MEDS: FAMOTIDINE 20 MG in SYRINGE 3 ML IV SCH (22:11)
[2021-02-16] MEDS ORDERED: cefTRIAXone SODIUM 2,000 MG in DEXTROSE 5% 50 ML IV SCH (22:30)
[2021-02-16] MEDS ORDERED: DEXTROSE 5% IV SCH ×2 (22:30)
[2021-02-16] MEDS ORDERED: ACYCLOVIR SOD IV SCH ×2 (22:30)
[2021-02-16] MEDS ORDERED: dexAMETHasone 10 MG in SYRINGE 0 ML IV ONE (22:45)
[2021-02-16 23:15] LABS: CSF Glucose 202 mg/dl (40-70)
[2021-02-16] MEDS: HEPARIN SOD 5,000 UNIT/0.5 ML VIAL SQ SCH (23:48)
[2021-02-17 00:11] LABS: Appearance CSF BLOODY; CSF Xanthrochromic Xanthochromic; Color CSF RED; Mononuclear WBC CSF 34.8 %; Polynuclear WBC CSF 65.2 %; Red Blood Cell CSF (A) 13000 /uL (0-)
[2021-02-17 00:12] LABS: CSF Count Tube # 3
[2021-02-17 00:15] LABS: CSF Chemistry Tube # 1; White Blood Cell CSF (A) 23 /uL (0-5)
[2021-02-17 00:16] LABS: Cryptococcus neoformans/ga PCR Not Detected (NotDetected); Cytomegalovirus PCR Not Detected (NotDetected); Enterovirus PCR Not Detected (NotDetected); Escherichia coli K1 PCR Not Detected (NotDetected); Haemophilius influenzae PCR Not Detected (NotDetected); Herpes Simplex Virus 1 PCR Not Detected (NotDetected); Herpes Simplex Virus 2 PCR Not Detected (NotDetected); Human Herpes Virus 6 PCR Not Detected (NotDetected); Human Parechovirus PCR Not Detected (NotDetected); Listeria monocytogenes PCR Not Detected (NotDetected); Neisseria meningitidis PCR Not Detected (NotDetected); Streptococcus agalactiae PCR Not Detected (NotDetected); Streptococcus pneumoniae PCR Not Detected (NotDetected); Varicella Zoster Virus PCR Not Detected (NotDetected)
[2021-02-17] MEDS: TRAVOPROST Z 0.004% OPH SOLN 2.5 ML BTL OPB SCH ×2 (00:19→19:59)
[2021-02-17 00:22] LABS: Troponin I 0.111 ng/ml (0-0.045)
[2021-02-17] MEDS: MIDAZOLAM HCL 1 MG/ML 2ML VIAL IV PRN (00:23)
[2021-02-17] MEDS: AMPICILLIN 2,000 MG in SODIUM CHLOR 0.9% AD-VAN 100 ML IV SCH ×2 (00:23→05:19)
[2021-02-17] MEDS ORDERED: STAT IV Infusion **Titration per Protocol STA ×2 (00:29→10:51)
[2021-02-17] MEDS ORDERED: NOREPINEPHRINE/D5W 8 MG/508 ML BAG IV SCH (00:30)
[2021-02-17] MEDS: SODIUM CHLORIDE 0.9% 1000ML 1,000 ML IV SCH ×2 (00:39→07:36)
[2021-02-17] MEDS ORDERED: ALBUTEROL HFA 8 GM INHALER INH SCH (01:00)
[2021-02-17] MEDS ORDERED: IPRATROPIUM BROMIDE HFA INHALER INH SCH (01:00)
[2021-02-17 02:03] LABS: Beta-Hydroxybutyrate 1.68 mg/dl (0.2-2.81)
[2021-02-17 02:16] LABS: BUN Creatinine Ratio 8.4 (10-20); Calcium 7.3 mg/dl (8.5-10.1); Creatinine Clr Calc Pharmacy 31.7 ml/min; Est GFR (African American) 24.1 ml/min; Est GFR (Non-African American) 20.8 ml/min; Magnesium 2.5 mg/dl (1.8-2.4); Potassium 4.9 mmol/L (3.5-5.1)
[2021-02-17 02:32] LABS: Beta-Hydroxybutyrate 0.85 mg/dl (0.2-2.81)
[2021-02-17] MEDS: fentaNYL DRIP 1,250 MCG/250 ML BAG IV SCH (04:03)
[2021-02-17] MEDS: HEPARIN SOD 5,000 UNIT/0.5 ML VIAL SQ SCH ×3 (05:18→22:15)
[2021-02-17 05:34] LABS: Basophils # (auto) 0.03 K/uL (0-0.2); Basophils % (auto) 0.3 %; Eosinophils # (auto) 0.03 K/uL (0-0.5); Eosinophils % (auto) 0.3 %; Hematocrit (blood only) 44.4 % (42-52); Hemoglobin 14.6 g/dL (14.0-18.0); Immature Granulocytes # (auto) 0.03 K/uL (0.00-0.02); Immature Granulocytes % (auto) 0.3 %; Lymphocytes # (auto) 1.83 K/uL (1.2-3.4); Lymphocytes % (auto) 19.1 %; Mean Corpuscular Hemoglobin 32.3 pg (25-34); Mean Corpuscular Hgb Conc 32.9 g/dL (32-36); Mean Corpuscular Volume 98.2 fL (80-100); Mean Platelet Volume 9.3 fL (7.4-10.4); Monocytes # (auto) 0.56 K/uL (0.11-0.59); Monocytes % (auto) 5.9 %; Neutrophils # (auto) 7.09 K/uL (1.4-6.5); Neutrophils % (auto) 74.1 %; Platelet Count 321 K/uL (130-400); RDW Coefficient of Variation 13.8 % (11.5-14.5); RDW Standard Deviation 49.1 fL (36.4-46.3); Red Blood Count 4.52 M/uL (4.7-6.1); White Blood Count 9.57 K/uL (4.8-10.8)
[2021-02-17 06:00] LABS: BUN Creatinine Ratio 8.3 (10-20); Calcium 7.6 mg/dl (8.5-10.1); Creatinine Clr Calc Pharmacy 30.1 ml/min; Est GFR (African American) 22.6 ml/min; Est GFR (Non-African American) 19.5 ml/min; Magnesium 2.4 mg/dl (1.8-2.4); Potassium 5.1 mmol/L (3.5-5.1)
[2021-02-17 06:05] LABS: Troponin I 0.07 ng/ml (0-0.045)
[2021-02-17] MEDS ORDERED: ALBUT/IPRATROP 3MG/0.5MG NEB 3 ML VIAL NEB SCH ×2 (07:00→13:00)
--- NOTE | 2021-02-17 07:14 | Magnetic Resonance Report ---
MR brain wo con INDICATION: Patient found unresponsive. Now on ventilator. TECHNIQUE: Multiplanar and multisequence MR images of the brain were obtained without intravenous con trast. Comparison: Comparison is made to MRI brain 06/21/2012 FINDINGS: On diffusion weighted imaging, there is no evidence of an acute infarct. A focus of DWI uptake in the right cerebellum does not demonstrate associated ADC abnormality. Foci of T2 and FLAIR hyperintensity are noted in the paraventricular areas consistent with chronic sm all vessel ischemic disease. There is no evidence of acute intraparenchymal hemorrhage. There is no evidence of acute intraparenchymal hemorrhage. No intra or extra axial fluid collections are seen. Th ere are no masses, mass effect, or midline shift. There are no enhancing lesions. The ventricular sys tem is normal in appearance. The corpus callosum, pituitary gland, and cerebellar tonsils appear kevin sly unremarkable. Flow voids of the major intracranial arterial vessels are identified. Soft tissue thickening is seen most prominently in the ethmoid air cells sphenoid sinuses. IMPRESSION: Mild sinus disease without infarct or hemorrhage. Expected age-related changes. ACT 112: Negative or not required by law. Electronically signed by: Caden Pendleton M.D. 02/17/2021 7:13 AM
--- NOTE | 2021-02-17 07:26 | Critical Care Progress Note ---
Date of Service February 17, 2021 Assessment & Plan (1) Sepsis: Plan: Assessment: 70yo male with HTN, HLD, DM2, CKD3, LVH, JENNIFER, obesity, angioedema, and gout presented to the ED via EMS after being found unresponsive and hyperthermic, currently mechanically ventilated and requiring vasopressor support. Critical care indication: need for pressor support, need for mechanical ventilation Plan: Neurologic CAM-ICU: unable to perform GCS E(1) V(NT) M(3) Sedation: fentanyl, versed Analgesia: fentanyl CT head negative for acute process, MRI brain notable only for expected age- related changes and mild sinus disease without infarct or hemorrhage LP with elevated protein and WBCs; differential includes meningitis, traumatic tap; CSF biofire negative UDS negative for substances of abuse Lactate 2.5, CK 900, CRP 5.0 Decadron IV 10mg administered Continue empiric antibiotic therapy as below Cardiac Patient in SNR; BP intermittently hypotensive despite pressor support Hold home antihypertensives, continue norepinephrine gtt Troponin mildly elevated on arrival, has since peaked; continue to trend Follow up echo results Continue ASA Respiratory Patient without prior history of respiratory disease, presented in acute hypoxic respiratory failure Maintaining adequate oxygen saturation on mechanical ventilation Continue mechanical ventilation (18/450/8/70), wean as tolerated Continue scheduled duonebs [id number] solid pulmonary nodule of the right middle lobe appreciated on CT ches t; suspect unrelated to current presentation Follow-up morning ABG, daily CXR Gastrointestinal Diet: NPO CT abdomen/pelvis without acute process NG tube in place; continue lower intermittent suction Continue famotidine IV bid Renal/electrolytes JAVON on admission with Cr elevated to 2.7 (history of CKD, baseline creatinine ~1.3) Patient noted with mild hyperkalemia likely secondary to sepsis, improved with ISS, albuterol Replete electrolytes as needed Currently with +7L positive fluid balance, low urine output; IVF held at this time Per nephrology, proteinuria/hematuria new and not c/w infection; lupus profile recommended given h/o dermatitis Genitourinary Urine output low overnight, no obstructive pattern or hydronephrosis see on CT abdomen Tolentino catheter draining normal-appearing urine at this time Strict I/O's Endocrine BSG remain labile on insulin gtt; glycemic consult placed Home DM2 regimen held on admission Hematologic Hgb stable at this time; will monitor for any drops in the setting of heparin gtt INR 1.5 on admission without a history of coagulopathy, anticoagulant use Follow daily CBC Blood type: O pos Infectious disease Febrile on admission with leukocytosis, elevated lactate, elevated procalcitonin Differential includes PNA, meningitis, bacteremia, others Urine, blood cultures spending; tick-borne virus panel pending CSF Gram stain negative, culture pending, CSF AFB, fungal cultures pending, CSF biofire negative MRSA nares positive Continue empiric antibiotic treatment with vancomycin, cefepime, doxycycline Integumentary No concerns at this time Lines/access Left femoral line, PIV x2, ET tube, NG tube, tolentino catheter Prophylaxis DVT ppx: heparin GI ppx: famotidine Thank you the opportunity to participate in this patient's care. Please see Dr. Mark's documentation for further recommendations. Admission and Anticipated Discharge Date Admission Date: February 16, 2021 Supervising Physician Co-Signing Physician Notes Patient seen exam with the resident physician. I agree with his assessment and plan aside for any additions/exceptions noted: Presentation concerning for septic shock with unclear source of sepsis at this time. Possible bacteremia. Cultures pending. CT chest with bilateral infiltrates and a right middle lobe lung nodule. CSF findings reviewed. Leukocytosis seen. This was a traumatic lumbar puncture. Protein elevated. Possible aseptic meningitis. Bio fire from CSF fluid negative. CSF cytology pending. Less likely paraneoplastic syndrome. Serotonin syndrome or neuroleptic malignant syndrome seems less likely as well given that he is not on any serotonergic agents or antipsychotics. CK level mildly elevated. JAVON likely secondary to ischemic ATN. 60 mg of IV Lasix given due to decreased urine output. He is roughly 6-1/2 L positive since hospital admission. We'll hold on further fluid administration. Continue low-dose Levophed to maintain mean arterial pressures above 65. We'll consider neurology consultation if no improvement in mental status. MRI of the brain without any significant acute findings. EEG results pending. Echo results pending. Meningitis dose antibiotics discontinued. Continue cefepime and doxycycline. Patient does have a standing history of rash which has been biopsied. Nephrology consulted. UMESH and Sjogren labs ordered. Subjective Overnight, patient continued to require vasopressors. BP was largely normotensive with intermittent hypotension. This morning, patient remains unres ponsive. ROS unobtainable d/t cognitive status. Review of Systems Review of Systems: See HPI Physical Exam Physical Exam: Constitutional: laying in bed, mechanically ventilated, sedated and unresponsive HEENT: NCAT, generalized facial edema noted, mucous membranes dry, endotracheal tube in place CV: heart sounds distant, no murmur appreciated, BL LE 2+ pitting edema appreciated Resp: mechanically ventilated, breath sounds present but distant bilaterally without wheezes or crackles, bilateral chest rise appreciated GI: soft, nondistended, nontender, BS present Skin: flaking rash of shoulders appreciated Neuro: stirs to painful stimuli, no meaningful verbal response, GCS E(1) V(NT) M(3) Results & Data Results & Data ([facility]) Vital Signs (Past 12 Hours) Vital Signs Temp Pulse Pulse Resp BP BP Pulse Ox 02/17/21 06:11 36.1 C L 101 H 83/71 L 99 02/17/21 05:46 35.9 C L 99 H 81/56 L 98 02/17/21 05:43 35.8 C L 100 H 75/61 L 99 02/17/21 05:27 35.6 C L 99 H 116/86 100 02/17/21 05:13 35.4 C L 101 H 131/96 100 02/17/21 04:56 35.3 C L 99 H 133/105 H 100 02/17/21 04:42 35.1 C L 99 H 106/80 100 02/17/21 04:26 34.9 C L 98 H 105/86 100 02/17/21 04:13 93 H 24 100 02/17/21 04:12 34.7 C L 97 H 82/63 L 100 02/17/21 03:57 34.6 C L 96 H 102/82 02/17/21 03:41 34.3 C L 94 H 108/91 100 02/17/21 03:27 34.1 C L 93 H 104/83 100 02/17/21 03:11 33.9 C L 92 H 117/96 100 02/17/21 02:56 33.9 C L 94 H 105/91 100 02/17/21 02:42 33.6 C L 91 H 109/91 100 02/17/21 02:26 90 130/104 H 96 02/17/21 02:11 91 H 110/95 98 02/17/21 01:56 90 108/86 98 02/17/21 01:41 89 109/85 98 02/17/21 01:26 88 88/75 L 99 02/17/21 01:11 86 92/67 L 98 02/17/21 00:45 87 108/56 L 98 02/17/21 00:30 90 104/53 L 98 02/17/21 00:29 92 H 80/62 L 97 02/16/21 23:52 82 15 108/60 98 02/16/21 23:00 34.2 C L 90 16 112/60 98 02/16/21 22:45 96 H 28 H 98 02/16/21 22:00 34.4 C L 90 154/75 H 97 02/16/21 21:47 34.5 C L 87 20 112/69 94 02/16/21 21:41 88 02/16/21 20:58 25 H 98 02/16/21 20:28 34.7 C L 02/16/21 20:00 34.9 C L 79 88/65 L 100 02/16/21 19:45 81 88/54 L 02/16/21 19:30 83 83/63 L Resident Activity Tracking Resident Involvement: Resident Care Provided Care Provided: Adult Hospital Medicine
[2021-02-17] MEDS ORDERED: PHARMACY GLYCEMIC MGMT CONSULT PRN (07:56)
[2021-02-17] MEDS ORDERED: CEFEPIME 2,000 MG in SYRINGE 0 ML IV ONE (08:00)
[2021-02-17] MEDS: DOXYCYCLINE HYCLATE 100 MG in DEXTROSE 5% 100 ML IV SCH ×2 (08:05→19:58)
[2021-02-17] MEDS: FAMOTIDINE 20 MG in SYRINGE 3 ML IV SCH (08:05)
[2021-02-17] MEDS: INSULIN ASPART 100 UNITS/ML 3 ML PEN SC SCH ×4 (08:06→20:09)
--- NOTE | 2021-02-17 08:40 | Nephrology Consultation ---
Date of Consultation February 17, 2021 Assessment & Plan (1) Acute on chronic renal failure: Stage 2 possibly oliguric JAVON on CKD 3a: likeliest is ATN from hemodynamic changes with MRSA septicemia. Baseline creatinine 1.4, CKD 3A; historically no proteinuria and with intermittent microhematuria, never worked up as it has not been consistent. chemistries acceptable this AM. admission UA not c/w infection. he was found obtunded and has septic shock >> both of which put him at risk for rhabdomyolysis, though my index of suspicion for this is low. chemistries relatively appropriate though K 5.1 may well trend upward. -bmp q12 hrs > will reorder this now -lasix prn -trend CK -check lupus profile given dermatitis hx > UMESH and complement levels ordered; consider anti Ro/SSA if +; if renal biopsy needed, will need to be transferred -no urgent indication for dialysis however cannot rule out need next 24-48 hrs -confirmed pharmacy will dose vanco by level -f/u pending cxs > at risk for staphylococcal bacteremia with sloughing skin lesions Care coordinated w/ Vinay Mark and Libby. (2) Oliguria and anuria: concern for oliguria -- f/u response to lasix which appears to be promising History of Present Illness Reason for Consultation: JAVON Requesting Physician: Dr Mark Attending Physician: Kel Souza MD History of Present Illness 70 y/o M whom I'm asked to se/e for JAVON was admitted last evening for septic shock after being found unresponsive. He had a few days of worsening fatigue prior to admission and was sleeping more than usual per his family. He got in his car to go to work but his found him still in the driveway obtunded in his car several hours later. EMS found his axillary temperature to be 106F. He was 38.2 in ER Tmax; then hypothermic to 33.6 at 020 0 this am. He was when I saw him at 0945 this am currently in the ICU on a ventilator and a norepinephrine gtt at 0.05 mcg/min. He has nonproteinuric CKD 3a at baseline w/ creatinine 1.4; at baseline as recently as 02/05/21. On presentation his creatinine was 2.7; this morning it is 3.1. His LP profile is concerning for meningitis. Other PMH includes HTN w/ LVH, HL, JENNIFER on CPAP, DM on metformin and GLP1 receptor agonist, gout. In December he developed severe pruritis which lasted through the beginning of this month. Skin bx 01/08 revealed subacute spongiotic dermatitis. He had some UV treatments and follows w/ dermatology. In early February had even more severe itching > was started on prednisone 02/04; went to ER same day for evaluation of facial/lip swelling and obs'd. Angioedema attr ibuted ? to lisinopril, though he has been on this medication since 1999 w/o issues. He resumed phototherapy after obs here early February. He is getting doxycycline, cefepime. Also had a dose of vancomycin. He has made 260 mL of urine so far. He has had 7 L fluid same timeframe. However shortly after these data were collected he had 60 mg IV lasix. Allergies Allergy/AdvReac Type Severity Reaction Status Date / Time lisinopril Allergy Severe Angioedema Verified 02/16/21 17:06 prednisone Allergy Severe FACE, Verified 02/16/21 17:06 LIPS, & TONGUE SWELLS Home Medications Medication Instructions Recorded Confirmed Type aspirin 81 mg tablet,delayed 81 mg PO DAILY 02/04/21 02/16/21 History release atorvastatin 10 mg tablet 10 mg PO HS 02/04/21 02/16/21 History carvedilol 12.5 mg tablet 12.5 mg PO BID 02/04/21 02/16/21 History ergocalciferol (vitamin D2) 1,250 1,250 mcg PO MONTHLY 02/04/21 02/16/21 History mcg (50,000 unit) capsule (Vitamin D2) fluocinolone 0.025 % topical 1 applic TOPICAL BID PRN 02/04/21 02/16/21 History ointment glimepiride 4 mg tablet 4 mg PO DAILY 02/04/21 02/16/21 History liraglutide 0.6 mg/0.1 mL (18 mg/3 1.2 mg SUBCUT DAILY 02/04/21 02/16/21 History mL) subcutaneous pen injector (Victoza 3-Everette) metformin 500 mg tablet,extended 1,000 mg PO DAILY 02/04/21 02/16/21 History release 24 hr travoprost 0.004 % eye drops 1 drp OPB HS 02/04/21 02/16/21 History triamcinolone acetonide 0.1 % 1 applic TOPICAL DIRECTED PRN 02/04/21 02/16/21 History topical cream diphenhydramine HCl 25 mg capsule 25 mg PO Q6H #14 cap 02/05/21 02/16/21 Rx (Benadryl) famotidine 20 mg tablet (Pepcid) 20 mg PO BID 02/16/21 02/16/21 History Patient History Medical History (Updated 02/17/21 @ 09:03 by Cheyanne Mueller MD, PhD) CKD (chronic kidney disease), stage III Diabetes mellitus, type II Diabetic retinopathy Dyslipidemia Gout Hypertension Near syncope Sleep apnea "CPAP" Spongiotic dermatitis Surgical History Hx of colonoscopy Family History Other Cancer Coronary heart disease Diabetes Hypertension Social History Smoking Status: Never smoker Hx Alcohol Use: No Hx Substance Use: No Preferred Language: Yoruba Communication Ability: Effective Margin Analyst Required: No Beliefs That Will Affect Care: None Current Living Situation: Spouse and Family Other Information That Helps Us Care for You: No Feels Safe at Home: Yes Safety Concerns: Feels Safe At This Time Assistive Devices: Oxygen - Continuous Review of Systems Review of Systems: Unobtainable due to endotracheal tube Physical Exam Constitutional: well developed, well nourished and + mechanically ventilated; no acute distress Eyes: periorbital edema ENMT: Ears: no external ear abnormality Nose: no external nose abnormality Mouth: + lip abnormality (swollen lips) and + dry oral mucous membranes Neck: no nuchal rigidity Respiratory: normal respiratory effort Auscultation: + diminished lung sounds Cardiovascular: Rate/Rhythm: regular rate and regular rhythm Heart Sounds: normal S1 and normal S2 Extremities: + edema (2-3+ dependent) Gastrointestinal (Abdomen): Inspection/Auscultation: normal bowel sounds Percussion/Palpation: abdomen soft; abdomen nontender Musculoskeletal: Extremities: + abnormal strength (sedated) Skin: anterior chest skin sloughing Neurologic: sedated Genitourinary: tolentino w/ flowing yellow urine clear Results & Data ([facility]) Vital Signs (Past 12 Hours) Vital Signs Temp Pulse Pulse Resp BP BP Pulse Ox 02/17/21 07:38 92 H 20 99 02/17/21 06:11 36.1 C L 101 H 83/71 L 99 02/17/21 05:46 35.9 C L 99 H 81/56 L 98 02/17/21 05:43 35.8 C L 100 H 75/61 L 99 02/17/21 05:27 35.6 C L 99 H 116/86 100 02/17/21 05:13 35.4 C L 101 H 131/96 100 02/17/21 04:56 35.3 C L 99 H 133/105 H 100 02/17/21 04:42 35.1 C L 99 H 106/80 100 02/17/21 04:26 34.9 C L 98 H 105/86 100 02/17/21 04:13 93 H 24 100 02/17/21 04:12 34.7 C L 97 H 82/63 L 100 02/17/21 03:57 34.6 C L 96 H 102/82 100 02/17/21 03:41 34.3 C L 94 H 108/91 100 02/17/21 03:27 34.1 C L 93 H 104/83 100 02/17/21 03:11 33.9 C L 92 H 117/96 100 02/17/21 02:56 33.9 C L 94 H 105/91 100 02/17/21 02:42 33.6 C L 91 H 109/91 100 02/17/21 02:26 90 130/104 H 96 02/17/21 02:11 91 H 110/95 98 02/17/21 01:56 90 108/86 98 02/17/21 01:41 89 109/85 98 02/17/21 01:26 88 88/75 L 99 02/17/21 01:11 86 92/67 L 98 02/17/21 00:45 87 108/56 L 98 02/17/21 00:30 90 104/53 L 98 02/17/21 00:29 92 H 80/62 L 97 02/16/21 23:52 82 15 108/60 98 02/16/21 23:00 34.2 C L 90 16 112/60 98 02/16/21 22:45 96 H 28 H 98 02/16/21 22:00 34.4 C L 90 154/75 H 97 02/16/21 21:47 34.5 C L 87 20 112/69 94 02/16/21 21:41 88 02/16/21 20:58 25 H 98 02/16/21 20:28 34.7 C L Laboratory Results 02/17/21 05:14 02/17/21 05:14 CKD 354 > 900 pH ABG 7.31 CRP 5 lactate 2.8>2.5 procalcitonin 12.3 URINE 3+ blood, 1+ protein, 1024; >30 RBC and epis; trace LE; 5-10 WBC; trace ketones CSF > red bloody, 23 WBC, 202 glucose, 78 protein tox screen negative blood cx positive MRSA Diagnostic Findings abd/pelvis CT > no acute intrabdominal process; kidneys/adrenals unremarkable head CT: 1. No acute intracranial hemorrhage, no midline shift or space occupying lesions. 2. Opacification of bilateral ethmoid air cells as well as visualized upper airways. Further evaluation with CT evaluation of paranasal sinuses is suggested. CT chest Suboptimal exam due to beam hardening artifact from patient's arms. Bilateral axillary lymph nodes are prominent, measuring up to 1.9 cm on the left. Multiple supra clavicle lymph nodes are seen. Limited exam due to beam hardening artifact from overlying EKG leads. Mottled mediastinal lymph nodes is difficult to evaluate due to beam hardening and motion artifact. Thyroid: Visualized portion of thyroid gland shows no evidence of focal lesions. Esophagus is fluid-filled, not well visualized. Thoracic aorta: The thoracic aorta is normal in course and caliber, noting standard 3 vessel arch anatomy. Heart: The heart is normal in size and configuration, without pericardial effusion. Lungs and pleural spaces: Tracheobronchial tree is patent. Tracheal tube is terminating within lumen of intrathoracic trachea. Consolidative opacities are seen at dependent portions of bilateral lower lobes which might represent atelectasis or related to aspiration. Minimal pleural effusion is seen on the right. -15 x 11 mm solid pulmonary nodule is seen within subpleural aspect of the right middle lobe and is concerning for neoplastic etiology. () Upper abdomen: Partially visualized upper abdominal viscera is within normal limits. Skeletal structures: Multilevel degenerative changes of the spine. No definite aggressive osseous lesions are seen. IMPRESSION: 1. Mild opacities at dependent portions of bilateral lower lobes might represent atelectasis or related to aspiration. 2. Large solid nodule within the right middle lobe and bilateral axillary lymphadenopathy is concerning for neoplastic etiology. Please correlate this findings with prior history of malignancy. 3. Suboptimal exam due to beam hardening artifact. 4. The rest of findings as above. MRI brain Mild sinus disease without infarct or hemorrhage. Expected age-related changes.
[2021-02-17] MEDS ORDERED: ASPIRIN 81 MG ECTAB PO SCH (09:00)
[2021-02-17] MEDS ORDERED: CEFEPIME 500 MG in SYRINGE 0 ML IV SCH (09:00)
[2021-02-17] MEDS ORDERED: FUROSEMIDE 60 MG in SYRINGE 0 ML IV ONE (10:00)
[2021-02-17] MEDS ORDERED: INSULIN PROTOCOL GOAL RANGE ONE (10:51)
--- NOTE | 2021-02-17 10:57 | Pharmacy Report ---
Pharmacy Glycemic Short Note 2 - Date of Service February 17, 2021 - Glycemic Short BSG Results (Last 24 hours): 02/16/21 02/16/21 02/16/21 17:41 17:53 19:42 Glucose 350 H* 379 H* POC Glucose POC Glucose (other) 341 H 02/16/21 02/16/21 02/16/21 19:51 21:41 22:36 Glucose POC Glucose 334 H* 348 H* 345 H* POC Glucose (other) 02/16/21 02/16/21 02/17/21 22:42 23:58 00:12 Glucose 378 H* 327 H* POC Glucose 309 H* POC Glucose (other) 02/17/21 02/17/21 02/17/21 00:56 02:04 03:07 Glucose POC Glucose 255 H 275 H 197 H POC Glucose (other) 02/17/21 02/17/21 02/17/21 03:56 05:03 05:14 Glucose 113 H POC Glucose 199 H 145 H POC Glucose (other) 02/17/21 02/17/21 06:02 07:09 Glucose POC Glucose 142 H 101 H POC Glucose (other) OUTPATIENT ANTIDIABETIC REGIMEN: * Metformin 1000mg PO daily * Liraglutide 1.2mg SQ daily * Glimepiride 4mg PO daily * A1c = 6.9% 02/05/21 ASSESSMENT: * Type 2 diabetic admitted for unresponsiveness, encephalopathy, likely sepsis from pulmonary source * Patient was initiated on IV insulin drip and remains on IV insulin drip at this time. BSGs have dropped into the low 100s, below goal range. * Patient is intubated, receiving pressor support (norepi @0.05mcg/kg/min), receiving broad spectrum ABX and is NPO (no plans to advance diet yet) * Given current stressors, IV insulin drip would be best suited to achieve our glycemic goals safely. SQ insulin absorption less reliable when pressors are in use. PLAN FOR INPATIENT GLYCEMIC CONTROL: * Hold outpatient oral diabetes medications * Continue IV insulin infusion at this time, change goal range to 110-180mg/dL. Check BSGs using iSTAT while on pressor support. PLAN FOR DISCHARGE: * to be determined.
[2021-02-17 10:58] LABS: INR 1.1 (0.9-1.1); Prothrombin Time 11.3 Seconds (9.0-12.0)
[2021-02-17] MEDS: ASPIRIN 81 MG CHEW PO SCH (11:11)
--- NOTE | 2021-02-17 12:00 | Billing Data ---
Date of Service February 17, 2021 Coding Level of Care Code Critical Care 1st 30-74 mins Time Spent (min) 36
--- NOTE | 2021-02-17 12:07 | Pharmacy Report ---
Pharmacy Abx Dose Short Note - Date of Service February 17, 2021 - Assessment & Plan Assessment * 70 year old M receiving VANCOMYCIN + CEFEPIME + DOXYCYCLINE for treatment of sepsis, likely from pulmonary source * Pharmacy has been consulted to dose Vancomycin * Day # 2 vancomycin, Day # 1 Cefepime. * Has started abx for possible bacterial meningitis yesterday (vanco + ceftriaxone + ampicillin + acyclovir), however CSF biofire negative and abx adjusted to target pulm source * BLCXs pending * MRSA nasal swab positive * Urine cx pending * Renal fxn appears to be worsening. SCr is climbing and UOP very low (<0.5mL/kg/hr) Plan Vancomycin * 2500mg (~19.4mg/kg) load x 1 given last evening * Random level this AM ~ 12 hours after load = 17.7mcg/mL * Given poor renal elimination at this time, will give only 500mg repeat dose x 1 today and recheck random level tomorrow AM * Goal trough level for pulm infxn : 15 to 20 mcg/mL or AUC:MATHIEU 400-600 Pharmacy will continue to follow and will adjust dose/frequency as necessary. Thank you.
[2021-02-17] MEDS ORDERED: INSULIN GLARGINE SOLOSTAR 100 UNITS/ML 3 ML PEN SC STA (13:56)
[2021-02-17] MEDS ORDERED: VANCOMYCIN HCL 500 MG in 0.9 % SODIUM CHLORIDE 100 ML IV SCH (14:00)
--- NOTE | 2021-02-17 15:33 | Hospitalist Progress Note ---
Date of Service February 17, 2021 Assessment & Plan (1) Encephalopathy: Plan: Septic Shock Possible Sources: MRSA Bacteremia, Aspiration Pneumonia ,infected skin lesions Acute Metabolic Encephalopathy -MRI Brain:Mild sinus disease without infarct or hemorrhage. Expected age- related changes. -Blood Cultures: Gram-positive cocci CSF cultures pending Urine culture negative ECHO: Technically difficult study. Small, underfilled LV chamber size with moderate concentric LVH. EF 60 to 65%. No segmental left ventricular wall motion abnormalities. Poorly visualized valvular structures. No significant pericardial effusion. -Elevated Lactate levels -On pressors this morning -Sedated and Intubated -Continue broad-spectrum antibiotics cefepime, vancomycin, doxy -We will likely need CLARK and repeat Blood cultures -Appreciate Rv Technician help -ID consulted -Repeated Blood Cultures tomorrow Acute Kidney Injury Likely ATN Given Proteinuria/Hematuria: DD: Lupus Appreciate Nephrology Input Avoid Nephrotoxic agents as able Monitor renal function Currently no indication for dialysis DM II HbA1C:6.9 Hold Metformin Continue Insulin therapy Monitor BGs H/O Subacute spongiotic dermatitis Follows with dermatology as outpatient Lymphadenopathy CT chest showed bilateral axillary lymphadenopathy DD Rheumatological Vs Neoplastic process Needs further work up as outpatient Elevated Troponin Likely Type II ME in setting of septic shock Hypertension Hold Coreg for now monitor BP DVT Px: Heparin SQ Code Status Full Code Admission and Anticipated Discharge Date Admission Date: February 16, 2021 Subjective Patient is seen and examined bedside Sedated and Intubated this morning Unable to provide any history Discussed with ICU team today On pressors this morning Blood Culture growing Gram positive cocci in clusters Review of Systems Review of Systems: Unobtainable due to endotracheal tube Physical Exam Physical Exam: Physical Exam: Vitals signs as noted above General Appearance:Morbidly Obese, Intubated Head: normocephalic, Atraumatic Eyes: normal inspection Neck: supple, Trachea midline Respiratory/Chest: Decreased breath sounds, CTA, No accessory muscle use Cardiovascular: S1, S2, No murmur Abdomen/GI:Soft, Non tender, Bowel sounds present Extremities/Musculoskeletal:normal inspection, B/L LE edema Neurologic/Psych:Sedated and Intubated Skin: normal color, warm, +Chronic skin changes Results & Data Results & Data ([facility]) Vital Signs (Past 12 Hours) Vital Signs Temp Pulse Resp BP Pulse Ox 02/17/21 14:21 36.6 C 93 H 131/78 100 02/17/21 13:51 36.6 C 93 H 135/80 99 02/17/21 13:21 36.7 C 94 H 125/71 100 02/17/21 12:50 36.7 C 93 H 108/86 100 02/17/21 12:23 36.8 C 99 02/17/21 11:51 36.9 C 95 H 113/73 99 02/17/21 11:21 36.9 C 91 H 113/71 98 02/17/21 11:14 89 22 98 02/17/21 10:51 36.9 C 87 110/69 02/17/21 10:21 36.9 C 89 110/69 98 02/17/21 09:51 36.8 C 88 120/80 96 02/17/21 09:21 36.7 C 88 120/65 94 02/17/21 08:51 36.7 C 90 109/69 94 02/17/21 08:16 36.7 C 85 124/70 98 02/17/21 08:01 36.7 C 88 103/68 99 02/17/21 07:45 36.7 C 90 116/69 99 02/17/21 07:38 92 H 20 99 02/17/21 07:30 36.6 C 93 H 106/80 99 02/17/21 07:15 36.6 C 92 H 109/70 99 02/17/21 07:00 36.5 C 97 H 91/71 L 99 02/17/21 06:11 36.1 C L 101 H 83/71 L 99 02/17/21 05:46 35.9 C L 99 H 81/56 L 98 02/17/21 05:43 35.8 C L 100 H 75/61 L 99 02/17/21 05:27 35.6 C L 99 H 116/86 100 02/17/21 05:13 35.4 C L 101 H 131/96 100 02/17/21 04:56 35.3 C L 99 H 133/105 H 100 02/17/21 04:42 35.1 C L 99 H 106/80 100 02/17/21 04:26 34.9 C L 98 H 105/86 100 02/17/21 04:13 93 H 24 100 02/17/21 04:12 34.7 C L 97 H 82/63 L 100 02/17/21 03:57 34.6 C L 96 H 102/82 100 02/17/21 03:41 34.3 C L 94 H 108/91 100 Laboratory Results Short CBC 02/16/21 02/17/21 Range/Units 17:41 05:14 WBC 12.19 H 9.57 (4.8-10.8) K/uL Hgb 12.9 L 14.6 (14.0-18.0) g/dL Hct 38.5 L 44.4 (42-52) % Plt Count 316 321 (130-400) K/uL BMP 02/16/21 02/16/21 02/16/21 17:41 19:42 22:42 Sodium 138 139 Potassium 5.2 H 5.5 H Chloride 110 H 111 H Carbon Dioxide 22 22 BUN 21 H 22 H Creatinine 2.72 H 2.76 H Glucose 350 H* 379 H* 378 H* Calcium 7.1 L 6.9 L 02/17/21 02/17/21 00:12 05:14 Sodium 142 142 Potassium 4.9 5.1 Chloride 113 H 113 H Carbon Dioxide 23 24 BUN 25 H 26 H Creatinine 2.92 H 3.08 H Glucose 327 H* 113 H Calcium 7.3 L 7.6 L Cardiac Enzymes 02/16/21 02/16/21 02/16/21 Range/Units 17:41 17:46 19:42 Total Creatine Kinase 248 354 H (39-308) U/L CK-MB (CK-2) 1.4 (0.5-3.6) ng/ml Troponin I 0.089 H* 0.096 H* (0-0.045) ng/ml 02/16/21 02/17/21 02/17/21 Range/Units 22:42 05:14 05:14 Total Creatine Kinase 902 H (39-308) U/L CK-MB (CK-2) (0.5-3.6) ng/ml Troponin I 0.111 H* 0.070 H* (0-0.045) ng/ml Liver Function 02/16/21 Range/Units 17:41 Total Bilirubin 0.5 (0.2-1) mg/dl AST 31 (15-37) U/L ALT 29 (12-78) U/L Alkaline Phosphatase 66 (45-117) U/L Albumin 2.5 L (3.4-5.0) gm/dl Urine 02/16/21 Range/Units 18:16 Urine Color Dark Yellow Urine Appearance Turbid A (Clear) Urine pH 5.0 (4.5-7.5) Ur Specific [place] 1.024 (1.000-1.030) Urine Protein 1+ H (Negative) Urine Glucose (UA) Negative (Negative)
[2021-02-17] MEDS ORDERED: ALBUT/IPRATROP 3MG/0.5MG NEB 3 ML VIAL NEB PRN (16:02)
--- NOTE | 2021-02-17 16:16 | Electrocardiogram Report ---
Test Reason : Blood Pressure : / mmHG Vent. Rate : 124 BPM Atrial Rate : 124 BPM P-R Int : 158 ms QRS Dur : 084 ms QT Int : 298 ms P-R-T Axes : 079 -52 070 degrees QTc Int : 428 ms Sinus tachycardia Left axis deviation Low voltage QRS Poor R wave progression, consider anterior IL vs. lead placement vs. LVH Abnormal ECG When compared with ECG of 04-FEB-2021 16:44, Minimal criteria for Anterior infarct are now Present T wave amplitude has increased in Lateral leads Confirmed by Tunde Doll ([id number]) on 02/17/2021 4:16:29 PM Referred By: REFERRED SELF Confirmed By:Tunde Doll
[2021-02-17 18:43] LABS: BUN Creatinine Ratio 9.8 (10-20); Calcium 7.2 mg/dl (8.5-10.1); Creatinine Clr Calc Pharmacy 28.3 ml/min; Est GFR (Non-African American) 18.1 ml/min
[2021-02-17] MEDS: CEFEPIME 1,000 MG in SYRINGE 0 ML IV SCH (19:58)
[2021-02-17] MEDS: FAMOTIDINE 20 MG TAB PO SCH (19:59)
[2021-02-17] MEDS: ATORVASTATIN 10 MG TAB PO SCH (19:59)
[2021-02-17] MEDS ORDERED: SODIUM BICARB 8.4% INJ 50 MEQ/50 ML SYR IV STA (20:42)
[2021-02-17] MEDS ORDERED: DEXTROSE 50% 50 ML SYRINGE IV ONE (20:48)
[2021-02-17] MEDS ORDERED: INSULIN GLARGINE SOLOSTAR 100 UNITS/ML 3 ML PEN SC SCH (21:00)
[2021-02-17] MEDS ORDERED: INSULIN HUMAN REGULAR PER UNIT 5 UNITS in SYRINGE 4.95 ML IV ONE (22:10)
[2021-02-17] MEDS ORDERED: CALCIUM GLUCONATE 10% 1,000 MG in SODIUM CHLORIDE 0.9% 50 ML IV STA (23:11)
[2021-02-17 23:43] LABS: Base Excess VBG -4.7 mEq/L; HCO3 VBG 21 mmol/L; Oxygen Saturation VBG 64.9 %; PCO2 VBG 39 mmHg (38-50); PO2 VBG 36 mmHg; pH VBG 7.34 (7.36-7.41)
[2021-02-18] MEDS: INSULIN ASPART 100 UNITS/ML 3 ML PEN SC SCH ×7 (00:32→23:13)
[2021-02-18 05:35] LABS: Basophils # (auto) 0.02 K/uL (0-0.2); Basophils % (auto) 0.1 %; Eosinophils # (auto) 0.01 K/uL (0-0.5); Eosinophils % (auto) 0.1 %; Hemoglobin 12.4 g/dL (14.0-18.0); Immature Granulocytes # (auto) 0.06 K/uL (0.00-0.02); Immature Granulocytes % (auto) 0.4 %; Lymphocytes # (auto) 2.03 K/uL (1.2-3.4); Mean Corpuscular Hemoglobin 32.4 pg (25-34); Mean Corpuscular Hgb Conc 33.5 g/dL (32-36); Mean Corpuscular Volume 96.6 fL (80-100); Mean Platelet Volume 9.7 fL (7.4-10.4); Monocytes # (auto) 0.75 K/uL (0.11-0.59); Monocytes % (auto) 5.2 %; Neutrophils # (auto) 11.67 K/uL (1.4-6.5); Neutrophils % (auto) 80.2 %; Platelet Count 274 K/uL (130-400); RDW Standard Deviation 49.5 fL (36.4-46.3); Red Blood Count 3.83 M/uL (4.7-6.1); White Blood Count 14.54 K/uL (4.8-10.8)
[2021-02-18 06:00] LABS: BUN Creatinine Ratio 13.5 (10-20); Calcium 7.8 mg/dl (8.5-10.1); Creatinine Clr Calc Pharmacy 33.3 ml/min; Est GFR (African American) 25.6 ml/min; Est GFR (Non-African American) 22.1 ml/min; Magnesium 2.5 mg/dl (1.8-2.4)
[2021-02-18] MEDS: HEPARIN SOD 5,000 UNIT/0.5 ML VIAL SQ SCH ×3 (06:02→20:56)
[2021-02-18] MEDS ORDERED: VANCOMYCIN TROUGH ONE (07:30)
[2021-02-18] MEDS: DOXYCYCLINE HYCLATE 100 MG in DEXTROSE 5% 100 ML IV SCH ×2 (08:23→20:19)
[2021-02-18] MEDS: CEFEPIME 1,000 MG in SYRINGE 0 ML IV SCH ×2 (08:23→20:56)
[2021-02-18] MEDS ORDERED: FAMOTIDINE 20 MG in SYRINGE 3 ML IV SCH (09:00)
[2021-02-18] MEDS ORDERED: INSULIN GLARGINE SOLOSTAR 100 UNITS/ML 3 ML PEN SC ONE (09:00)
--- NOTE | 2021-02-18 11:57 | Pharmacy Report ---
Pharmacy Abx Dose Short Note - Date of Service February 18, 2021 - Assessment & Plan Assessment * 70 year old M receiving VANCOMYCIN + CEFEPIME + DOXYCYCLINE for treatment of sepsis, MRSA bacteremia, likely from pulmonary or SSTI source * Pharmacy has been consulted to dose Vancomycin * Day # 3 vancomycin, Day # 2 Cefepime. * Has started abx for possible bacterial meningitis yesterday (vanco + ceftriaxone + ampicillin + acyclovir), however CSF biofire negative and abx adjusted to target pulm source * BLCXs: 1 of 2 growing staph species. PCR testing reveals MRSA. Repeat BLCX's have not yet been ordered. * MRSA nasal swab positive * Renal fxn appears to be improving. SCr is falling and UOP increasing (<0.5mL/kg/hr) Plan Vancomycin * 2500mg (~19.4mg/kg) load x 1 given 02/16 * Random level this AM ~ 12 hours after load = 17.7mcg/mL * 500mg given 02/17 * Level drawn ~ 20 hrs after 02/17 dose = 12.2 --> significant delay obtaining today's lab result * Will change maintenance dose of 1250mg Q 24 hrs as calculated AUC < 400 over last 24 hrs in patient with MRSA bacteremia * Will check level again prior to next dose given changing renal fxn * Goal trough level for bacteremia / pulm infxn : 15 to 20 mcg/mL or AUC:MATHIEU 400-600 (500-600 may be warranted initially) Pharmacy will continue to follow and will adjust dose/frequency as necessary. Thank you.
--- NOTE | 2021-02-18 12:20 | Pharmacy Report ---
Pharmacy Glycemic Short Note 2 - Date of Service February 18, 2021 - Glycemic Short BSG Results (Last 24 hours): 02/17/21 02/17/21 02/17/21 09:07 10:07 11:16 Glucose POC Glucose POC Glucose (other) 134 H 145 H 145 H 02/17/21 02/17/21 02/17/21 12:18 13:09 13:50 Glucose POC Glucose 124 H 99 114 H POC Glucose (other) 02/17/21 02/17/21 02/17/21 16:00 18:11 20:07 Glucose 126 H POC Glucose 121 H 137 H POC Glucose (other) 02/17/21 02/17/21 02/18/21 21:52 23:11 04:28 Glucose POC Glucose 206 H 193 H 208 H POC Glucose (other) 02/18/21 02/18/21 05:19 09:08 Glucose 200 H POC Glucose 167 H POC Glucose (other) OUTPATIENT ANTIDIABETIC REGIMEN: * Metformin 1000mg PO daily * Liraglutide 1.2mg SQ daily * Glimepiride 4mg PO daily * A1c = 6.9% 02/05/21 ASSESSMENT: 02/18 * Patient was transitioned off the insulin drip yesterday afternoon * Patient has been extubated, pressors have been weaned off. * Fasting BSG 167 this AM with 20 units basal on board + 7 units correctional insulin overnight - will continue to up-titrate. Will give larger dose this AM given upward trend in BSGs following transition off insulin drip yesterday. * Diet remains poor. Therefore will scale the evening dose of Lantus. 02/17 * Type 2 diabetic admitted for unresponsiveness, encephalopathy, likely sepsis from pulmonary source * Patient was initiated on IV insulin drip and remains on IV insulin drip at this time. BSGs have dropped into the low 100s, below goal range. * Patient is intubated, receiving pressor support (norepi @0.05mcg/kg/min), receiving broad spectrum ABX and is NPO (no plans to advance diet yet) * Given current stressors, IV insulin drip would be best suited to achieve our glycemic goals safely. SQ insulin absorption less reliable when pressors are in use. PLAN FOR INPATIENT GLYCEMIC CONTROL: * Basal insulin: * Lantus 24 units x 1 this AM, scaled dosing this PM: 0 units if BSG less than 150, 15 units if BSG 150-200, 20 units if BSG above 200 * Bolus insulin: * Novolog SQ ACHS and at 0000 + [id number] * Goal range: Low 110 - High 140 mg/dL * Correction factor: 15 mg/dL/unit * Carb ratio: 1 unit per 6 grams CHO consumed with meals PLAN FOR DISCHARGE: * to be determined.
--- NOTE | 2021-02-18 12:41 | Hospitalist Progress Note ---
Date of Service February 18, 2021 Assessment & Plan (1) Encephalopathy: Plan: Septic Shock Possible Sources: MRSA Bacteremia, Aspiration Pneumonia ,infected skin lesions Acute Metabolic Encephalopathy -MRI Brain:Mild sinus disease without infarct or hemorrhage. Expected age- related changes. -Blood Cultures: Gram-positive cocci - MRSA CSF cultures pending CSF biofire negative Urine culture negative ECHO: Technically difficult study. Small, underfilled LV chamber size with moderate concentric LVH. EF 60 to 65%. No segmental left ventricular wall motion abnormalities. Poorly visualized valvular structures. No significant pericardial effusion. 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 Contacted plastic surgery however nobody available at this time. Per nephrology patient should have inpatient dermatology work-up, immunology/allergy work-up possibly renal biopsy, ? lymph node biopsy, and would recommend tertiary care center. Acute Kidney Injury Likely ATN Given Proteinuria/Hematuria: DD: Lupus Appreciate Nephrology Input Avoid Nephrotoxic agents as able Monitor renal function Currently no indication for dialysis DM II HbA1C:6.9 Hold Metformin Continue Insulin therapy Monitor BGs H/O Subacute spongiotic dermatitis Follows with dermatology as outpatient Lymphadenopathy CT chest showed bilateral axillary lymphadenopathy DD Rheumatological Vs Neoplastic process Needs further work up as outpatient Elevated Troponin Likely Type II TN in setting of septic shock Hypertension Hold Coreg for now monitor BP DVT Px: Heparin SQ Code Status Full Code Admission and Anticipated Discharge Date Admission Date: February 16, 2021 Subjective Patient seen in follow up of septic shock / MRSA bacteremia, JAVON on CKD extubated yesterday, currently breathing on room air He is able to answer some questions appropriately His main complaint remains skin itchiness, and patient continues to scratch Currently denies any chest pain shortness of breath abdominal pain, nausea vomiting Cannot really answer me how he got into the hospital and surprised to be in the hospital Discussed with rotary dryer operator and nephrology Plastic surgery currently unavailable Blood Culture growing MRSA Review of Systems Review of Systems: All systems reviewed & are unremarkable except as noted in Subjective Physical Exam Physical Exam: General Appearance:Morbidly Obese M, extubated, currently on RA Head: normocephalic, Atraumatic Eyes: normal inspection however eyelids edematous Neck: supple Respiratory/Chest: Decreased breath sounds, CTA, No accessory muscle use Cardiovascular: S1, S2, No murmur Abdomen/GI:Soft, Non tender, Bowel sounds present Extremities/Musculoskeletal:normal inspection, B/L LE edema Neurologic/Psych: Awake and able to answer some questions appropriately, speech slow but fluent, moves extremities Skin: normal color, warm, +Chronic skin changes/extensive skin sloughing Results & Data Results & Data ([facility]) Vital Signs (Past 12 Hours) Vital Signs Temp Pulse Resp BP Pulse Ox 02/18/21 08:21 36.9 C 02/18/21 06:21 118/70 94 02/18/21 05:21 103 H 13 129/77 94 02/18/21 04:21 37.0 C 108 H 130/92 93 02/18/21 03:21 103 H 158/88 H 93 02/18/21 02:21 37.3 C 158/135 H 96 02/18/21 01:21 109 H 160/83 H 95 Laboratory Results 02/18/21 02/18/21 02/18/21 Range/Units 09:38 09:08 05:19 WBC (4.8-10.8) K/uL RBC (4.7-6.1) M/uL Hgb (14.0-18.0) g/dL Hct (42-52) % MCV (80-100) fL MCH (25-34) pg MCHC (32-36) g/dL RDW Std Deviation (36.4-46.3) fL RDW Coeff of Kaelyn (11.5-14.5) % Plt Count (130-400) K/uL MPV (7.4-10.4) fL Immature Gran % (Auto) % Neut % (Auto) % Lymph % (Auto) % [place] % (Auto) % Eos % (Auto) % Baso % (Auto) % Neut # (Auto) (1.4-6.5) K/uL Lymph # (Auto) (1.2-3.4) K/uL [place] # (Auto) (0.11-0.59) K/uL Eos # (Auto) (0-0.5) K/uL Baso # (Auto) (0-0.2) K/uL Immature Gran # (Auto) (0.00-0.02) K/uL VBG pH (7.36-7.41) VBG pCO2 (38-50) mmHg VBG pO2 mmHg VBG HCO3 mmol/L VBG O2 Saturation % VBG Base Excess mEq/L Sodium (136-145) mmol/L Potassium (3.5-5.1) mmol/L Chloride (98-107) mmol/L Carbon Dioxide (21-32) mmol/L Anion Gap (3-11) BUN (7-18) mg/dl Creatinine (0.6-1.4) mg/dl Est Cr Clr Drug Dosing ml/min Est GFR ( Amer) ml/min Est GFR (Non-Af Amer) ml/min BUN/Creatinine Ratio (10-20) Glucose (70-99) mg/dl POC Glucose 167 H (70-99) mg/dl Calcium (8.5-10.1) mg/dl Magnesium (1.8-2.4) mg/dl Procalcitonin 34.24 H (0-0.5) ng/ml Vancomycin Trough 12.2 (See Comment) mcg/ml [facility] Screen Complement C3 Complement C4 Bld Cult Staph aureus PCR (Negative) Blood Culture MRSA PCR (Negative) 02/18/21 02/18/21 02/18/21 Range/Units 05:19 05:19 05:19 WBC 14.54 H (4.8-10.8) K/uL RBC 3.83 L (4.7-6.1) M/uL Hgb 12.4 L (14.0-18.0) g/dL Hct 37.0 L (42-52) % MCV 96.6 (80-100) fL MCH 32.4 (25-34) pg MCHC 33.5 (32-36) g/dL RDW Std Deviation 49.5 H (36.4-46.3) fL RDW Coeff of Kaelyn 14.0 (11.5-14.5) % Plt Count 274 (130-400) K/uL MPV 9.7 (7.4-10.4) fL Immature Gran % (Auto) 0.4 % Neut % (Auto) 80.2 % Lymph % (Auto) 14.0 % [place] % (Auto) 5.2 % Eos % (Auto) 0.1 % Baso % (Auto) 0.1 % Neut # (Auto) 11.67 H (1.4-6.5) K/uL Lymph # (Auto) 2.03 (1.2-3.4) K/uL [place] # (Auto) 0.75 H (0.11-0.59) K/uL Eos # (Auto) 0.01 (0-0.5) K/uL Baso # (Auto) 0.02 (0-0.2) K/uL Immature Gran # (Auto) 0.06 H (0.00-0.02) K/uL VBG pH (7.36-7.41) VBG pCO2 (38-50) mmHg VBG pO2 mmHg VBG HCO3 mmol/L VBG O2 Saturation % VBG Base Excess mEq/L Sodium 145 (136-145) mmol/L Potassium 5.0 (3.5-5.1) mmol/L Chloride 117 H (98-107) mmol/L Carbon Dioxide 22 (21-32) mmol/L Anion Gap 6.0 (3-11) BUN 38 H (7-18) mg/dl Creatinine 2.78 H D (0.6-1.4) mg/dl Est Cr Clr Drug Dosing 33.3 ml/min Est GFR ( Amer) 25.6 ml/min Est GFR (Non-Af Amer) 22.1 ml/min BUN/Creatinine Ratio 13.5 (10-20) Glucose 200 H (70-99) mg/dl POC Glucose (70-99) mg/dl Calcium 7.8 L (8.5-10.1) mg/dl Magnesium 2.5 H (1.8-2.4) mg/dl Procalcitonin (0-0.5) ng/ml Vancomycin Trough (See Comment) mcg/ml [facility] Screen Pending Complement C3 Pending Complement C4 Pending Bld Cult Staph aureus PCR (Negative) Blood Culture MRSA PCR (Negative) 02/18/21 02/17/21 02/17/21 Range/Units 04:28 23:14 23:14 WBC (4.8-10.8) K/uL RBC (4.7-6.1) M/uL Hgb (14.0-18.0) g/dL Hct (42-52) % MCV (80-100) fL MCH (25-34) pg MCHC (32-36) g/dL RDW Std Deviation (36.4-46.3) fL RDW Coeff of Kaelyn (11.5-14.5) % Plt Count (130-400) K/uL MPV (7.4-10.4) fL Immature Gran % (Auto) % Neut % (Auto) % Lymph % (Auto) % [place] % (Auto) % Eos % (Auto) % Baso % (Auto) % Neut # (Auto) (1.4-6.5) K/uL Lymph # (Auto) (1.2-3.4) K/uL [place] # (Auto) (0.11-0.59) K/uL Eos # (Auto) (0-0.5) K/uL Baso # (Auto) (0-0.2) K/uL Immature Gran # (Auto) (0.00-0.02) K/uL VBG pH 7.34 L (7.36-7.41) VBG pCO2 39 (38-50) mmHg VBG pO2 36 mmHg VBG HCO3 21 mmol/L VBG O2 Saturation 64.9 % VBG Base Excess -4.7 mEq/L Sodium (136-145) mmol/L Potassium 5.0 (3.5-5.1) mmol/L Chloride (98-107) mmol/L Carbon Dioxide (21-32) mmol/L Anion Gap (3-11) BUN (7-18) mg/dl Creatinine (0.6-1.4) mg/dl Est Cr Clr Drug Dosing ml/min Est GFR ( Amer) ml/min Est GFR (Non-Af Amer) ml/min BUN/Creatinine Ratio (10-20) Glucose (70-99) mg/dl POC Glucose 208 H (70-99) mg/dl Calcium (8.5-10.1) mg/dl Magnesium (1.8-2.4) mg/dl Procalcitonin (0-0.5) ng/ml Vancomycin Trough (See Comment) mcg/ml [facility] Screen Complement C3 Complement C4 Bld Cult Staph aureus PCR (Negative) Blood Culture MRSA PCR (Negative) 02/17/21 02/17/21 02/17/21 Range/Units 23:11 21:52 20:07 WBC (4.8-10.8) K/uL RBC (4.7-6.1) M/uL Hgb (14.0-18.0) g/dL Hct (42-52) % MCV (80-100) fL MCH (25-34) pg MCHC (32-36) g/dL RDW Std Deviation (36.4-46.3) fL RDW Coeff of Kaelyn (11.5-14.5) % Plt Count (130-400) K/uL MPV (7.4-10.4) fL Immature Gran % (Auto) % Neut % (Auto) % Lymph % (Auto) % [place] % (Auto) % Eos % (Auto) % Baso % (Auto) % Neut # (Auto) (1.4-6.5) K/uL Lymph # (Auto) (1.2-3.4) K/uL [place] # (Auto) (0.11-0.59) K/uL Eos # (Auto) (0-0.5) K/uL Baso # (Auto) (0-0.2) K/uL Immature Gran # (Auto) (0.00-0.02) K/uL VBG pH (7.36-7.41) VBG pCO2 (38-50) mmHg VBG pO2 mmHg VBG HCO3 mmol/L VBG O2 Saturation % VBG Base Excess mEq/L Sodium (136-145) mmol/L Potassium (3.5-5.1) mmol/L Chloride (98-107) mmol/L Carbon Dioxide (21-32) mmol/L Anion Gap (3-11) BUN (7-18) mg/dl Creatinine (0.6-1.4) mg/dl Est Cr Clr Drug Dosing ml/min Est GFR ( Amer) ml/min Est GFR (Non-Af Amer) ml/min BUN/Creatinine Ratio (10-20) Glucose (70-99) mg/dl POC Glucose 193 H 206 H 137 H (70-99) mg/dl Calcium (8.5-10.1) mg/dl Magnesium (1.8-2.4) mg/dl Procalcitonin (0-0.5) ng/ml Vancomycin Trough (See Comment) mcg/ml [facility] Screen Complement C3 Complement C4 Bld Cult Staph aureus PCR (Negative) Blood Culture MRSA PCR (Negative) 02/17/21 02/17/21 02/17/21 Range/Units 19:47 18:11 16:00 WBC (4.8-10.8) K/uL RBC (4.7-6.1) M/uL Hgb (14.0-18.0) g/dL Hct (42-52) % MCV (80-100) fL MCH (25-34) pg MCHC (32-36) g/dL RDW Std Deviation (36.4-46.3) fL RDW Coeff of Kaelyn (11.5-14.5) % Plt Count (130-400) K/uL MPV (7.4-10.4) fL Immature Gran % (Auto) % Neut % (Auto) % Lymph % (Auto) % [place] % (Auto) % Eos % (Auto) % Baso % (Auto) % Neut # (Auto) (1.4-6.5) K/uL Lymph # (Auto) (1.2-3.4) K/uL [place] # (Auto) (0.11-0.59) K/uL Eos # (Auto) (0-0.5) K/uL Baso # (Auto) (0-0.2) K/uL Immature Gran # (Auto) (0.00-0.02) K/uL VBG pH (7.36-7.41) VBG pCO2 (38-50) mmHg VBG pO2 mmHg VBG HCO3 mmol/L VBG O2 Saturation % VBG Base Excess mEq/L Sodium 143 (136-145) mmol/L Potassium 5.6 H (3.5-5.1) mmol/L Chloride 117 H (98-107) mmol/L Carbon Dioxide 13 L (21-32) mmol/L Anion Gap 14.0 H (3-11) BUN 32 H (7-18) mg/dl Creatinine 3.27 H (0.6-1.4) mg/dl Est Cr Clr Drug Dosing 28.3 ml/min Est GFR ( Amer) 21.0 ml/min Est GFR (Non-Af Amer) 18.1 ml/min BUN/Creatinine Ratio 9.8 L (10-20) Glucose 126 H (70-99) mg/dl POC Glucose 121 H (70-99) mg/dl Calcium 7.2 L (8.5-10.1) mg/dl Magnesium (1.8-2.4) mg/dl Procalcitonin (0-0.5) ng/ml Vancomycin Trough (See Comment) mcg/ml [facility] Screen Complement C3 Complement C4 Bld Cult Staph aureus PCR (Negative) Blood Culture MRSA PCR (Negative) 02/17/21 02/17/21 02/16/21 Range/Units 13:50 13:09 22:44 WBC (4.8-10.8) K/uL RBC (4.7-6.1) M/uL Hgb (14.0-18.0) g/dL Hct (42-52) % MCV (80-100) fL MCH (25-34) pg MCHC (32-36) g/dL RDW Std Deviation (36.4-46.3) fL RDW Coeff of Kaelyn (11.5-14.5) % Plt Count (130-400) K/uL MPV (7.4-10.4) fL Immature Gran % (Auto) % Neut % (Auto) % Lymph % (Auto) % [place] % (Auto) % Eos % (Auto) % Baso % (Auto) % Neut # (Auto) (1.4-6.5) K/uL Lymph # (Auto) (1.2-3.4) K/uL [place] # (Auto) (0.11-0.59) K/uL Eos # (Auto) (0-0.5) K/uL Baso # (Auto) (0-0.2) K/uL Immature Gran # (Auto) (0.00-0.02) K/uL VBG pH (7.36-7.41) VBG pCO2 (38-50) mmHg VBG pO2 mmHg VBG HCO3 mmol/L VBG O2 Saturation % VBG Base Excess mEq/L Sodium (136-145) mmol/L Potassium (3.5-5.1) mmol/L Chloride (98-107) mmol/L Carbon Dioxide (21-32) mmol/L Anion Gap (3-11) BUN (7-18) mg/dl Creatinine (0.6-1.4) mg/dl Est Cr Clr Drug Dosing ml/min Est GFR ( Amer) ml/min Est GFR (Non-Af Amer) ml/min BUN/Creatinine Ratio (10-20) Glucose (70-99) mg/dl POC Glucose 114 H 99 (70-99) mg/dl Calcium (8.5-10.1) mg/dl Magnesium (1.8-2.4) mg/dl Procalcitonin (0-0.5) ng/ml Vancomycin Trough (See Comment) mcg/ml [facility] Screen Complement C3 Complement C4 Bld Cult Staph aureus PCR Positive A (Negative) Blood Culture MRSA PCR Positive A* (Negative) Medications Administered Current Inpatient Medications Albuterol (Albut/Ipratrop 3mg/0.5mg Neb 3 Ml Vial) 3 ml NEB Q6R PRN PRN Reason: Wheezing Stop: 03/19/21 12:59 Aspirin (Aspirin 81 Mg Chew) 81 mg PO DAILY SHMUEL Stop: 03/19/21 11:29 Last Admin: 02/17/21 11:11 Dose: 81 mg Documented by: Atorvastatin Calcium (Atorvastatin 10 Mg Tab) 10 mg PO HS SHMUEL Stop: 03/19/21 20:59 Last Admin: 02/17/21 19:59 Dose: Not Given Documented by: Dextrose (Dextrose 50% 50 Ml Syringe) 25 - 50 ml IV UD PRN; Protocol PRN Reason: Hypoglycemia Protocol Stop: 03/18/21 20:14 Famotidine (Famotidine 20 Mg Tab) 20 mg PO BID SHMUEL Stop: 03/19/21 20:59 Last Admin: 02/17/21 19:59 Dose: Not Given Documented by: Glucagon (Glucagon For Inj 1 Mg Vial) 1 mg IM UD PRN; Protocol PRN Reason: Hypoglycemia Protocol Stop: 03/18/21 20:14 Glucose (Glucose 40% Gel 15 Gm Tube) 15 - 30 gm PO UD PRN; Protocol PRN Reason: Hypoglycemia Protocol Stop: 03/18/21 20:14 Glucose (Glucose 10 Tabs/Tube) 4 - 8 tabs PO UD PRN; Protocol PRN Reason: Hypoglycemia Protocol Stop: 03/18/21 20:14 Heparin Sodium (Porcine) (Heparin Sod 5,000 Unit/0.5 Ml Vial) 5,000 units SQ Q8 SHMUEL Stop: 03/18/21 21:59 Last Admin: 02/18/21 06:02 Dose: 5,000 units Documented by: Fentanyl Citrate (Fentanyl Drip) 1,250 mcg in 250 mls @ 0 mls/hr IV .Q0M SHMUEL; Protocol Stop: 03/02/21 20:44 Last Titration: 02/17/21 09:54 Dose: 0 mcg/hr, 0 mls/hr Documented by: Promethazine HCl 12.5 mg/ (Sodium Chloride) 50.5 mls @ 202 mls/hr IV Q6H PRN PRN Reason: Nausea And Vomiting Stop: 03/18/21 21:40 Acetaminophen (Ofirmev) 1,000 mg in 100 mls @ 400 mls/hr IV Q8H PRN PRN Reason: Fever/Mild Pain (Pain 1,2,3) Stop: 02/19/21 21:40 Doxycycline Hyclate 100 mg/ (Dextrose) 110 mls @ 50 mls/hr IV Q12H [facility] Stop: 02/24/21 07:29 Last Infusion: 02/18/21 10:40 Dose: Infused Documented by: Cefepime HCl 1,000 mg/ Syringe 11.3 mls @ 5.5 mls/min IV Q12H [facility] Stop: 02/24/21 19:59 Last Admin: 02/18/21 08:23 Dose: 5.5 mls/min Documented by: Vancomycin HCl 1,250 mg/ (Sodium Chloride) 275 mls @ 125 mls/hr IV Q24H [facility]; Protocol Stop: 02/25/21 11:59 Insulin Aspart (Insulin Aspart 100 Units/Ml 3 Ml Pen) 0 units SC Q4 SHMUEL Stop: 03/19/21 15:59 Last Admin: 02/18/21 09:24 Dose: 2 units Documented by: Insulin Glargine (Insulin Glargine Solostar 100 Units/Ml 3 Ml Pen) 0 units SC BID SHMUEL; Protocol Stop: 03/20/21 20:59 Miscellaneous (Carbohydrates For Hypoglycemia ) 15 - 30 gm PO PRN PRN PRN Reason: Hypoglycemia Treatment Stop: 03/18/21 20:14 Miscellaneous Information (Vancomycin Consult Active) 1 ea N/A UD PRN PRN Reason: Consult Stop: 03/18/21 19:42 Miscellaneous Information (Pharmacy Glycemic Mgmt Consult) 1 ea N/A UD PRN PRN Reason: Consult Stop: 03/19/21 07:55 Travoprost (Travoprost Z 0.004% Oph Soln 2.5 Ml Btl) 1 drops OPB HS SHMUEL Stop: 03/18/21 21:40 Last Admin: 02/17/21 19:59 Dose: 1 drops Documented by:
[2021-02-18] MEDS: VANCOMYCIN HCL 1,250 MG in SODIUM CHLORIDE 0.9% 250 ML IV SCH (16:23)
--- NOTE | 2021-02-18 16:31 | Nephrology Progress Note ---
Date of Service February 18, 2021 Assessment & Plan (1) Acute on chronic renal failure: Plan: improving and non oliguric Stage 2 JAVON on CKD 3a: likeliest is ATN from hemodynamic changes with septic shock, presume MRSA septicemia. Baseline creatinine 1.4, CKD 3A; historically no proteinuria and with intermittent microhematuria, never worked up as it has not been consistent. chemistries acceptable this AM. admission UA not c/w infection. he was found obtunded and has septic shock >> both of which put him at risk for rhabdomyolysis, though my index of suspicion for this is low. chemistries relatively appropriate though K 5.1 may well trend upward. -bmp daily -would recheck CK w/ am labs - order in -lasix prn -f/u lupus profile given dermatitis hx > [facility]ESH and complement levels ordered; consider anti Ro/SSA if +; will need renal bx if these are + -no urgent indication for dialysis however cannot rule out need next 24-48 hrs though from a renal standpoint he is improved -keep tolentino for now -confirmed pharmacy will dose vanco by level -f/u pending cxs > at risk for staphylococcal bacteremia with sloughing skin lesions though with one of 4 bottles positive may be contaminant (still MRSA though) Low threshold for tertiary care center eval given his atypical presentation (second admission with life threatening sx in 2 wks), lack of definitive dx (w hat is driving skin problems and allergic response), and need for in house allergy/immunology, dermatology, possible need for IR including potential need for kidney biopsy/?lymph node biopsy Care coordinated w/ Vinay Mark and Nida. Admission and Anticipated Discharge Date Admission Date: February 16, 2021 Subjective extubated and on RA now; still quite confused which limits ROS; denies sob or orthopnea; denies pain w/ rash Review of Systems Review of Systems: Unobtainable due to reduced consciousness Physical Exam Constitutional: well developed, well nourished, + obese, + altered mental status and comfortable; no acute distress Eyes: eyes nearly swollen shut ENMT: Ears: no external ear abnormality Nose: no external nose abnormality Mouth: + lip abnormality (swollen lips) and + dry oral mucous membranes Neck: no nuchal rigidity Respiratory: normal respiratory effort Auscultation: + diminished lung sounds no resp distress; upper respiratory sounds present Cardiovascular: Rate/Rhythm: regular rhythm and + tachycardic Heart Sounds: normal S1 and normal S2 Extremities: + edema (2+ dependent) Gastrointestinal (Abdomen): Inspection/Auscultation: normal bowel sounds Percussion/Palpation: abdomen soft; abdomen nontender Musculoskeletal: Extremities: + abnormal strength (generalized) Skin: skin sloughing and dry/ scaly in other places Results & Data ([facility]) Vital Signs (Past 12 Hours) Vital Signs Temp Pulse Resp BP Pulse Ox 02/18/21 08:21 36.9 C 02/18/21 06:21 118/70 94 02/18/21 05:21 103 H 13 129/77 94 02/18/21 04:21 37.0 C 108 H 130/92 93 Laboratory Results 02/18/21 05:19 02/18/21 05:19
[2021-02-18] MEDS: ASPIRIN 81 MG CHEW PO SCH (17:16)
[2021-02-18] MEDS: FAMOTIDINE 20 MG TAB PO SCH ×2 (17:16→20:29)
[2021-02-18] MEDS: ATORVASTATIN 10 MG TAB PO SCH (20:28)
[2021-02-18] MEDS: EUCERIN CR 120 GM JAR EXT SCH ×2 (20:28→20:56)
[2021-02-18] MEDS: INSULIN GLARGINE SOLOSTAR 100 UNITS/ML 3 ML PEN SC SCH (20:29)
[2021-02-18] MEDS: TRAVOPROST Z 0.004% OPH SOLN 2.5 ML BTL OPB SCH (20:30)
[2021-02-19] MEDS: INSULIN ASPART 100 UNITS/ML 3 ML PEN SC SCH ×5 (04:27→16:46)
[2021-02-19 05:39] LABS: Basophils # (auto) 0.02 K/uL (0-0.2); Basophils % (auto) 0.2 %; Eosinophils # (auto) 0.06 K/uL (0-0.5); Eosinophils % (auto) 0.5 %; Hematocrit (blood only) 33.1 % (42-52); Hemoglobin 11.1 g/dL (14.0-18.0); Immature Granulocytes # (auto) 0.03 K/uL (0.00-0.02); Immature Granulocytes % (auto) 0.2 %; Lymphocytes # (auto) 2.18 K/uL (1.2-3.4); Lymphocytes % (auto) 17.6 %; Mean Corpuscular Hemoglobin 32.4 pg (25-34); Mean Corpuscular Hgb Conc 33.5 g/dL (32-36); Mean Corpuscular Volume 96.5 fL (80-100); Mean Platelet Volume 9.6 fL (7.4-10.4); Monocytes % (auto) 4.9 %; Neutrophils # (auto) 9.47 K/uL (1.4-6.5); Neutrophils % (auto) 76.6 %; Platelet Count 272 K/uL (130-400); RDW Coefficient of Variation 14.1 % (11.5-14.5); RDW Standard Deviation 49.9 fL (36.4-46.3); Red Blood Count 3.43 M/uL (4.7-6.1); White Blood Count 12.36 K/uL (4.8-10.8)
[2021-02-19 06:16] LABS: Albumin Globulin Ratio 0.6 (0.9-2); Albumin Level 2.7 gm/dl (3.4-5.0); BUN Creatinine Ratio 17.5 (10-20); Bilirubin,Total 0.4 mg/dl (0.2-1); Creatinine Clr Calc Pharmacy 49.9 ml/min; Est GFR (African American) 42.1 ml/min; Est GFR (Non-African American) 36.3 ml/min; Globulin 4.4 gm/dl (2.5-4.0); Magnesium 2.8 mg/dl (1.8-2.4); Phosphorus 2.5 mg/dl (2.5-4.9); Potassium 4.6 mmol/L (3.5-5.1); Total Protein 7.1 gm/dl (6.4-8.2)
[2021-02-19] MEDS: HEPARIN SOD 5,000 UNIT/0.5 ML VIAL SQ SCH ×2 (06:42→16:17)
--- NOTE | 2021-02-19 08:16 | Hospitalist Progress Note ---
Date of Service February 19, 2021 Assessment & Plan (1) Encephalopathy: Plan: Septic Shock Possible Sources: MRSA Bacteremia, Aspiration Pneumonia ,infected skin lesions Acute Metabolic Encephalopathy -MRI Brain:Mild sinus disease without infarct or hemorrhage. Expected age- related changes. -Blood Cultures: Gram-positive cocci - MRSA CSF cultures pending CSF biofire negative Urine culture negative ECHO: Technically difficult study. Small, underfilled LV chamber size with moderate concentric LVH. EF 60 to 65%. No segmental left ventricular wall motion abnormalities. Poorly visualized valvular structures. No significant pericardial effusion. -Elevated Lactate levels - 02/18 - Now off pressors and extubated -Continue broad-spectrum antibiotics cefepime, vancomycin, doxy -will likely need CLARK -Repeated Blood Cultures -Appreciate Car Dispatcher help -ID consulted - eval pending 02/18 - Discussed in detail with host and roguer. 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 Contacted plastic surgery however nobody available at this time. Per nephrology patient should have inpatient dermatology work-up, immunology/allergy work-up possibly renal biopsy, ? lymph node biopsy, and would recommend tertiary care center. Acute Kidney Injury Likely ATN Given Proteinuria/Hematuria: DD: Lupus Appreciate Nephrology Input Avoid Nephrotoxic agents as able Monitor renal function Currently no indication for dialysis Current Cr down to 1.8 Rhabdomyolysis CK now elevated at 1600 - IV fluids - monitor CK - renal function actually seems improved DM II HbA1C:6.9 Hold Metformin Continue Insulin therapy Monitor BGs H/O Subacute spongiotic dermatitis Follows with dermatology as outpatient Lymphadenopathy CT chest showed bilateral axillary lymphadenopathy DD Rheumatological Vs Neoplastic process Needs further work up as outpatient Elevated Troponin Likely Type II LA in setting of septic shock Hypertension Hold Coreg for now monitor BP DVT Px: Heparin SQ Code Status Full Code Admission and Anticipated Discharge Date Admission Date: February 16, 2021 Subjective Patient seen in follow up of septic shock / MRSA bacteremia, JAVON on CKD Now extubated, currently breathing on room air He is able to answer some questions appropriately but also repeatedly asks the same question His main complaint remains skin itchiness, and patient continues to scratch Currently denies any chest pain shortness of breath abdominal pain, nausea vomiting Cannot really answer me how he got into the hospital and surprised to be in the hospital Discussed with host and nephrology in detail yesterday - asked for transfer to [facility] - bed awaiting Plastic surgery currently unavailable Blood Culture growing MRSA updated over the phone Review of Systems Review of Systems: All systems reviewed & are unremarkable except as noted in Subjective Physical Exam Physical Exam: General Appearance:Morbidly Obese M, extubated, currently on RA Head: normocephalic, Atraumatic Eyes: normal inspection however eyelids edematous (edema seems improved though) Neck: supple Respiratory/Chest: Decreased breath sounds, CTA, No accessory muscle use Cardiovascular: S1, S2, No murmur Abdomen/GI:Soft, Non tender, Bowel sounds present Extremities/Musculoskeletal:normal inspection, B/L LE edema Neurologic/Psych: Awake and able to answer some questions appropriately, speech slow but fluent, moves extremities Skin: normal color, warm, +Chronic skin changes/extensive skin sloughing Results & Data Results & Data ([facility]) Vital Signs (Past 12 Hours) Vital Signs Temp Pulse BP Pulse Ox 02/19/21 02:57 36.8 C 104 H 176/125 H 100 02/19/21 00:00 107 H 02/18/21 23:00 37.1 C 108 H 172/114 H 99 02/18/21 22:00 97 Laboratory Results 02/19/21 02/19/21 02/19/21 Range/Units 07:33 05:25 05:25 WBC 12.36 H (4.8-10.8) K/uL RBC 3.43 L (4.7-6.1) M/uL Hgb 11.1 L (14.0-18.0) g/dL Hct 33.1 L (42-52) % MCV 96.5 (80-100) fL MCH 32.4 (25-34) pg MCHC 33.5 (32-36) g/dL RDW Std Deviation 49.9 H (36.4-46.3) fL RDW Coeff of Kaelyn 14.1 (11.5-14.5) % Plt Count 272 (130-400) K/uL MPV 9.6 (7.4-10.4) fL Immature Gran % (Auto) 0.2 % Neut % (Auto) 76.6 % Lymph % (Auto) 17.6 % Geary % (Auto) 4.9 % Eos % (Auto) 0.5 % Baso % (Auto) 0.2 % Neut # (Auto) 9.47 H (1.4-6.5) K/uL Lymph # (Auto) 2.18 (1.2-3.4) K/uL Geary # (Auto) 0.60 H (0.11-0.59) K/uL Eos # (Auto) 0.06 (0-0.5) K/uL Baso # (Auto) 0.02 (0-0.2) K/uL Immature Gran # (Auto) 0.03 H (0.00-0.02) K/uL Sodium 148 H (136-145) mmol/L Potassium 4.6 (3.5-5.1) mmol/L Chloride 120 H (98-107) mmol/L Carbon Dioxide 23 (21-32) mmol/L Anion Gap 5.0 (3-11) BUN 32 H (7-18) mg/dl Creatinine 1.84 H D (0.6-1.4) mg/dl Est Cr Clr Drug Dosing 49.9 ml/min Est GFR ( Amer) 42.1 ml/min Est GFR (Non-Af Amer) 36.3 ml/min BUN/Creatinine Ratio 17.5 (10-20) Glucose 127 H (70-99) mg/dl POC Glucose 113 H (70-99) mg/dl Calcium 8.0 L (8.5-10.1) mg/dl Phosphorus 2.5 (2.5-4.9) mg/dl Magnesium 2.8 H (1.8-2.4) mg/dl Total Bilirubin 0.4 (0.2-1) mg/dl AST 76 H (15-37) U/L ALT 62 (12-78) U/L Alkaline Phosphatase 53 (45-117) U/L Total Creatine Kinase 1670 H (39-308) U/L Total Protein 7.1 (6.4-8.2) gm/dl Albumin 2.7 L (3.4-5.0) gm/dl Globulin 4.4 H (2.5-4.0) gm/dl Albumin/Globulin Ratio 0.6 L (0.9-2) Vancomycin Trough (See Comment) mcg/ml 02/19/21 02/18/21 02/18/21 Range/Units 04:16 23:09 20:14 WBC (4.8-10.8) K/uL RBC (4.7-6.1) M/uL Hgb (14.0-18.0) g/dL Hct (42-52) % MCV (80-100) fL MCH (25-34) pg MCHC (32-36) g/dL RDW Std Deviation (36.4-46.3) fL RDW Coeff of Kaelyn (11.5-14.5) % Plt Count (130-400) K/uL MPV (7.4-10.4) fL Immature Gran % (Auto) % Neut % (Auto) % Lymph % (Auto) % Geary % (Auto) % Eos % (Auto) % Baso % (Auto) % Neut # (Auto) (1.4-6.5) K/uL Lymph # (Auto) (1.2-3.4) K/uL Geary # (Auto) (0.11-0.59) K/uL Eos # (Auto) (0-0.5) K/uL Baso # (Auto) (0-0.2) K/uL Immature Gran # (Auto) (0.00-0.02) K/uL Sodium (136-145) mmol/L Potassium (3.5-5.1) mmol/L Chloride (98-107) mmol/L Carbon Dioxide (21-32) mmol/L Anion Gap (3-11) BUN (7-18) mg/dl Creatinine (0.6-1.4) mg/dl Est Cr Clr Drug Dosing ml/min Est GFR ( Amer) ml/min Est GFR (Non-Af Amer) ml/min BUN/Creatinine Ratio (10-20) Glucose (70-99) mg/dl POC Glucose 113 H 129 H 127 H (70-99) mg/dl Calcium (8.5-10.1) mg/dl Phosphorus (2.5-4.9) mg/dl Magnesium (1.8-2.4) mg/dl Total Bilirubin (0.2-1) mg/dl AST (15-37) U/L ALT (12-78) U/L Alkaline Phosphatase (45-117) U/L Total Creatine Kinase (39-308) U/L Total Protein (6.4-8.2) gm/dl Albumin (3.4-5.0) gm/dl Globulin (2.5-4.0) gm/dl Albumin/Globulin Ratio (0.9-2) Vancomycin Trough (See Comment) mcg/ml 02/18/21 02/18/21 02/18/21 Range/Units 16:07 13:51 09:38 WBC (4.8-10.8) K/uL RBC (4.7-6.1) M/uL Hgb (14.0-18.0) g/dL Hct (42-52) % MCV (80-100) fL MCH (25-34) pg MCHC (32-36) g/dL RDW Std Deviation (36.4-46.3) fL RDW Coeff of Kaelyn (11.5-14.5) % Plt Count (130-400) K/uL MPV (7.4-10.4) fL Immature Gran % (Auto) % Neut % (Auto) % Lymph % (Auto) % Geary % (Auto) % Eos % (Auto) % Baso % (Auto) % Neut # (Auto) (1.4-6.5) K/uL Lymph # (Auto) (1.2-3.4) K/uL Geary # (Auto) (0.11-0.59) K/uL Eos # (Auto) (0-0.5) K/uL Baso # (Auto) (0-0.2) K/uL Immature Gran # (Auto) (0.00-0.02) K/uL Sodium (136-145) mmol/L Potassium (3.5-5.1) mmol/L Chloride (98-107) mmol/L Carbon Dioxide (21-32) mmol/L Anion Gap (3-11) BUN (7-18) mg/dl Creatinine (0.6-1.4) mg/dl Est Cr Clr Drug Dosing ml/min Est GFR ( Amer) ml/min Est GFR (Non-Af Amer) ml/min BUN/Creatinine Ratio (10-20) Glucose (70-99) mg/dl POC Glucose 111 H 115 H (70-99) mg/dl Calcium (8.5-10.1) mg/dl Phosphorus (2.5-4.9) mg/dl Magnesium (1.8-2.4) mg/dl Total Bilirubin (0.2-1) mg/dl AST (15-37) U/L ALT (12-78) U/L Alkaline Phosphatase (45-117) U/L Total Creatine Kinase (39-308) U/L Total Protein (6.4-8.2) gm/dl Albumin (3.4-5.0) gm/dl Globulin (2.5-4.0) gm/dl Albumin/Globulin Ratio (0.9-2) Vancomycin Trough 12.2 (See Comment) mcg/ml 02/18/21 Range/Units 09:08 WBC (4.8-10.8) K/uL RBC (4.7-6.1) M/uL Hgb (14.0-18.0) g/dL Hct (42-52) % MCV (80-100) fL MCH (25-34) pg MCHC (32-36) g/dL RDW Std Deviation (36.4-46.3) fL RDW Coeff of Kaelyn (11.5-14.5) % Plt Count (130-400) K/uL MPV (7.4-10.4) fL Immature Gran % (Auto) % Neut % (Auto) % Lymph % (Auto) % Geary % (Auto) % Eos % (Auto) % Baso % (Auto) % Neut # (Auto) (1.4-6.5) K/uL Lymph # (Auto) (1.2-3.4) K/uL Geary # (Auto) (0.11-0.59) K/uL Eos # (Auto) (0-0.5) K/uL Baso # (Auto) (0-0.2) K/uL Immature Gran # (Auto) (0.00-0.02) K/uL Sodium (136-145) mmol/L Potassium (3.5-5.1) mmol/L Chloride (98-107) mmol/L Carbon Dioxide (21-32) mmol/L Anion Gap (3-11) BUN (7-18) mg/dl Creatinine (0.6-1.4) mg/dl Est Cr Clr Drug Dosing ml/min Est GFR ( Amer) ml/min Est GFR (Non-Af Amer) ml/min BUN/Creatinine Ratio (10-20) Glucose (70-99) mg/dl POC Glucose 167 H (70-99) mg/dl Calcium (8.5-10.1) mg/dl Phosphorus (2.5-4.9) mg/dl Magnesium (1.8-2.4) mg/dl Total Bilirubin (0.2-1) mg/dl AST (15-37) U/L ALT (12-78) U/L Alkaline Phosphatase (45-117) U/L Total Creatine Kinase (39-308) U/L Total Protein (6.4-8.2) gm/dl Albumin (3.4-5.0) gm/dl Globulin (2.5-4.0) gm/dl Albumin/Globulin Ratio (0.9-2) Vancomycin Trough (See Comment) mcg/ml Medications Administered Current Inpatient Medications Albuterol (Albut/Ipratrop 3mg/0.5mg Neb 3 Ml Vial) 3 ml NEB Q6R PRN PRN Reason: Wheezing Stop: 03/19/21 12:59 Aspirin (Aspirin 81 Mg Chew) 81 mg PO DAILY SHMUEL Stop: 03/19/21 11:29 Last Admin: 02/18/21 17:16 Dose: 81 mg Documented by: Atorvastatin Calcium (Atorvastatin 10 Mg Tab) 10 mg PO HS SHMUEL Stop: 03/19/21 20:59 Last Admin: 02/18/21 20:28 Dose: 10 mg Documented by: Carvedilol (Carvedilol 3.125 Mg Tab) 3.125 mg PO BID SHMUEL Stop: 03/21/21 08:59 Dextrose (Dextrose 50% 50 Ml Syringe) 25 - 50 ml IV UD PRN; Protocol PRN Reason: Hypoglycemia Protocol Stop: 03/18/21 20:14 Famotidine (Famotidine 20 Mg Tab) 20 mg PO BID SHMUEL Stop: 03/19/21 20:59 Last Admin: 02/18/21 20:29 Dose: 20 mg Documented by: Glucagon (Glucagon For Inj 1 Mg Vial) 1 mg IM UD PRN; Protocol PRN Reason: Hypoglycemia Protocol Stop: 03/18/21 20:14 Glucose (Glucose 40% Gel 15 Gm Tube) 15 - 30 gm PO UD PRN; Protocol PRN Reason: Hypoglycemia Protocol Stop: 03/18/21 20:14 Glucose (Glucose 10 Tabs/Tube) 4 - 8 tabs PO UD PRN; Protocol PRN Reason: Hypoglycemia Protocol Stop: 10/13/21 20:14 Heparin Sodium (Porcine) (Heparin Sod 5,000 Unit/0.5 Ml Vial) 5,000 units SQ Q8 SHMUEL Stop: 03/18/21 21:59 Last Admin: 02/19/21 06:42 Dose: 5,000 units Documented by: Promethazine HCl 12.5 mg/ (Sodium Chloride) 50.5 mls @ 202 mls/hr IV Q6H PRN PRN Reason: Nausea And Vomiting Stop: 03/18/21 21:40 Acetaminophen (Ofirmev) 1,000 mg in 100 mls @ 400 mls/hr IV Q8H PRN PRN Reason: Fever/Mild Pain (Pain 1,2,3) Stop: 02/19/21 21:40 Doxycycline Hyclate 100 mg/ (Dextrose) 110 mls @ 50 mls/hr IV Q12H [facility] Stop: 02/24/21 07:29 Last Infusion: 02/18/21 23:14 Dose: Infused Documented by: Cefepime HCl 1,000 mg/ Syringe 11.3 mls @ 5.5 mls/min IV Q12H [facility] Stop: 02/24/21 19:59 Last Admin: 02/18/21 20:56 Dose: 5.5 mls/min Documented by: Vancomycin HCl 1,250 mg/ (Sodium Chloride) 275 mls @ 125 mls/hr IV Q24H [facility]; Protocol Stop: 02/25/21 11:59 Last Infusion: 02/18/21 19:10 Dose: Infused Documented by: Insulin Aspart (Insulin Aspart 100 Units/Ml 3 Ml Pen) 0 units SC Q4 [facility] Stop: 03/19/21 15:59 Last Admin: 02/19/21 04:27 Dose: Not Given Documented by: Insulin Glargine (Insulin Glargine Solostar 100 Units/Ml 3 Ml Pen) 0 units SC BID SHMUEL; Protocol Stop: 03/20/21 20:59 Last Admin: 02/18/21 20:29 Dose: Not Given Documented by: Miscellaneous (Carbohydrates For Hypoglycemia ) 15 - 30 gm PO PRN PRN PRN Reason: Hypoglycemia Treatment Stop: 03/18/21 20:14 Miscellaneous Information (Vancomycin Consult Active) 1 ea N/A UD PRN PRN Reason: Consult Stop: 03/18/21 19:42 Miscellaneous Information (Pharmacy Glycemic Mgmt Consult) 1 ea N/A UD PRN PRN Reason: Consult Stop: 03/19/21 07:55 Multi-Ingredient Cream (Eucerin Cr 120 Gm Jar) 1 appln EXT BID [facility] Stop: 03/20/21 20:59 Last Admin: 02/18/21 20:56 Dose: 1 appln Documented by: Travoprost (Travoprost Z 0.004% Oph Soln 2.5 Ml Btl) 1 drops OPB HS SHMUEL Stop: 03/18/21 21:40 Last Admin: 02/18/21 20:30 Dose: 1 drops Documented by:
[2021-02-19] MEDS ORDERED: carvediloL 3.125 MG TAB PO SCH (09:00)
[2021-02-19] MEDS: CEFEPIME 1,000 MG in SYRINGE 0 ML IV SCH (10:06)
[2021-02-19] MEDS: DOXYCYCLINE HYCLATE 100 MG in DEXTROSE 5% 100 ML IV SCH (10:06)
[2021-02-19] MEDS: ASPIRIN 81 MG CHEW PO SCH (10:07)
[2021-02-19] MEDS: FAMOTIDINE 20 MG TAB PO SCH (10:08)
[2021-02-19] MEDS: EUCERIN CR 120 GM JAR EXT SCH (10:08)
[2021-02-19] MEDS: INSULIN GLARGINE SOLOSTAR 100 UNITS/ML 3 ML PEN SC SCH (10:09)
[2021-02-19] MEDS ORDERED: DEXTROSE 5% 500 ML IV SCH (10:30)
[2021-02-19] MEDS ORDERED: VANCOMYCIN TROUGH ONE (11:30)
[2021-02-19] MEDS ORDERED: INSULIN GLARGINE SOLOSTAR 100 UNITS/ML 3 ML PEN SC ONE ×2 (12:00→16:00)
--- NOTE | 2021-02-19 12:08 | Pharmacy Report ---
Pharmacy Glycemic Short Note 2 - Date of Service February 19, 2021 - Glycemic Short BSG Results (Last 24 hours): 02/18/21 02/18/21 02/18/21 13:51 16:07 20:14 Glucose POC Glucose 115 H 111 H 127 H 02/18/21 02/19/21 02/19/21 23:09 04:16 05:25 Glucose 127 H POC Glucose 129 H 113 H 02/19/21 07:33 Glucose POC Glucose 113 H OUTPATIENT ANTIDIABETIC REGIMEN: * Metformin 1000mg PO daily * Liraglutide 1.2mg SQ daily * Glimepiride 4mg PO daily * A1c = 6.9% 02/05/21 ASSESSMENT: 02/19 * BSGs well controlled over last 24 hours * Fasting BSG 111-129 with 24 units Lantus on board. Will split Lantus dosing BID and scale dosing as pt's PO intake nil and insulin needs likely to decline w/ depletion of glycogen stores. Of note, Nephrology has added D5W x 500mL today to provide free water. * Will decrease Novolog doses at this time - although difficult to assess given NPO status and no need for correctional insulin doses in last 24 hrs, however given low basal needs a more conservative Novolog regimen should be considered 02/18 * Patient was transitioned off the insulin drip yesterday afternoon * Patient has been extubated, pressors have been weaned off. * Fasting BSG 167 this AM with 20 units basal on board + 7 units correctional insulin overnight - will continue to up-titrate. Will give larger dose this AM given upward trend in BSGs following transition off insulin drip yesterday. * Diet remains poor. Therefore will scale the evening dose of Lantus. 02/17 * Type 2 diabetic admitted for unresponsiveness, encephalopathy, likely sepsis from pulmonary source * Patient was initiated on IV insulin drip and remains on IV insulin drip at this time. BSGs have dropped into the low 100s, below goal range. * Patient is intubated, receiving pressor support (norepi @0.05mcg/kg/min), receiving broad spectrum ABX and is NPO (no plans to advance diet yet) * Given current stressors, IV insulin drip would be best suited to achieve our glycemic goals safely. SQ insulin absorption less reliable when pressors are in use. PLAN FOR INPATIENT GLYCEMIC CONTROL: * Basal insulin: * Lantus SQ BID: 0 units if BSG less than 120, 15 units if BSG 120-180, 15 units if BSG above 180 * Bolus insulin: * Novolog SQ Q 6 hrs * Goal range: Low 110 - High 140 mg/dL * Correction factor: 20 mg/dL/unit * Carb ratio: 1 unit per 7 grams CHO consumed with meals PLAN FOR DISCHARGE: * to be determined.
--- NOTE | 2021-02-19 12:41 | Pharmacy Report ---
Pharmacy Abx Dose Short Note - Date of Service February 19, 2021 - Assessment & Plan Assessment * 70 year old M receiving VANCOMYCIN for treatment of sepsis, MRSA bacteremia, likely from pulmonary or SSTI source * Pharmacy has been consulted to dose Vancomycin * Day # 4 vancomycin * BLCXs: 1 of 2 growing MRSA. Repeat BLCX's collected 02/18 - no growth to date * MRSA nasal swab positive * ID consult to be performed this AM * Renal fxn appears to be improving. SCr continues to fall, UOP however remains < 0.5mL/kg/hr - pt is NPO and not receiving maintenance IVFs Plan Vancomycin * Received 1250mg IV x 1 yesterday @ 1600 * Level drawn ~ 20 hrs afterward = 9.9 * Will change maintenance dose of 1000mg Q 12 hrs renal clearance of vanco appears to be increasing and risks associated w/ underdosing in the setting of MRSA bacteremia are high * Will check level again prior to noon dose tomorrow given changing renal fxn * Goal trough level for bacteremia / pulm infxn : 15 to 20 mcg/mL or AUC:MATHIEU 400-600 (500-600 may be warranted initially) Pharmacy will continue to follow and will adjust dose/frequency as necessary. Thank you.
[2021-02-19] MEDS: VANCOMYCIN HCL 1,250 MG in SODIUM CHLORIDE 0.9% 250 ML IV SCH (13:48)
[2021-02-19 14:42] LABS: Anti Nuclear Antibody Screen POSITIVE (NEGATIVE); Complement C3 132 mg/dL (82-185)
--- NOTE | 2021-02-19 15:38 | Nephrology Progress Note ---
Date of Service February 19, 2021 Assessment & Plan (1) Acute on chronic renal failure: Plan: improving non oliguric Stage 2 JAVON on CKD 3a: likeliest is ATN from hemodynamic changes with septic shock, presume MRSA septicemia. Baseline creatinine 1.4, CKD 3A; historically no proteinuria and with intermittent microhematuria, never worked up as it has not been consistent. chemistries acceptable this AM. admission UA not c/w infection. he was found obtunded and has septic shock >> both of which put him at risk for rhabdomyolysis, though my index of suspicion f or this is low. chemistries relatively appropriate though K 5.1 may well trend upward. -bmp twice daily with skin sloughing/Cantrell [place] d/t dehydration risk -would recheck CK w/ am labs again > uptrend noted >>>had hypernatremia this AM >> gave 500 mL D5W >>>Dr Alva to resume coreg for HTN -lasix prn ->>>>f/u lupus profile given dermatitis hx > UMESH is + and complement levels wnl; ordered anti Histone AB, f/u UMESH titers, and anti Ro/SSA if +; will need consideration of renal bx if anti Ro/SSA is + -no urgent indication for dialysis -keep tolentino for now -confirmed pharmacy will dose vanco by level -f/u pending cxs > at risk for staphylococcal bacteremia with sloughing skin lesions though with one of 4 bottles positive may be contaminant (still MRSA though) -- f/u ID recs Awaiting tertiary care center eval given his atypical presentation (second admission with life threatening sx in 2 wks), lack of definitive dx (what is driving skin problems and allergic response), and need for in house allergy/immunology, dermatology, possible need for IR including potential need for kidney biopsy/?lymph node biopsy Care coordinated w/ Dr Alva. Admission and Anticipated Discharge Date Admission Date: February 16, 2021 Subjective seen on rounds at 1130; inf dzs c/s pending as is mini swallow study; pt thirsty, more alert/interactive. no sob, no uncontrolled pain, no n, no orthopnea Review of Systems Review of Systems: All systems reviewed & are unremarkable except as noted in Subjective Physical Exam Constitutional: well developed, well nourished, + obese, + altered mental status (but less confused than yesterday) and comfortable; no acute distress ENMT: Ears: no external ear abnormality Nose: no external nose abnormality Mouth: + lip abnormality (swollen lips) and + dry oral mucous membranes Neck: no nuchal rigidity Respiratory: normal respiratory effort Auscultation: + diminished lung sounds Cardiovascular: Rate/Rhythm: regular rhythm and + tachycardic Heart Sounds: normal S1 and normal S2 Extremities: + edema (2+ dependent) Gastrointestinal (Abdomen): Inspection/Auscultation: normal bowel sounds Percussion/Palpation: abdomen soft; abdomen nontender Musculoskeletal: Extremities: + abnormal strength (generalized) Skin: whole body dry peeling skin and some sloughing; R maxillary area lesion Genitourinary: tolentino w/ ample urine Results & Data ([facility]) Vital Signs (Past 12 Hours) Vital Signs Pulse Pulse Ox 02/19/21 10:00 106 H 02/19/21 08:10 100 H 100 02/19/21 08:00 96 H Laboratory Results 02/19/21 05:25 02/19/21 05:25 CK 1900s now mag, phos not low
[2021-02-19] MEDS ORDERED: carvediloL 12.5 MG TAB PO ONE (16:00)
--- NOTE | 2021-02-19 16:56 | Electroencephalogram ---
EEG Procedure Note Date of Service February 17, 2021 Start / End Times Start Time: 09:46 End Time: 10:[address] Carrera History A 70-year-old male with altered mental status. EEG performed for ration epileptiform activity. Home Medication List Medication Instructions Recorded Confirmed Type aspirin 81 mg tablet,delayed 81 mg PO DAILY 02/04/21 02/16/21 History release atorvastatin 10 mg tablet 10 mg PO HS 02/04/21 02/16/21 History carvedilol 12.5 mg tablet 12.5 mg PO BID 02/04/21 02/16/21 History ergocalciferol (vitamin D2) 1,250 1,250 mcg PO MONTHLY 02/04/21 02/16/21 History mcg (50,000 unit) capsule (Vitamin D2) fluocinolone 0.025 % topical 1 applic TOPICAL BID PRN 02/04/21 02/16/21 History ointment glimepiride 4 mg tablet 4 mg PO DAILY 02/04/21 02/16/21 History liraglutide 0.6 mg/0.1 mL (18 mg/3 1.2 mg SUBCUT DAILY 02/04/21 02/16/21 History mL) subcutaneous pen injector (Victoza 3-Everette) metformin 500 mg tablet,extended 1,000 mg PO DAILY 02/04/21 02/16/21 History release 24 hr travoprost 0.004 % eye drops 1 drp OPB HS 02/04/21 02/16/21 History triamcinolone acetonide 0.1 % 1 applic TOPICAL DIRECTED PRN 02/04/21 02/16/21 History topical cream diphenhydramine HCl 25 mg capsule 25 mg PO Q6H #14 cap 02/05/21 02/16/21 Rx (Benadryl) famotidine 20 mg tablet (Pepcid) 20 mg PO BID 02/16/21 02/16/21 History Inpatient Medication List Aspirin (Aspirin 81 Mg Chew) 81 mg PO DAILY [facility] Stop: 03/19/21 11:29 Last Admin: 02/19/21 10:07 Dose: 81 mg Documented by: [id number] Admin: 02/18/21 17:16 Dose: 81 mg Documented by: [id number] Admin: 02/17/21 11:11 Dose: 81 mg Documented by: [id number] Atorvastatin Calcium (Atorvastatin 10 Mg Tab) 10 mg PO [facility] Stop: 03/19/21 20:59 Last Admin: 02/18/21 20:28 Dose: 10 mg Documented by: [id number] Admin: 02/17/21 19:59 Dose: Not Given Documented by: [id number] Carvedilol (Carvedilol 3.125 Mg Tab) 3.125 mg PO BID [facility] Stop: 03/21/21 08:59 Last Admin: 02/19/21 10:07 Dose: 3.125 mg Documented by: [id number] Famotidine (Famotidine 20 Mg Tab) 20 mg PO BID [facility] Stop: 03/19/21 20:59 Last Admin: 02/19/21 10:08 Dose: 20 mg Documented by: [id number] Admin: 02/18/21 20:29 Dose: 20 mg Documented by: [id number] Admin: 02/18/21 17:16 Dose: 20 mg Documented by: [id number] Admin: 02/17/21 19:59 Dose: Not Given Documented by: [id number] Heparin Sodium (Porcine) (Heparin Sod 5,000 Unit/0.5 Ml Vial) 5,000 units SQ Q8 [facility] Stop: 03/18/21 21:59 Last Admin: 02/19/21 16:17 Dose: 5,000 units Documented by: [id number] Admin: 02/19/21 06:42 Dose: 5,000 units Documented by: [id number] Admin: 02/18/21 20:56 Dose: 5,000 units Documented by: [id number] Admin: 02/18/21 17:02 Dose: 5,000 units Documented by: [id number] Admin: 02/18/21 06:02 Dose: 5,000 units Documented by: [id number] Admin: 02/17/21 22:15 Dose: 5,000 units Documented by: [id number] Admin: 02/17/21 13:43 Dose: 5,000 units Documented by: [id number] Admin: 02/17/21 05:18 Dose: 5,000 units Documented by: [id number] Admin: 02/16/21 23:48 Dose: Not Given Documented by: [id number] Insulin Aspart (Insulin Aspart 100 Units/Ml 3 Ml Pen) 0 units SC Q6 [facility] Stop: 03/21/21 11:59 Last Admin: 02/19/21 16:46 Dose: 1 units Documented by: [id number] Cosigned by: [id number] Admin: 02/19/21 13:46 Dose: 4 units Documented by: [id number] Cosigned by: [id number] Insulin Glargine (Insulin Glargine Solostar 100 Units/Ml 3 Ml Pen) 0 units SC BID [facility]; Protocol Stop: 03/20/21 20:59 Last Admin: 02/19/21 10:09 Dose: Not Given Documented by: [id number] Admin: 02/18/21 20:29 Dose: Not Given Documented by: [id number] Multi-Ingredient Cream (Eucerin Cr 120 Gm Jar) 1 appln EXT BID [facility] Stop: 03/20/21 20:59 Last Admin: 02/19/21 10:08 Dose: 1 appln Documented by: [id number] Admin: 02/18/21 20:56 Dose: 1 appln Documented by: [id number] Admin: 02/18/21 20:28 Dose: 1 appln Documented by: [id number] Travoprost (Travoprost Z 0.004% Oph Soln 2.5 Ml Btl) 1 drops OPB HS [facility] Stop: 03/18/21 21:40 Last Admin: 02/18/21 20:30 Dose: 1 drops Documented by: [id number] Admin: 02/17/21 19:59 Dose: 1 drops Documented by: [id number] Admin: 02/17/21 00:19 Dose: 1 drops Documented by: [id number] Discontinued Medications Acetaminophen (Acetaminophen 500 Mg Tab) 1,000 mg PO NOW STA Stop: 02/16/21 16:08 Last Admin: 02/16/21 16:14 Dose: 1,000 mg Documented by: [id number] Acetaminophen (Acetaminophen 650 Mg Supp) 650 mg ND NOW STA Stop: 02/16/21 16:09 Last Admin: 02/16/21 17:31 Dose: Not Given Documented by: [id number] Acetaminophen (Acetaminophen 1000 Mg/100 Ml Iv) Confirm Administered Dose 1,000 mg IV .STK-MED ONE Stop: 02/16/21 16:11 Last Admin: 02/16/21 17:31 Dose: Not Given Documented by: [id number] Acetaminophen (Acetaminophen 1000 Mg/100 Ml Iv) 1,000 mg IV ONE ONE Stop: 02/16/21 16:41 Last Admin: 02/16/21 17:33 Dose: 1,000 mg Documented by: [id number] Albuterol (Albuterol Hfa 8 Gm Inhaler) 4 puffs INH Q6R [facility] Stop: 03/19/21 00:59 Last Admin: 02/17/21 05:35 Dose: Not Given Documented by: [id number] Albuterol (Albut/Ipratrop 3mg/0.5mg Neb 3 Ml Vial) 3 ml NEB Q6 [facility] Stop: 03/19/21 06:59 Last Admin: 02/17/21 07:41 Dose: 3 ml Documented by: [id number] Albuterol (Albut/Ipratrop 3mg/0.5mg Neb 3 Ml Vial) 3 ml NEB Q6R [facility] Stop: 03/19/21 12:59 Last Admin: 02/17/21 16:03 Dose: Not Given Documented by: [id number] Aspirin (Aspirin 81 Mg Ectab) 81 mg PO DAILY [facility] Stop: 03/19/21 08:59 Last Admin: 02/17/21 08:05 Dose: Not Given Documented by: [id number] Carvedilol (Carvedilol 12.5 Mg Tab) 12.5 mg PO NOW ONE Stop: 02/19/21 16:01 Last Admin: 02/19/21 16:44 Dose: 12.5 mg Documented by: [id number] Dextrose (Dextrose 50% 50 Ml Syringe) 50 ml IV NOW ONE Stop: 02/17/21 20:49 Last Admin: 02/17/21 21:10 Dose: 50 ml Documented by: [id number] Fentanyl Citrate (Fentanyl Bolus From Bag) 50 mcg IV Q60M PRN PRN Reason: Pain or Agitation Stop: 03/02/21 20:33 Last Admin: 02/17/21 00:40 Dose: 50 mcg Documented by: [id number] Admin: 02/16/21 23:00 Dose: 50 mcg Documented by: [id number] Admin: 02/16/21 22:00 Dose: 50 mcg Documented by: [id number] Fentanyl Citrate (Fentanyl Citrate 100 Mcg/2 Ml Vial) Confirm Administered Dose 100 mcg .ROUTE .STK-MED ONE Stop: 02/16/21 21:02 Last Admin: 02/16/21 21:05 Dose: Not Given Documented by: [id number] Fentanyl Citrate (Fentanyl Citrate 100 Mcg/2 Ml Vial) 100 mcg IV NOW STA Stop: 02/16/21 21:03 Last Admin: 02/16/21 21:05 Dose: 100 mcg Documented by: [id number] Sodium Chloride (Nss 1000ml) 1,000 mls @ 999 mls/hr IV .Q1H1M ONE Stop: 02/16/21 17:07 Last Infusion: 02/16/21 18:22 Dose: 0 mls/hr Documented by: [id number] Admin: 02/16/21 17:16 Dose: 999 mls/hr Documented by: [id number] Piperacillin Sod/Tazobactam Sod (Zosyn) 4.5 gm in 120 mls @ 240 mls/hr IV NOW ONE Stop: 02/16/21 16:37 Last Infusion: 02/16/21 18:09 Dose: 0 mls/hr Documented by: [id number] Admin: 02/16/21 17:14 Dose: 240 mls/hr Documented by: [id number] Sodium Chloride (Nss 1000ml) 1,000 mls @ 999 mls/hr IV .Q1H1M ONE Stop: 02/16/21 17:28 Last Infusion: 02/16/21 18:52 Dose: 0 mls/hr Documented by: [id number] Admin: 02/16/21 17:34 Dose: 999 mls/hr Documented by: [id number] Sodium Chloride (Nss 1000ml) 1,000 mls @ 999 mls/hr IV .Q1H1M ONE Stop: 02/16/21 18:44 Last Infusion: 02/16/21 18:53 Dose: 0 mls/hr Documented by: [id number] Admin: 02/16/21 17:46 Dose: 999 mls/hr Documented by: [id number] Sodium Chloride (Nss 1000ml) 1,000 mls @ 250 mls/hr IV .Q4H STA Stop: 02/16/21 23:22 Last Infusion: 02/16/21 23:31 Dose: 0 mls/hr Documented by: [id number] Admin: 02/16/21 19:31 Dose: 250 mls/hr Documented by: [id number] Magnesium Sulfate/Dextrose (Magnesium Sulfate / D5w) 1 gm in 100 mls @ 100 mls/hr IV Q1H [facility] Stop: 02/16/21 21:26 Last Infusion: 02/16/21 21:30 Dose: 0 mls/hr Documented by: [id number] Admin: 02/16/21 20:30 Dose: 100 mls/hr Documented by: [id number] Infusion: 02/16/21 20:30 Dose: 100 mls/hr Documented by: [id number] Admin: 02/16/21 19:36 Dose: 100 mls/hr Documented by: [id number] Insulin Human Regular 250 (units/ Sodium Chloride) 250 mls @ 2.7 mls/hr IV .Q24H [facility]; Protocol Stop: 03/18/21 19:44 Last Titration: 02/17/21 14:03 Dose: 0 units/hr, 0 mls/hr Documented by: [id number] Cosigned by: [id number] Titration: 02/17/21 12:33 Dose: 2.7 units/hr, 2.7 mls/hr Documented by: [id number] Cosigned by: [id number] Titration: 02/17/21 11:20 Dose: 2.7 units/hr, 2.7 mls/hr Documented by: [id number] Cosigned by: [id number] Titration: 02/17/21 10:14 Dose: 2.7 units/hr, 2.7 mls/hr Documented by: [id number] Cosigned by: [id number] Titration: 02/17/21 09:09 Dose: 2.7 units/hr, 2.7 mls/hr Documented by: [id number] Cosigned by: [id number] Titration: 02/17/21 07:45 Dose: 0 units/hr, 0 mls/hr Documented by: [id number] Cosigned by: [id number] Titration: 02/17/21 07:15 Dose: 0 units/hr, 0 mls/hr Documented by: [id number] Cosigned by: [id number] Titration: 02/17/21 07:04 Dose: 5.4 units/hr, 5.4 mls/hr Documented by: [id number] Cosigned by: [id number] Titration: 02/17/21 06:00 Dose: 5.4 units/hr, 5.4 mls/hr Documented by: [id number] Cosigned by: [id number] Titration: 02/17/21 05:30 Dose: 5.4 units/hr, 5.4 mls/hr Documented by: [id number] Cosigned by: [id number] Titration: 02/17/21 05:00 Dose: 0 units/hr, 0 mls/hr Documented by: [id number] Cosigned by: [id number] Titration: 02/17/21 04:04 Dose: 9 units/hr, 9 mls/hr Documented by: [id number] Cosigned by: [id number] Titration: 02/17/21 03:10 Dose: 7.5 units/hr, 7.5 mls/hr Documented by: [id number] Cosigned by: [id number] Titration: 02/17/21 02:00 Dose: 9.4 units/hr, 9.4 mls/hr Documented by: [id number] Cosigned by: [id number] Titration: 02/17/21 01:00 Dose: 6.7 units/hr, 6.7 mls/hr Documented by: [id number] Cosigned by: [id number] Titration: 02/17/21 00:04 Dose: 6.7 units/hr, 6.7 mls/hr Documented by: [id number] Cosigned by: [id number] Titration: 02/16/21 22:38 Dose: 5.6 units/hr, 5.6 mls/hr Documented by: [id number] Cosigned by: [id number] Admin: 02/16/21 21:45 Dose: 4.7 units/hr, 4.7 mls/hr Documented by: [id number] Cosigned by: [id number] Vancomycin HCl 2,500 mg/ (Sodium Chloride) 550 mls @ 180 mls/hr IV ONE STA Stop: 02/16/21 23:13 Last Infusion: 02/16/21 23:50 Dose: 0 mls/hr Documented by: [id number] Admin: 02/16/21 20:46 Dose: 180 mls/hr Documented by: [id number] Fentanyl Citrate (Fentanyl Drip) 1,250 mcg in 250 mls @ 0 mls/hr IV .Q0M [facility]; Protocol Stop: 03/02/21 20:44 Last Titration: 02/18/21 19:11 Dose: 0 mcg/hr, 0 mls/hr Documented by: [id number] Cosigned by: [id number] Titration: 02/17/21 09:54 Dose: 0 mcg/hr, 0 mls/hr Documented by: [id number] Cosigned by: [id number] Titration: 02/17/21 09:07 Dose: 75 mcg/hr, 15 mls/hr Documented by: [id number] Cosigned by: [id number] Titration: 02/17/21 08:26 Dose: 100 mcg/hr, 20 mls/hr Documented by: [id number] Cosigned by: [id number] Titration: 02/17/21 07:04 Dose: 175 mcg/hr, 35 mls/hr Documented by: [id number] Cosigned by: [id number] Titration: 02/17/21 06:33 Dose: 175 mcg/hr, 35 mls/hr Documented by: [id number] Cosigned by: [id number] Titration: 02/17/21 04:30 Dose: 225 mcg/hr, 45 mls/hr Documented by: [id number] Cosigned by: [id number] Admin: 02/17/21 04:03 Dose: 200 mcg/hr, 40 mls/hr Documented by: [id number] Cosigned by: [id number] Titration: 02/17/21 04:03 Dose: 200 mcg/hr, 40 mls/hr Documented by: [id number] Cosigned by: [id number] Titration: 02/17/21 00:20 Dose: 200 mcg/hr, 40 mls/hr Documented by: [id number] Cosigned by: [id number] Titration: 02/16/21 23:00 Dose: 100 mcg/hr, 20 mls/hr Documented by: [id number] Cosigned by: [id number] Admin: 02/16/21 21:48 Dose: 25 mcg/hr, 5 mls/hr Documented by: [id number] Cosigned by: [id number] Calcium Gluconate () 1,000 mg in 60 mls @ 240 mls/hr IV NOW STA Stop: 02/16/21 20:53 Last Infusion: 02/16/21 21:04 Dose: 0 mls/hr Documented by: [id number] Admin: 02/16/21 20:49 Dose: 240 mls/hr Documented by: [id number] Sodium Chloride (Nss 1000ml) 1,000 mls @ 125 mls/hr IV .Q8H [facility] Stop: 03/18/21 23:29 Last Admin: 02/17/21 07:36 Dose: Not Given Documented by: [id number] Infusion: 02/17/21 07:36 Dose: 0 mls/hr Documented by: [id number] Infusion: 02/17/21 05:49 Dose: 125 mls/hr Documented by: [id number] Infusion: 02/17/21 05:19 Dose: 0 mls/hr Documented by: [id number] Infusion: 02/17/21 02:38 Dose: 125 mls/hr Documented by: [id number] Admin: 02/17/21 00:39 Dose: 200 mls/hr Documented by: [id number] Famotidine 20 mg/ Syringe 5 mls @ 2.5 mls/min IV BID [facility] Stop: 03/18/21 21:40 Last Admin: 02/17/21 08:05 Dose: 2.5 mls/min Documented by: [id number] Admin: 02/16/21 22:11 Dose: 2.5 mls/min Documented by: [id number] Piperacillin Sod/Tazobactam (Sod 4.5 gm/ Dextrose) 120 mls @ 30 mls/hr IV Q8H [facility]; Protocol Stop: 02/23/21 21:59 Last Infusion: 02/16/21 22:11 Dose: 0 mls/hr Documented by: [id number] Admin: 02/16/21 22:11 Dose: 30 mls/hr Documented by: [id number] Ceftriaxone Sodium 2,000 mg/ (Dextrose) 70 mls @ 140 mls/hr IV Q12H [facility]; Protocol Stop: 02/26/21 22:29 Last Infusion: 02/17/21 00:53 Dose: 0 mls/hr Documented by: [id number] Admin: 02/17/21 00:23 Dose: 140 mls/hr Documented by: [id number] Ampicillin Sodium 2,000 mg/ (Sodium Chloride) 100 mls @ 200 mls/hr IV Q6H [facility]; Protocol Stop: 02/26/21 22:29 Last Infusion: 02/17/21 05:49 Dose: 0 mls/hr Documented by: [id number] Admin: 02/17/21 05:19 Dose: 200 mls/hr Documented by: [id number] Infusion: 02/17/21 00:53 Dose: 0 mls/hr Documented by: [id number] Admin: 02/17/21 00:23 Dose: 200 mls/hr Documented by: [id number] Acyclovir Sodium 730 mg/ (Dextrose) 264.6 mls @ 250 mls/hr IV Q12H [facility]; Protocol Stop: 02/26/21 22:29 Last Infusion: 02/17/21 01:43 Dose: 0 mls/hr Documented by: [id number] Admin: 02/17/21 00:39 Dose: 250 mls/hr Documented by: [id number] Dexamethasone 10 mg/ Syringe 2.5 mls @ 1 mls/min IV ONE ONE Stop: 02/16/21 22:47 Last Admin: 02/17/21 00:18 Dose: 1 mls/min Documented by: [id number] Norepinephrine Bitartrate (Levophed/D5w) 8 mg in 508 mls @ 0 mls/hr IV .Q0M [facility]; Protocol Stop: 03/19/21 00:29 Last Titration: 02/17/21 16:27 Dose: 0 mcg/kg/min, 0 mls/hr Documented by: [id number] Titration: 02/17/21 11:55 Dose: 0 mcg/kg/min, 0 mls/hr Documented by: [id number] Titration: 02/17/21 11:25 Dose: 0.01 mcg/kg/min, 4.9 mls/hr Documented by: [id number] Titration: 02/17/21 11:00 Dose: 0.03 mcg/kg/min, 14.7 mls/hr Documented by: [id number] Titration: 02/17/21 10:23 Dose: 0.05 mcg/kg/min, 24.5 mls/hr Documented by: [id number] Titration: 02/17/21 10:15 Dose: 0.07 mcg/kg/min, 34.4 mls/hr Documented by: [id number] Titration: 02/17/21 09:06 Dose: 0.09 mcg/kg/min, 44.2 mls/hr Documented by: [id number] Titration: 02/17/21 08:26 Dose: 0.11 mcg/kg/min, 54 mls/hr Documented by: [id number] Titration: 02/17/21 07:03 Dose: 0.13 mcg/kg/min, 63.8 mls/hr Documented by: [id number] Cosigned by: [id number] Titration: 02/17/21 06:41 Dose: 0.13 mcg/kg/min, 63.8 mls/hr Documented by: [id number] Titration: 02/17/21 06:30 Dose: 0.11 mcg/kg/min, 54 mls/hr Documented by: [id number] Titration: 02/17/21 06:12 Dose: 0.09 mcg/kg/min, 44.2 mls/hr Documented by: [id number] Titration: 02/17/21 05:30 Dose: 0.07 mcg/kg/min, 34.4 mls/hr Documented by: [id number] Admin: 02/17/21 00:46 Dose: 0.05 mcg/kg/min, 24.5 mls/hr Documented by: [id number] Cosigned by: [id number] Doxycycline Hyclate 100 mg/ (Dextrose) 110 mls @ 50 mls/hr IV Q12H [facility] Stop: 02/24/21 07:29 Last Infusion: 02/19/21 12:31 Dose: 0 mls/hr Documented by: [id number] Admin: 02/19/21 10:06 Dose: 50 mls/hr Documented by: [id number] Infusion: 02/18/21 23:14 Dose: 0 mls/hr Documented by: [id number] Admin: 02/18/21 20:19 Dose: 50 mls/hr Documented by: [id number] Infusion: 02/18/21 10:40 Dose: 0 mls/hr Documented by: [id number] Admin: 02/18/21 08:23 Dose: 50 mls/hr Documented by: [id number] Infusion: 02/17/21 22:36 Dose: 0 mls/hr Documented by: [id number] Admin: 02/17/21 19:58 Dose: 50 mls/hr Documented by: [id number] Infusion: 02/17/21 10:16 Dose: 0 mls/hr Documented by: [id number] Admin: 02/17/21 08:05 Dose: 50 mls/hr Documented by: [id number] Cefepime HCl 1,000 mg/ Syringe 11.3 mls @ 5.5 mls/min IV Q12H [facility] Stop: 02/24/21 19:59 Last Admin: 02/19/21 10:06 Dose: 5.5 mls/min Documented by: [id number] Admin: 02/18/21 20:56 Dose: 5.5 mls/min Documented by: [id number] Admin: 02/18/21 08:23 Dose: 5.5 mls/min Documented by: [id number] Admin: 02/17/21 19:58 Dose: 5.5 mls/min Documented by: [id number] Cefepime HCl 2,000 mg/ Syringe 20 mls @ 5 mls/min IV NOW ONE Stop: 02/17/21 08:03 Last Admin: 02/17/21 08:43 Dose: 5 mls/min Documented by: [id number] Furosemide 60 mg/ Syringe 6 mls @ 4 mls/min IV ONE ONE Stop: 02/17/21 10:01 Last Admin: 02/17/21 10:06 Dose: 4 mls/min Documented by: [id number] Vancomycin HCl 500 mg/ Sodium (Chloride) 110 mls @ 125 mls/hr IV Q18H [facility]; Protocol Stop: 02/24/21 13:59 Last Infusion: 02/17/21 14:41 Dose: 0 mls/hr Documented by: [id number] Admin: 02/17/21 13:43 Dose: 125 mls/hr Documented by: [id number] Insulin Human Regular 5 units/ (Syringe) 5 mls @ 30 mls/min IV NOW ONE Stop: 02/17/21 22:11 Last Admin: 02/17/21 21:11 Dose: 30 mls/min Documented by: [id number] Cosigned by: [id number] Calcium Gluconate 1,000 mg/ (Sodium Chloride) 60 mls @ 240 mls/hr IV NOW STA Stop: 02/17/21 23:25 Last Infusion: 02/17/21 23:45 Dose: 0 mls/hr Documented by: [id number] Admin: 02/17/21 23:19 Dose: 240 mls/hr Documented by: [id number] Vancomycin HCl 1,250 mg/ (Sodium Chloride) 275 mls @ 125 mls/hr IV Q24H [facility]; Protocol Stop: 02/19/21 15:00 Last Infusion: 02/19/21 16:20 Dose: 0 mls/hr Documented by: [id number] Admin: 02/19/21 13:48 Dose: 125 mls/hr Documented by: [id number] Infusion: 02/18/21 19:10 Dose: 0 mls/hr Documented by: [id number] Admin: 02/18/21 16:23 Dose: 125 mls/hr Documented by: [id number] Dextrose (D5w) 500 mls @ 80 mls/hr IV .Q6H15M [facility] Stop: 02/19/21 16:44 Last Infusion: 02/19/21 16:20 Dose: 0 mls/hr Documented by: [id number] Admin: 02/19/21 12:28 Dose: 80 mls/hr Documented by: [id number] Insulin Aspart (Insulin Aspart 100 Units/Ml 3 Ml Pen) 0 units SC ACHS [facility] Stop: 03/18/21 20:59 Last Admin: 02/17/21 11:20 Dose: Not Given Documented by: [id number] Cosigned by: [id number] Admin: 02/17/21 08:06 Dose: Not Given Documented by: [id number] Cosigned by: [id number] Admin: 02/16/21 22:11 Dose: Not Given Documented by: [id number] Insulin Aspart (Insulin Aspart 100 Units/Ml 3 Ml Pen) 0 units SC Q4 [facility] Stop: 03/19/21 15:59 Last Admin: 02/19/21 12:32 Dose: Not Given Documented by: [id number] Cosigned by: [id number] Admin: 02/19/21 10:09 Dose: Not Given Documented by: [id number] Admin: 02/19/21 04:27 Dose: Not Given Documented by: [id number] Admin: 02/18/21 23:13 Dose: Not Given Documented by: [id number] Admin: 02/18/21 20:28 Dose: Not Given Documented by: [id number] Admin: 02/18/21 16:23 Dose: Not Given Documented by: [id number] Admin: 02/18/21 14:12 Dose: Not Given Documented by: [id number] Admin: 02/18/21 09:24 Dose: 2 units Documented by: [id number] Cosigned by: [id number] Admin: 02/18/21 04:38 Dose: 4 units Documented by: [id number] Cosigned by: [id number] Admin: 02/18/21 00:32 Dose: 3 units Documented by: [id number] Cosigned by: [id number] Admin: 02/17/21 20:09 Dose: Not Given Documented by: [id number] Admin: 02/17/21 16:26 Dose: Not Given Documented by: [id number] Cosigned by: [id number] Insulin Glargine (Insulin Glargine Solostar 100 Units/Ml 3 Ml Pen) 10 units SC NOW STA Stop: 02/17/21 13:57 Last Admin: 02/17/21 14:13 Dose: 10 units Documented by: [id number] Cosigned by: [id number] Insulin Glargine (Insulin Glargine Solostar 100 Units/Ml 3 Ml Pen) 0 units SC BID [facility]; Protocol Stop: 03/19/21 20:59 Last Admin: 02/17/21 21:11 Dose: 10 units Documented by: [id number] Cosigned by: [id number] Insulin Glargine (Insulin Glargine Solostar 100 Units/Ml 3 Ml Pen) 24 units SC TODAY@0900 ONE Stop: 02/18/21 09:01 Last Admin: 02/18/21 09:25 Dose: 24 units Documented by: [id number] Cosigned by: [id number] Insulin Glargine (Insulin Glargine Solostar 100 Units/Ml 3 Ml Pen) 10 units SC 1600 ONE Stop: 02/19/21 16:01 Last Admin: 02/19/21 16:44 Dose: 10 units Documented by: [id number] Cosigned by: [id number] Insulin Human Regular (Novolin-R Bolus From Bag) 4.5 units IV ONE ONE Stop: 02/16/21 20:16 Last Admin: 02/16/21 21:46 Dose: 4.5 units Documented by: [id number] Cosigned by: [id number] Ipratropium [place] (Ipratropium [place] Hfa Inhaler) 4 puffs INH Q6R [facility] Stop: 03/19/21 00:59 Last Admin: 02/17/21 05:35 Dose: Not Given Documented by: [id number] Midazolam HCl (Midazolam Hcl 1 Mg/Ml 2ml Vial) 2 mg IV NOW STA Stop: 02/16/21 19:23 Last Admin: 02/16/21 19:36 Dose: 2 mg Documented by: [id number] Midazolam HCl (Midazolam Hcl 1 Mg/Ml 2ml Vial) Confirm Administered Dose 2 mg .ROUTE .STK-MED ONE Stop: 02/16/21 19:24 Last Admin: 02/16/21 19:36 Dose: Not Given Documented by: [id number] Midazolam HCl (Midazolam Hcl 1 Mg/Ml 2ml Vial) 2 mg IV Q2H PRN PRN Reason: RASS goal -1 Stop: 03/18/21 20:33 Last Admin: 02/17/21 00:23 Dose: 2 mg Documented by: [id number] Admin: 02/16/21 22:08 Dose: 2 mg Documented by: [id number] Miscellaneous (Rapid Sequence Induction Bag) Confirm Administered Dose 1 ea .ROUTE .STK-MED ONE Stop: 02/16/21 16:14 Last Admin: 02/16/21 18:09 Dose: 1 ea Documented by: [id number] Miscellaneous (Stat Iv Infusion Titration Per Protocol) 1 ea N/A NOW STA Stop: 02/17/21 00:30 Last Admin: 02/17/21 01:16 Dose: 1 ea Documented by: [id number] Miscellaneous (Insulin Protocol Goal Range ) 1 ea N/A ONE ONE Stop: 02/17/21 10:52 Last Admin: 02/17/21 11:20 Dose: 1 ea Documented by: [id number] Naloxone HCl (Naloxone Hcl 0.4 Mg/1 Ml Vial/Carp) 0.4 mg IV NOW STA Stop: 02/16/21 20:16 Last Admin: 02/16/21 20:46 Dose: Not Given Documented by: [id number] Sodium Bicarbonate (Sodium Bicarb 8.4% Inj 50 Meq/50 Ml Syr) 50 meq IV NOW STA Stop: 02/17/21 20:43 Last Admin: 02/17/21 21:10 Dose: 50 meq Documented by: [id number] Description This is a 21 electrode EEG with a single channel dedicated to limited EKG. The electrodes were placed in accordance with the International 10-20 system. Report: At the onset of the EEG the patient is in an altered mental state. There is a loss of the normal anterior to posterior gradient. There is no posterior dominant rhythm seen. The background consist of 6 severely suppressed activity with superimposed faster frequencies that are likely artifactual. No electrographic seizures or epileptiform activity is noted. No stage II sleep transients are seen. Interpretation Impression: This is an abnormal routine EEG in a patient with altered mentation due to severe background suppression which is suggestive of a severe nonspecific encephalopathy or may be due to medication side effect. No epileptiform activity is seen.
[2021-02-19] MEDS ORDERED: ACETAMINOPHEN 325 MG TAB PO PRN (17:35)
[2021-02-19 17:46] LABS: BUN Creatinine Ratio 16.9 (10-20); Creatinine Clr Calc Pharmacy 58.4 ml/min; Potassium 4.7 mmol/L (3.5-5.1)
[2021-02-19] MEDS ORDERED: ETOMIDATE 2 MG/ML 20 ML VIAL IV ONE (18:54)
[2021-02-19] MEDS ORDERED: ROCURONIUM BROMIDE 10 MG/ML 5 ML VIAL IV ONE (18:54)
--- NOTE | 2021-02-19 19:22 | Discharge Summary ---
Date of Service February 19, 2021 Admission HPI Per Admitting Provider History obtained from patient's family, and records. Unable to obtain history from patient secondary to intubated state. Medical history significant for hypertension, hyperlipidemia, JENNIFER on CPAP, DM2 on oral medications, CRI (baseline creatinine 1.4), chronic anemia (baseline hemoglobin 12-13), spongiotic dermatitis status post phototherapy. Last confinement February 042020 for angioedema possibly secondary to lisinopril. Swelling also coincided with first dose of prednisone taken for spongiotic dermatitis. Patient not well as per family following discharge from the hospital. Patient struggling with itchy skin lesions at home following discharge. Patient able to go to outpatient therapy sessions and follow-up at maintenance coordinator's office. Patient seen at PCPs office few days ago on hospital follow-up visit. Patient complaining itchy rash and dysuria symptoms. Patient prescribed topical steroids along with hydroxyzine as needed for itching. Some drainage noted from neck scratching as per . Increasing weakness noted over the last few days as per family. Patient looking very tired and sleeping more than usual. Patient found patient in the driveway obtunded today. Patient found to have temperature 100.6. EMS called. Patient subsequently intubated upon arrival at the ER. 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 Unable to obtain history from patient secondary to intubated state. Medical history significant for hypertension, hyperlipidemia, JENNIFER on CPAP, DM2 on oral medications, CRI (baseline creatinine 1.4), chronic anemia (baseline hemoglobin 12-13), spongiotic dermatitis status post phototherapy. Last confinement February 042020 for angioedema possibly secondary to lisinopril. Swelling also coincided with first dose of prednisone taken for spongiotic dermatitis. Patient not well as per family following discharge from the hospital. Patient struggling with itchy skin lesions at home following discharge. Patient able to go to outpatient therapy sessions and follow-up at maintenance coordinator's office. Patient seen at PCPs office few days ago on hospital follow-up visit. Patient complaining itchy rash and dysuria symptoms. Patient prescribed topical steroids along with hydroxyzine as needed for itching. Some drainage noted from neck scratching as per . Increasing weakness noted over the last few days as per family. Patient looking very tired and sleeping more than usual. Patient found patient in the driveway obtunded today. Patient found to have temperature 100.6. EMS called. Patient subsequently intubated upon arrival at the ER. 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 Discharge Exam General Appearance:Morbidly Obese M, extubated, currently on RA Head: normocephalic, Atraumatic Eyes: normal inspection however eyelids edematous (edema seems improved though) Neck: supple Respiratory/Chest: Decreased breath sounds, CTA, No accessory muscle use Cardiovascular: S1, S2, No murmur Abdomen/GI:Soft, Non tender, Bowel sounds present Extremities/Musculoskeletal:normal inspection, B/L LE edema Neurologic/Psych: Awake and able to answer some questions appropriately, speech slow but fluent, moves extremities Skin: normal color, warm, +Chronic skin changes/extensive skin sloughing Discharge Data Allergies Allergy/AdvReac Type Severity Reaction Status Date / Time lisinopril Allergy Severe Angioedema Verified 02/16/21 17:06 prednisone Allergy Severe FACE, Verified 02/16/21 17:06 LIPS, & TONGUE SWELLS Consultations 02/16/21 19:02 ED Decision to Admit Stat 02/16/21 21:41 Consult Ichthyologist Routine 02/17/21 07:24 Consult Nephrology Routine 02/17/21 14:14 Consult Infectious Diseases Routine 02/19/21 15:42 Burn CD for patient Stat Ordered Studies 02/16/21 16:07 CT head/brain wo con Stat 02/16/21 16:12 CT abd pelvis wo con Stat CT chest diagnostic wo con Stat 02/16/21 21:52 MR brain wo con Stat Hospital Course (1) Encephalopathy: Septic Shock Possible Sources: MRSA Bacteremia, Aspiration Pneumonia ,infected skin lesions Acute Metabolic Encephalopathy -MRI Brain:Mild sinus disease without infarct or hemorrhage. Expected age- related changes. -Blood Cultures: Gram-positive cocci - MRSA CSF cultures pending CSF biofire negative Urine culture negative ECHO: Technically difficult study. Small, underfilled LV chamber size with moderate concentric LVH. EF 60 to 65%. No segmental left ventricular wall motion abnormalities. Poorly visualized valvular structures. No significant pe ricardial effusion. -Elevated Lactate levels - 02/18 - Now off pressors and extubated -Continue broad-spectrum antibiotics cefepime, vancomycin, doxy -will likely need CALRK -Repeated Blood Cultures -Appreciate Ichthyologist help -ID consulted - eval pending 02/18 - Discussed in detail with adult basic education manager and buttonhole marker. 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 Contacted plastic surgery however nobody available at this time. Per nephrology patient should have inpatient dermatology work-up, immunology/allergy work-up possibly renal biopsy, ? lymph node biopsy, and would recommend tertiary care center. 02/19 - Contacted by ID physician, Dr. Garcia. 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 Recommends to stop cefepime and doxycycline and continue with IV vancomycin. Also agrees with transfer to [facility]. Acute Kidney Injury Likely ATN Given Proteinuria/Hematuria: DD: Lupus Appreciate Nephrology Input Avoid Nephrotoxic agents as able Monitor renal function Currently no indication for dialysis Current Cr down to 1.8 Rhabdomyolysis CK now elevated at 1600 - IV fluids - monitor CK - renal function actually seems improved DM II HbA1C:6.9 Hold Metformin Continue Insulin therapy Monitor BGs H/O Subacute spongiotic dermatitis Follows with dermatology as outpatient Lymphadenopathy CT chest showed bilateral axillary lymphadenopathy DD Rheumatological Vs Neoplastic process Needs further work up as outpatient Elevated Troponin Likely Type II UT in setting of septic shock Hypertension Hold Coreg for now monitor BP DVT Px: Heparin SQ Code Status Full Code Total Time Total Time Spent Total Time Spent (In Minutes): 40 Discharge Plan Discharge Items Patient Disposition: Transfer Acute Care Hospital Reason For Visit: HYPOTENSION Discharge Diagnosis: Septic shock MRSA bacteremia Acute Metabolic Encephalopathy JAVON on CKD stage Extensive sloughing of the skin/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 Pending Studies at Discharge: Yes Studies:: Work-up for lupus, UMESH, Sjogren's -pending Stand-Alone Forms: My [facility] Skilled Items Patient informed of condition?: Yes DNR: No Discharge Level of Care: Other Communicable Disease: No Discharge Prognosis: Other Lines: Peripheral IV Urinary Catheter: Yes Medications and DC Order Prescriptions: Continued carvedilol 12.5 mg tablet 12.5 mg PO BID RF: 0 atorvastatin 10 mg tablet 10 mg PO HS RF: 0 travoprost 0.004 % drops 1 drp OPB HS RF: 0 aspirin 81 mg tablet,delayed release (DR/EC) 81 mg PO DAILY RF: 0 triamcinolone acetonide 0.1 % cream 1 applic TOPICAL DIRECTED PRN (Reason: AFFECTED AREA) RF: 0 glimepiride 4 mg tablet 4 mg PO DAILY RF: 0 fluocinolone 0.025 % ointment 1 applic TOPICAL BID PRN (Reason: Rash) RF: 0 ergocalciferol (vitamin D2) [Vitamin D2] 1,250 mcg (50,000 unit) Capsule 1,250 mcg PO MONTHLY RF: 0 metformin 500 mg tablet extended release 24 hr 1,000 mg PO DAILY RF: 0 Victoza 3-Everette 0.6 mg/0.1 mL (18 mg/3 mL) pen injector 1.2 mg SUBCUT DAILY RF: 0 diphenhydramine HCl [Benadryl] 25 mg capsule 25 mg PO Q6H Qty: 14 RF: 0 famotidine [Pepcid] 20 mg Tablet 20 mg PO BID RF: 0 Discharge Orders: Discharge Order (Routine); Ordered 02/19/21 Ordered By: Joe Alva Admission Data Admit Date/Time: 02/16/21 20:27 Attending Provider: Joe Alva Admit Provider: Martínez Bhat Primary Care Provider: Dale White Other Providers: Martínez Bhat ; Toñito Valdez ; Cheyanne Mueller ; Carlos Laguna ; Alma Grossman ; Melisa Llanes ; Alejandra Vance ; Guero Staley ; Royal Phillips ; Oziel Ellis ; Jesus Alberto Garcia I. ; John Villareal II ; Myranda Rushing ; Néstor Pineda ; Ai Billings Other Interventions: Discharge Summary Assessment (RN) Last Done: 02/19/21 17:41
[2021-02-20] MEDS ORDERED: VANCOMYCIN HCL 1,000 MG in SODIUM CHLORIDE 0.9% 250 ML IV SCH
[2021-02-20 09:16] LABS: ANA Pattern Cytoplasmic; ANA Pattern 3 Nuclear, Speckled; ANA Titer 1:40 titer; ANA Titer 2 1:40 titer; ANA Titer 3 1:40 titer
[2021-02-20] MEDS ORDERED: VANCOMYCIN TROUGH ONE (11:30)
[2021-02-26 14:31] LABS: Anti Nuclear Antibody Screen NEGATIVE (NEGATIVE); Anti-Histone Ab 2.9 U (<1.0); Anti-SS-A <1.0 NEG AI (<1.0 NEG); Anti-SS-B <1.0 NEG AI (<1.0 NEG)
== END 2021-02-19 18:55 | disposition short-term general hospital (02) | DRG 871 ==
LOC: ED 16:01 → 1E 20:27 → SUATTDRO 20:27 → 1E 21:27

== ENCOUNTER 2021-03-05 15:58 | Inpatient (IN) ==
[2021-03-05] MEDS ORDERED: SODIUM CHLORIDE 0.9% 500 ML IV SCH (17:15)
--- NOTE | 2021-03-05 17:18 | Emergency Department Note ---
History of Present Illness General Chief complaint: Lethargic Stated complaint: FELL OUT OF BED TWICE, LETHARGIC Time Seen by Provider: 03/05/21 16:42 History of Present Illness This is a 70-year-old male who presents to the ED with the . The patient was discharged from [facility] 2 days ago. He was admitted for desquamating skin rash that improved with emollients and he also was diagnosed with MRSA bacteremia likely secondary to the skin rash and was placed on 2 weeks of IV vancomycin. They cannot get him into a new rehab facilities but they did recommend physical therapy as well as some intermittent longterm care. The brought him here today because he has been sleeping excessively recently and has generalized weakness. She felt that he was disoriented at home. She states that he fell last night when he was getting back into bed. He has an occasional chronic cough according to the . He was seen by his PCP and sent here for further evaluation. Home Medications Medication Instructions Recorded Confirmed Type aspirin 81 mg tablet,delayed 81 mg PO DAILY 02/04/21 03/05/21 History release atorvastatin 10 mg tablet 10 mg PO HS 02/04/21 03/05/21 History carvedilol 12.5 mg tablet 12.5 mg PO BID 02/04/21 03/05/21 History ergocalciferol (vitamin D2) 1,250 1,250 mcg PO MONTHLY 02/04/21 03/05/21 History mcg (50,000 unit) capsule (Vitamin D2) liraglutide 0.6 mg/0.1 mL (18 mg/3 1.2 mg SUBCUT QPM 02/04/21 03/05/21 History mL) subcutaneous pen injector (Já [place] 3-Everette) travoprost 0.004 % eye drops 1 drp OPB HS 02/04/21 03/05/21 History triamcinolone acetonide 0.1 % 1 applic TOPICAL DIRECTED PRN 02/04/21 03/05/21 History topical cream famotidine 20 mg tablet (Pepcid) 20 mg PO BID 02/16/21 03/05/21 History amlodipine 10 mg tablet 10 mg PO DAILY 03/05/21 03/05/21 History ascorbic acid (vitamin C) 1,000 mg 1 g PO DAILY 03/05/21 03/05/21 History tablet (Vitamin C) diphenhydramine HCl 25 mg capsule 25 mg PO Q6H PRN 03/05/21 03/05/21 History (Benadryl) tamsulosin 0.4 mg capsule 0.4 mg PO HS 03/05/21 03/05/21 History Allergies Allergy/AdvReac Type Severity Reaction Status Date / Time lisinopril Allergy Severe Angioedema Verified 03/05/21 20:26 prednisone Allergy Severe FACE, Verified 03/05/21 20:26 LIPS, & TONGUE SWELLS Past Med/Surg History Medical History CKD (chronic kidney disease), stage III Diabetes mellitus, type II Diabetic retinopathy Dyslipidemia Gout Hypertension Near syncope Sleep apnea "CPAP" Spongiotic dermatitis Surgical History Hx of colonoscopy Family History Other Cancer Coronary heart disease Diabetes Hypertension Social History Smoking Status: Never smoker Hx Alcohol Use: No Hx Substance Use: No Preferred Language: Welsh Communication Ability: Effective Managed Care Analyst Required: No Beliefs That Will Affect Care: None Current Living Situation: Spouse and Family Feels Safe at Home: Yes Assistive Devices: Glasses Review of Systems A total of 10 systems reviewed and were otherwise negative Physical Exam Vital Signs Vital Signs - 24 hr 03/05/21 16:00 03/05/21 16:18 03/05/21 16:48 Temperature 36.4 C L Temperature Source Temporal Artery Scan Pulse Rate 69 73 Pulse Rate from SpO2 Sensor Respiratory Rate 18 21 Respiratory Effort / Characteristics Non-Labored Respiratory Depth Normal Respiratory Pattern Regular Blood Pressure 119/72 172/75 H Blood Pressure Mean 87 107 Pulse Oximetry 97 Oxygen Delivery Method Room Air Room Air Sepsis Recent Fever Within 48 Hours No Sepsis New/Unexplained Change in Mental Status No Sepsis Action Taken by Nursing No Action Required 03/05/21 17:10 03/05/21 18:32 03/05/21 19:00 Temperature Temperature Source Pulse Rate 73 56 L Pulse Rate from SpO2 Sensor 75 58 L Respiratory Rate 21 15 Respiratory Effort / Characteristics Respiratory Depth Respiratory Pattern Blood Pressure 147/61 H 131/70 Blood Pressure Mean 89 90 Pulse Oximetry 100 99 100 Oxygen Delivery Method Room Air Sepsis Recent Fever Within 48 Hours Sepsis New/Unexplained Change in Mental Status Sepsis Action Taken by Nursing 03/05/21 19:30 03/05/21 20:00 03/05/21 20:30 Temperature Temperature Source Pulse Rate 72 93 H 63 Pulse Rate from SpO2 Sensor 72 75 68 Respiratory Rate 19 24 22 Respiratory Effort / Characteristics Respiratory Depth Respiratory Pattern Blood Pressure 140/79 158/95 H 145/91 H Blood Pressure Mean 99 116 109 Pulse Oximetry 99 99 100 Oxygen Delivery Method Sepsis Recent Fever Within 48 Hours Sepsis New/Unexplained Change in Mental Status Sepsis Action Taken by Nursing CONSTITUTIONAL/VITAL SIGNS: Reviewed / noted above. GENERAL: Non-toxic in appearance. In no acute distress. INTEGUMENTARY: Warm, dry, and [place]. HEAD: Normocephalic. EYES: without scleral icterus or trauma. ENT/OROPHARYNX: clear and moist. LYMPHADENOPATHY/NECK: Is supple without lymphadenopathy or meningismus. RESPIRATORY: Clear to auscultation bilaterally. No increased work of breathing. CARDIOVASCULAR: Regular rate and rhythm. GI/ABDOMEN: Soft and nontender. No organomegaly or pulsatile mass. EXTREMITIES: Warm and well perfused. BACK: No CVA tenderness. NEUROLOGICAL: Intact without focal deficits. The patient does appear to be generally weak. He also appears tired and fatigued. He is oriented to person and place. PSYCHIATRIC: normal affect. MUSCULOSKELETAL: Normally developed with average muscle tone. TRIAGE NURSING DOCUMENTATION REVIEWED. Course Administered Medications Discontinued Medications Sodium Chloride (Nss) 500 mls @ 999 mls/hr IV .Q31M [facility] Stop: 03/05/21 17:45 Last Infusion: 03/05/21 18:50 Dose: 0 mls/hr Documented by: [id number] Admin: 03/05/21 18:19 Dose: 999 mls/hr Documented by: [id number] Medical Decision Making Differential Diagnosis Differential includes acute coronary syndrome, myocardial infarction, CVA, TIA, anemia, infection, pneumonia, UTI, pyelonephritis, poor nutrition, dehydration, electrolyte disturbance,hypoglycemia. Medical Records Attestation: I reviewed the patient's medical records. Home Medications Current Medication List: was personally reviewed by me Laboratory Data Attestation: I reviewed the patient's lab results. Result diagrams: 03/05/21 17:15 03/05/21 17:15 Lab Results 03/05/21 03/05/21 03/05/21 Range/Units 17:15 17:15 18:08 WBC 5.14 (4.8-10.8) K/uL RBC 3.03 L (4.7-6.1) M/uL Hgb 9.5 L (14.0-18.0) g/dL Hct 28.2 L (42-52) % MCV 93.1 (80-100) fL MCH 31.4 (25-34) pg MCHC 33.7 (32-36) g/dL RDW Std Deviation 48.7 H (36.4-46.3) fL RDW Coeff of Kaelyn 14.4 (11.5-14.5) % Plt Count 275 (130-400) K/uL MPV 9.9 (7.4-10.4) fL Immature Gran % (Auto) 0.2 % Neut % (Auto) 61.8 % Lymph % (Auto) 19.1 % [place] % (Auto) 11.1 % Eos % (Auto) 7.4 % Baso % (Auto) 0.4 % Neut # (Auto) 3.18 (1.4-6.5) K/uL Lymph # (Auto) 0.98 L (1.2-3.4) K/uL [place] # (Auto) 0.57 (0.11-0.59) K/uL Eos # (Auto) 0.38 (0-0.5) K/uL Baso # (Auto) 0.02 (0-0.2) K/uL Immature Gran # (Auto) 0.01 (0.00-0.02) K/uL ABG pH (7.35-7.45) ABG pCO2 (35-46) mmHg ABG pO2 (80-95) mmHg ABG HCO3 (19-24) mmol/L ABG O2 Saturation (90-95) % ABG Base Excess (-9-1.8) mEq/L Lb Test (Pos) Barometric Pressure mm/Hg Oxygen Given Sodium 136 (136-145) mmol/L Potassium 5.2 H (3.5-5.1) mmol/L Chloride 109 H (98-107) mmol/L Carbon Dioxide 20 L (21-32) mmol/L Anion Gap 8.0 (3-11) BUN 50 H (7-18) mg/dl Creatinine 2.31 H (0.6-1.4) mg/dl Est Cr Clr Drug Dosing Not Reportable Est GFR ( Amer) 32.0 ml/min Est GFR (Non-Af Amer) 27.6 ml/min BUN/Creatinine Ratio 21.5 H (10-20) Glucose 183 H (70-99) mg/dl Calcium 8.7 (8.5-10.1) mg/dl Magnesium 2.1 (1.8-2.4) mg/dl Total Bilirubin 0.4 (0.2-1) mg/dl AST 52 H (15-37) U/L ALT 63 (12-78) U/L Alkaline Phosphatase 69 (45-117) U/L Ammonia 25.6 (11-32) umol/L Total Creatine Kinase 396 H (39-308) U/L Troponin I < 0.015 (0-0.045) ng/ml Total Protein 7.0 (6.4-8.2) gm/dl Albumin 2.2 L (3.4-5.0) gm/dl Globulin 4.8 H (2.5-4.0) gm/dl Albumin/Globulin Ratio 0.5 L (0.9-2) TSH 2.330 (0.300-4.500) uIu/ml Urine Color Urine Appearance (Clear) Urine pH (4.5-7.5) Ur Specific [place] (1.000-1.030) Urine Protein (Negative) Urine Glucose (UA) (Negative) Urine Ketones (Negative) Urine Blood (Negative) Urine Nitrite (Negative) Urine Bilirubin (Negative) Urine Urobilinogen (Negative) Ur Leukocyte Esterase (Negative) Urine WBC (Auto) (0-5) /hpf Urine RBC (Auto) (0-4) /hpf U Hyaline Cast (Auto) (0-5) /lpf U Epithel Cells (Auto) (0-5) /lpf Urine Bacteria (Auto) (Negative) COVID-19 Eval Order SARS-CoV-2 (PCR) (Negative) 03/05/21 03/05/21 03/05/21 Range/Units 18:08 18:24 18:24 WBC (4.8-10.8) K/uL RBC (4.7-6.1) M/uL Hgb (14.0-18.0) g/dL Hct (42-52) % MCV (80-100) fL MCH (25-34) pg MCHC (32-36) g/dL RDW Std Deviation (36.4-46.3) fL RDW Coeff of Kaelyn (11.5-14.5) % Plt Count (130-400) K/uL MPV (7.4-10.4) fL Immature Gran % (Auto) % Neut % (Auto) % Lymph % (Auto) % [place] % (Auto) % Eos % (Auto) % Baso % (Auto) % Neut # (Auto) (1.4-6.5) K/uL Lymph # (Auto) (1.2-3.4) K/uL [place] # (Auto) (0.11-0.59) K/uL Eos # (Auto) (0-0.5) K/uL Baso # (Auto) (0-0.2) K/uL Immature Gran # (Auto) (0.00-0.02) K/uL ABG pH 7.39 (7.35-7.45) ABG pCO2 35 (35-46) mmHg ABG pO2 52 L (80-95) mmHg ABG HCO3 21 (19-24) mmol/L ABG O2 Saturation 84.5 L (90-95) % ABG Base Excess -3.5 (-9-1.8) mEq/L Lb Test Pos (Pos) Barometric Pressure 736.5 mm/Hg Oxygen Given RA Sodium (136-145) mmol/L Potassium (3.5-5.1) mmol/L Chloride (98-107) mmol/L Carbon Dioxide (21-32) mmol/L Anion Gap (3-11) BUN (7-18) mg/dl Creatinine (0.6-1.4) mg/dl Est Cr Clr Drug Dosing Est GFR ( Amer) ml/min Est GFR (Non-Af Amer) ml/min BUN/Creatinine Ratio (10-20) Glucose (70-99) mg/dl Calcium (8.5-10.1) mg/dl Magnesium (1.8-2.4) mg/dl Total Bilirubin (0.2-1) mg/dl AST (15-37) U/L ALT (12-78) U/L Alkaline Phosphatase (45-117) U/L Ammonia (11-32) umol/L Total Creatine Kinase (39-308) U/L Troponin I (0-0.045) ng/ml Total Protein (6.4-8.2) gm/dl Albumin (3.4-5.0) gm/dl Globulin (2.5-4.0) gm/dl Albumin/Globulin Ratio (0.9-2) TSH (0.300-4.500) uIu/ml Urine Color Urine Appearance (Clear) Urine pH (4.5-7.5) Ur Specific [place] (1.000-1.030) Urine Protein (Negative) Urine Glucose (UA) (Negative) Urine Ketones (Negative) Urine Blood (Negative) Urine Nitrite (Negative) Urine Bilirubin (Negative) Urine Urobilinogen (Negative) Ur Leukocyte Esterase (Negative) Urine WBC (Auto) (0-5) /hpf Urine RBC (Auto) (0-4) /hpf U Hyaline Cast (Auto) (0-5) /lpf U Epithel Cells (Auto) (0-5) /lpf Urine Bacteria (Auto) (Negative) COVID-19 Eval Order Covid19 at [facility] SARS-CoV-2 (PCR) NEGATIVE (Negative) 03/05/21 Range/Units 18:30 WBC (4.8-10.8) K/uL RBC (4.7-6.1) M/uL Hgb (14.0-18.0) g/dL Hct (42-52) % MCV (80-100) fL MCH (25-34) pg MCHC (32-36) g/dL RDW Std Deviation (36.4-46.3) fL RDW Coeff of Kaelyn (11.5-14.5) % Plt Count (130-400) K/uL MPV (7.4-10.4) fL Immature Gran % (Auto) % Neut % (Auto) % Lymph % (Auto) % [place] % (Auto) % Eos % (Auto) % Baso % (Auto) % Neut # (Auto) (1.4-6.5) K/uL Lymph # (Auto) (1.2-3.4) K/uL [place] # (Auto) (0.11-0.59) K/uL Eos # (Auto) (0-0.5) K/uL Baso # (Auto) (0-0.2) K/uL Immature Gran # (Auto) (0.00-0.02) K/uL ABG pH (7.35-7.45) ABG pCO2 (35-46) mmHg ABG pO2 (80-95) mmHg ABG HCO3 (19-24) mmol/L ABG O2 Saturation (90-95) % ABG Base Excess (-9-1.8) mEq/L Lb Test (Pos) Barometric Pressure mm/Hg Oxygen Given Sodium (136-145) mmol/L Potassium (3.5-5.1) mmol/L Chloride (98-107) mmol/L Carbon Dioxide (21-32) mmol/L Anion Gap (3-11) BUN (7-18) mg/dl Creatinine (0.6-1.4) mg/dl Est Cr Clr Drug Dosing Est GFR ( Amer) ml/min Est GFR (Non-Af Amer) ml/min BUN/Creatinine Ratio (10-20) Glucose (70-99) mg/dl Calcium (8.5-10.1) mg/dl Magnesium (1.8-2.4) mg/dl Total Bilirubin (0.2-1) mg/dl AST (15-37) U/L ALT (12-78) U/L Alkaline Phosphatase (45-117) U/L Ammonia (11-32) umol/L Total Creatine Kinase (39-308) U/L Troponin I (0-0.045) ng/ml Total Protein (6.4-8.2) gm/dl Albumin (3.4-5.0) gm/dl Globulin (2.5-4.0) gm/dl Albumin/Globulin Ratio (0.9-2) TSH (0.300-4.500) uIu/ml Urine Color Yellow Urine Appearance Clear (Clear) Urine pH 5.0 (4.5-7.5) Ur Specific [place] 1.020 (1.000-1.030) Urine Protein 3+ H (Negative) Urine Glucose (UA) Negative (Negative) Urine Ketones Negative (Negative) Urine Blood 3+ H (Negative) Urine Nitrite Negative (Negative) Urine Bilirubin Negative (Negative) Urine Urobilinogen Negative (Negative) Ur Leukocyte Esterase Negative (Negative) Urine WBC (Auto) 1-5 (0-5) /hpf Urine RBC (Auto) >30 H (0-4) /hpf U Hyaline Cast (Auto) 0 (0-5) /lpf U Epithel Cells (Auto) 20-30 H (0-5) /lpf Urine Bacteria (Auto) Negative (Negative) COVID-19 Eval Order SARS-CoV-2 (PCR) (Negative) Imaging Data Radiologist's Impression: Chest X-Ray 03/05/21 17:10 XR chest 1V portable INDICATION: MN ^weakness ^IV TEAM IN ROOM @ 1745. TECHNIQUE: Single frontal radiograph of the chest was obtained. Comparison: Comparison is made to chest one view 02/04/2021 FINDINGS: No lines and tubes are seen. The cardiomediastinal silhouette is normal. The lungs are clear. No evidence of pleural effusion or pneumothorax. IMPRESSION: No acute chest disease. ACT 112: Negative or not required by law. Electronically signed by: Caden Pendleton M.D. 03/05/2021 6:53 PM ECG Data Attestation: I personally reviewed and interpreted this ECG as follows: Additional Comments: Twelve-lead EKG: Per my interpretation there is a normal sinus rhythm at a rate of 73. No ST elevation. No PVCs. Normal QTC. MDM Narrative Patient presents for generalized weakness, tiredness/drowsiness and fatigue after being discharged from [facility] for 2 days. Their discharge note suggests that they attempted to place the patient in a rehab facility but were unable to do so. He has not been receiving any nursing care or rehab at home since discharge. feels like his condition has worsened and she is unable to care for him. Twelve-lead EKG shows a sinus rhythm. Ammonia level is negative. ABG shows a normal acid-base status with a PCO2 of 35 and a PO2 of 52. The patient's pulse ox here has been in the mid to high 90s. Covid test was negative. CBC is unremarkable. Hemoglobin is 9.5. This is down slightly from around 11 on his previous visit. Potassium is 5.2. BUN is 50 creatinine is 2.3. This is a little higher than his previous level 1.57. Troponin was negative. CT scan of the brain did not show acute process. The patient and were told the results of the test. He will be seen by the hospitalist for further inpatient evaluation and care. Impression & Plan Weakness, JAVON (acute kidney injury), Dehydration Discharge Plan Visit Data Chief Complaint: Lethargic Stated Complaint: FELL OUT OF BED TWICE, LETHARGIC ED Provider: Nelson López Discharge Problem: Weakness, JAVON (acute kidney injury), Dehydration Patient Disposition: Being Evaluated by Hospitalist Forms Stand Alone Forms: [facility], Virtual Emergency Department, Important Visit Information Prescriptions Prescriptions: No Action carvedilol 12.5 mg tablet 12.5 mg PO BID RF: 0 atorvastatin 10 mg tablet 10 mg PO HS RF: 0 travoprost 0.004 % drops 1 drp OPB HS RF: 0 aspirin 81 mg tablet,delayed release (DR/EC) 81 mg PO DAILY RF: 0 triamcinolone acetonide 0.1 % cream 1 applic TOPICAL DIRECTED PRN (Reason: AFFECTED AREA) RF: 0 ergocalciferol (vitamin D2) [Vitamin D2] 1,250 mcg (50,000 unit) Capsule 1,250 mcg PO MONTHLY RF: 0 Victoza 3-Everette 0.6 mg/0.1 mL (18 mg/3 mL) pen injector 1.2 mg SUBCUT QPM RF: 0 famotidine [Pepcid] 20 mg Tablet 20 mg PO BID RF: 0 amlodipine 10 mg tablet 10 mg PO DAILY RF: 0 diphenhydramine HCl [Benadryl] 25 mg capsule 25 mg PO Q6H PRN (Reason: Itching) RF: 0 tamsulosin 0.4 mg capsule 0.4 mg PO HS RF: 0 ascorbic acid (vitamin C) [Vitamin C] 1,000 mg Tablet 1 g PO DAILY RF: 0 Referrals Referrals: Dale White MD [Primary Care Provider] -
[2021-03-05 17:28] LABS: Basophils # (auto) 0.02 K/uL (0-0.2); Basophils % (auto) 0.4 %; Eosinophils # (auto) 0.38 K/uL (0-0.5); Eosinophils % (auto) 7.4 %; Hematocrit (blood only) 28.2 % (42-52); Hemoglobin 9.5 g/dL (14.0-18.0); Immature Granulocytes # (auto) 0.01 K/uL (0.00-0.02); Immature Granulocytes % (auto) 0.2 %; Lymphocytes # (auto) 0.98 K/uL (1.2-3.4); Lymphocytes % (auto) 19.1 %; Mean Corpuscular Hemoglobin 31.4 pg (25-34); Mean Corpuscular Hgb Conc 33.7 g/dL (32-36); Mean Corpuscular Volume 93.1 fL (80-100); Mean Platelet Volume 9.9 fL (7.4-10.4); Monocytes # (auto) 0.57 K/uL (0.11-0.59); Monocytes % (auto) 11.1 %; Neutrophils # (auto) 3.18 K/uL (1.4-6.5); Neutrophils % (auto) 61.8 %; Platelet Count 275 K/uL (130-400); RDW Coefficient of Variation 14.4 % (11.5-14.5); RDW Standard Deviation 48.7 fL (36.4-46.3); Red Blood Count 3.03 M/uL (4.7-6.1); White Blood Count 5.14 K/uL (4.8-10.8)
[2021-03-05 17:44] LABS: Alanine Aminotransferase 63 U/L (12-78); Albumin Level 2.2 gm/dl (3.4-5.0); Aspartate Aminotransferase 52 U/L (15-37); BUN Creatinine Ratio 21.5 (10-20); Blood Urea Nitrogen 50 mg/dl (7-18); Calcium 8.7 mg/dl (8.5-10.1); Carbon Dioxide 20 mmol/L (21-32); Chloride 109 mmol/L (98-107); Est GFR (Non-African American) 27.6 ml/min; Glucose 183 mg/dl (70-99); Magnesium 2.1 mg/dl (1.8-2.4); Potassium 5.2 mmol/L (3.5-5.1); Sodium 136 mmol/L (136-145)
[2021-03-05 17:55] LABS: Albumin Globulin Ratio 0.5 (0.9-2); Alkaline Phosphatase 69 U/L (45-117); Bilirubin,Total 0.4 mg/dl (0.2-1); Creatine Kinase 396 U/L (39-308); Globulin 4.8 gm/dl (2.5-4.0); Troponin I < 0.015 ng/ml (0-0.045)
[2021-03-05 18:53] LABS: Base Excess ABG -3.5 mEq/L (-9-1.8); HCO3 ABG 21 mmol/L (19-24); Oxygen Saturation ABG 84.5 % (90-95); PCO2 ABG 35 mmHg (35-46); PO2 ABG 52 mmHg (80-95); pH ABG 7.39 (7.35-7.45)
[2021-03-05 18:54] LABS: Appearance Urine Clear (Clear); Bacteria Urine Automated Negative (Negative); Bilirubin Urine Negative (Negative); Blood Urine 3+ (Negative); Color Urine Yellow; Epithelial Cell Urine Auto 20-30 /lpf (0-5); Glucose Urine UA Negative (Negative); Ketones Urine Negative (Negative); Leukocyte Esterase Urine Negative (Negative); Nitrite Urine Negative (Negative); Protein Urine 3+ (Negative); RBC Urine Automated >30 /hpf (0-4); Urobilinogen Urine Negative (Negative)
--- NOTE | 2021-03-05 18:54 | XRay Report ---
XR chest 1V portable INDICATION: MN ^weakness ^IV TEAM IN ROOM @ 3336. TECHNIQUE: Single frontal radiograph of the chest was obtained. Comparison: Comparison is made to chest one view 02/04/2021 FINDINGS: No lines and tubes are seen. The cardiomediastinal silhouette is normal. The lungs are clear. No evid ence of pleural effusion or pneumothorax. IMPRESSION: No acute chest disease. ACT 112: Negative or not required by law. Electronically signed by: Caden Pendleton M.D. 03/05/2021 6:53 PM
[2021-03-05 19:06] LABS: Cast Urine Automated 0 /lpf (0-5)
[2021-03-05 19:36] LABS: Allen Test Pos (Pos)
--- NOTE | 2021-03-05 20:58 | History & Physical Report ---
Date of Service March 05, 2021 Assessment & Plan (1) Weakness: Plan: Likely multifactorial including possible persistent underlying medical issue such as ongoing infection (repeat blood cultures pending) or post infectious glomerulonephritis(see below) or recent rhabdomyolysis after septic shock a couple of weeks ago (CK trending down), etc, in addition to physical deconditioning with recent prolonged hospitalization and prolonged illness. Will cont workup on these issues below, and has PT and OT evaluate him. (2) JAVON (acute kidney injury): Plan: Worsened creatinine since discharge from the hospital. Multiple complex medical issues. Appears euvolemic on exam today. Nephrology consulted. Urine studies ordered. (3) Hematuria with proteinuria: Plan: Consulted nephrology for consideration of glomerular disease with recent staph infection. No clear UTI present, however, urinary incontinence noted by . Increased proteinuria on dipstick. Urine prot/creat ratio ordered. Urine cytology is pending to evaluate for presence of dysmorphic red blood cells. Notably with immune workup last admission--normal complement levels, positive UMESH. 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 This has overall improved with some persistent desquamation to his hands. Per he gets no steroid creams and uses petrolatum TID all over his skin. (5) Diabetes mellitus, type II: Plan: Developed JAVON just prior to discharge from [facility] on 03/03 and glimepiride and metformin were stopped. He remains on Victoza daily injections. Will utilize basal bolus insulin while hospitalized. A1C recently checked and at goal. (6) CKD (chronic kidney disease), stage III: Plan: Baseline creatinine 1.4 (7) Lung mass: Plan: [id number] solid pulmonary nodule of the right middle lobe, cont to follow this per guidelines as outpatient. (8) Hypertension: Plan: around goal, cont amlodipine, carvedilol per home regimen. (9) Sleep apnea: Plan: CPAP at home settings. (10) DVT prophylaxis: Plan: SCDs-hold chemoprophylaxis in setting of ?gross hematuria pending further workup. Full Code Dispo-to med tele. PT/OT to assess and help with disposition. He has failed a trial of being at home with home health and needs additional care at this time. Ai Billings DO [facility] Hospitalist History of Present Illness Chief Complaint: weakness and ?confusion at home Primary Care Provider: Dale White MD Mr. Burroughs is a 70-year-old man who presents to the hospital with worsening weakness, falls and questionable confusion at home since being discharged from the hospital in [place] on 03/03. He initially had a 3-month history of rash with biopsy showing subacute spongiotic dermatitis when he presented to [facility] for altered mental status sepsis secondary to MRSA bacteremia, diffuse rash and acute kidney injury. 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 He required ICU admission at that time with intubation, pressor support and NG tube placement. A lumbar puncture in the ER was performed and he was empirically covered broadly for meningitis, later deescalated. He continued on vancomycin as monotherapy for MRSA bacteremia secondary to translocation from skin lio as he had significant pruritus and disrupted skin architecture related to the rash. He was then transferred to [facility] in [place] to help discern the etiology of his altered mental status and work-up concerns that symptoms may be crossing multiple systems including autoimmune or rheumatologic involvement. He notably developed an JAVON towards the end of admission, reportedly improved with small fluid boluses. Metformin and glimepiride were held at discharge. He has completed his two week course of vancomycin per infectious disease recommendations. Per his , he was doing okay the first night he was home but then declined quickly on day 2. She notes that he had a hard time walking to the bathroom secondary to weakness and the second night he fell in the middle of the night out of the bed. He also had multiple episodes of urinary incontinence onto the bed. She noted blood in his urine. A 12-lead EKG revealed sinus rhythm. Ammonia level was negative. ABG was within normal limits with a PCO2 of 35 and a PO2 of 52. The patient's pulse ox in the ER was in the mid to high 90s. Covid test was negative. CBC was unremarkable outside of some anemia with a hemoglobin 9.5 down from 11 on his prior visit. Potassium is 5.2. BUN is 50 and creatinine is 2.3. This is slightly higher than his previous creatinine levels of 1.6. Troponin was negative. CT of the brain did not reveal any acute process. The patient feels his skin is improving. Per his the steroids prescribed at discharge were incorrect per the branch service associate and he is to be putting petroleum jelly 3 times daily on his skin without steroids. agrees his skin has gotten better. The patient denies any fevers, chills, headache, GI upset, shortness of breath or chest pain. Allergies Allergy/AdvReac Type Severity Reaction Status Date / Time lisinopril Allergy Severe Angioedema Verified 03/05/21 20:26 prednisone Allergy Severe FACE, Verified 03/05/21 20:26 LIPS, & TONGUE SWELLS Home Medications Medication Instructions Recorded Confirmed Type aspirin 81 mg tablet,delayed 81 mg PO DAILY 02/04/21 03/05/21 History release atorvastatin 10 mg tablet 10 mg PO HS 02/04/21 03/05/21 History carvedilol 12.5 mg tablet 12.5 mg PO BID 02/04/21 03/05/21 History ergocalciferol (vitamin D2) 1,250 1,250 mcg PO MONTHLY 02/04/21 03/05/21 History mcg (50,000 unit) capsule (Vitamin D2) liraglutide 0.6 mg/0.1 mL (18 mg/3 1.2 mg SUBCUT QPM 02/04/21 03/05/21 History mL) subcutaneous pen injector (Mapkintoza 3-Everette) travoprost 0.004 % eye drops 1 drp OPB HS 02/04/21 03/05/21 History famotidine 20 mg tablet (Pepcid) 20 mg PO BID 02/16/21 03/05/21 History amlodipine 10 mg tablet 10 mg PO DAILY 03/05/21 03/05/21 History ascorbic acid (vitamin C) 1,000 mg 1 g PO DAILY 03/05/21 03/05/21 History tablet (Vitamin C) diphenhydramine HCl 25 mg capsule 25 mg PO Q6H PRN 03/05/21 03/05/21 History (Benadryl) tamsulosin 0.4 mg capsule 0.4 mg PO HS 03/05/21 03/05/21 History Past Med/Surg History Medical History CKD (chronic kidney disease), stage III Diabetes mellitus, type II Diabetic retinopathy Dyslipidemia Femoral fracture massive trauma to femur-repaired with hardware-removed after 2 yrs Gout H/O: stroke Hypertension Near syncope Sleep apnea "CPAP" Spongiotic dermatitis Surgical History Hx of colonoscopy Family History Other Cancer Coronary heart disease Diabetes Hypertension Social History Smoking Status: Never smoker Hx Alcohol Use: No Hx Substance Use: No Preferred Language: Wolof Communication Ability: Effective 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 Physical Exam Physical Exam: CONSTITUTIONAL: WNWD, vitals as above, lethargic but will awaken and answer questions appropriately when propmted. EYES: normal conjunctivae, no scleral icterus ENT: external ear and nose normal, oropharynx clear, MMM NECK: trachea midline RESPIRATORY: clear to auscultation bilaterally, no crackles, rales or wheezes, normal respiratory effort CARDIOVASCULAR: regular rate and rhythm, S1 and 2 heard without murmurs, gallops or rubs, no JVD, no peripheral edema CHEST: inspection of chest was normal GASTROINTESTINAL: soft, nontender, ND, no guarding MUSCULOSKELETAL: strength 5/5 throughout, head is normocephalic and atraumatic, neck supple, normal palpation of chest wall without tenderness SKIN: warm and dry, desquamation of skin on bilateral hands and somewhat on bilateral forearms, but this is improved per patient. some open skin on extensor surfaces of elbows R>L. Otherwise skin generally looks good (note lmited exam as patient is wearing jeans, self-reports no other concerning skin findings elsewhere. NEUROLOGIC: CN 2-12 grossly intact, lethargic, otherwise no gross focal deficits. PSYCHIATRIC: cooperative and oriented to person, place and time. Results & Data Results & Data ([facility]) Vital Signs (Past 12 Hours) Vital Signs Temp Pulse Resp BP Pulse Ox 03/05/21 20:30 63 22 145/91 H 100 03/05/21 20:00 93 H 24 158/95 H 99 03/05/21 19:30 72 19 140/79 99 03/05/21 19:00 56 L 15 131/70 100 03/05/21 18:32 73 21 147/61 H 99 03/05/21 17:10 100 03/05/21 16:48 73 21 172/75 H 03/05/21 16:18 36.4 C L 69 18 119/72 97 Laboratory Results Short CBC 03/05/21 Range/Units 17:15 WBC 5.14 (4.8-10.8) K/uL Hgb 9.5 L (14.0-18.0) g/dL Hct 28.2 L (42-52) % Plt Count 275 (130-400) K/uL BMP 03/05/21 17:15 Sodium 136 Potassium 5.2 H Chloride 109 H Carbon Dioxide 20 L BUN 50 H Creatinine 2.31 H Glucose 183 H Calcium 8.7 Cardiac Enzymes 03/05/21 Range/Units 17:15 Total Creatine Kinase 396 H (39-308) U/L Troponin I < 0.015 (0-0.045) ng/ml Liver Function 03/05/21 Range/Units 17:15 Total Bilirubin 0.4 (0.2-1) mg/dl AST 52 H (15-37) U/L ALT 63 (12-78) U/L Alkaline Phosphatase 69 (45-117) U/L Albumin 2.2 L (3.4-5.0) gm/dl Urine 03/05/21 Range/Units 18:30 Urine Color Yellow Urine Appearance Clear (Clear) Urine pH 5.0 (4.5-7.5) Ur Specific [place] 1.020 (1.000-1.030) Urine Protein 3+ H (Negative) Urine Glucose (UA) Negative (Negative) Diagnostic Findings Chest X-Ray 03/05/21 17:10 XR chest 1V portable INDICATION: MN ^weakness ^IV TEAM IN ROOM @ 1745. TECHNIQUE: Single frontal radiograph of the chest was obtained. Comparison: Comparison is made to chest one view 02/04/2021 FINDINGS: No lines and tubes are seen. The cardiomediastinal silhouette is normal. The aniceto gs are clear. No evidence of pleural effusion or pneumothorax. IMPRESSION: No acute chest disease. ACT 112: Negative or not required by law. Electronically signed by: Caden Pendleton M.D. 03/05/2021 6:[address] 03/05/21 17:10 CT head/brain wo con Clinical Indication: MN ^CTR B2 ^lethargy. Technique: Contiguous axial CT images of the head were acquired from the base of the skull to the vertex without intravenous contrast administration. Images were viewed in brain, subdural and bone windows. Automated dose lowering techniques and/or adjustment according to patient size were utilized for this exam. Comparison: None available at the time of this dictation. Findings: The ventricles, basal cisterns, and cerebral sulci are normal. There is no acute intracranial hemorrhage or evidence of acute territorial infarction. Neither mass effect, shift of the midline structures, nor abnormal extra-axial fluid collections are shown. Imaged portions of the paranasal sinuses and mastoid air cells are clear. The orbits appear normal. There are no acute fractures of the calvaria or scalp swelling. Impression: No acute intracranial hemorrhage, evidence of acute territorial infarction, or other acute intracranial disease process. ACT 112: Negative or not required by law. Electronically signed by: Caden Pendleton M.D. 03/05/2021 9:13 PM
--- NOTE | 2021-03-05 21:14 | CT Scan Report ---
CT head/brain wo con Clinical Indication: MN ^CTR B2 ^lethargy. Technique: Contiguous axial CT images of the head were acquired from the base of the skull to the laura joanna without intravenous contrast administration. Images were viewed in brain, subdural and bone windo ws. Automated dose lowering techniques and/or adjustment according to patient size were utilized for this exam. Comparison: None available at the time of this dictation. Findings: The ventricles, basal cisterns, and cerebral sulci are normal. There is no acute intracranial hemorrh age or evidence of acute territorial infarction. Neither mass effect, shift of the midline structures , nor abnormal extra-axial fluid collections are shown. Imaged portions of the paranasal sinuses and mastoid air cells are clear. The orbits appear normal. There are no acute fractures of the calvaria or scalp swelling. Impression: No acute intracranial hemorrhage, evidence of acute territorial infarction, or other acute intracrani al disease process. ACT 112: Negative or not required by law. Electronically signed by: Caden Pendleton M.D. 03/05/2021 9:13 PM
[2021-03-05] MEDS ORDERED: hydrOXYzine HCl 10 MG TAB PO STA (22:19)
[2021-03-05] MEDS: TRAVOPROST Z 0.004% OPH SOLN 2.5 ML BTL OPB SCH (23:45)
[2021-03-06] MEDS ORDERED: DEXTROSE 50% 50 ML SYRINGE IV PRN (03:40)
[2021-03-06] MEDS ORDERED: ONDANSETRON INJ 2 MG/ML 2 ML VIAL IV PRN (03:40)
[2021-03-06] MEDS ORDERED: GLUCAGON FOR INJ 1 MG VIAL SQ PRN (03:40)
[2021-03-06] MEDS ORDERED: ACETAMINOPHEN 325 MG TAB PO PRN (03:40)
[2021-03-06] MEDS ORDERED: GLUCOSE 40% GEL 15 GM TUBE PO PRN (03:40)
[2021-03-06] MEDS ORDERED: GLUCOSE 10 TABS/TUBE PO PRN (03:40)
[2021-03-06] MEDS ORDERED: POLYETHYLENE (MIRALAX) 17 GM PACK PO PRN (03:40)
[2021-03-06] MEDS: INSULIN ASPART 100 UNITS/ML 3 ML PEN SC SCH ×5 (04:08→22:16)
[2021-03-06] MEDS ORDERED: INSULIN GLARGINE SOLOSTAR 100 UNITS/ML 3 ML PEN SC SCH (05:00)
--- NOTE | 2021-03-06 08:53 | Hospitalist Progress Note ---
Date of Service March 06, 2021 Assessment & Plan (1) Weakness: Plan: Likely multifactorial including possible persistent underlying medical issue such as ongoing infection (repeat blood cultures pending) or post infectious glomerulonephritis(see below) or recent rhabdomyolysis after septic shock a couple of weeks ago (CK trending down), etc, In addition to physical deconditioning with recent prolonged hospitalization and prolonged illness. Will cont workup on these issues below, and have PT and OT evaluate him. (2) JAVON (acute kidney injury): Plan: Worsened creatinine since discharge from the hospital. Multiple complex medical issues. Appears euvolemic on exam today. Nephrology consulted, appreciate their input. Urine studies ordered. Urine shows hematuria, proteinuria which seems to be new. (3) Hematuria with proteinuria: Plan: Consulted nephrology for consideration of glomerular disease with recent staph infection. No clear UTI present, however, urinary incontinence noted by . Increased proteinuria on dipstick. Urine prot/creat ratio ordered. Urine cytology is pending to evaluate for presence of dysmorphic red blood cells. Notably with immune workup last admission--normal complement levels, positive UMESH. 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 This has overall improved with some persistent desquamation. Per he gets no steroid creams and uses petrolatum TID all over his skin. (5) Diabetes mellitus, type II: Plan: Developed JAVON just prior to discharge from [facility] on 03/03 and glimepiride and metformin were stopped. He remains on Victoza daily injections. Will utilize basal bolus insulin while hospitalized. A1C recently checked and at goal. (6) CKD (chronic kidney disease), stage III: Plan: Baseline creatinine 1.4 (7) Lung mass: Plan: [id number] solid pulmonary nodule of the right middle lobe, cont to follow this per guidelines as outpatient. (8) Hypertension: Plan: around goal, cont amlodipine, carvedilol per home regimen. (9) Sleep apnea: Plan: CPAP at home settings. (10) DVT prophylaxis: Plan: SCDs-hold chemoprophylaxis in setting of ?gross hematuria pending further workup. Full Code Dispo-to med tele. PT/OT to assess and help with disposition. He has failed a trial of being at home with home health and needs additional care at this time. Admission and Anticipated Discharge Date Admission Date: March 06, 2021 Subjective Patient seen in follow-up of weakness, lethargy, JAVON Currently patient is lying in bed, somnolent, but arousable, able to answer some questions appropriately denies any chest pain, shortness of breath, abdominal pain, nausea vomiting Skin is significantly dry however improved from previous Review of Systems Review of Systems: All systems reviewed & are unremarkable except as noted in Subjective Physical Exam Physical Exam: CONSTITUTIONAL: WNWD, somnolent but arousable, able to answer some questions appropriately EYES: normal conjunctivae, no scleral icterus ENT: external ear and nose normal, oropharynx clear, MMM NECK: trachea midline RESPIRATORY: clear to auscultation bilaterally, no crackles, rales or wheezes, normal respiratory effort CARDIOVASCULAR: regular rate and rhythm, S1 and 2 heard without murmurs, minimal peripheral edema CHEST: inspection of chest was normal GASTROINTESTINAL: soft, nontender, ND, no guarding MUSCULOSKELETAL: normocephalic and atraumatic, neck supple, moves extremities SKIN: warm and dry, desquamation of skin on all over pt's body, (improved) NEURO/PSYCH: Somnolent but arousable, able to answer some questions appropriately. He knows he is in the hospital but he cannot tell me which one. He tells me he fell at home, however he has difficulty explaining exactly what happened. No facial asymmetry, speech slow but fluent. Moves extremities while laying in bed. Gait not assessed. Results & Data Results & Data ([facility]) Vital Signs (Past 12 Hours) Vital Signs Temp Pulse Pulse Resp BP BP Pulse Ox 03/06/21 07:41 75 03/06/21 06:27 37.1 C 77 20 152/83 H 100 03/06/21 05:09 77 03/06/21 03:53 71 14 91 03/06/21 03:40 36.5 C 75 18 132/76 100 03/06/21 02:00 86 177/85 H 97 03/06/21 00:00 78 176/81 H 99 03/05/21 22:16 65 18 159/77 H 99 03/05/21 21:30 77 13 156/86 H 95 03/05/21 21:14 61 18 122/78 100 Medications Administered Current Inpatient Medications Acetaminophen (Acetaminophen 325 Mg Tab) 650 mg PO Q4H PRN PRN Reason: Pain or Fever Stop: 04/05/21 03:39 Amlodipine Besylate (Amlodipine Besylate 5 Mg Tab) 10 mg PO DAILY SHMUEL Stop: 04/05/21 08:59 Ascorbic Acid (Ascorbic Acid 500 Mg Tab) 1,000 mg PO DAILY SHMUEL Stop: 04/05/21 08:59 Aspirin (Aspirin 81 Mg Ectab) 81 mg PO DAILY SHMUEL Stop: 04/05/21 08:59 Atorvastatin Calcium (Atorvastatin 10 Mg Tab) 10 mg PO HS SHMUEL Stop: 04/05/21 20:59 Carvedilol (Carvedilol 12.5 Mg Tab) 12.5 mg PO BID SHMUEL Stop: 04/05/21 08:59 Dextrose (Dextrose 50% 50 Ml Syringe) 25 - 50 ml IV UD PRN; Protocol PRN Reason: Hypoglycemia Protocol Stop: 04/05/21 03:39 Famotidine (Famotidine 20 Mg Tab) 20 mg PO BID SHMUEL Stop: 04/05/21 08:59 Glucagon (Glucagon For Inj 1 Mg Vial) 1 mg SQ UD PRN; Protocol PRN Reason: Hypoglycemia Protocol Stop: 04/05/21 03:39 Glucose (Glucose 10 Tabs/Tube) 4 - 8 tabs PO UD PRN; Protocol PRN Reason: Hypoglycemia Protocol Stop: 04/05/21 03:39 Glucose (Glucose 40% Gel 15 Gm Tube) 15 - 30 gm PO UD PRN; Protocol PRN Reason: Hypoglycemia Protocol Stop: 04/05/21 03:39 Insulin Aspart (Insulin Aspart 100 Units/Ml 3 Ml Pen) 0 units SC ACHS SHMUEL Stop: 04/05/21 04:14 Last Admin: 03/06/21 04:08 Dose: Not Given Documented by: Insulin Glargine (Insulin Glargine Solostar 100 Units/Ml 3 Ml Pen) 20 units SC BID SHMUEL Stop: 04/05/21 08:59 Miscellaneous (Carbohydrates For Hypoglycemia ) 15 - 30 gm PO UD PRN PRN Reason: Hypoglycemia Protocol Stop: 04/05/21 03:39 Multi-Ingredient Cream (Eucerin Cr 120 Gm Jar) 1 appln EXT Q2H PRN PRN Reason: dry,irritated skin Stop: 04/04/21 22:17 Ondansetron HCl (Ondansetron Inj 2 Mg/Ml 2 Ml Vial) 4 mg IV Q6H PRN PRN Reason: Nausea Stop: 04/05/21 03:39 Polyethylene Glycol (Polyethylene (Miralax) 17 Gm Pack) 17 gm PO DAILY PRN PRN Reason: Constipation Stop: 04/05/21 03:39 Tamsulosin HCl (Tamsulosin Hcl 0.4 Mg Cap) 0.4 mg PO HS SHMUEL Stop: 04/05/21 20:59 Travoprost (Travoprost Z 0.004% Oph Soln 2.5 Ml Btl) 1 drops OPB HS SHMUEL Stop: 04/04/21 23:44 Last Admin: 03/05/21 23:45 Dose: 1 drops Documented by:
[2021-03-06 08:54] LABS: Hemoglobin 9.1 g/dL (14.0-18.0); Mean Corpuscular Hemoglobin 30.4 pg (25-34); Mean Corpuscular Hgb Conc 32.5 g/dL (32-36); Mean Corpuscular Volume 93.6 fL (80-100); Mean Platelet Volume 9.8 fL (7.4-10.4); Platelet Count 245 K/uL (130-400); RDW Coefficient of Variation 14.7 % (11.5-14.5); RDW Standard Deviation 50.4 fL (36.4-46.3); Red Blood Count 2.99 M/uL (4.7-6.1); White Blood Count 3.77 K/uL (4.8-10.8)
[2021-03-06] MEDS: amLODIPine BESYLATE 5 MG TAB PO SCH (09:25)
[2021-03-06] MEDS: ASCORBIC ACID 500 MG TAB PO SCH (09:25)
[2021-03-06] MEDS: FAMOTIDINE 20 MG TAB PO SCH ×2 (09:26→22:13)
[2021-03-06] MEDS: INSULIN GLARGINE SOLOSTAR 100 UNITS/ML 3 ML PEN SC SCH ×2 (09:26→22:17)
[2021-03-06] MEDS: carvediloL 12.5 MG TAB PO SCH ×2 (09:26→22:14)
[2021-03-06] MEDS: ASPIRIN 81 MG ECTAB PO SCH (09:26)
[2021-03-06 09:32] LABS: BUN Creatinine Ratio 22.3 (10-20); Calcium 8.3 mg/dl (8.5-10.1); Est GFR (African American) 40.5 ml/min; Est GFR (Non-African American) 34.9 ml/min; Magnesium 2.5 mg/dl (1.8-2.4); Potassium 4.8 mmol/L (3.5-5.1)
[2021-03-06 09:35] LABS: Phosphorus 4.8 mg/dl (2.5-4.9)
[2021-03-06 10:14] LABS: Protein Creatinine Ratio Urine 1.5 (0-0.2); Total Protein Urine Random 177.2 mg/dl (0-11.9)
--- NOTE | 2021-03-06 12:03 | Nephrology Consultation ---
Date of Consultation March 06, 2021 Assessment & Plan (1) Acute on chronic renal failure: nonoliguric stage 1 javon on ckd 3. baseline creatinine is 1.4; has been plateau'd at about 2 since 02/28. may take weeks to recover. CK wnl; ua w/ blood and protein but no infection -daily bmp -f/u pending blood cxs -meds ok for now (2) Hematuria with proteinuria: new and may reflect recent/ongoing JAVON and critical illness; would not work up further at this point unless persistent wks to months (3) Hypertension: on amlodipine max dose, coreg 12.5 mg bidl no diuretic; avoidig mario/arb d/t angio edema concerns; sbp ranging 120-170s, mostly 150s goal sbp less than 150 History of Present Illness Reason for Consultation: JAVON on CKD Requesting Physician: Dr Billings Attending Physician: Joe Alva MD History of Present Illness 70 y/o M whom I'm asked to see for JAVON on CKD was admitted here last evening after a fall. He was just d/c 48 hrs ago from [facility] after an extended admission for MRSA septicemia which started here on 02/16 after being found obtunded and febrile in his driveway. He was intubated and needed pressors; was ultimately transferred to [facility] for in house derm, rheum evaluations: the MRSA source was thought to be desquamating rash; LP was unrevewaling; he was noted to have multifocal infarcts and BL basal ganglia changes on MRI; CLARK was w/o vegetation or LVWMA. Derm impression was that he had chronic spongiotic dermatitis of unclear etiology; rheum did not believe he had active rheum issue. He has nonproteinuric CKD 3a at baseline w/ creatinine 1.4; at this baseline as recently as 02/05/21. On presentation his creatinine was 2.3; this morning it is 1.9. of note from 02/28-03/03 d/c, creatinine was about 2 at [facility]. Other PMH includes HTN w/ LVH, HL, JENNIFER on CPAP, DM on metformin and GLP1 receptor agonist, gout. In December 2020 he developed severe pruritis which lasted through the beginning of February. Skin bx 01/08 revealed subacute spongiotic dermatitis. He had some UV treatments and follows w/ dermatology. In early February had even more severe itching > was started on prednisone 02/04; went to ER same day for evaluation of facial/lip swelling and obs'd. Angioedema attributed possibly to lisinopril, though he has been on this medication since 1999 w/o issues. He resumed phototherapy after obs here early February. Today he tells me he is eating and drinking well. denies sob, cough; denies new/worrisome voiding concerns; no chest pain; does state skin improving and desquamation nearly resolved. also endorses some improving pedal and LE edema. Allergies Allergy/AdvReac Type Severity Reaction Status Date / Time lisinopril Allergy Severe Angioedema Verified 03/05/21 20:26 prednisone Allergy Severe FACE, Verified 03/05/21 20:26 LIPS, & TONGUE SWELLS Home Medications Medication Instructions Recorded Confirmed Type aspirin 81 mg tablet,delayed 81 mg PO DAILY 02/04/21 03/05/21 History release atorvastatin 10 mg tablet 10 mg PO HS 02/04/21 03/05/21 History carvedilol 12.5 mg tablet 12.5 mg PO BID 02/04/21 03/05/21 History ergocalciferol (vitamin D2) 1,250 1,250 mcg PO MONTHLY 02/04/21 03/05/21 History mcg (50,000 unit) capsule (Vitamin D2) liraglutide 0.6 mg/0.1 mL (18 mg/3 1.2 mg SUBCUT QPM 02/04/21 03/05/21 History mL) subcutaneous pen injector (Victoza 3-Everette) travoprost 0.004 % eye drops 1 drp OPB HS 02/04/21 03/05/21 History famotidine 20 mg tablet (Pepcid) 20 mg PO BID 02/16/21 03/05/21 History amlodipine 10 mg tablet 10 mg PO DAILY 03/05/21 03/05/21 History ascorbic acid (vitamin C) 1,000 mg 1 g PO DAILY 03/05/21 03/05/21 History tablet (Vitamin C) diphenhydramine HCl 25 mg capsule 25 mg PO Q6H PRN 03/05/21 03/05/21 History (Benadryl) tamsulosin 0.4 mg capsule 0.4 mg PO HS 03/05/21 03/05/21 History Patient History Medical History CKD (chronic kidney disease), stage III Diabetes mellitus, type II Diabetic retinopathy Dyslipidemia Femoral fracture massive trauma to femur-repaired with hardware-removed after 2 yrs Gout H/O: stroke Hypertension Near syncope Sleep apnea "CPAP" Spongiotic dermatitis Surgical History Hx of colonoscopy Family History Other Cancer Coronary heart disease Diabetes Hypertension Social History Smoking Status: Never smoker Hx Alcohol Use: No Hx Substance Use: No Preferred Language: Marshallese Communication Ability: Effective Underwear Cutter Required: No Beliefs That Will Affect Care: None Current Living Situation: Spouse and Family Other Information That Helps Us Care for You: No Feels Safe at Home: Yes Safety Concerns: Feels Safe At This Time Assistive Devices: CPAP and Walker Review of Systems Review of Systems: All systems reviewed & are unremarkable except as noted in HPI & below Physical Exam Constitutional: well developed, well nourished, cooperative and + overweight; no acute distress Eyes: EOM intact bilaterally ENMT: Ears: no external ear abnormality Nose: no external nose abnormality Mouth: + dry oral mucous membranes Neck: no nuchal rigidity Respiratory: normal respiratory effort Auscultation: + diminished lung sounds Cardiovascular: Rate/Rhythm: regular rate and regular rhythm Heart Sounds: normal S1 and normal S2 Extremities: + edema Gastrointestinal (Abdomen): Inspection/Auscultation: normal bowel sounds Pe rcussion/Palpation: abdomen soft; abdomen nontender Musculoskeletal: Extremities: strength 5/5 throughout Skin: scale/mild desquamation BL palms; dime sized ulcer L forearm clean base Neurologic: ervin, appropriate speech but markedly delayed psychomotor processing, no tremor Psychiatric: Orientation: oriented x 3 Speech: + abnormal rate/rhythm/volu me of speech Results & Data ([facility]) Vital Signs (Past 12 Hours) Vital Signs Temp Pulse Pulse Resp BP Pulse Ox 03/06/21 07:41 75 03/06/21 06:27 37.1 C 77 20 152/83 H 100 03/06/21 05:09 77 03/06/21 03:53 71 14 91 03/06/21 03:40 36.5 C 75 18 132/76 100 03/06/21 02:00 86 177/85 H 97 03/06/21 00:00 78 176/81 H 99 Laboratory Results 03/06/21 08:03 03/06/21 08:03 UA 1020, 3+ protein and blood, 20-30 epis, > 30 RBC; 1.5 gm protein Diagnostic Findings CXR and head CT w/o acute process
[2021-03-06] MEDS: ATORVASTATIN 10 MG TAB PO SCH (22:13)
--- NOTE | 2021-03-06 22:13 | Electrocardiogram Report ---
Test Reason : Blood Pressure : / mmHG Vent. Rate : 073 BPM Atrial Rate : 073 BPM P-R Int : 170 ms QRS Dur : 084 ms QT Int : 406 ms P-R-T Axes : 062 -21 042 degrees QTc Int : 447 ms Poor data quality, interpretation may be adversely affected Normal sinus rhythm Low voltage QRS Borderline ECG When compared with ECG of 16-FEB-2021 16:12, Vent. rate has decreased BY 51 BPM T wave amplitude has decreased in Anterolateral leads Confirmed by Xavier Anderson ([id number]) on 03/06/2021 10:12:47 PM Referred By: REFERRED SELF Confirmed By:Xavier Anderson
[2021-03-06] MEDS: TAMSULOSIN HCL 0.4 MG CAP PO SCH (22:14)
[2021-03-06] MEDS: TRAVOPROST Z 0.004% OPH SOLN 2.5 ML BTL OPB SCH (22:17)
[2021-03-07] MEDS: carvediloL 12.5 MG TAB PO SCH ×2 (08:12→21:14)
[2021-03-07] MEDS: FAMOTIDINE 20 MG TAB PO SCH ×2 (08:12→21:14)
[2021-03-07] MEDS: ASCORBIC ACID 500 MG TAB PO SCH (08:13)
[2021-03-07] MEDS: ASPIRIN 81 MG ECTAB PO SCH (08:13)
[2021-03-07] MEDS: amLODIPine BESYLATE 5 MG TAB PO SCH (08:13)
[2021-03-07] MEDS: INSULIN GLARGINE SOLOSTAR 100 UNITS/ML 3 ML PEN SC SCH ×2 (08:16→21:17)
[2021-03-07] MEDS: INSULIN ASPART 100 UNITS/ML 3 ML PEN SC SCH ×4 (08:18→21:15)
[2021-03-07 15:23] LABS: Magnesium 2.3 mg/dl (1.8-2.4); Phosphorus 4.7 mg/dl (2.5-4.9)
[2021-03-07 17:44] LABS: Hematocrit (blood only) 31.6 % (42-52); Hemoglobin 10.7 g/dL (14.0-18.0); Mean Corpuscular Hemoglobin 31.7 pg (25-34); Mean Corpuscular Hgb Conc 33.9 g/dL (32-36); Mean Corpuscular Volume 93.5 fL (80-100); Mean Platelet Volume 9.8 fL (7.4-10.4); Platelet Count 267 K/uL (130-400); RDW Coefficient of Variation 14.4 % (11.5-14.5); RDW Standard Deviation 49.2 fL (36.4-46.3); Red Blood Count 3.38 M/uL (4.7-6.1); White Blood Count 4.13 K/uL (4.8-10.8)
[2021-03-07 18:28] LABS: BUN Creatinine Ratio 21.2 (10-20); Calcium 8.7 mg/dl (8.5-10.1); Creatinine Clr Calc Pharmacy 43.7 ml/min; Est GFR (African American) 36.1 ml/min; Est GFR (Non-African American) 31.1 ml/min; Potassium 4.9 mmol/L (3.5-5.1)
--- NOTE | 2021-03-07 20:37 | Hospitalist Progress Note ---
Date of Service March 07, 2021 Assessment & Plan (1) Weakness: Plan: Likely multifactorial including possible persistent underlying medical issue such as ongoing infection (repeat blood cultures pending) or post infectious glomerulonephritis(see below) or recent rhabdomyolysis after septic shock a couple of weeks ago (CK trending down), etc, In addition to physical deconditioning with recent prolonged hospitalization and prolonged illness. Will cont workup on these issues below, and have PT and OT evaluate him. 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 baseline creatinine is 1.4; has been plateau'd at about 2 since 02/28. may take weeks to recover. CK wnl; ua w/ blood and protein but no infection Worsened creatinine since discharge from the hospital. Multiple complex medical issues. Appears euvolemic on exam today. Nephrology consulted, appreciate their input. Urine studies ordered. Urine shows hematuria, proteinuria which seems to be new. (3) Hematuria with proteinuria: Plan: Consulted nephrology for consideration of glomerular disease with recent staph infection. No clear UTI present, however, urinary incontinence noted by . Increased proteinuria on dipstick. Urine prot/creat ratio ordered. Per nephro - would not work up further at this point unless persistent wks to months Urine cytology is pending to evaluate for presence of dysmorphic red blood cells. Notably with immune workup last admission--normal complement levels, positive UMESH. 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 This has overall improved with some persistent desquamation. Per he gets no steroid creams and uses petrolatum TID all over his skin. (5) Diabetes mellitus, type II: Plan: Developed JAVON just prior to discharge from [facility] on 03/03 and glimepiride and metformin were stopped. He remains on Victoza daily injections. Will utilize basal bolus insulin while hospitalized. A1C recently checked and at goal. (6) CKD (chronic kidney disease), stage III: Plan: Baseline creatinine 1.4 (7) Lung mass: Plan: [id number] solid pulmonary nodule of the right middle lobe, cont to follow this per guidelines as outpatient. (8) Hypertension: Plan: around goal, cont amlodipine, carvedilol per home regimen. (9) Sleep apnea: Plan: CPAP at home settings. (10) DVT prophylaxis: Plan: SCDs-hold chemoprophylaxis in setting of ?gross hematuria pending further workup. Full Code Dispo-to med tele. PT/OT to assess and help with disposition. He has failed a trial of being at home with home health and needs additional care at this time. Admission and Anticipated Discharge Date Admission Date: March 06, 2021 Subjective Patient seen in follow-up of weakness, lethargy, JAVON Currently patient is lying in bed, somnolent, but arousable, able to answer some questions appropriately - seems to be talking more more than yesterday Per nursing staff he was sitting in the chair, and had lunch earlier Patient's was updated over the phone, she says she talked to him over the phone, and he was "quite groggy" she reports that he was usually somnolent while at the [facility] as well however when he came home he was alert and oriented and not confused Today again he cannot tell me for sure which hospital he is at And has some difficulty explaining what happened after he came home however he is able to answer other questions/simple questions appropriately Denies any chest pain, shortness of breath, abdominal pain, nausea vomiting Skin is significantly dry however improved from previous Review of Systems Review of Systems: All systems reviewed & are unremarkable except as noted in Subjective Physical Exam Physical Exam: CONSTITUTIONAL: WNWD, somnolent but arousable, able to answer some questions appropriately EYES: normal conjunctivae, no scleral icterus ENT: external ear and nose normal, oropharynx clear, MMM NECK: trachea midline RESPIRATORY: clear to auscultation bilaterally, no crackles, rales or wheezes, normal respiratory effort CARDIOVASCULAR: regular rate and rhythm, S1 and 2 heard without murmurs, minimal peripheral edema CHEST: inspection of chest was normal GASTROINTESTINAL: soft, nontender, ND, no guarding MUSCULOSKELETAL: normocephalic and atraumatic, neck supple, moves extremities SKIN: warm and dry, desquamation of skin all over pt's body, (improved) NEURO/PSYCH: Somnolent but arousable, able to answer some questions appropriately. He knows he is in the hospital but he cannot tell me which one. He tells me he fell at home, however he has difficulty explaining exactly what happened. No facial asymmetry, speech slow but fluent. Moves extremities while laying in bed. Gait not assessed. Results & Data Results & Data ([facility]) Vital Signs (Past 12 Hours) Vital Signs Temp Pulse Pulse Resp BP Pulse Ox 03/07/21 20:05 36.3 C L 65 16 131/80 100 03/07/21 15:31 51 L 03/07/21 15:30 36.5 C 66 18 125/68 99 03/07/21 11:19 36.5 C 52 L 16 115/65 98 Laboratory Results 03/07/21 03/07/21 03/07/21 Range/Units 20:21 17:29 17:29 WBC 4.13 L (4.8-10.8) K/uL RBC 3.38 L (4.7-6.1) M/uL Hgb 10.7 L (14.0-18.0) g/dL Hct 31.6 L (42-52) % MCV 93.5 (80-100) fL MCH 31.7 (25-34) pg MCHC 33.9 (32-36) g/dL RDW Std Deviation 49.2 H (36.4-46.3) fL RDW Coeff of Kaelyn 14.4 (11.5-14.5) % Plt Count 267 (130-400) K/uL MPV 9.8 (7.4-10.4) fL Sodium 140 (136-145) mmol/L Potassium 4.9 (3.5-5.1) mmol/L Chloride 111 H (98-107) mmol/L Carbon Dioxide 24 (21-32) mmol/L Anion Gap 6.0 (3-11) BUN 44 H (7-18) mg/dl Creatinine 2.09 H (0.6-1.4) mg/dl Est Cr Clr Drug Dosing 43.7 ml/min Est GFR ( Amer) 36.1 ml/min Est GFR (Non-Af Amer) 31.1 ml/min BUN/Creatinine Ratio 21.2 H (10-20) Glucose 77 (70-99) mg/dl POC Glucose 113 H (70-99) mg/dl Calcium 8.7 (8.5-10.1) mg/dl Phosphorus (2.5-4.9) mg/dl Magnesium (1.8-2.4) mg/dl 03/07/21 03/07/21 03/07/21 Range/Units 16:42 14:09 11:11 WBC (4.8-10.8) K/uL RBC (4.7-6.1) M/uL Hgb (14.0-18.0) g/dL Hct (42-52) % MCV (80-100) fL MCH (25-34) pg MCHC (32-36) g/dL RDW Std Deviation (36.4-46.3) fL RDW Coeff of Kaelyn (11.5-14.5) % Plt Count (130-400) K/uL MPV (7.4-10.4) fL Sodium (136-145) mmol/L Potassium (3.5-5.1) mmol/L Chloride (98-107) mmol/L Carbon Dioxide (21-32) mmol/L Anion Gap (3-11) BUN (7-18) mg/dl Creatinine (0.6-1.4) mg/dl Est Cr Clr Drug Dosing ml/min Est GFR ( Amer) ml/min Est GFR (Non-Af Amer) ml/min BUN/Creatinine Ratio (10-20) Glucose (70-99) mg/dl POC Glucose 97 134 H (70-99) mg/dl Calcium (8.5-10.1) mg/dl Phosphorus 4.7 (2.5-4.9) mg/dl Magnesium 2.3 (1.8-2.4) mg/dl 03/07/21 03/06/21 Range/Units 07:59 20:34 WBC (4.8-10.8) K/uL RBC (4.7-6.1) M/uL Hgb (14.0-18.0) g/dL Hct (42-52) % MCV (80-100) fL MCH (25-34) pg MCHC (32-36) g/dL RDW Std Deviation (36.4-46.3) fL RDW Coeff of Kaelyn (11.5-14.5) % Plt Count (130-400) K/uL MPV (7.4-10.4) fL Sodium (136-145) mmol/L Potassium (3.5-5.1) mmol/L Chloride (98-107) mmol/L Carbon Dioxide (21-32) mmol/L Anion Gap (3-11) BUN (7-18) mg/dl Creatinine (0.6-1.4) mg/dl Est Cr Clr Drug Dosing ml/min Est GFR ( Amer) ml/min Est GFR (Non-Af Amer) ml/min BUN/Creatinine Ratio (10-20) Glucose (70-99) mg/dl POC Glucose 92 156 H (70-99) mg/dl Calcium (8.5-10.1) mg/dl Phosphorus (2.5-4.9) mg/dl Magnesium (1.8-2.4) mg/dl Medications Administered Current Inpatient Medications Acetaminophen (Acetaminophen 325 Mg Tab) 650 mg PO Q4H PRN PRN Reason: Pain or Fever Stop: 04/05/21 03:39 Amlodipine Besylate (Amlodipine Besylate 5 Mg Tab) 10 mg PO DAILY SHMUEL Stop: 04/05/21 08:59 Last Admin: 03/07/21 08:13 Dose: 10 mg Documented by: Ascorbic Acid (Ascorbic Acid 500 Mg Tab) 1,000 mg PO DAILY SHMUEL Stop: 04/05/21 08:59 Last Admin: 03/07/21 08:13 Dose: 1,000 mg Documented by: Aspirin (Aspirin 81 Mg Ectab) 81 mg PO DAILY SHMUEL Stop: 04/05/21 08:59 Last Admin: 03/07/21 08:13 Dose: 81 mg Documented by: Atorvastatin Calcium (Atorvastatin 10 Mg Tab) 10 mg PO HS SHMUEL Stop: 04/05/21 20:59 Last Admin: 03/06/21 22:13 Dose: 10 mg Documented by: Carvedilol (Carvedilol 12.5 Mg Tab) 12.5 mg PO BID SHMUEL Stop: 04/05/21 08:59 Last Admin: 03/07/21 08:12 Dose: 12.5 mg Documented by: Dextrose (Dextrose 50% 50 Ml Syringe) 25 - 50 ml IV UD PRN; Protocol PRN Reason: Hypoglycemia Protocol Stop: 04/05/21 03:39 Famotidine (Famotidine 20 Mg Tab) 20 mg PO BID SHMUEL Stop: 04/05/21 08:59 Last Admin: 03/07/21 08:12 Dose: 20 mg Documented by: Glucagon (Glucagon For Inj 1 Mg Vial) 1 mg SQ UD PRN; Protocol PRN Reason: Hypoglycemia Protocol Stop: 04/05/21 03:39 Glucose (Glucose 10 Tabs/Tube) 4 - 8 tabs PO UD PRN; Protocol PRN Reason: Hypoglycemia Protocol Stop: 04/05/21 03:39 Glucose (Glucose 40% Gel 15 Gm Tube) 15 - 30 gm PO UD PRN; Protocol PRN Reason: Hypoglycemia Protocol Stop: 04/05/21 03:39 Insulin Aspart (Insulin Aspart 100 Units/Ml 3 Ml Pen) 0 units SC ACHS SHMUEL Stop: 04/05/21 04:14 Last Admin: 03/07/21 17:29 Dose: 5 units Documented by: Insulin Glargine (Insulin Glargine Solostar 100 Units/Ml 3 Ml Pen) 20 units SC BID SHMUEL Stop: 04/05/21 08:59 Last Admin: 03/07/21 08:16 Dose: 20 units Documented by: Miscellaneous (Carbohydrates For Hypoglycemia ) 15 - 30 gm PO UD PRN PRN Reason: Hypoglycemia Protocol Stop: 04/05/21 03:39 Multi-Ingredient Cream (Eucerin Cr 120 Gm Jar) 1 appln EXT Q2H PRN PRN Reason: dry,irritated skin Stop: 04/04/21 22:17 Ondansetron HCl (Ondansetron Inj 2 Mg/Ml 2 Ml Vial) 4 mg IV Q6H PRN PRN Reason: Nausea Stop: 04/05/21 03:39 Polyethylene Glycol (Polyethylene (Miralax) 17 Gm Pack) 17 gm PO DAILY PRN PRN Reason: Constipation Stop: 04/05/21 03:39 Tamsulosin HCl (Tamsulosin Hcl 0.4 Mg Cap) 0.4 mg PO HS SHMUEL Stop: 04/05/21 20:59 Last Admin: 03/06/21 22:14 Dose: 0.4 mg Documented by: Travoprost (Travoprost Z 0.004% Oph Soln 2.5 Ml Btl) 1 drops OPB HS SHMUEL Stop: 04/04/21 23:44 Last Admin: 03/06/21 22:17 Dose: 1 drops Documented by:
[2021-03-07] MEDS: TRAVOPROST Z 0.004% OPH SOLN 2.5 ML BTL OPB SCH (21:13)
[2021-03-07] MEDS: ATORVASTATIN 10 MG TAB PO SCH (21:13)
[2021-03-07] MEDS: TAMSULOSIN HCL 0.4 MG CAP PO SCH (21:15)
[2021-03-08 07:35] LABS: Hematocrit (blood only) 31.5 % (42-52); Hemoglobin 10.6 g/dL (14.0-18.0); Mean Corpuscular Hemoglobin 30.9 pg (25-34); Mean Corpuscular Hgb Conc 33.7 g/dL (32-36); Mean Corpuscular Volume 91.8 fL (80-100); Mean Platelet Volume 9.4 fL (7.4-10.4); Platelet Count 230 K/uL (130-400); RDW Coefficient of Variation 14.3 % (11.5-14.5); RDW Standard Deviation 48.2 fL (36.4-46.3); Red Blood Count 3.43 M/uL (4.7-6.1); White Blood Count 4.07 K/uL (4.8-10.8)
--- NOTE | 2021-03-08 07:40 | Hospitalist Progress Note ---
Date of Service March 08, 2021 Assessment & Plan (1) Weakness: Plan: Likely multifactorial including possible persistent underlying medical issue such as ongoing infection (repeat blood cultures pending) or post infectious glomerulonephritis(see below) or recent rhabdomyolysis after septic shock a couple of weeks ago (CK trending down), etc, In addition to physical deconditioning with recent prolonged hospitalization and prolonged illness. Will cont workup on these issues below, and have PT and OT evaluate him. 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 No acute infarcts. 2. Slight progressive increased T2 signal within the globus pallidus. This is nonspecific but may represent chronic microvascular ischemic change. Underlying metabolic/toxic abnormality could also have a similar appearance. -Seen by neurology at [place] -check vit. B12 - normal, folic acid - slightly low - will replace -Neurology here consulted -appreciate their input (2) JAVON (acute kidney injury): Plan: JAVON on CKD stage 3 Nonoliguric. baseline creatinine is 1.4; has been plateau'd at about 2 since 02/28. may take weeks to recover. CK wnl; ua w/ blood and protein but no infection Worsened creatinine since discharge from the hospital. Multiple complex medical issues. Appears euvolemic on exam today. Nephrology consulted, appreciate their input. Urine studies ordered. Urine shows hematuria, proteinuria which seems to be new. (3) Hematuria with proteinuria: Plan: Consulted nephrology for consideration of glomerular disease with recent staph infection. No clear UTI present, however, urinary incontinence noted by . Increased proteinuria on dipstick. Urine prot/creat ratio ordered. Per nephro - would not work up further at this point unless persistent wks to months Urine cytology is pending to evaluate for presence of dysmorphic red blood cells. Notably with immune workup last admission--normal complement levels, positive UMEHS. 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 This has overall improved with some persistent desquamation. Per he gets no steroid creams and uses petrolatum TID all over his skin. (5) Diabetes mellitus, type II: Plan: Developed JAVON just prior to discharge from [facility] on 03/03 and glimepiride and metformin were stopped. He remains on Victoza daily injections. Will utilize basal bolus insulin while hospitalized. A1C recently checked and at goal. (6) CKD (chronic kidney disease), stage III: Plan: Baseline creatinine 1.4 (7) Lung mass: Plan: [id number] solid pulmonary nodule of the right middle lobe, cont to follow this per guidelines as outpatient. (8) Hypertension: Plan: around goal, cont amlodipine, carvedilol per home regimen. (9) Sleep apnea: Plan: CPAP at home settings. (10) DVT prophylaxis: Plan: SCDs-hold chemoprophylaxis in setting of ?gross hematuria pending further workup. Full Code Dispo-to med tele. PT/OT to assess and help with disposition. He has failed a trial of being at home with home health and needs additional care at this time. Admission and Anticipated Discharge Date Admission Date: March 06, 2021 Subjective Patient seen in follow-up of weakness, lethargy, JAVON Currently patient is lying in bed, somnolent, but arousable, able to answer some questions appropriately - seems to be talking more more than yesterday Today again he cannot tell me for sure which hospital he is at and keeps saying that he is "mixed up on dates" has some difficulty explaining what happened after he came home however he is able to answer other questions/simple questions appropriately Denies any chest pain, shortness of breath, abdominal pain, nausea vomiting Skin is significantly dry however improved from previous Review of Systems Review of Systems: All systems reviewed & are unremarkable except as noted in Subjective Physical Exam Physical Exam: CONSTITUTIONAL: WNWD, somnolent but arousable, able to answer some questions appropriately EYES: normal conjunctivae, no scleral icterus ENT: external ear and nose normal, oropharynx clear, MMM NECK: trachea midline RESPIRATORY: clear to auscultation bilaterally, no crackles, rales or wheezes, normal respiratory effort CARDIOVASCULAR: regular rate and rhythm, S1 and 2 heard without murmurs, minimal peripheral edema CHEST: inspection of chest was normal GASTROINTESTINAL: soft, nontender, ND, no guarding MUSCULOSKELETAL: normocephalic and atraumatic, neck supple, moves extremities SKIN: warm and dry, desquamation of skin all over pt's body, (improved) NEURO/PSYCH: Somnolent but arousable, able to answer some questions appropriately. He knows he is in the hospital but he cannot tell me which one. He tells me he fell at home, however he has difficulty explaining exactly what happened. No facial asymmetry, speech slow but fluent. Moves extremities while laying in bed. Gait not assessed. Results & Data Results & Data ([facility]) Vital Signs (Past 12 Hours) Vital Signs Temp Pulse Pulse Resp BP Pulse Ox 03/08/21 04:14 37 C 64 18 131/79 96 03/08/21 02:42 61 12 99 03/07/21 23:43 62 03/07/21 23:31 36.5 C 69 18 148/76 H 100 03/07/21 22:46 55 L 16 100 03/07/21 20:05 36.3 C L 65 16 131/80 100 Laboratory Results 03/08/21 03/08/21 03/08/21 Range/Units 16:39 12:15 07:44 WBC (4.8-10.8) K/uL RBC (4.7-6.1) M/uL Hgb (14.0-18.0) g/dL Hct (42-52) % MCV (80-100) fL MCH (25-34) pg MCHC (32-36) g/dL RDW Std Deviation (36.4-46.3) fL RDW Coeff of Kaelyn (11.5-14.5) % Plt Count (130-400) K/uL MPV (7.4-10.4) fL Sodium (136-145) mmol/L Potassium (3.5-5.1) mmol/L Chloride (98-107) mmol/L Carbon Dioxide (21-32) mmol/L Anion Gap (3-11) BUN (7-18) mg/dl Creatinine (0.6-1.4) mg/dl Est Cr Clr Drug Dosing ml/min Est GFR ( Amer) ml/min Est GFR (Non-Af Amer) ml/min BUN/Creatinine Ratio (10-20) Glucose (70-99) mg/dl POC Glucose 71 79 71 (70-99) mg/dl Calcium (8.5-10.1) mg/dl Phosphorus (2.5-4.9) mg/dl Magnesium (1.8-2.4) mg/dl Vitamin B12 (193-986) pg/ml Folate (>5.38) ng/ml 03/08/21 03/08/21 03/08/21 Range/Units 07:43 07:20 07:20 WBC 4.07 L (4.8-10.8) K/uL RBC 3.43 L (4.7-6.1) M/uL Hgb 10.6 L (14.0-18.0) g/dL Hct 31.5 L (42-52) % MCV 91.8 (80-100) fL MCH 30.9 (25-34) pg MCHC 33.7 (32-36) g/dL RDW Std Deviation 48.2 H (36.4-46.3) fL RDW Coeff of Kaelyn 14.3 (11.5-14.5) % Plt Count 230 (130-400) K/uL MPV 9.4 (7.4-10.4) fL Sodium (136-145) mmol/L Potassium (3.5-5.1) mmol/L Chloride (98-107) mmol/L Carbon Dioxide (21-32) mmol/L Anion Gap (3-11) BUN (7-18) mg/dl Creatinine (0.6-1.4) mg/dl Est Cr Clr Drug Dosing ml/min Est GFR ( Amer) ml/min Est GFR (Non-Af Amer) ml/min BUN/Creatinine Ratio (10-20) Glucose (70-99) mg/dl POC Glucose 64 L* (70-99) mg/dl Calcium (8.5-10.1) mg/dl Phosphorus (2.5-4.9) mg/dl Magnesium (1.8-2.4) mg/dl Vitamin B12 1198 H (193-986) pg/ml Folate 5.30 L (>5.38) ng/ml 03/08/21 03/07/21 03/07/21 Range/Units 07:20 20:21 17:29 WBC (4.8-10.8) K/uL RBC (4.7-6.1) M/uL Hgb (14.0-18.0) g/dL Hct (42-52) % MCV (80-100) fL MCH (25-34) pg MCHC (32-36) g/dL RDW Std Deviation (36.4-46.3) fL RDW Coeff of Kaelyn (11.5-14.5) % Plt Count (130-400) K/uL MPV (7.4-10.4) fL Sodium 140 140 (136-145) mmol/L Potassium 4.8 4.9 (3.5-5.1) mmol/L Chloride 109 H 111 H (98-107) mmol/L Carbon Dioxide 22 24 (21-32) mmol/L Anion Gap 10.0 6.0 (3-11) BUN 47 H 44 H (7-18) mg/dl Creatinine 1.95 H 2.09 H (0.6-1.4) mg/dl Est Cr Clr Drug Dosing 46.5 43.7 ml/min Est GFR ( Amer) 39.2 36.1 ml/min Est GFR (Non-Af Amer) 33.9 31.1 ml/min BUN/Creatinine Ratio 24.3 H 21.2 H (10-20) Glucose 65 L 77 (70-99) mg/dl POC Glucose 113 H (70-99) mg/dl Calcium 8.8 8.7 (8.5-10.1) mg/dl Phosphorus 4.5 (2.5-4.9) mg/dl Magnesium 2.3 (1.8-2.4) mg/dl Vitamin B12 (193-986) pg/ml Folate (>5.38) ng/ml 03/07/21 03/07/21 Range/Units 17:29 16:42 WBC 4.13 L (4.8-10.8) K/uL RBC 3.38 L (4.7-6.1) M/uL Hgb 10.7 L (14.0-18.0) g/dL Hct 31.6 L (42-52) % MCV 93.5 (80-100) fL MCH 31.7 (25-34) pg MCHC 33.9 (32-36) g/dL RDW Std Deviation 49.2 H (36.4-46.3) fL RDW Coeff of Kaelyn 14.4 (11.5-14.5) % Plt Count 267 (130-400) K/uL MPV 9.8 (7.4-10.4) fL Sodium (136-145) mmol/L Potassium (3.5-5.1) mmol/L Chloride (98-107) mmol/L Carbon Dioxide (21-32) mmol/L Anion Gap (3-11) BUN (7-18) mg/dl Creatinine (0.6-1.4) mg/dl Est Cr Clr Drug Dosing ml/min Est GFR ( Amer) ml/min Est GFR (Non-Af Amer) ml/min BUN/Creatinine Ratio (10-20) Glucose (70-99) mg/dl POC Glucose 97 (70-99) mg/dl Calcium (8.5-10.1) mg/dl Phosphorus (2.5-4.9) mg/dl Magnesium (1.8-2.4) mg/dl Vitamin B12 (193-986) pg/ml Folate (>5.38) ng/ml Medications Administered Current Inpatient Medications Acetaminophen (Acetaminophen 325 Mg Tab) 650 mg PO Q4H PRN PRN Reason: Pain or Fever Stop: 04/05/21 03:39 Amlodipine Besylate (Amlodipine Besylate 5 Mg Tab) 10 mg PO DAILY SHMUEL Stop: 04/05/21 08:59 Last Admin: 03/07/21 08:13 Dose: 10 mg Documented by: Ascorbic Acid (Ascorbic Acid 500 Mg Tab) 1,000 mg PO DAILY SHMUEL Stop: 04/05/21 08:59 Last Admin: 03/07/21 08:13 Dose: 1,000 mg Documented by: Aspirin (Aspirin 81 Mg Ectab) 81 mg PO DAILY SHMUEL Stop: 04/05/21 08:59 Last Admin: 03/07/21 08:13 Dose: 81 mg Documented by: Atorvastatin Calcium (Atorvastatin 10 Mg Tab) 10 mg PO HS SHMUEL Stop: 04/05/21 20:59 Last Admin: 03/07/21 21:13 Dose: 10 mg Documented by: Carvedilol (Carvedilol 12.5 Mg Tab) 12.5 mg PO BID SHMUEL Stop: 04/05/21 08:59 Last Admin: 03/07/21 21:14 Dose: 12.5 mg Documented by: Dextrose (Dextrose 50% 50 Ml Syringe) 25 - 50 ml IV UD PRN; Protocol PRN Reason: Hypoglycemia Protocol Stop: 04/05/21 03:39 Famotidine (Famotidine 20 Mg Tab) 20 mg PO BID SHMUEL Stop: 04/05/21 08:59 Last Admin: 03/07/21 21:14 Dose: 20 mg Documented by: Glucagon (Glucagon For Inj 1 Mg Vial) 1 mg SQ UD PRN; Protocol PRN Reason: Hypoglycemia Protocol Stop: 04/05/21 03:39 Glucose (Glucose 10 Tabs/Tube) 4 - 8 tabs PO UD PRN; Protocol PRN Reason: Hypoglycemia Protocol Stop: 04/05/21 03:39 Glucose (Glucose 40% Gel 15 Gm Tube) 15 - 30 gm PO UD PRN; Protocol PRN Reason: Hypoglycemia Protocol Stop: 04/05/21 03:39 Insulin Aspart (Insulin Aspart 100 Units/Ml 3 Ml Pen) 0 units SC ACHS SHMUEL Stop: 04/05/21 04:14 Last Admin: 03/07/21 21:15 Dose: Not Given Documented by: Insulin Glargine (Insulin Glargine Solostar 100 Units/Ml 3 Ml Pen) 20 units SC BID SHMUEL Stop: 04/05/21 08:59 Last Admin: 03/07/21 21:17 Dose: 20 units Documented by: Miscellaneous (Carbohydrates For Hypoglycemia ) 15 - 30 gm PO UD PRN PRN Reason: Hypoglycemia Protocol Stop: 04/05/21 03:39 Multi-Ingredient Cream (Eucerin Cr 120 Gm Jar) 1 appln EXT Q2H PRN PRN Reason: dry,irritated skin Stop: 04/04/21 22:17 Ondansetron HCl (Ondansetron Inj 2 Mg/Ml 2 Ml Vial) 4 mg IV Q6H PRN PRN Reason: Nausea Stop: 04/05/21 03:39 Polyethylene Glycol (Polyethylene (Miralax) 17 Gm Pack) 17 gm PO DAILY PRN PRN Reason: Constipation Stop: 04/05/21 03:39 Tamsulosin HCl (Tamsulosin Hcl 0.4 Mg Cap) 0.4 mg PO HS SHMUEL Stop: 04/05/21 20:59 Last Admin: 03/07/21 21:15 Dose: 0.4 mg Documented by: Travoprost (Travoprost Z 0.004% Oph Soln 2.5 Ml Btl) 1 drops OPB HS SHMUEL Stop: 04/04/21 23:44 Last Admin: 03/07/21 21:13 Dose: 1 drops Documented by:
[2021-03-08 08:11] LABS: BUN Creatinine Ratio 24.3 (10-20); Calcium 8.8 mg/dl (8.5-10.1); Creatinine Clr Calc Pharmacy 46.5 ml/min; Est GFR (African American) 39.2 ml/min; Est GFR (Non-African American) 33.9 ml/min; Magnesium 2.3 mg/dl (1.8-2.4); Potassium 4.8 mmol/L (3.5-5.1)
[2021-03-08 08:12] LABS: Phosphorus 4.5 mg/dl (2.5-4.9)
[2021-03-08 08:27] LABS: Folate (Folic Acid) 5.3 ng/ml (>5.38)
[2021-03-08] MEDS: ASPIRIN 81 MG ECTAB PO SCH (08:45)
[2021-03-08] MEDS: amLODIPine BESYLATE 5 MG TAB PO SCH (08:45)
[2021-03-08] MEDS: ASCORBIC ACID 500 MG TAB PO SCH (08:45)
[2021-03-08] MEDS: carvediloL 12.5 MG TAB PO SCH ×2 (08:45→20:18)
[2021-03-08] MEDS: INSULIN GLARGINE SOLOSTAR 100 UNITS/ML 3 ML PEN SC SCH (08:46)
[2021-03-08] MEDS: FAMOTIDINE 20 MG TAB PO SCH ×2 (08:46→20:18)
[2021-03-08] MEDS: INSULIN ASPART 100 UNITS/ML 3 ML PEN SC SCH ×4 (08:47→20:16)
[2021-03-08] MEDS ORDERED: PHARMACY GLYCEMIC MGMT CONSULT PRN (09:16)
--- NOTE | 2021-03-08 10:46 | Pharmacy Report ---
Pharmacy Glycemic Short Note 2 - Date of Service March 08, 2021 - Glycemic Short BSG Results (Last 24 hours): 03/07/21 03/07/21 03/07/21 11:11 16:42 17:29 Glucose 77 POC Glucose 134 H 97 03/07/21 03/08/21 03/08/21 20:21 07:20 07:43 Glucose 65 L POC Glucose 113 H 64 L* 03/08/21 07:44 Glucose POC Glucose 71 OUTPATIENT ANTIDIABETIC REGIMEN: * Victoza 1.2mg SQ HS ASSESSMENT: * 70 year old male admitted for weakness (determining source), JAVON, recent hospitalization here, then to [facility], when discharged on 03/03 patient's glimepiride and metformin were stopped d/t JAVON and only continued on Victoza daily injections. * Will utilize basal bolus insulin while hospitalized. Patient with hypoglycemia this morning, due to excess basal, will decrease, AM dose given prior to consulting pharmacy, NovoLog parameters appropriate. PLAN FOR INPATIENT GLYCEMIC CONTROL: * Hold outpatient Victoza * Basal insulin -decrease * Lantus 20 units SQ daily * Bolus insulin * NovoLog per scale ACHS or Q6hrs while NPO * Goal Range: Low 110 mg/dL - High 140 mg/dL * Correction Factor: 20 mg/dL/unit * Nutritional / Prandial insulin per carb ratio of 1 unit per 6 grams CHO consumed PLAN FOR DISCHARGE: * to be determined
--- NOTE | 2021-03-08 10:53 | Magnetic Resonance Report ---
Brain MRI WITHOUT CONTRAST HISTORY: lethargy, altered mental status TECHNIQUE: Multiplanar multisequence MRI of the brain was performed without the use of contrast. COMPARISON STUDY: Brain MRI 02/16/2021. FINDINGS: There is no mass, hematoma, midline shift, or acute infarct. Mild mucosal thickening within the paranasal sinuses. The mastoid air cells are clear. The ventricles and sulci demonstrate mild ag e-related involutional changes. Scattered foci of T2 hyperintensity seen within the periventricular a nd subcortical white matter are nonspecific but suggestive of mild microvascular ischemic changes. Th e major vascular flow voids at the skull base are well-maintained. Slight progressive increased T2 si gnal within the globus palladi. IMPRESSION: 1. No acute infarcts. 2. Slight progressive increased T2 signal within the globus pallidus. This is nonspecific but may rep resent chronic microvascular ischemic change. Underlying metabolic/toxic abnormality could also have a similar appearance. ACT 112: Negative or not required by law. Electronically signed by: Refugio Shaikh M.D. 03/08/2021 10:52 AM
[2021-03-08] MEDS: FOLIC ACID 1 MG in SYRINGE 9.8 ML IV SCH (10:55)
[2021-03-08] MEDS: THIAMINE HCL 100 MG in SYRINGE 9 ML IV SCH (10:55)
--- NOTE | 2021-03-08 13:04 | Consultation Report ---
DATE OF NOTE: 03/08/2021 REASON FOR CONSULTATION: Weakness. HISTORY OF PRESENT ILLNESS: This patient is a 70-year old male, who was admitted to our facility on 03/05/2021 for weakness, falls and confusion since being discharged to home from [facility] on 03/03/2021. The patient's history is obtained from the patient as well as the chart. I called the patient's , but there was no answer. He had a 3-month history of a rash with a biopsy showing subacute spongiotic dermatitis, when he presented to [facility] for MRSA sepsis and change in mental status and diffuse rash and acute kidney injury. 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 He required ICU admission with intubation, pressor support, and an NG tube placement. A lumbar puncture in the Emergency Room was performed and the patient was empirically covered for meningitis, which was later deescalated assuming because the CAP was negative. He continued on vancomycin as monotherapy for MRSA bacteremia secondary to the translocation from his skin. He was transferred today to [facility] to help to determine the etiology of his mental status and workup concerns that symptoms may be crossing multiple systems including autoimmune or rheumatologic involvement. He notably developed acute kidney injury toward the end of the admission with improvement with small fluid boluses. Metformin and glimepiride were held at admission and he completed his 2-week course of vancomycin per Infectious Disease recommendation. Per the chart, he was doing well on his first night home, but then declined quickly on day two. She notes that he had a hard time walking to the bathroom secondary to weakness and the second night he fell out of bed. He had multiple episodes of urinary incontinence, blood was noted in his urine. On admission, his EKG revealed sinus rhythm. A normal ammonia level. ABG, pO2 of 52. COVID negative. CBC was notable for mild anemia. BUN was 50 and creatinine was 2.3, which was higher than his previous level of 1.6. Troponin was negative and CT of the head did not reveal any acute process. His MRI of the brain, which was performed today and reviewed by myself, shows no acute infarction, slightly progressed T2 signal within the globus pallidus, nonspecific, may represent chronic microvascular changes or underlying toxic metabolic etiology. On this admission, his blood cultures have been negative. B12 was normal. Folic acid mildly low at 5.3. On the last admission, his UMESH was positive and then the following day it was negative with a low titer 1:40. The patient has no complaints. He denies headache. He denies tremor. He denies spine pain. He denies urinary incontinence. He denies sensory symptoms. PAST MEDICAL HISTORY: His past medical history is notable for the above. Additionally, chronic kidney disease, type 2 diabetes, diabetic retinopathy, dyslipidemia, femoral fracture with massive trauma to left femur, gout, history of stroke, hypertension, near syncope, sleep apnea, spongiotic dermatitis. PAST SURGICAL HISTORY: Colonoscopy. FAMILY HISTORY: Cancer, coronary artery disease, diabetes and hypertension. SOCIAL HISTORY: Nonsmoker, nondrinker. 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 OBJECTIVE: On exam, the patient is awake and alert, one is struck by lack of facial animation, facial masking and perhaps decreased blink frequency. He is oriented to person, but not place. He knows month and year. He spontaneously offers no complaints. There are no carotid bruits, no heart murmurs. Heart is regular rate and rhythm. Dermatitic changes are noted on his hands and legs. He is in no distress. Pupils are myotic, but reactive. There is normal extraocular motility, although there may be mildly impaired saccades. Normal visual zamora, facial symmetry. Tongue is midline. Intermittently, I thought I appreciated some resting tremor in the left hand; however, there was no cogwheel rigidity. There was mild atrophy of the bilateral FDIs. Strength was difficult to test, but diffusely appeared mildly diffusely weak without a proximal versus distal predominance. Reflexes are 1s in the upper, trace at the knees, right ankle jerk is absent, left ankle jerk is 2. Toes are downgoing. Vibration was present in the toes and fingers. [id number] was mildly slow, but not dystaxic and [id number] was limited on the left, but otherwise normal. The patient is mildly generally bradykinetic. He arose from the bed with the assistance of one. His right lower extremity is externally rotated, he mildly shuffles and there is increased steps for turn. IMPRESSION AND PLAN: Presumed post-sepsis encephalopathy. Agree with supplemental folate and thiamine. Recommend EEG. Although CK is normal, consider holding statin, which could be contributing to weakness. 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 A nerve conduction EMG should be performed as an outpatient. The patient shows some signs of parkinsonism. I do not see that he is currently on any atypical phenothiazines. I do not know if he was on one at [facility] and whether or not he might have some drug-induced parkinsonism. I will attempt to review his [facility] evaluation. We will probably need to speak to his as well. We will follow with you. Job ID: [id number] [facility]
[2021-03-08] MEDS: CARBOHYDRATES FOR HYPOGLYCEMIA PO PRN ×2 (20:15→20:35)
[2021-03-08] MEDS: TRAVOPROST Z 0.004% OPH SOLN 2.5 ML BTL OPB SCH (20:18)
[2021-03-08] MEDS: TAMSULOSIN HCL 0.4 MG CAP PO SCH (20:19)
[2021-03-08] MEDS: ATORVASTATIN 10 MG TAB PO SCH (20:19)
[2021-03-09 08:23] LABS: BUN Creatinine Ratio 23.4 (10-20); Calcium 8.5 mg/dl (8.5-10.1); Creatinine Clr Calc Pharmacy 46.3 ml/min; Est GFR (African American) 40.2 ml/min; Est GFR (Non-African American) 34.7 ml/min; Potassium 5.2 mmol/L (3.5-5.1)
[2021-03-09 08:32] LABS: Hematocrit (blood only) 30.8 % (42-52); Hemoglobin 10.7 g/dL (14.0-18.0); Mean Corpuscular Hemoglobin 31.8 pg (25-34); Mean Corpuscular Volume 91.4 fL (80-100); Mean Platelet Volume 9.7 fL (7.4-10.4); Platelet Count 241 K/uL (130-400); RDW Coefficient of Variation 14.3 % (11.5-14.5); RDW Standard Deviation 47.5 fL (36.4-46.3); Red Blood Count 3.37 M/uL (4.7-6.1); White Blood Count 5.24 K/uL (4.8-10.8)
[2021-03-09 08:37] LABS: Mean Corpuscular Hgb Conc 34.7 g/dL (32-36)
[2021-03-09] MEDS ORDERED: SODIUM POLYSTYRENE SULFONATE 15G/60ML SUSP PO STA (08:55)
--- NOTE | 2021-03-09 08:55 | Hospitalist Progress Note ---
Date of Service March 09, 2021 Assessment & Plan (1) Weakness: Plan: Likely multifactorial including possible persistent underlying medical issue such as ongoing infection (repeat blood cultures pending) or post infectious glomerulonephritis(see below) or recent rhabdomyolysis after septic shock a couple of weeks ago (CK trending down), etc, In addition to physical deconditioning with recent prolonged hospitalization and prolonged illness. Will cont workup on these issues below, and have PT and OT evaluate him. 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 No acute infarcts. 2. Slight progressive increased T2 signal within the globus pallidus. This is nonspecific but may represent chronic microvascular ischemic change. Underlying metabolic/toxic abnormality could also have a similar appearance. -Seen by neurology at [place] Per review of the notes from February 21, reviewed - MRI at outside hospital ([facility]), which does show a cerebellar infarct and bilateral basal ganglia changes. LP at outside hospital ([facility]) was unremarkable and LTM has been negative. The cause of his encephalopathy is most likely hospital delirium and this should continue to improve daily. He has a lung mass so a paraneoplastic process is possible but his LP was negative. MRI does show multifocal infarcts in bilateral basal ganglia can contribute to confusion. Would recommend CTA head and neck and potentially CLARK given the likely cardiogenic source of multifocal strokes. EEG done in [place], was not concerning for seizure, showed mild diffuse encephalopathy We will attempt to review further, if there are any other recommendations from Neurology in [place], and will discuss further with neurology here -check vit. B12 - normal, folic acid - slightly low - will replace -Neurology here consulted -appreciate their input Presumed post-sepsis encephalopathy. Agree with supplemental folate and thiamine. Recommend EEG. Although CK is normal, consider holding statin, which could be contributing to weakness. 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 A nerve conduction EMG should be performed as an outpatient. The patient shows some signs of parkinsonism. I do not see that he is currently on any atypical phenothiazines. I do not know if he was on one at [place] and whether or not he might have some drug-induced parkinsonism. I will attempt to review his [place] evaluation. We will probably need to speak to his as well. We will follow with you. (2) JAVON (acute kidney injury): Plan: JAVON on CKD stage 3 Nonoliguric. baseline creatinine is 1.4; has been plateau'd at about 2 since 02/28. may take weeks to recover. CK wnl; ua w/ blood and protein but no infection Worsened creatinine since discharge from the hospital. Multiple complex medical issues. Appears euvolemic on exam today. Nephrology consulted, appreciate their input. Urine studies ordered. Urine shows hematuria, proteinuria which seems to be new. (3) Hematuria with proteinuria: Plan: Consulted nephrology for consideration of glomerular disease with recent staph infection. No clear UTI present, however, urinary incontinence noted by . Increased proteinuria on dipstick. Urine prot/creat ratio ordered. Per nephro - would not work up further at this point unless persistent wks to months Urine cytology is pending to evaluate for presence of dysmorphic red blood cells. Notably with immune workup last admission--normal complement levels, positive UMESH. 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 This has overall improved with some persistent desquamation. Per he gets no steroid creams and uses petrolatum TID all over his skin. (5) Diabetes mellitus, type II: Plan: Developed JAVON just prior to discharge from [facility] on 03/03 and glimepiride and metformin were stopped. He remains on Victoza daily injections. Will utilize basal bolus insulin while hospitalized. A1C recently checked and at goal. (6) CKD (chronic kidney disease), stage III: Plan: Baseline creatinine 1.4 (7) Lung mass: Plan: [id number] solid pulmonary nodule of the right middle lobe, cont to follow this per guidelines as outpatient. (8) Hypertension: Plan: around goal, cont amlodipine, carvedilol per home regimen. (9) Sleep apnea: Plan: CPAP at home settings. (10) DVT prophylaxis: Plan: SCDs-hold chemoprophylaxis in setting of ?gross hematuria pending further workup. Full Code Dispo-to med tele. PT/OT to assess and help with disposition. He has failed a trial of being at home with home health and needs additional care at this time. Admission and Anticipated Discharge Date Admission Date: March 06, 2021 Subjective Patient seen in follow-up of weakness, lethargy, JAVON Notified by nursing staff, this morning that patient's temperature below 35 Celsius. Patient does not feel cool on exam. He is sitting up in the bed, in no acute distress, he is able to answer simple questions appropriately. He does not have any complaints. Specifically denies any chest pain, shortness of breath, abdominal pain, headache, feeling dizzy, lightheaded, denies any nausea vomiting or diarrhea. Room temperature feels cool, discussed with nursing staff to make sure that room is not cold. And we will recheck the temperature in an hour again. We will try to see if we can use different thermometer. We will continue to closely monitor the patient. Labs reviewed, unremarkable today. Hemodynamically stable. Also discussed with nursing staff that patient needs frequent reorientation, and skin moisturized several times a day. Review of Systems Review of Systems: All systems reviewed & are unremarkable except as noted in Subjective Physical Exam Physical Exam: CONSTITUTIONAL: WNWD, somnolent but arousable, able to answer some questions appropriately EYES: normal conjunctivae, no scleral icterus ENT: external ear and nose normal, oropharynx clear, MMM NECK: trachea midline RESPIRATORY: clear to auscultation bilaterally, no crackles, rales or wheezes, normal respiratory effort CARDIOVASCULAR: regular rate and rhythm, S1 and 2 heard without murmurs, minimal peripheral edema CHEST: inspection of chest was normal GASTROINTESTINAL: soft, nontender, ND, no guarding MUSCULOSKELETAL: normocephalic and atraumatic, neck supple, moves extremities SKIN: warm and dry, desquamation of skin all over pt's body, (improved) NEURO/PSYCH: Somnolent but arousable, able to answer some questions appropriately. He knows he is in the hospital but he cannot tell me which one. He tells me he fell at home, however he has difficulty explaining exactly what happened. No facial asymmetry, speech slow but fluent. Moves extremities while laying in bed. Gait not assessed. Results & Data Results & Data ([facility]) Vital Signs (Past 12 Hours) Vital Signs Temp Pulse Pulse Resp BP Pulse Ox 03/09/21 07:35 70 20 129/70 100 03/09/21 03:47 69 20 132/73 99 03/09/21 03:33 68 16 99 03/09/21 00:39 51 L 03/08/21 22:59 36.9 C 64 18 129/76 96 03/08/21 22:12 60 16 99 Laboratory Results 03/09/21 03/09/21 03/09/21 Range/Units 08:15 08:05 07:33 WBC 5.24 RBC 3.37 L Hgb 10.7 L Hct 30.8 L MCV 91.4 MCH 31.8 MCHC 34.7 RDW Std Deviation 47.5 H RDW Coeff of Kaelyn 14.3 Plt Count 241 MPV 9.7 Absolute Nucleated RBC Nucleated RBC % (auto) Platelet Estimate Sodium 138 (136-145) mmol/L Potassium 5.2 H (3.5-5.1) mmol/L Chloride 111 H (98-107) mmol/L Carbon Dioxide 20 L (21-32) mmol/L Anion Gap 8.0 (3-11) BUN 45 H (7-18) mg/dl Creatinine 1.91 H (0.6-1.4) mg/dl Est Cr Clr Drug Dosing 46.3 ml/min Est GFR ( Amer) 40.2 ml/min Est GFR (Non-Af Amer) 34.7 ml/min BUN/Creatinine Ratio 23.4 H (10-20) Glucose 115 H (70-99) mg/dl POC Glucose 137 H (70-99) mg/dl Calcium 8.5 (8.5-10.1) mg/dl Specimen Hemolysis 03/09/21 03/08/21 03/08/21 Range/Units 07:33 20:51 20:33 WBC Cancelled RBC Cancelled Hgb Cancelled Hct Cancelled MCV Cancelled MCH Cancelled MCHC Cancelled RDW Std Deviation Cancelled RDW Coeff of Kaelyn Cancelled Plt Count Cancelled MPV Cancelled Absolute Nucleated RBC Cancelled Nucleated RBC % (auto) Cancelled Platelet Estimate Cancelled Sodium (136-145) mmol/L Potassium (3.5-5.1) mmol/L Chloride (98-107) mmol/L Carbon Dioxide (21-32) mmol/L Anion Gap (3-11) BUN (7-18) mg/dl Creatinine (0.6-1.4) mg/dl Est Cr Clr Drug Dosing ml/min Est GFR ( Amer) ml/min Est GFR (Non-Af Amer) ml/min BUN/Creatinine Ratio (10-20) Glucose (70-99) mg/dl POC Glucose 89 58 L* (70-99) mg/dl Calcium (8.5-10.1) mg/dl Specimen Hemolysis 03/08/21 03/08/21 03/08/21 Range/Units 20:08 20:07 16:39 WBC RBC Hgb Hct MCV MCH MCHC RDW Std Deviation RDW Coeff of Kaelyn Plt Count MPV Absolute Nucleated RBC Nucleated RBC % (auto) Platelet Estimate Sodium (136-145) mmol/L Potassium (3.5-5.1) mmol/L Chloride (98-107) mmol/L Carbon Dioxide (21-32) mmol/L Anion Gap (3-11) BUN (7-18) mg/dl Creatinine (0.6-1.4) mg/dl Est Cr Clr Drug Dosing ml/min Est GFR ( Amer) ml/min Est GFR (Non-Af Amer) ml/min BUN/Creatinine Ratio (10-20) Glucose (70-99) mg/dl POC Glucose 60 L* 60 L* 71 (70-99) mg/dl Calcium (8.5-10.1) mg/dl Specimen Hemolysis 03/08/21 Range/Units 12:15 WBC RBC Hgb Hct MCV MCH MCHC RDW Std Deviation RDW Coeff of Kaelyn Plt Count MPV Absolute Nucleated RBC Nucleated RBC % (auto) Platelet Estimate Sodium (136-145) mmol/L Potassium (3.5-5.1) mmol/L Chloride (98-107) mmol/L Carbon Dioxide (21-32) mmol/L Anion Gap (3-11) BUN (7-18) mg/dl Creatinine (0.6-1.4) mg/dl Est Cr Clr Drug Dosing ml/min Est GFR ( Amer) ml/min Est GFR (Non-Af Amer) ml/min BUN/Creatinine Ratio (10-20) Glucose (70-99) mg/dl POC Glucose 79 (70-99) mg/dl Calcium (8.5-10.1) mg/dl Specimen Hemolysis Medications Administered Current Inpatient Medications Acetaminophen (Acetaminophen 325 Mg Tab) 650 mg PO Q4H PRN PRN Reason: Pain or Fever Stop: 04/05/21 03:39 Amlodipine Besylate (Amlodipine Besylate 5 Mg Tab) 10 mg PO DAILY [facility] Stop: 04/05/21 08:59 Last Admin: 03/08/21 08:45 Dose: 10 mg Documented by: Ascorbic Acid (Ascorbic Acid 500 Mg Tab) 1,000 mg PO DAILY [facility] Stop: 04/05/21 08:59 Last Admin: 03/08/21 08:45 Dose: 1,000 mg Documented by: Aspirin (Aspirin 81 Mg Ectab) 81 mg PO DAILY [facility] Stop: 04/05/21 08:59 Last Admin: 03/08/21 08:45 Dose: 81 mg Documented by: Atorvastatin Calcium (Atorvastatin 10 Mg Tab) 10 mg PO HS [facility] Stop: 04/05/21 20:59 Last Admin: 03/08/21 20:19 Dose: 10 mg Documented by: Carvedilol (Carvedilol 12.5 Mg Tab) 12.5 mg PO BID [facility] Stop: 04/05/21 08:59 Last Admin: 03/08/21 20:18 Dose: Not Given Documented by: Dextrose (Dextrose 50% 50 Ml Syringe) 25 - 50 ml IV UD PRN; Protocol PRN Reason: Hypoglycemia Protocol Stop: 04/05/21 03:39 Famotidine (Famotidine 20 Mg Tab) 20 mg PO BID [facility] Stop: 04/05/21 08:59 Last Admin: 03/08/21 20:18 Dose: 20 mg Documented by: Glucagon (Glucagon For Inj 1 Mg Vial) 1 mg SQ UD PRN; Protocol PRN Reason: Hypoglycemia Protocol Stop: 04/05/21 03:39 Glucose (Glucose 10 Tabs/Tube) 4 - 8 tabs PO UD PRN; Protocol PRN Reason: Hypoglycemia Protocol Stop: 04/05/21 03:39 Glucose (Glucose 40% Gel 15 Gm Tube) 15 - 30 gm PO UD PRN; Protocol PRN Reason: Hypoglycemia Protocol Stop: 04/05/21 03:39 Folic Acid 1 mg/ Syringe 10 mls @ 5 mls/min IV QAM [facility] Stop: 04/07/21 09:59 Last Admin: 03/08/21 10:55 Dose: 5 mls/min Documented by: Thiamine HCl 100 mg/ Syringe 10 mls @ 2 mls/min IV QAM [facility] Stop: 04/07/21 09:59 Last Admin: 03/08/21 10:55 Dose: 2 mls/min Documented by: Insulin Aspart (Insulin Aspart 100 Units/Ml 3 Ml Pen) 0 units SC ACHS [facility]; Protocol Stop: 04/05/21 04:14 Last Admin: 03/08/21 20:16 Dose: Not Given Documented by: Insulin Glargine (Insulin Glargine Solostar 100 Units/Ml 3 Ml Pen) 20 units SC DAILY [facility]; Protocol Stop: 04/08/21 08:59 Miscellaneous (Carbohydrates For Hypoglycemia ) 15 - 30 gm PO UD PRN PRN Reason: Hypoglycemia Protocol Stop: 04/05/21 03:39 Last Admin: 03/08/21 20:35 Dose: 15 gm Documented by: Miscellaneous Information (Pharmacy Glycemic Mgmt Consult) 1 ea N/A UD PRN PRN Reason: Consult Stop: 04/07/21 09:15 Multi-Ingredient Cream (Eucerin Cr 120 Gm Jar) 1 appln EXT Q2H PRN PRN Reason: dry,irritated skin Stop: 04/04/21 22:17 Ondansetron HCl (Ondansetron Inj 2 Mg/Ml 2 Ml Vial) 4 mg IV Q6H PRN PRN Reason: Nausea Stop: 04/05/21 03:39 Polyethylene Glycol (Polyethylene (Miralax) 17 Gm Pack) 17 gm PO DAILY PRN PRN Reason: Constipation Stop: 04/05/21 03:39 Tamsulosin HCl (Tamsulosin Hcl 0.4 Mg Cap) 0.4 mg PO HS [facility] Stop: 04/05/21 20:59 Last Admin: 03/08/21 20:19 Dose: 0.4 mg Documented by: Travoprost (Travoprost Z 0.004% Oph Soln 2.5 Ml Btl) 1 drops OPB HS [facility] Stop: 04/04/21 23:44 Last Admin: 03/08/21 20:18 Dose: 1 drops Documented by:
[2021-03-09] MEDS: ASCORBIC ACID 500 MG TAB PO SCH (09:25)
[2021-03-09] MEDS: FOLIC ACID 1 MG in SYRINGE 9.8 ML IV SCH (09:25)
[2021-03-09] MEDS: amLODIPine BESYLATE 5 MG TAB PO SCH (09:25)
[2021-03-09] MEDS: carvediloL 12.5 MG TAB PO SCH ×2 (09:25→19:54)
[2021-03-09] MEDS: THIAMINE HCL 100 MG in SYRINGE 9 ML IV SCH (09:26)
[2021-03-09] MEDS: FAMOTIDINE 20 MG TAB PO SCH ×2 (09:26→19:53)
[2021-03-09] MEDS: INSULIN ASPART 100 UNITS/ML 3 ML PEN SC SCH ×4 (09:27→19:53)
[2021-03-09] MEDS: INSULIN GLARGINE SOLOSTAR 100 UNITS/ML 3 ML PEN SC SCH (09:31)
--- NOTE | 2021-03-09 10:17 | Nephrology Progress Note ---
Date of Service March 09, 2021 Assessment & Plan Admission and Anticipated Discharge Date Admission Date: March 06, 2021 Subjective Assessment & Plan (1) Acute on chronic renal failure: nonoliguric javon on ckd 3 in the setting of bacteremia from MRSA. baseline creatinine is 1.4; has been plateau'd at about 2 since 02/28. Today just under 2 and trending down. It may take weeks to recover. CK wnl; ua w/ blood and protein but no infection -daily bmp --meds ok for now (2) Hematuria with proteinuria: new and may reflect recent/ongoing JAVON and critical illness; would not work up further at this point unless persistent wks to months. serology has been sent but very very low chances of this being Acute GN. COuld be Post infectious GN but c3 was normal. Anti Hsitone and UMESH +ve but very low titer and not clinically ignificant. repeat UA today. Labs --reviewed in detail--Discussed in A/p Physical Exam Constitutional: well developed, well nourished, cooperative no acute distress. Hard to get history. Neck: no nuchal rigidity Respiratory: normal respiratory effort Auscultation: + diminished lung sounds Cardiovascular: Rate/Rhythm: regular rate and regular rhythm Heart Sounds: normal S1 and normal S2 Extremities: + edema Gastrointestinal (Abdomen) abdomen soft; abdomen nontender Musculoskeletal: Extremities: has 1+ edema Skin: scale/mild desquamation BL palms; dime sized ulcer L forearm clean base Neurologic: ervin, appropriate speech but markedly delayed psychomotor processing, no tremor Psychiatric: Orientation: oriented x 3 Speech: + abnormal rate/rhythm/volu me of speech Results & Data ([facility]) Vital Signs (Past 12 Hours) Vital Signs Temp Pulse Pulse Resp BP Pulse Ox 03/09/21 10:02 34.3 C L 03/09/21 09:50 34.3 C L 03/09/21 07:35 70 20 129/70 100 03/09/21 03:47 69 20 132/73 99 03/09/21 03:33 68 16 99 03/09/21 00:39 51 L 03/08/21 22:59 36.9 C 64 18 129/76 96
[2021-03-09] MEDS: ASPIRIN 81 MG ECTAB PO SCH (11:40)
--- NOTE | 2021-03-09 12:58 | Neurology Progress Note ---
Date of Service March 09, 2021 Assessment & Plan (1) Encephalopathy: Plan: 1. presumed post-sepsis encephalopathy. 2. continue folate and thiamine replacement 3. EEG- previously globally slow 4. EMG as outpatient to assess polyneuropathy due to sepsis and critical illness. 5. T2 signal within the globus pallidus - metabolic toxic abnormalities 6. temperature trending low - primary team to address (2) Sepsis with acute hypoxic respiratory failure: Admission and Anticipated Discharge Date Admission Date: March 06, 2021 Supervising Physician Co-Signing Physician Notes I have seen and discussed above patient with Dr Audelia Schwab, neurology patient seen and examined. Patient is unchanged although had hypothermia earlier in the day MRI reviewed. I reviewed his [facility] records. The patient was encephalopathic while there. EEG monitoring showed no seizure activity but generalized slowing. He did have a lumbar puncture with a mildly elevated white blood cell count which was traumatic I am assuming they thought that the CSF corrected to to a normal white blood cell count given the number of red blood cells Today's exam he is awake slow to respond oriented to person place following some simple commands has no complaints no facial asymmetry upper and lower upper extremities do not drift lower essentially antigravity impression encephalopathy related to sepsis. Patient also had what sounds like a hypoxic ischemic event leading to his hospitalization at [facility] and then transferred to [place]. This may be the residua of those events. 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 Having bruit reviewed his [place] record he is not receiving any atypical phenothiazines and did not receive atypical phenothiazines I suspect the bradycardia frenula and bradykinesia is related to what we see in the bilateral basal ganglia which I hypothesized was hypoxic ischemic. Roby Hager is a 70 year old gentleman who presented to [facility] 03/05/2021 with worsening weakness, falls and questionable confusion at home since being discharged from the hospital in [place] on 03/03. He initially had a 3-month history of rash with biopsy showing subacute spongiotic dermatitis and then presented to [facility] with altered mental status sepsis secondary to MRSA bacteremia, diffuse rash and acute kidney injury. 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 He required ICU admission at that time with intubation, pressor support and NG tube placement. A lumbar puncture in the ER was performed and he was empirically covered broadly for meningitis, later deescalated. He continued on vancomycin as monotherapy for MRSA bacteremia secondary to translocation from skin lio as he had significant pruritus and disrupted skin architecture related to the rash. He was then transferred to [facility] in [place] to help discern the etiology of his altered mental status and work-up concerns that symptoms may be crossing multiple systems including autoimmune or rheumatologic involvement. He notably developed an JAVON towards the end of admission, reportedly improved with small fluid boluses. Metformin and glimepiride were held at discharge. He has completed his two week course of vancomycin per infectious disease recommendations. He was doing okay the first night he was home but then declined quickly on day 2. He had a hard time walking to the bathroom secondary to weakness and the second night he fell in the middle of the night out of the bed. He also had multiple episodes of urinary incontinence. He is unable to hold a conversation and answering yes to questions asked. He is on contact isolation for MRSA in nares. Review of Systems Review of Systems: Unobtainable due to cognitive status Physical Exam Physical Exam: Physical Exam: Constitutional: appearance over nourished, ill appearing, woke from sleep Ears, Nose, Mouth and Throat: mucous membranes moist, no injection and skin normal, eyes normal Cardiovascular: normal S-1 and S-2 and regular rate and rhythm Respiratory: course breath sounds Musculoskeletal: non pitting peripheral edema and good distal pulses Skin: no stigmata of neurocutaneous disease noted and normal and intact Eyes: extraocular muscles intact (EOMI) NEUROLOGIC EXAMINATION: Mental status: Alert and minimally interactive Oriented to person Speech minimal words spoken Cranial Nerves facial symmetry Sensory: light cool touch intact Coordination: not following commands Gait/Stance: Posture normal. Gait normal: with steady with steps, base, turning, heel and toe walking and tandem gait. Strength: hand chip drier biceps triceps 5/5, hip flex bilaterally 4/5 Results & Data ([facility]) Vital Signs (Past 12 Hours) Vital Signs Temp Pulse Pulse Resp BP Pulse Ox 03/09/21 11:12 34.8 C L 03/09/21 10:02 34.3 C L 03/09/21 09:50 34.3 C L 03/09/21 07:35 70 20 129/70 100 03/09/21 03:47 69 20 132/73 99 03/09/21 03:33 68 16 99 Laboratory Results Abnormal lab results 03/08/21 03/08/21 03/08/21 Range/Units 20:07 20:08 20:33 RBC (4.7-6.1) M/uL Hgb (14.0-18.0) g/dL Hct (42-52) % RDW Std Deviation (36.4-46.3) fL Potassium (3.5-5.1) mmol/L Chloride (98-107) mmol/L Carbon Dioxide (21-32) mmol/L BUN (7-18) mg/dl Creatinine (0.6-1.4) mg/dl BUN/Creatinine Ratio (10-20) Glucose (70-99) mg/dl POC Glucose 60 L* 60 L* 58 L* (70-99) mg/dl 03/09/21 03/09/21 03/09/21 Range/Units 07:33 08:05 08:15 RBC 3.37 L (4.7-6.1) M/uL Hgb 10.7 L (14.0-18.0) g/dL Hct 30.8 L (42-52) % RDW Std Deviation 47.5 H (36.4-46.3) fL Potassium 5.2 H (3.5-5.1) mmol/L Chloride 111 H (98-107) mmol/L Carbon Dioxide 20 L (21-32) mmol/L BUN 45 H (7-18) mg/dl Creatinine 1.91 H (0.6-1.4) mg/dl BUN/Creatinine Ratio 23.4 H (10-20) Glucose 115 H (70-99) mg/dl POC Glucose 137 H (70-99) mg/dl 03/09/21 Range/Units 11:58 RBC (4.7-6.1) M/uL Hgb (14.0-18.0) g/dL Hct (42-52) % RDW Std Deviation (36.4-46.3) fL Potassium (3.5-5.1) mmol/L Chloride (98-107) mmol/L Carbon Dioxide (21-32) mmol/L BUN (7-18) mg/dl Creatinine (0.6-1.4) mg/dl BUN/Creatinine Ratio (10-20) Glucose (70-99) mg/dl POC Glucose 142 H (70-99) mg/dl Diagnostic Findings MRI brain-No acute infarcts. Slight progressive increased T2 signal within the globus pallidus. This is nonspecific but may represent chronic microvascular ischemic change. Underlying metabolic/toxic abnormality could also have a similar appearance.
[2021-03-09 16:32] LABS: Appearance Urine Clear (Clear); Bacteria Urine Automated Negative (Negative); Bilirubin Urine Negative (Negative); Blood Urine 1+ (Negative); Color Urine Yellow; Epithelial Cell Urine Auto 20-30 /lpf (0-5); Glucose Urine UA Negative (Negative); Ketones Urine Negative (Negative); Leukocyte Esterase Urine Negative (Negative); Nitrite Urine Negative (Negative); Protein Urine 2+ (Negative); Specific Gravity Urine 1.016 (1.000-1.030); Urobilinogen Urine Negative (Negative)
[2021-03-09 18:00] LABS: Total Protein Urine Random 130.3 mg/dl (0-11.9)
[2021-03-09] MEDS: TAMSULOSIN HCL 0.4 MG CAP PO SCH (19:53)
[2021-03-09] MEDS: TRAVOPROST Z 0.004% OPH SOLN 2.5 ML BTL OPB SCH (19:54)
[2021-03-10 08:12] LABS: Hematocrit (blood only) 28.2 % (42-52); Hemoglobin 9.5 g/dL (14.0-18.0); Mean Corpuscular Hemoglobin 30.8 pg (25-34); Mean Corpuscular Hgb Conc 33.7 g/dL (32-36); Mean Corpuscular Volume 91.6 fL (80-100); Platelet Count 267 K/uL (130-400); RDW Coefficient of Variation 14.5 % (11.5-14.5); RDW Standard Deviation 48.4 fL (36.4-46.3); Red Blood Count 3.08 M/uL (4.7-6.1); White Blood Count 4.95 K/uL (4.8-10.8)
[2021-03-10 08:39] LABS: BUN Creatinine Ratio 19.5 (10-20); Calcium 8.4 mg/dl (8.5-10.1); Creatinine Clr Calc Pharmacy 41.4 ml/min; Est GFR (African American) 35.3 ml/min; Est GFR (Non-African American) 30.4 ml/min; Magnesium 2.4 mg/dl (1.8-2.4); Potassium 5.2 mmol/L (3.5-5.1)
[2021-03-10] MEDS: INSULIN GLARGINE SOLOSTAR 100 UNITS/ML 3 ML PEN SC SCH ×2 (08:39→08:43)
[2021-03-10 08:40] LABS: Phosphorus 4.5 mg/dl (2.5-4.9)
[2021-03-10] MEDS: INSULIN ASPART 100 UNITS/ML 3 ML PEN SC SCH ×4 (08:43→20:14)
[2021-03-10] MEDS: ASCORBIC ACID 500 MG TAB PO SCH (08:49)
[2021-03-10] MEDS: ASPIRIN 81 MG ECTAB PO SCH (08:49)
[2021-03-10] MEDS: carvediloL 12.5 MG TAB PO SCH ×2 (08:50→20:14)
[2021-03-10] MEDS: FAMOTIDINE 20 MG TAB PO SCH ×2 (08:50→20:16)
[2021-03-10] MEDS: amLODIPine BESYLATE 5 MG TAB PO SCH (08:50)
--- NOTE | 2021-03-10 11:44 | Pharmacy Report ---
Pharmacy Glycemic Short Note 2 - Date of Service March 10, 2021 - Glycemic Short BSG Results (Last 24 hours): 03/09/21 03/09/21 03/09/21 11:58 16:38 19:46 Glucose POC Glucose 142 H 114 H 134 H 03/10/21 03/10/21 03/10/21 07:37 08:33 11:25 Glucose 75 POC Glucose 88 121 H OUTPATIENT ANTIDIABETIC REGIMEN: * Victoza 1.2mg SQ HS ASSESSMENT: 03/10 * Patient received total of 22 units of insulin yesterday, of which 20 units were basal insulin * Fasting BSG this AM 88 mg/dL - plan to scale back on basal today as PO intake very poor within last 24 hrs 03/08 * 70 year old male admitted for weakness (determining source), JAVON, recent hospitalization here, then to [facility], when discharged on 03/03 patient's glimepiride and metformin were stopped d/t JAVON and only continued on Victoza daily injections. * Will utilize basal bolus insulin while hospitalized. Patient with hypoglycemia this morning, due to excess basal, will decrease, AM dose given prior to co nsulting pharmacy, NovoLog parameters appropriate. PLAN FOR INPATIENT GLYCEMIC CONTROL: * Hold outpatient Victoza * Basal insulin -decrease * Lantus 14 units SQ daily * Bolus insulin * NovoLog per scale ACHS or Q6hrs while NPO * Goal Range: Low 110 mg/dL - High 140 mg/dL * Correction Factor: 20 mg/dL/unit * Nutritional / Prandial insulin per carb ratio of 1 unit per 6 grams CHO consumed PLAN FOR DISCHARGE: * A1c 6.9% - goal <7% * Per notes, patient developed JAVON just prior to discharge from [facility] 03/03 and at that time glimepiride and metformin had been stopped. Victoza only med listed at home prior to arrival here * Likely could continue agent on discharge. Would ensure patient checking blood sugars at home at least daily. Would recommend followup if experiencing any hypo/hyperglycemia. Reinitiation of glimepiride/metformin could be assessed outpatient by PCP once renal function improves. Patient still with JAVON at this time and very poor oral intake to no oral intake
[2021-03-10] MEDS: FOLIC ACID 1 MG in SYRINGE 9.8 ML IV SCH (11:59)
[2021-03-10] MEDS: THIAMINE HCL 100 MG in SYRINGE 9 ML IV SCH (11:59)
--- NOTE | 2021-03-10 12:13 | Neurology Progress Note ---
Date of Service March 10, 2021 Assessment & Plan (1) Encephalopathy: Plan: 1. presumed post-sepsis encephalopathy. 2. continue folate and thiamine replacement 3. EEG- previously globally slow 4. EMG as outpatient to assess polyneuropathy due to sepsis and critical illness. 5. T2 signal within the globus pallidus - metabolic toxic abnormalities 6. temperature normalized 7. PT/OT speech for discharge needs will sign off for now will order EMG as outpatient after rehab is completed. (2) Sepsis with acute hypoxic respiratory failure: Admission and Anticipated Discharge Date Admission Date: March 06, 2021 Supervising Physician Co-Signing Physician Notes I have seen and discussed above patient with Dr Audelia Schwab, neurology. Patient seen and examined he appears brighter today. Slightly more conversant. Believes he is in [place]. Normal extraocular motility facial symmetry. I do not appreciate any cogwheel rigidity. Symmetric strength is noted. [id number] is unremarkable Impression polyfactorial encephalopathy likely what we are seeing is post hypoxic with superimposed septic encephalopathy. Patient appears to be improving reviewed lumbar puncture which I believe is performed at [place] 23 white cell 13,000 red blood cells essentially correcting the white count to normal if 1 uses the correction factor of 1 white blood cell per 500-1000 red blood cells. Will sign off please contact us for any worsening symptoms. Audelia Schwab MD Roby Hager is a 70 year old gentleman who presented to [facility] 03/05/2021 with worsening weakness, falls and questionable confusion at home since being discharged from the hospital in [place] on 03/03. He initially had a 3-month history of rash with biopsy showing subacute spongiotic dermatitis and then presented to [facility] with altered mental status sepsis secondary to MRSA bactere kory, diffuse rash and acute kidney injury. 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 He required ICU admission at that time with intubation, pressor support and NG tube placement. A lumbar puncture in the ER was performed and he was empirically covered broadly for meningitis, later deescalated. He continued on vancomycin as monotherapy for MRSA bacteremia secondary to translocation from skin lio as he had significant pruritus and disrupted skin architecture related to the rash. He was then transferred to [facility] in [place] to help discern the etiology of his altered mental status and work-up concerns that symptoms may be crossing multiple systems including autoimmune or rheumatologic involvement. He notably developed an JAVON towards the end of admission, reportedly improved with small fluid boluses. Metformin and glimepiride were held at discharge. He has completed his two week course of vancomycin per infectious disease recommendations. He was doing okay the first night he was home but then declined quickly on day 2. He had a hard time walking to the bathroom secondary to weakness and the second night he fell in the middle of the night out of the bed. He also had multiple episodes of urinary incontinence. He is on contact isolation for MRSA in nares. He is much more alert today. He walked to the bathroom today with one assist and ate lunch. denies pain. Review of Systems Review of Systems: All systems reviewed & are unremarkable except as noted in HPI & below Physical Exam Physical Exam: Physical Exam: Constitutional: appearance over nourished, appear more alert today Ears, Nose, Mouth and Throat: mucous membranes moist, no injection and skin normal, eyes normal Cardiovascular: normal S-1 and S-2 and regular rate and rhythm Respiratory: course breath sounds Musculoskeletal: non pitting peripheral edema and good distal pulses Skin: no stigmata of neurocutaneous disease noted and normal and intact Eyes: extraocular muscles intact (EOMI) NEUROLOGIC EXAMINATION: Mental status: Alert and moderately interactive Oriented to person, does not know the hospital or which one does not know the year Speech answers questions with one word answers Cranial Nerves facial symmetry Sensory: light cool touch intact Coordination: finger to nose no bi pass Gait/Stance: Posture lying in bed Strength: 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 rivet 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 triceps 5/5, hip flex bilaterally 4/5 Results & Data ([facility]) Vital Signs (Past 12 Hours) Vital Signs Temp Pulse Pulse Resp BP BP Pulse Ox 03/10/21 11:12 36.8 C 80 20 120/73 99 03/10/21 08:38 36.5 C 91 H 20 152/70 H 90 03/10/21 05:06 36.6 C 81 18 134/67 100 03/10/21 02:57 78 18 100 03/10/21 01:12 86 Laboratory Results Abnormal lab results 03/09/21 03/09/21 03/09/21 Range/Units 16:19 16:38 19:46 RBC (4.7-6.1) M/uL Hgb (14.0-18.0) g/dL Hct (42-52) % RDW Std Deviation (36.4-46.3) fL Potassium (3.5-5.1) mmol/L Chloride (98-107) mmol/L Carbon Dioxide (21-32) mmol/L BUN (7-18) mg/dl Creatinine (0.6-1.4) mg/dl POC Glucose 114 H 134 H (70-99) mg/dl Calcium (8.5-10.1) mg/dl Urine Protein 2+ H (Negative) Urine Blood 1+ H (Negative) Urine RBC (Auto) 5-10 H (0-4) /hpf U Hyaline Cast (Auto) 10-30 H (0-5) /lpf U Epithel Cells (Auto) 20-30 H (0-5) /lpf Granular Casts 1-5 H (0) /lpf WBC Casts 1-5 H (0) /lpf U Random Total Protein (0-11.9) mg/dl Protein/Creatinin Ratio (0-0.2) 03/09/21 03/10/21 03/10/21 Range/Units Unknown 07:37 07:37 RBC 3.08 L (4.7-6.1) M/uL Hgb 9.5 L (14.0-18.0) g/dL Hct 28.2 L (42-52) % RDW Std Deviation 48.4 H (36.4-46.3) fL Potassium 5.2 H (3.5-5.1) mmol/L Chloride 112 H (98-107) mmol/L Carbon Dioxide 20 L (21-32) mmol/L BUN 42 H (7-18) mg/dl Creatinine 2.13 H (0.6-1.4) mg/dl POC Glucose (70-99) mg/dl Calcium 8.4 L (8.5-10.1) mg/dl Urine Protein (Negative) Urine Blood (Negative) Urine RBC (Auto) (0-4) /hpf U Hyaline Cast (Auto) (0-5) /lpf U Epithel Cells (Auto) (0-5) /lpf Granular Casts (0) /lpf WBC Casts (0) /lpf U Random Total Protein 130.3 H (0-11.9) mg/dl Protein/Creatinin Ratio 1.0 H (0-0.2) 03/10/21 Range/Units 11:25 RBC (4.7-6.1) M/uL Hgb (14.0-18.0) g/dL Hct (42-52) % RDW Std Deviation (36.4-46.3) fL Potassium (3.5-5.1) mmol/L Chloride (98-107) mmol/L Carbon Dioxide (21-32) mmol/L BUN (7-18) mg/dl Creatinine (0.6-1.4) mg/dl POC Glucose 121 H (70-99) mg/dl Calcium (8.5-10.1) mg/dl Urine Protein (Negative) Urine Blood (Negative) Urine RBC (Auto) (0-4) /hpf U Hyaline Cast (Auto) (0-5) /lpf U Epithel Cells (Auto) (0-5) /lpf Granular Casts (0) /lpf WBC Casts (0) /lpf U Random Total Protein (0-11.9) mg/dl Protein/Creatinin Ratio (0-0.2) Diagnostic Findings no new imaging
--- NOTE | 2021-03-10 12:49 | Electroencephalogram ---
EEG Procedure Note Date of Service March 10, 2021 Start / End Times Start Time: 1236 End Time: 1256 Referring Physician Joe Alva MD History encephalopathy Home Medication List Medication Instructions Recorded Confirmed Type aspirin 81 mg tablet,delayed 81 mg PO DAILY 02/04/21 03/05/21 History release atorvastatin 10 mg tablet 10 mg PO HS 02/04/21 03/05/21 History carvedilol 12.5 mg tablet 12.5 mg PO BID 02/04/21 03/05/21 History ergocalciferol (vitamin D2) 1,250 1,250 mcg PO MONTHLY 02/04/21 03/05/21 History mcg (50,000 unit) capsule (Vitamin D2) liraglutide 0.6 mg/0.1 mL (18 mg/3 1.2 mg SUBCUT QPM 02/04/21 03/05/21 History mL) subcutaneous pen injector (Victoza 3-Everette) travoprost 0.004 % eye drops 1 drp OPB HS 02/04/21 03/05/21 History famotidine 20 mg tablet (Pepcid) 20 mg PO BID 02/16/21 03/05/21 History amlodipine 10 mg tablet 10 mg PO DAILY 03/05/21 03/05/21 History ascorbic acid (vitamin C) 1,000 mg 1 g PO DAILY 03/05/21 03/05/21 History tablet (Vitamin C) diphenhydramine HCl 25 mg capsule 25 mg PO Q6H PRN 03/05/21 03/05/21 History (Benadryl) tamsulosin 0.4 mg capsule 0.4 mg PO HS 03/05/21 03/05/21 History Inpatient Medication List Amlodipine Besylate (Amlodipine Besylate 5 Mg Tab) 10 mg PO DAILY [facility] Stop: 04/05/21 08:59 Last Admin: 03/10/21 08:50 Dose: 10 mg Documented by: [id number] Admin: 03/09/21 09:25 Dose: 10 mg Documented by: [id number] Admin: 03/08/21 08:45 Dose: 10 mg Documented by: [id number] Admin: 03/07/21 08:13 Dose: 10 mg Documented by: [id number] Admin: 03/06/21 09:25 Dose: 10 mg Documented by: [id number] Ascorbic Acid (Ascorbic Acid 500 Mg Tab) 1,000 mg PO DAILY SHMUEL Stop: 04/05/21 08:59 Last Admin: 03/10/21 08:49 Dose: 1,000 mg Documented by: [id number] Admin: 03/09/21 09:25 Dose: 1,000 mg Documented by: [id number] Admin: 03/08/21 08:45 Dose: 1,000 mg Documented by: [id number] Admin: 03/07/21 08:13 Dose: 1,000 mg Documented by: [id number] Admin: 03/06/21 09:25 Dose: 1,000 mg Documented by: [id number] Aspirin (Aspirin 81 Mg Ectab) 81 mg PO DAILY [facility] Stop: 04/05/21 08:59 Last Admin: 03/10/21 08:49 Dose: 81 mg Documented by: [id number] Admin: 03/09/21 11:40 Dose: 81 mg Documented by: [id number] Admin: 03/08/21 08:45 Dose: 81 mg Documented by: [id number] Admin: 03/07/21 08:13 Dose: 81 mg Documented by: [id number] Admin: 03/06/21 09:26 Dose: 81 mg Documented by: [id number] Atorvastatin Calcium (Atorvastatin 10 Mg Tab) 10 mg PO HS [facility] Stop: 04/05/21 20:59 Last Admin: 03/08/21 20:19 Dose: 10 mg Documented by: [id number] Admin: 03/07/21 21:13 Dose: 10 mg Documented by: [id number] Admin: 03/06/21 22:13 Dose: 10 mg Documented by: [id number] Carvedilol (Carvedilol 12.5 Mg Tab) 12.5 mg PO BID [facility] Stop: 04/05/21 08:59 Last Admin: 03/10/21 08:50 Dose: 12.5 mg Documented by: [id number] Admin: 03/09/21 19:54 Dose: 12.5 mg Documented by: [id number] Admin: 03/09/21 09:25 Dose: 12.5 mg Documented by: [id number] Admin: 03/08/21 20:18 Dose: Not Given Documented by: [id number] Admin: 03/08/21 08:45 Dose: 12.5 mg Documented by: [id number] Admin: 03/07/21 21:14 Dose: 12.5 mg Documented by: [id number] Admin: 03/07/21 08:12 Dose: 12.5 mg Documented by: [id number] Admin: 03/06/21 22:14 Dose: 12.5 mg Documented by: [id number] Admin: 03/06/21 09:26 Dose: 12.5 mg Documented by: [id number] Famotidine (Famotidine 20 Mg Tab) 20 mg PO BID [facility]MU[facility] Stop: 04/05/21 08:59 Last Admin: 03/10/21 08:50 Dose: 20 mg Documented by: [id number] Admin: 03/09/21 19:53 Dose: 20 mg Documented by: [id number] Admin: 03/09/21 09:26 Dose: 20 mg Documented by: [id number] Admin: 03/08/21 20:18 Dose: 20 mg Documented by: [id number] Admin: 03/08/21 08:46 Dose: 20 mg Documented by: [id number] Admin: 03/07/21 21:14 Dose: 20 mg Documented by: [id number] Admin: 03/07/21 08:12 Dose: 20 mg Documented by: [id number] Admin: 03/06/21 22:13 Dose: 20 mg Documented by: [id number] Admin: 03/06/21 09:26 Dose: 20 mg Documented by: [id number] Folic Acid 1 mg/ Syringe 10 mls @ 5 mls/min IV QAM [facility] Stop: 04/07/21 09:59 Last Admin: 03/10/21 11:59 Dose: 5 mls/min Documented by: [id number] Admin: 03/09/21 09:25 Dose: 5 mls/min Documented by: [id number] Admin: 03/08/21 10:55 Dose: 5 mls/min Documented by: [id number] Thiamine HCl 100 mg/ Syringe 10 mls @ 2 mls/min IV QAM [facility] Stop: 04/07/21 09:59 Last Admin: 03/10/21 11:59 Dose: 2 mls/min Documented by: [id number] Admin: 03/09/21 09:26 Dose: 2 mls/min Documented by: [id number] Admin: 03/08/21 10:55 Dose: 2 mls/min Documented by: [id number] Insulin Aspart (Insulin Aspart 100 Units/Ml 3 Ml Pen) 0 units SC ACHS [facility]; Protocol Stop: 04/05/21 04:14 Last Admin: 03/10/21 12:44 Dose: Not Given Documented by: [id number] Admin: 03/10/21 08:43 Dose: Not Given Documented by: [id number] Admin: 03/09/21 19:53 Dose: Not Given Documented by: [id number] Cosigned by: [id number] Admin: 03/09/21 17:38 Dose: Not Given Documented by: [id number] Admin: 03/09/21 13:04 Dose: Not Given Documented by: [id number] Admin: 03/09/21 09:27 Dose: 2 units Documented by: [id number] Cosigned by: [id number] Admin: 03/08/21 20:16 Dose: Not Given Documented by: [id number] Cosigned by: [id number] Admin: 03/08/21 17:40 Dose: 4 units Documented by: [id number] Cosigned by: [id number] Admin: 03/08/21 12:10 Dose: 4 units Documented by: [id number] Cosigned by: [id number] Admin: 03/08/21 08:47 Dose: 10 units Documented by: [id number] Cosigned by: [id number] Admin: 03/07/21 21:15 Dose: Not Given Documented by: [id number] Cosigned by: [id number] Admin: 03/07/21 17:29 Dose: 5 units Documented by: [id number] Cosigned by: [id number] Admin: 03/07/21 12:08 Dose: 9 units Documented by: [id number] Cosigned by: [id number] Admin: 03/07/21 08:18 Dose: 6 units Documented by: [id number] Cosigned by: [id number] Admin: 03/06/21 22:16 Dose: Not Given Documented by: [id number] Cosigned by: [id number] Admin: 03/06/21 17:04 Dose: 7 units Documented by: [id number] Cosigned by: [id number] Admin: 03/06/21 12:15 Dose: 7 units Documented by: [id number] Cosigned by: [id number] Admin: 03/06/21 09:26 Dose: Not Given Documented by: [id number] Cosigned by: [id number] Admin: 03/06/21 04:08 Dose: Not Given Documented by: [id number] Insulin Glargine (Insulin Glargine Solostar 100 Units/Ml 3 Ml Pen) 14 units SC DAILY [facility]; Protocol Stop: 04/09/21 08:59 Last Admin: 03/10/21 08:43 Dose: 14 units Documented by: [id number] Cosigned by: [id number] Miscellaneous (Carbohydrates For Hypoglycemia ) 15 - 30 gm PO UD PRN PRN Reason: Hypoglycemia Protocol Stop: 04/05/21 03:39 Last Admin: 03/08/21 20:35 Dose: 15 gm Documented by: [id number] Admin: 03/08/21 20:15 Dose: 15 gm Documented by: [id number] Tamsulosin HCl (Tamsulosin Hcl 0.4 Mg Cap) 0.4 mg PO HS [facility] Stop: 04/05/21 20:59 Last Admin: 03/09/21 19:53 Dose: 0.4 mg Documented by: [id number] Admin: 03/08/21 20:19 Dose: 0.4 mg Documented by: [id number] Admin: 03/07/21 21:15 Dose: 0.4 mg Documented by: [id number] Admin: 03/06/21 22:14 Dose: 0.4 mg Documented by: [id number] Travoprost (Travoprost Z 0.004% Oph Soln 2.5 Ml Btl) 1 drops OPB HS [facility] Stop: 04/04/21 23:44 Last Admin: 03/09/21 19:54 Dose: 1 drops Documented by: [id number] Admin: 03/08/21 20:18 Dose: 1 drops Documented by: [id number] Admin: 03/07/21 21:13 Dose: 1 drops Documented by: [id number] Admin: 03/06/21 22:17 Dose: 1 drops Documented by: [id number] Admin: 03/05/21 23:45 Dose: 1 drops Documented by: [id number] Discontinued Medications Hydroxyzine HCl (Hydroxyzine Hcl 10 Mg Tab) 10 mg PO NOW STA Stop: 03/05/21 22:20 Last Admin: 03/05/21 22:46 Dose: 10 mg Documented by: [id number] Sodium Chloride (Nss) 500 mls @ 999 mls/hr IV .Q31M [facility] Stop: 03/05/21 17:45 Last Infusion: 03/05/21 18:50 Dose: 0 mls/hr Documented by: [id number] Admin: 03/05/21 18:19 Dose: 999 mls/hr Documented by: [id number] Insulin Glargine (Insulin Glargine Solostar 100 Units/Ml 3 Ml Pen) 20 units SC BID [facility] Stop: 04/05/21 08:59 Last Admin: 03/08/21 08:46 Dose: 20 units Documented by: [id number] Cosigned by: [id number] Admin: 03/07/21 21:17 Dose: 20 units Documented by: [id number] Cosigned by: [id number] Admin: 03/07/21 08:16 Dose: 20 units Documented by: [id number] Cosigned by: [id number] Admin: 03/06/21 22:17 Dose: 20 units Documented by: [id number] Cosigned by: [id number] Admin: 03/06/21 09:26 Dose: 20 units Documented by: [id number] Cosigned by: [id number] Insulin Glargine (Insulin Glargine Solostar 100 Units/Ml 3 Ml Pen) 20 units SC DAILY [facility]; Protocol Stop: 04/08/21 08:59 Last Admin: 03/09/21 09:31 Dose: 20 units Documented by: [id number] Cosigned by: [id number] Sodium Polystyrene Sulfonate (Sodium Polystyrene Sulfonate 15g/60ml Susp) 15 gm PO NOW STA Stop: 03/09/21 08:56 Last Admin: 03/09/21 12:09 Dose: 15 gm Documented by: [id number] Description This is a 21 electrode EEG with a single channel dedicated to limited EKG. The electrodes were placed in accordance with the International 10-20 system. This EEG was as a bedside recording and is of reasonable technical quality allowing for occasional muscle movement artifact particular towards the terminal end of the procedure. Photic stimulation was performed Drowsiness and light sleep were not seen Under these conditions there is evidence for what appears to be a mildly slow symmetrical posterior head region maximal background rhythm in the upper theta the lower alpha range generally running about 8 Hz with occasional periods of time when 9 Hz activity is present. In the central regions and in symmetrical fashion there is evidence for moderate to moderately high amplitude low- frequency theta intermixed with some delta activity of nonrhythmic type. Beta activity is difficult to discern Photic stimulation provokes no significant changes and does not induce any photo myogenic or photoparoxysmal activity There is no evidence for potentially epileptiform discharges Interpretation This EEG is mildly diffusely abnormal in a nonfocal fashion without any associated potentially epileptogenic patterns Clinical Correlation This EEG reveals mild generalized abnormalities which would be consistent with a nonspecific nonfocal encephalopathy without associated potentially epileptiform activity Donnie Nagy MD
--- NOTE | 2021-03-10 13:47 | Nephrology Progress Note ---
Date of Service March 10, 2021 Assessment & Plan Admission and Anticipated Discharge Date Admission Date: March 06, 2021 Subjective Subjective Assessment & Plan (1) Acute on chronic renal failure: nonoliguric javon on ckd 3 in the setting of bacteremia from MRSA. baseline creatinine is 1.4; has been plateau'd at about 2 since 02/28. It may take weeks to recover. CK wnl; ua w/ blood and protein but no infection -daily bmp --meds ok for now (2) Hematuria with proteinuria: new and may reflect recent/ongoing JAVON and critical illness; would not work up further at this point unless persistent wks to months. serology has been sent but very very low chances of this being Acute GN. COuld be Post infectious GN but c3 was normal. Anti Histone was moderately +ve UMESH weakly +ve ---most likely not clinically significant. Will follow that as outpt. repeat UA yeserday showed sikilar finding but little less protein and blood. Labs --reviewed in detail--Discussed in A/p Physical Exam Constitutional: well developed, well nourished, cooperative no acute distress. Hard to get history. Neck: no nuchal rigidity Respiratory: normal respiratory effort Auscultation: + diminished lung soun ds Cardiovascular: Rate/Rhythm: regular rate and regular rhythm Heart Sounds: normal S1 and normal S2 Extremities: + edema Gastrointestinal (Abdomen) abdomen soft; abdomen nontender Musculoskeletal: Extremities: has 1+ edema Skin: scale/mild desquamation BL palms; dime sized ulcer L forearm clean base Neurologic: ervin, appropriate speech but markedly delayed psychomotor processing, no tremor Psychiatric: Orientation: oriented x 3 Speech: + abnormal rate/rhythm/volume of speech Results & Data ([facility]) Vital Signs (Past 12 Hours) Vital Signs Temp Pulse Pulse Resp BP BP Pulse Ox 03/10/21 11:12 36.8 C 80 20 120/73 99 03/10/21 08:38 36.5 C 91 H 20 152/70 H 90 03/10/21 05:06 36.6 C 81 18 134/67 100 03/10/21 02:57 78 18 100
--- NOTE | 2021-03-10 17:55 | Hospitalist Progress Note ---
Date of Service March 10, 2021 Assessment & Plan (1) Weakness: Plan: Likely multifactorial including possible persistent underlying medical issue such as ongoing infection (repeat blood cultures pending) or post infectious glomerulonephritis(see below) or recent rhabdomyolysis after septic shock a couple of weeks ago (CK trending down), etc, In addition to physical deconditioning with recent prolonged hospitalization and prolonged illness. Will cont workup on these issues below, and have PT and OT evaluate him. 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 No acute infarcts. 2. Slight progressive increased T2 signal within the globus pallidus. This is nonspecific but may represent chronic microvascular ischemic change. Underlying metabolic/toxic abnormality could also have a similar appearance. -Seen by neurology at [place] Per review of the notes from February 21, reviewed - MRI at outside hospital ([facility]), which does show a cerebellar infarct and bilateral basal ganglia changes. LP at outside hospital ([facility]) was unremarkable and LTM has been negative. The cause of his encephalopathy is most likely hospital delirium and this should continue to improve daily. He has a lung mass so a paraneoplastic process is possible but his LP was negative. MRI does show multifocal infarcts in bilateral basal ganglia can contribute to confusion. Would recommend CTA head and neck and potentially CLARK given the likely cardiogenic source of multifocal strokes. EEG done in [place], was not concerning for seizure, showed mild diffuse encephalopathy -check vit. B12 - normal, folic acid - slightly low - will replace -Neurology here consulted -appreciate their input Impression polyfactorial encephalopathy likely what we are seeing is post hypoxic with superimposed septic encephalopathy. Agree with supplemental folate and thiamine. Recommend EEG. Although CK is normal, consider holding statin, which could be contributing to weakness. 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 A nerve conduction EMG should be performed as an outpatient. Current EEG - Interpretation This EEG is mildly diffusely abnormal in a nonfocal fashion without any associated potentially epileptogenic patterns Clinical Correlation This EEG reveals mild generalized abnormalities which would be consistent with a nonspecific nonfocal encephalopathy without associated potentially epileptiform activity (2) JAVON (acute kidney injury): Plan: JAVON on CKD stage 3 Nonoliguric. baseline creatinine is 1.4; has been plateau'd at about 2 since 02/28. may take weeks to recover. CK wnl; ua w/ blood and protein but no infection Worsened creatinine since discharge from the hospital. Multiple complex medical issues. Appears euvolemic on exam today. Nephrology consulted, appreciate their input. Urine studies ordered. Urine shows hematuria, proteinuria which seems to be new. (3) Hematuria with proteinuria: Plan: Consulted nephrology for consideration of glomerular disease with recent staph infection. No clear UTI present, however, urinary incontinence noted by . Increased proteinuria on dipstick. Urine prot/creat ratio ordered. Per nephro - would not work up further at this point unless persistent wks to months Urine cytology is pending to evaluate for presence of dysmorphic red blood cells. Notably with immune workup last admission--normal complement levels, positive UMESH. 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 This has overall improved with some persistent desquamation. Per he gets no steroid creams and uses petrolatum TID all over his skin. (5) Diabetes mellitus, type II: Plan: Developed JAVON just prior to discharge from [facility] on 03/03 and glimepiride and metformin were stopped. He remains on Victoza daily injections. Will utilize basal bolus insulin while hospitalized. A1C recently checked and at goal. (6) CKD (chronic kidney disease), stage III: Plan: Baseline creatinine 1.4, now about 2 (as above) (7) Lung mass: Plan: [id number] solid pulmonary nodule of the right middle lobe, cont to follow this per guidelines as outpatient. (8) Hypertension: Plan: around goal, cont amlodipine, carvedilol per home regimen. (9) Sleep apnea: Plan: CPAP at home settings. (10) DVT prophylaxis: Plan: SCDs-hold chemoprophylaxis in setting of ?gross hematuria pending further workup. Full Code Dispo-to med tele. PT/OT to assess and help with disposition. He has failed a trial of being at home with home health and needs additional care at this time. Admission and Anticipated Discharge Date Admission Date: March 06, 2021 Subjective Patient seen in follow-up of weakness, lethargy, JAVON Yesterday patient was notably hypothermic, with temperature below 35 Celsius, also on several re-checks. However in the afternoon temperature normal again. No acute issues overnight. Temperature normal today. He is currently sitting up in bed, eating, in no acute distress. He is awake however he has extremely hard time remembering any recent events. I went over again his last hospital stay and current hospital stay, and his stay in [place]. He then asked me several times the same questions again. Reminded him what day it was today and he asked me several times what day it was. Currently denies any chest pain, shortness of breath, abdominal pain, headache, feeling dizzy,or lightheaded, also denies any nausea vomiting or diarrhea. Also discussed with nursing staff that patient needs frequent reorientation, and skin moisturized several times a day. Review of Systems Review of Systems: All systems reviewed & are unremarkable except as noted in Subjective Physical Exam Physical Exam: CONSTITUTIONAL: WNWD, awake able to answer simple questions appropriately, however does not remember any recent events and he is not oriented to place or time EYES: normal conjunctivae, no scleral icterus ENT: external ear and nose normal, oropharynx clear, MMM NECK: trachea midline RESPIRATORY: clear to auscultation bilaterally, no crackles, rales or wheezes, normal respiratory effort CARDIOVASCULAR: regular rate and rhythm, S1 and 2 heard without murmurs, minimal peripheral edema CHEST: inspection of chest was normal GASTROINTESTINAL: soft, nontender, ND, no guarding MUSCULOSKELETAL: normocephalic and atraumatic, neck supple, moves extremities SKIN: warm and dry, desquamation of skin all over pt's body, (improved) NEURO/PSYCH: awake and alert able to answer some questions appropriately. However he is not oriented to place or time, continues to ask the same question over and over. No facial asymmetry, speech slow but fluent. Moves extremities while laying in bed. Gait not assessed. Results & Data Results & Data ([facility]) Vital Signs (Past 12 Hours) Vital Signs Temp Pulse Resp BP BP Pulse Ox 03/10/21 15:41 36.3 C L 74 18 146/69 H 97 03/10/21 11:12 36.8 C 80 20 120/73 99 03/10/21 08:38 36.5 C 91 H 20 152/70 H 90 Laboratory Results 03/10/21 03/10/21 03/10/21 Range/Units 16:25 11:25 08:33 WBC (4.8-10.8) K/uL RBC (4.7-6.1) M/uL Hgb (14.0-18.0) g/dL Hct (42-52) % MCV (80-100) fL MCH (25-34) pg MCHC (32-36) g/dL RDW Std Deviation (36.4-46.3) fL RDW Coeff of Kaelyn (11.5-14.5) % Plt Count (130-400) K/uL MPV (7.4-10.4) fL Sodium (136-145) mmol/L Potassium (3.5-5.1) mmol/L Chloride (98-107) mmol/L Carbon Dioxide (21-32) mmol/L Anion Gap (3-11) BUN (7-18) mg/dl Creatinine (0.6-1.4) mg/dl Est Cr Clr Drug Dosing ml/min Est GFR ( Amer) ml/min Est GFR (Non-Af Amer) ml/min BUN/Creatinine Ratio (10-20) Glucose (70-99) mg/dl POC Glucose 140 H 121 H 88 (70-99) mg/dl Calcium (8.5-10.1) mg/dl Phosphorus (2.5-4.9) mg/dl Magnesium (1.8-2.4) mg/dl Ur Random Creatinine mg/dl U Random Total Protein (0-11.9) mg/dl Protein/Creatinin Ratio (0-0.2) 03/10/21 03/10/21 03/09/21 Range/Units 07:37 07:37 Unknown WBC 4.95 (4.8-10.8) K/uL RBC 3.08 L (4.7-6.1) M/uL Hgb 9.5 L (14.0-18.0) g/dL Hct 28.2 L (42-52) % MCV 91.6 (80-100) fL MCH 30.8 (25-34) pg MCHC 33.7 (32-36) g/dL RDW Std Deviation 48.4 H (36.4-46.3) fL RDW Coeff of Kaelyn 14.5 (11.5-14.5) % Plt Count 267 (130-400) K/uL MPV 10.0 (7.4-10.4) fL Sodium 141 (136-145) mmol/L Potassium 5.2 H (3.5-5.1) mmol/L Chloride 112 H (98-107) mmol/L Carbon Dioxide 20 L (21-32) mmol/L Anion Gap 10.0 (3-11) BUN 42 H (7-18) mg/dl Creatinine 2.13 H (0.6-1.4) mg/dl Est Cr Clr Drug Dosing 41.4 ml/min Est GFR ( Amer) 35.3 ml/min Est GFR (Non-Af Amer) 30.4 ml/min BUN/Creatinine Ratio 19.5 (10-20) Glucose 75 (70-99) mg/dl POC Glucose (70-99) mg/dl Calcium 8.4 L (8.5-10.1) mg/dl Phosphorus 4.5 (2.5-4.9) mg/dl Magnesium 2.4 (1.8-2.4) mg/dl Ur Random Creatinine 134.0 mg/dl U Random Total Protein 130.3 H (0-11.9) mg/dl Protein/Creatinin Ratio 1.0 H (0-0.2) 03/09/21 Range/Units 19:46 WBC (4.8-10.8) K/uL RBC (4.7-6.1) M/uL Hgb (14.0-18.0) g/dL Hct (42-52) % MCV (80-100) fL MCH (25-34) pg MCHC (32-36) g/dL RDW Std Deviation (36.4-46.3) fL RDW Coeff of Kaelyn (11.5-14.5) % Plt Count (130-400) K/uL MPV (7.4-10.4) fL Sodium (136-145) mmol/L Potassium (3.5-5.1) mmol/L Chloride (98-107) mmol/L Carbon Dioxide (21-32) mmol/L Anion Gap (3-11) BUN (7-18) mg/dl Creatinine (0.6-1.4) mg/dl Est Cr Clr Drug Dosing ml/min Est GFR ( Amer) ml/min Est GFR (Non-Af Amer) ml/min BUN/Creatinine Ratio (10-20) Glucose (70-99) mg/dl POC Glucose 134 H (70-99) mg/dl Calcium (8.5-10.1) mg/dl Phosphorus (2.5-4.9) mg/dl Magnesium (1.8-2.4) mg/dl Ur Random Creatinine mg/dl U Random Total Protein (0-11.9) mg/dl Protein/Creatinin Ratio (0-0.2) Medications Administered Current Inpatient Medications Acetaminophen (Acetaminophen 325 Mg Tab) 650 mg PO Q4H PRN PRN Reason: Pain or Fever Stop: 04/05/21 03:39 Amlodipine Besylate (Amlodipine Besylate 5 Mg Tab) 10 mg PO DAILY SHMUEL Stop: 04/05/21 08:59 Last Admin: 03/10/21 08:50 Dose: 10 mg Documented by: Ascorbic Acid (Ascorbic Acid 500 Mg Tab) 1,000 mg PO DAILY SHMUEL Stop: 04/05/21 08:59 Last Admin: 03/10/21 08:49 Dose: 1,000 mg Documented by: Aspirin (Aspirin 81 Mg Ectab) 81 mg PO DAILY SHMUEL Stop: 04/05/21 08:59 Last Admin: 03/10/21 08:49 Dose: 81 mg Documented by: Atorvastatin Calcium (Atorvastatin 10 Mg Tab) 10 mg PO HS SHMUEL Stop: 04/05/21 20:59 Last Admin: 03/08/21 20:19 Dose: 10 mg Documented by: Carvedilol (Carvedilol 12.5 Mg Tab) 12.5 mg PO BID SHMUEL Stop: 04/05/21 08:59 Last Admin: 03/10/21 08:50 Dose: 12.5 mg Documented by: Dextrose (Dextrose 50% 50 Ml Syringe) 25 - 50 ml IV UD PRN; Protocol PRN Reason: Hypoglycemia Protocol Stop: 04/05/21 03:39 Famotidine (Famotidine 20 Mg Tab) 20 mg PO BID SHMUEL Stop: 04/05/21 08:59 Last Admin: 03/10/21 08:50 Dose: 20 mg Documented by: Glucagon (Glucagon For Inj 1 Mg Vial) 1 mg SQ UD PRN; Protocol PRN Reason: Hypoglycemia Protocol Stop: 04/05/21 03:39 Glucose (Glucose 10 Tabs/Tube) 4 - 8 tabs PO UD PRN; Protocol PRN Reason: Hypoglycemia Protocol Stop: 04/05/21 03:39 Glucose (Glucose 40% Gel 15 Gm Tube) 15 - 30 gm PO UD PRN; Protocol PRN Reason: Hypoglycemia Protocol Stop: 04/05/21 03:39 Folic Acid 1 mg/ Syringe 10 mls @ 5 mls/min IV QAM SHMUEL Stop: 04/07/21 09:59 Last Admin: 03/10/21 11:59 Dose: 5 mls/min Documented by: Thiamine HCl 100 mg/ Syringe 10 mls @ 2 mls/min IV QAM [facility] Stop: 04/07/21 09:59 Last Admin: 03/10/21 11:59 Dose: 2 mls/min Documented by: Insulin Aspart (Insulin Aspart 100 Units/Ml 3 Ml Pen) 0 units SC ACHS [facility]; Protocol Stop: 04/05/21 04:14 Last Admin: 03/10/21 12:44 Dose: Not Given Documented by: Insulin Glargine (Insulin Glargine Solostar 100 Units/Ml 3 Ml Pen) 14 units SC DAILY [facility]; Protocol Stop: 04/09/21 08:59 Last Admin: 03/10/21 08:43 Dose: 14 units Documented by: Miscellaneous (Carbohydrates For Hypoglycemia ) 15 - 30 gm PO UD PRN PRN Reason: Hypoglycemia Protocol Stop: 04/05/21 03:39 Last Admin: 03/08/21 20:35 Dose: 15 gm Documented by: Miscellaneous Information (Pharmacy Glycemic Mgmt Consult) 1 ea N/A UD PRN PRN Reason: Consult Stop: 04/07/21 09:15 Multi-Ingredient Cream (Eucerin Cr 120 Gm Jar) 1 appln EXT Q2H PRN PRN Reason: dry,irritated skin Stop: 04/04/21 22:17 Ondansetron HCl (Ondansetron Inj 2 Mg/Ml 2 Ml Vial) 4 mg IV Q6H PRN PRN Reason: Nausea Stop: 04/05/21 03:39 Polyethylene Glycol (Polyethylene (Miralax) 17 Gm Pack) 17 gm PO DAILY PRN PRN Reason: Constipation Stop: 04/05/21 03:39 Tamsulosin HCl (Tamsulosin Hcl 0.4 Mg Cap) 0.4 mg PO HS SHMUEL Stop: 04/05/21 20:59 Last Admin: 03/09/21 19:53 Dose: 0.4 mg Documented by: Travoprost (Travoprost Z 0.004% Oph Soln 2.5 Ml Btl) 1 drops OPB HS SHMUEL Stop: 04/04/21 23:44 Last Admin: 03/09/21 19:54 Dose: 1 drops Documented by:
[2021-03-10] MEDS: TRAVOPROST Z 0.004% OPH SOLN 2.5 ML BTL OPB SCH (20:14)
[2021-03-10] MEDS: TAMSULOSIN HCL 0.4 MG CAP PO SCH (20:16)
[2021-03-11] MEDS: ASPIRIN 81 MG ECTAB PO SCH (09:31)
[2021-03-11] MEDS: carvediloL 12.5 MG TAB PO SCH ×2 (09:31→19:45)
[2021-03-11] MEDS: ASCORBIC ACID 500 MG TAB PO SCH (09:31)
[2021-03-11] MEDS: amLODIPine BESYLATE 5 MG TAB PO SCH (09:31)
[2021-03-11] MEDS: FAMOTIDINE 20 MG TAB PO SCH ×2 (09:31→19:46)
[2021-03-11] MEDS: THIAMINE HCL 100 MG in SYRINGE 9 ML IV SCH (09:32)
[2021-03-11] MEDS: INSULIN GLARGINE SOLOSTAR 100 UNITS/ML 3 ML PEN SC SCH (09:33)
[2021-03-11] MEDS: FOLIC ACID 1 MG in SYRINGE 9.8 ML IV SCH (09:34)
[2021-03-11] MEDS: INSULIN ASPART 100 UNITS/ML 3 ML PEN SC SCH ×4 (09:36→20:42)
[2021-03-11 10:02] LABS: BUN Creatinine Ratio 20.4 (10-20); Calcium 8.3 mg/dl (8.5-10.1); Creatinine Clr Calc Pharmacy 46.4 ml/min; Est GFR (African American) 40.8 ml/min; Est GFR (Non-African American) 35.2 ml/min; Potassium 4.8 mmol/L (3.5-5.1)
--- NOTE | 2021-03-11 18:43 | Hospitalist Progress Note ---
Date of Service March 11, 2021 Assessment & Plan (1) Weakness: (2) Encephalopathy: (3) Hematuria with proteinuria: (4) Acute on chronic renal failure: (5) Spongiotic dermatitis: Plan: Mr. Burroughs is a 70-year-old man who presents to the hospital with worsening w eakness, falls and questionable confusion at home since being discharged from the hospital in [place] on 03/03 is being managed for the following: #. Weakness: Likely multifactorial including possible persistent underlying medical issue or post infectious glomerulonephritis(see below) or recent rhabdomyolysis after septic shock a couple of weeks ago (CK trending down), etc, on top of physical deconditioning with recent prolonged hospitalization and prolonged illness. Will cont workup on these issues below, and c/w inpatient PT and OT. #. 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 Pt evaluated by neurology at [place] Per review of the notes from February 21, reviewed - MRI at outside hospital ([facility]), which does show a cerebellar infarct and bilateral basal ganglia oleary ges. LP at outside hospital ([facility]) was unremarkable and LTM has been negative. The cause of his encephalopathy is most likely hospital delirium and this should continue to improve daily. He has a lung mass so a paraneoplastic process is possible but his LP was negative. MRI does show multifocal infarcts in bilateral basal ganglia can contribute to confusion. Would recommend CTA head and neck and potentially CLARK given the likely cardiogenic source of multifocal strokes. EEG done in [place], was not concerning for seizure, showed mild diffuse encephalopathy Vitamin B12 WNL, folic acid slightly low, being replaced. Neurology consulted: Likely polyfactorial encephalopathy [post hypoxic with superimposed septic encephalopathy]. Agrees with supplemental folate and thiamine. Recommends holding statin which might be contributing to weakness. EEG done which revealed mild generalized abnormality consistent with a nonspecific nonfocal encephalopathy without associated potentially epileptiform activity. 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 A nerve conduction EMG should be performed as an outpatient. #. JAVON on CKD stage 3 #. Hematuria with Proteinuria JAVON on CKD stage 3 Nonoliguric. baseline creatinine is 1.4; has been plateau'd at about 2 since 02/28. may take weeks to recover. CK wnl; ua w/ blood and protein but no infection Nephrology on board Hematuria with proteinuria is new. No clear UTI present, however, urinary incontinence noted by . Per nephro - would not work up further at this point unless persistent wks to months Urine cytology is pending to evaluate for presence of dysmorphic red blood cells. Notably with immune workup last admission--normal complement levels, positive UMESH. #. 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 This has overall improved with some persistent desquamation. Per he gets no steroid creams and uses petrolatum TID all over his skin. #. Diabetes mellitus, type II: Developed JAVON just prior to discharge from [facility] on 03/03 and glimepiride and metformin were stopped. He remains on Victoza daily injections. Will utilize basal bolus insulin while hospitalized. A1C recently checked and at goal. #. Lung mass: [id number] solid pulmonary nodule of the right middle lobe, cont to follow this per guidelines as outpatient. #. Hypertension: around goal, cont amlodipine, carvedilol per home regimen. #. Sleep apnea: CPAP at home settings. #. DVT prophylaxis: SCDs-hold chemoprophylaxis in setting of ?gross hematuria pending further workup. Full Code Dispo-to [facility] tele. PT/OT to assess and help with disposition. He has failed a trial of being at home with home health and needs additional care at this time. PT/OT recommending inpatient rehab. Called patient's Debra [[phone]] and updated about the plan of care. She seemed understanding and was agreeable. Admission and Anticipated Discharge Date Admission Date: March 06, 2021 Subjective Patient was lying in bed, oriented to self, sleepy, on room air, denies pain/headache/other review of symptoms. ROS was limited due to patient's condition. Physical Exam Physical Exam: GENERAL: Sleepy, oriented to self. NAD, on RA. HEENT: No pallor, no icterus. Pupils equal, round and reactive to light. Oral mucosa moist. NECK: No JVD, no neck masses. HEART: S1 and S2 heard. Regular rate and rhythm. No murmur, no gallop. RESPIRATORY SYSTEM: Normal AP diameter. No accessory muscle use. No wheezing, no crackles. ABDOMEN: Soft, bowel sounds present, nontender, no distention. CENTRAL NERVOUS SYSTEM: No facial droop. Speech is clear. Obeys simple commands. Moves extremities. EXTREMITIES: No edema, no erythema seen. Desquamation of skin all over patient's body. Results & Data Results & Data ([facility]) Vital Signs (Past 12 Hours) Vital Signs Temp Pulse Pulse Resp BP BP Pulse Ox 03/11/21 15:44 36.3 C L 66 18 106/60 100 03/11/21 15:07 67 03/11/21 11:55 36.7 C 92 H 20 167/73 H 99 03/11/21 08:06 60 03/11/21 07:32 36.4 C L 75 18 135/79 98
[2021-03-11] MEDS: TAMSULOSIN HCL 0.4 MG CAP PO SCH (19:48)
[2021-03-11] MEDS: TRAVOPROST Z 0.004% OPH SOLN 2.5 ML BTL OPB SCH (19:48)
[2021-03-12 00:24] LABS: Basophils # (auto) 0.01 K/uL (0-0.2); Basophils % (auto) 0.2 %; Eosinophils # (auto) 0.58 K/uL (0-0.5); Eosinophils % (auto) 11.2 %; Hematocrit (blood only) 26.4 % (42-52); Hemoglobin 8.8 g/dL (14.0-18.0); Immature Granulocytes # (auto) 0.04 K/uL (0.00-0.02); Immature Granulocytes % (auto) 0.8 %; Lymphocytes # (auto) 1.18 K/uL (1.2-3.4); Lymphocytes % (auto) 22.7 %; Mean Corpuscular Hemoglobin 30.4 pg (25-34); Mean Corpuscular Hgb Conc 33.3 g/dL (32-36); Mean Corpuscular Volume 91.3 fL (80-100); Mean Platelet Volume 9.3 fL (7.4-10.4); Monocytes # (auto) 0.55 K/uL (0.11-0.59); Monocytes % (auto) 10.6 %; Neutrophils # (auto) 2.84 K/uL (1.4-6.5); Neutrophils % (auto) 54.5 %; Platelet Count 264 K/uL (130-400); RDW Coefficient of Variation 14.5 % (11.5-14.5); RDW Standard Deviation 48.7 fL (36.4-46.3); Red Blood Count 2.89 M/uL (4.7-6.1)
[2021-03-12 00:48] LABS: Calcium 8.4 mg/dl (8.5-10.1); Est GFR (African American) 43.5 ml/min; Est GFR (Non-African American) 37.6 ml/min; Magnesium 2.3 mg/dl (1.8-2.4); Potassium 4.8 mmol/L (3.5-5.1)
[2021-03-12 00:59] LABS: Thyroid Stimulating Hormone 3.1 uIu/ml (0.300-4.500)
--- NOTE | 2021-03-12 06:39 | Communication Note ---
Date of Service: March 12, 2021 Late entry Around 11:50 PM last night, patient noted to be bradycardic while sleeping. Cardiac rate 30s as per RN. Patient asymptomatic as per RN. SBP 120s. AP Asymptomatic bradycardia Decrease maintenance Coreg dose of 12.5 mg twice daily to 6.25 mg twice daily for now. Will relay to AM provider.
[2021-03-12] MEDS: ASPIRIN 81 MG ECTAB PO SCH (07:46)
[2021-03-12] MEDS: ASCORBIC ACID 500 MG TAB PO SCH (07:46)
[2021-03-12] MEDS: amLODIPine BESYLATE 5 MG TAB PO SCH (07:46)
[2021-03-12] MEDS: FAMOTIDINE 20 MG TAB PO SCH ×2 (07:46→20:13)
[2021-03-12] MEDS: INSULIN ASPART 100 UNITS/ML 3 ML PEN SC SCH ×4 (07:49→20:27)
[2021-03-12] MEDS: FOLIC ACID 1 MG in SYRINGE 9.8 ML IV SCH (07:52)
[2021-03-12] MEDS: THIAMINE HCL 100 MG in SYRINGE 9 ML IV SCH (07:52)
[2021-03-12] MEDS ORDERED: INSULIN GLARGINE SOLOSTAR 100 UNITS/ML 3 ML PEN SC SCH (09:00)
[2021-03-12] MEDS ORDERED: carvediloL 6.25 MG TAB PO SCH (09:00)
[2021-03-12] MEDS ORDERED: carvediloL 12.5 MG TAB PO SCH (09:00)
--- NOTE | 2021-03-12 09:37 | Pharmacy Report ---
Pharmacy Glycemic Short Note 2 - Date of Service March 12, 2021 - Glycemic Short BSG Results (Last 24 hours): 03/11/21 03/11/21 03/11/21 08:05 11:33 16:28 Glucose 81 POC Glucose 176 H 62 L* 03/11/21 03/11/21 03/11/21 16:28 16:51 20:26 Glucose POC Glucose 61 L* 83 158 H 03/12/21 03/12/21 03/12/21 00:08 01:02 07:35 Glucose 88 POC Glucose 85 82 OUTPATIENT ANTIDIABETIC REGIMEN: * Victoza 1.2mg SC HS * HbA1c = 6.9% (02/05/21) ASSESSMENT: 03/12: * Madan received a total of 33 units of insulin yesterday (14 units basal + 19 units bolus) * BSGs were acceptable: 71-111-85-158 mg/dL * Episode hypoglycemia at dinner last evening. BSG was 61 mg/dL then improved to 83 mg/dL after 30 g of CHO were administered. * Fasting BSG well controlled at 82 mg/dL this AM. * Given hypoglycemia last night and trend down in fastings, will decrease basal insulin by ~15% today. Will also loosen carb coverage. 03/10: * Patient received total of 22 units of insulin yesterday, of which 20 units were basal insulin * Fasting BSG this AM 88 mg/dL - plan to scale back on basal today as PO intake very poor within last 24 hrs PLAN FOR INPATIENT GLYCEMIC CONTROL: * Hold outpatient Victoza * Basal insulin - decrease * Lantus 12 units SC daily * Bolus insulin - loosen CR * NovoLog per scale ACHS or Q6hrs while NPO * Goal Range: Low 110 mg/dL - High 140 mg/dL * Correction Factor: 25 mg/dL/unit * Nutritional / Prandial insulin per carb ratio of 1 unit per 9 grams CHO consumed PLAN FOR DISCHARGE: * HbA1c was 6.9% in February 2021 which is at goal for this patient. * Per notes, patient developed JAVON just prior to discharge from [facility] 03/03 and at that time glimepiride and metformin had been stopped. Victoza only med listed at home prior to arrival here * Likely could continue agent on discharge. Would ensure patient checking blood sugars at home at least daily. Would recommend followup if experiencing any hypo/hyperglycemia. Reinitiation of glimepiride/metformin could be assessed outpatient by PCP once renal function improves. Patient still with JAVON at this time and very poor oral intake to no oral intake
[2021-03-12 11:02] LABS: Ferritin 425.4 ng/ml (8-388)
[2021-03-12 12:09] LABS: Folate (Folic Acid) 17.9 ng/ml (>5.38)
--- NOTE | 2021-03-12 18:37 | Hospitalist Progress Note ---
Date of Service March 12, 2021 Assessment & Plan (1) Weakness: (2) Encephalopathy: (3) Hematuria with proteinuria: (4) Acute on chronic renal failure: (5) Spongiotic dermatitis: Plan: Mr. Burroughs is a 70-year-old man who presents to the hospital with worsening w eakness, falls and questionable confusion at home since being discharged from the hospital in [place] on 03/03 is being managed for the following: #. Weakness: Likely multifactorial including possible persistent underlying medical issue or post infectious glomerulonephritis(see below) or recent rhabdomyolysis after septic shock a couple of weeks ago (CK trending down), etc, on top of physical deconditioning with recent prolonged hospitalization and prolonged illness. Will cont workup on these issues below, and c/w inpatient PT and OT. #. 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 Pt evaluated by neurology at [place] Per review of the notes from February 21, reviewed - MRI at outside hospital ([facility]), which does show a cerebellar infarct and bilateral basal ganglia oleary ges. LP at outside hospital ([facility]) was unremarkable and LTM has been negative. The cause of his encephalopathy is most likely hospital delirium and this should continue to improve daily. He has a lung mass so a paraneoplastic process is possible but his LP was negative. MRI does show multifocal infarcts in bilateral basal ganglia can contribute to confusion. Would recommend CTA head and neck and potentially CLARK given the likely cardiogenic source of multifocal strokes. EEG done in [place], was not concerning for seizure, showed mild diffuse encephalopathy Vitamin B12 WNL, folic acid slightly low, being replaced. Neurology consulted: Likely polyfactorial encephalopathy [post hypoxic with superimposed septic encephalopathy]. Agrees with supplemental folate and thiamine. Recommends holding statin which might be contributing to weakness. EEG done which revealed mild generalized abnormality consistent with a nonspecific nonfocal encephalopathy without associated potentially epileptiform activity. 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 A nerve conduction EMG should be performed as an outpatient. #. JAVON on CKD stage 3 #. Hematuria with Proteinuria JAVON on CKD stage 3 Nonoliguric. baseline creatinine is 1.4; has been plateau'd at about 2 since 02/28. may take weeks to recover. CK wnl; ua w/ blood and protein but no infection Nephrology on board Hematuria with proteinuria is new. No clear UTI present, however, urinary incontinence noted by . Per nephro - would not work up further at this point unless persistent wks to months Urine cytology is pending to evaluate for presence of dysmorphic red blood cells. Notably with immune workup last admission--normal complement levels, positive UMESH. #. 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 This has overall improved with some persistent desquamation. Per he gets no steroid creams and uses petrolatum TID all over his skin. #. Diabetes mellitus, type II: Developed JAVON just prior to discharge from [facility] on 03/03 and glimepiride and metformin were stopped. He remains on Victoza daily injections. Will utilize basal bolus insulin while hospitalized. A1C recently checked and at goal. #. Lung mass: [id number] solid pulmonary nodule of the right middle lobe, cont to follow this per guidelines as outpatient. #. Hypertension: around goal, cont amlodipine, carvedilol per home regimen. #. Sleep apnea: CPAP at home settings. #. DVT prophylaxis: SCDs-hold chemoprophylaxis in setting of ?gross hematuria pending further workup. Full Code Dispo-to [facility]. PT/OT to assess and cm to help with disposition. He has failed a trial of being at home with home health and needs additional care at this time. PT/OT recommending inpatient rehab. Awaiting placement. 03/11 Called patient's Debra [[phone]] and updated about the plan of care. She seemed understanding and was agreeable. Admission and Anticipated Discharge Date Admission Date: March 06, 2021 Subjective Patient was lying in bed, oriented to place and person, more awake today, on room air, denies pain/headache/other review of symptoms. Physical Exam Physical Exam: GENERAL: Alert, oriented times place and person. NAD, on RA. HEENT: No pallor, no icterus. Pupils equal, round and reactive to light. Oral mucosa moist. NECK: No JVD, no neck masses. HEART: S1 and S2 heard. Regular rate and rhythm. No murmur, no gallop. RESPIRATORY SYSTEM: Normal AP diameter. No accessory muscle use. No wheezing, no crackles. ABDOMEN: Soft, bowel sounds present, nontender, no distention. CENTRAL NERVOUS SYSTEM: No facial droop. Speech is clear. Obeys simple commands. Moves extremities. EXTREMITIES: No edema, no erythema seen. Desquamation of skin all over patient's body. Results & Data Results & Data ([facility]) Vital Signs (Past 12 Hours) Vital Signs Temp Pulse Pulse Resp BP Pulse Ox 03/12/21 17:00 80 03/12/21 15:21 36.3 C L 74 18 142/76 H 100 03/12/21 11:49 36.4 C L 77 20 130/77 100 03/12/21 09:58 84 03/12/21 07:43 37.0 C 82 20 115/64 100
--- NOTE | 2021-03-12 19:41 | Communication Note ---
Date of Service: March 12, 2021 7:40 PM Notified by RN of 2.1 to 2.5 seconds of sinus pauses. Patient sleeping as per RN. Coreg dose had been decreased from 12.5 mg BID to 6.25 mg BID yesterday after cardiac rate noted to be 30s last 03/11. AP Episodic bradycardia, sinus pauses Patient asymptomatic. Hold Coreg for now Consult cardiology Re: Episodic bradycardia Will relay to AM provider.
[2021-03-12] MEDS: TAMSULOSIN HCL 0.4 MG CAP PO SCH (20:13)
[2021-03-12] MEDS: TRAVOPROST Z 0.004% OPH SOLN 2.5 ML BTL OPB SCH (20:17)
[2021-03-13] MEDS: CARBOHYDRATES FOR HYPOGLYCEMIA PO PRN (07:44)
[2021-03-13] MEDS: INSULIN ASPART 100 UNITS/ML 3 ML PEN SC SCH ×4 (08:26→20:23)
[2021-03-13] MEDS: FAMOTIDINE 20 MG TAB PO SCH ×2 (08:29→20:19)
[2021-03-13] MEDS: amLODIPine BESYLATE 5 MG TAB PO SCH (08:29)
[2021-03-13] MEDS: ASCORBIC ACID 500 MG TAB PO SCH (08:29)
[2021-03-13] MEDS: ASPIRIN 81 MG ECTAB PO SCH (08:29)
[2021-03-13] MEDS: FOLIC ACID 1 MG in SYRINGE 9.8 ML IV SCH (08:31)
[2021-03-13] MEDS: THIAMINE HCL 100 MG in SYRINGE 9 ML IV SCH (08:31)
[2021-03-13 09:01] LABS: Hematocrit (blood only) 27.9 % (42-52); Hemoglobin 9.4 g/dL (14.0-18.0); Mean Corpuscular Hemoglobin 30.8 pg (25-34); Mean Corpuscular Hgb Conc 33.7 g/dL (32-36); Mean Corpuscular Volume 91.5 fL (80-100); Mean Platelet Volume 9.4 fL (7.4-10.4); Platelet Count 274 K/uL (130-400); RDW Coefficient of Variation 14.5 % (11.5-14.5); RDW Standard Deviation 47.9 fL (36.4-46.3); Red Blood Count 3.05 M/uL (4.7-6.1)
[2021-03-13 09:23] LABS: BUN Creatinine Ratio 16.3 (10-20); Calcium 8.6 mg/dl (8.5-10.1); Creatinine Clr Calc Pharmacy 47.9 ml/min; Est GFR (African American) 41.3 ml/min; Est GFR (Non-African American) 35.6 ml/min; Potassium 4.9 mmol/L (3.5-5.1)
--- NOTE | 2021-03-13 09:46 | Pharmacy Report ---
Pharmacy Glycemic Short Note 2 - Date of Service March 13, 2021 - Glycemic Short BSG Results (Last 24 hours): 03/12/21 03/12/21 03/12/21 11:34 16:19 20:16 Glucose POC Glucose 96 134 H 97 03/13/21 03/13/21 03/13/21 07:38 07:40 08:07 Glucose POC Glucose 57 L* 62 L* 80 03/13/21 08:41 Glucose 104 H POC Glucose OUTPATIENT ANTIDIABETIC REGIMEN: * Victoza 1.2mg SC HS * HbA1c = 6.9% (02/05/21) ASSESSMENT: 03/13 * Pt has received 19 units of insulin over the past 24hrs * 12 units of basal with Lantus * 7 units of bolus with NovoLog * BSGs 07-71-03-134-97-56/62 mg/dl * AM fasting BSG LOW this morning at 56/62. Will hold basal insulin this morning and give a reduced dose with lunch * No changes needed to CF/CR 03/12: * Madan received a total of 33 units of insulin yesterday (14 units basal + 19 units bolus) * BSGs were acceptable: 77-878-48-158 mg/dL * Episode hypoglycemia at dinner last evening. BSG was 61 mg/dL then improved to 83 mg/dL after 30 g of CHO were administered. * Fasting BSG well controlled at 82 mg/dL this AM. * Given hypoglycemia last night and trend down in fastings, will decrease basal insulin by ~15% today. Will also loosen carb coverage. 03/10: * Patient received total of 22 units of insulin yesterday, of which 20 units were basal insulin * Fasting BSG this AM 88 mg/dL - plan to scale back on basal today as PO intake very poor within last 24 hrs PLAN FOR INPATIENT GLYCEMIC CONTROL: * Hold outpatient Victoza * Basal insulin - decrease * Lantus 8 units SC daily; hold this morning and give first dose with lunch * Bolus insulin * NovoLog per scale ACHS or Q6hrs while NPO * Goal Range: Low 110 mg/dL - High 140 mg/dL * Correction Factor: 25 mg/dL/unit * Nutritional / Prandial insulin per carb ratio of 1 unit per 9 grams CHO consumed PLAN FOR DISCHARGE: * HbA1c was 6.9% in February 2021 which is at goal for this patient. * Per notes, patient developed JAVON just prior to discharge from [facility] 03/03 and at that time glimepiride and metformin had been stopped. Victoza only med listed at home prior to arrival here * Likely could continue agent on discharge. Would ensure patient checking blood sugars at home at least daily. Would recommend followup if experiencing any hypo/hyperglycemia. Reinitiation of glimepiride/metformin could be assessed outpatient by PCP once renal function improves. Patient still with JAVON at this time and very poor oral intake to no oral intake
--- NOTE | 2021-03-13 10:08 | Nephrology Progress Note ---
Date of Service March 13, 2021 Assessment & Plan Admission and Anticipated Discharge Date Admission Date: March 06, 2021 Subjective Subjective Subjective Assessment & Plan (1) Acute on chronic renal failure: nonoliguric javon on ckd 3 in the setting of bacteremia from MRSA. baseline creatinine is 1.4; has been very slowly improving last few days. Creat just under 2now. It may take weeks to recover. CK wnl; ua w/ blood and protein but no infection -daily bmp --meds ok for now (2) Hematuria with proteinuria: new and may reflect recent/ongoing JAVON and critical illness; would not work up further at this point unless persistent wks to months. serology has been sent but very very low chances of this being Acute GN. Could be Post infectious GN but c3 was normal. Anti Histone was moderately +ve UMESH weakly +ve ---most likely not clinically significant. Will follow that as outpt. Can be worked up outpt with repeat anti Histone and repeat urine tests. No renal biopsy for now Labs --reviewed in detail--Discussed in A/p S---hard to get hisotry from patient. Denies Any complaints Physical Exam Constitutional: well developed, well nourished, cooperative no acute distress. Hard to get history. Neck: no nuchal rigidity Respiratory: normal respiratory effort Auscultation: + diminished lung sounds Cardiovascular: Rate/Rhythm: regular rate and regular rhythm Heart Sounds: normal S1 and normal S2 Extremities: + edema Gastrointestinal (Abdomen) abdomen soft; abdomen nontender Musculoskeletal: Extremities: has 1+ edema Skin: scale/mild desquamation BL palms; dime sized ulcer L forearm clean base Neurologic: ervin, appropriate speech but markedly delayed psychomotor processing, no tremor Psychiatric: Orientation: oriented x 3 Speech: + abnormal rate/rhythm/volume of speech Results & Data ([facility]) Vital Signs (Past 12 Hours) Vital Signs Temp Pulse Pulse Resp BP Pulse Ox 03/13/21 07:53 36.4 C L 84 20 163/83 H 98 03/13/21 04:51 35.8 C L 84 18 164/89 H 100 03/13/21 03:23 60 11 L 98 03/12/21 23:53 35.7 C L 62 16 136/75 100 03/12/21 23:20 62 03/12/21 22:21 70 11 L 98
--- NOTE | 2021-03-13 10:08 | Cardiology Consultation ---
Date of Consultation March 13, 2021 Assessment & Plan (1) Bradycardia: (2) Hypertensive heart disease: Telemetry overnight demonstrated mild bradycardia with longest R to R interval's following PACs within normal limits. Resume carvedilol at 6.25 mg a.m. 3.125 mg p.o. p.m. Encourage CPAP usage Contact with any further question History of Present Illness Reason for Consultation: Mild bradycardia Requesting Physician: Dr. Rabago Attending Physician: Roberta Rabago MD History of Present Illness Patient is a 70-year-old male with complex recent history and underlying issues to include 1. Longstanding hypertension with hypertensive heart disease, left hypertrop hy 2. Dyslipidemia 3. Type 2 diabetes mellitus 4. History of obstructive sleep apnea Patient with very complex recent history and hospitalizations as outlined in admission H&P and notes. Treated for an acute encephalopathy, and MSSA bacteremia. Currently hospitalized for renal insufficiency and mental status changes. Telemetry overnight noted to have longest R-R interval is 2 to 2.5 seconds post PAC no significant pauses or conduction system abnormalities. Carvedilol held due to concerns. Patient denies any chest pain shortness of breath syncope or near syncope. Blood pressures have been normal to elevated. No current fevers or chills. Extensive cardiovascular work-up in the recent past including transesophageal echocardiogram unremarkable Allergies Allergy/AdvReac Type Severity Reaction Status Date / Time lisinopril Allergy Severe Angioedema Verified 03/05/21 20:26 prednisone Allergy Severe FACE, Verified 03/05/21 20:26 LIPS, & TONGUE SWELLS Home Medications Medication Instructions Recorded Confirmed Type aspirin 81 mg tablet,delayed 81 mg PO DAILY 02/04/21 03/05/21 History release atorvastatin 10 mg tablet 10 mg PO HS 02/04/21 03/05/21 History carvedilol 12.5 mg tablet 12.5 mg PO BID 02/04/21 03/05/21 History ergocalciferol (vitamin D2) 1,250 1,250 mcg PO MONTHLY 02/04/21 03/05/21 History mcg (50,000 unit) capsule (Vitamin D2) liraglutide 0.6 mg/0.1 mL (18 mg/3 1.2 mg SUBCUT QPM 02/04/21 03/05/21 History mL) subcutaneous pen injector (Victoza 3-Everette) travoprost 0.004 % eye drops 1 p OPB HS 02/04/21 03/05/21 History famotidine 20 mg tablet (Pepcid) 20 mg PO BID 02/16/21 03/05/21 History amlodipine 10 mg tablet 10 mg PO DAILY 03/05/21 03/05/21 History ascorbic acid (vitamin C) 1,000 mg 1 g PO DAILY 03/05/21 03/05/21 History tablet (Vitamin C) diphenhydramine HCl 25 mg capsule 25 mg PO Q6H PRN 03/05/21 03/05/21 History (Benadryl) tamsulosin 0.4 mg capsule 0.4 mg PO HS 03/05/21 03/05/21 History Patient History Medical History CKD (chronic kidney disease), stage III Diabetes mellitus, type II Diabetic retinopathy Dyslipidemia Femoral fracture massive trauma to femur-repaired with hardware-removed after 2 yrs Gout H/O: stroke Hypertension Near syncope Sleep apnea "CPAP" Spongiotic dermatitis Surgical History Hx of colonoscopy Family History Other Cancer Coronary heart disease Diabetes Hypertension Social History Smoking Status: Never smoker Hx Alcohol Use: No Hx Substance Use: No Preferred Language: Wolof Communication Ability: Effective 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 Beliefs That Will Affect Care: None Current Living Situation: Spouse and Family Other Information That Helps Us Care for You: No Feels Safe at Home: Yes Safety Concerns: Feels Safe At This Time Review of Systems Review of Systems: All systems reviewed & are unremarkable except as noted in HPI & below Physical Exam Constitutional: WD/WN, vitals as above + obese; no acute distress Eyes: PERRL, conjunctivae normal, anicteric sclerae ENMT: external ear and nose normal, oropharynx normal Neck: trachea midline, no thyromegaly Respiratory: normal respiratory effort, lungs clear to auscultation Cardiovascular: Rate/Rhythm: regular rate and regular rhythm Heart Sounds: normal S1 and normal S2; no gallop and no murmur Palpation: normal PMI Vessels: normal carotid upstroke and radial pulses present; no JVD and no carotid bruit Extremities: no edema Gastrointestinal (Abdomen): normal bowel sounds, soft, nontender, no hepatosplenomegaly Musculoskeletal: no cyanosis or clubbing, extremities motor strength 5/5 Skin: Diffuse desquamation Neurologic: PERRL, EOMI, accommodation nl, no face palsy, no dysarthria Psychiatric: Affect: + flat affect Results & Data ([facility]) Vital Signs (Past 12 Hours) Vital Signs Temp Pulse Pulse Resp BP Pulse Ox 03/13/21 07:53 36.4 C L 84 20 163/83 H 98 03/13/21 04:51 35.8 C L 84 18 164/89 H 100 03/13/21 03:23 60 11 L 98 03/12/21 23:53 35.7 C L 62 16 136/75 100 03/12/21 23:20 62 03/12/21 22:21 70 11 L 98 Laboratory Results Laboratory Results - last 24 hr 03/12/21 03/12/21 03/12/21 10:20 10:20 11:34 WBC RBC Hgb Hct MCV MCH MCHC RDW Std Deviation RDW Coeff of Kaelyn Plt Count MPV Sodium Potassium Chloride Carbon Dioxide Anion Gap BUN Creatinine Est Cr Clr Drug Dosing Est GFR ( Amer) Est GFR (Non-Af Amer) BUN/Creatinine Ratio Glucose POC Glucose 96 Calcium Iron 37 TIBC 170 L Transferrin 140 L Transferrin % Sat 19 L Ferritin 425.4 H Vitamin B12 1306 H Folate 17.90 03/12/21 03/12/21 03/13/21 16:19 20:16 07:38 WBC RBC Hgb Hct MCV MCH MCHC RDW Std Deviation RDW Coeff of Kaelyn Plt Count MPV Sodium Potassium Chloride Carbon Dioxide Anion Gap BUN Creatinine Est Cr Clr Drug Dosing Est GFR ( Amer) Est GFR (Non-Af Amer) BUN/Creatinine Ratio Glucose POC Glucose 134 H 97 57 L* Calcium Iron TIBC Transferrin Transferrin % Sat Ferritin Vitamin B12 Folate 03/13/21 03/13/21 03/13/21 07:40 08:07 08:41 WBC 4.20 L RBC 3.05 L Hgb 9.4 L Hct 27.9 L MCV 91.5 MCH 30.8 MCHC 33.7 RDW Std Deviation 47.9 H RDW Coeff of Kaelyn 14.5 Plt Count 274 MPV 9.4 Sodium Potassium Chloride Carbon Dioxide Anion Gap BUN Creatinine Est Cr Clr Drug Dosing Est GFR ( Amer) Est GFR (Non-Af Amer) BUN/Creatinine Ratio Glucose POC Glucose 62 L* 80 Calcium Iron TIBC Transferrin Transferrin % Sat Ferritin Vitamin B12 Folate 03/13/21 08:41 WBC RBC Hgb Hct MCV MCH MCHC RDW Std Deviation RDW Coeff of Kaelyn Plt Count MPV Sodium 142 Potassium 4.9 Chloride 114 H Carbon Dioxide 24 Anion Gap 4.0 BUN 30 H Creatinine 1.87 H Est Cr Clr Drug Dosing 47.9 Est GFR ( Amer) 41.3 Est GFR (Non-Af Amer) 35.6 BUN/Creatinine Ratio 16.3 Glucose 104 H POC Glucose Calcium 8.6 Iron TIBC Transferrin Transferrin % Sat Ferritin Vitamin B12 Folate Diagnostic Findings Transesophageal echocardiogram 02/24/2021 performed for bacteremia The qualitative LV ejection fraction is 60-64% (normal). No LV segmental wall motion abnormalities. No vegetations were visualized. Aortic atherosclerosis is mild.
[2021-03-13] MEDS: carvediloL 6.25 MG TAB PO SCH (10:40)
[2021-03-13] MEDS ORDERED: INSULIN GLARGINE SOLOSTAR 100 UNITS/ML 3 ML PEN SC SCH (11:30)
--- NOTE | 2021-03-13 12:02 | Hospitalist Progress Note ---
Date of Service March 13, 2021 Assessment & Plan (1) Weakness: (2) Encephalopathy: (3) Hematuria with proteinuria: (4) Acute on chronic renal failure: (5) Spongiotic dermatitis: Plan: Mr. Burroughs is a 70-year-old man who presents to the hospital with worsening w eakness, falls and questionable confusion at home since being discharged from the hospital in [place] on 03/03 is being managed for the following: #. Weakness: Likely multifactorial including possible persistent underlying medical issue or post infectious glomerulonephritis(see below) or recent rhabdomyolysis after septic shock a couple of weeks ago (CK trending down), etc, on top of physical deconditioning with recent prolonged hospitalization and prolonged illness. Will cont workup on these issues below, and c/w inpatient PT and OT. #. 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 Pt evaluated by neurology at [place] Per review of the notes from February 21, reviewed - MRI at outside hospital ([facility]), which does show a cerebellar infarct and bilateral basal ganglia oleary ges. LP at outside hospital ([facility]) was unremarkable and LTM has been negative. The cause of his encephalopathy is most likely hospital delirium and this should continue to improve daily. He has a lung mass so a paraneoplastic process is possible but his LP was negative. MRI does show multifocal infarcts in bilateral basal ganglia can contribute to confusion. Would recommend CTA head and neck and potentially CLARK given the likely cardiogenic source of multifocal strokes. EEG done in [place], was not concerning for seizure, showed mild diffuse encephalopathy Vitamin B12 WNL, folic acid slightly low, being replaced. Neurology consulted: Likely polyfactorial encephalopathy [post hypoxic with superimposed septic encephalopathy]. Agrees with supplemental folate and thiamine. Recommends holding statin which might be contributing to weakness. EEG done which revealed mild generalized abnormality consistent with a nonspecific nonfocal encephalopathy without associated potentially epileptiform activity. 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 A nerve conduction EMG should be performed as an outpatient. #. JAVON on CKD stage 3 #. Hematuria with Proteinuria JAVON on CKD stage 3 Nonoliguric. baseline creatinine is 1.4; has been plateau'd at about 2 since 02/28. may take weeks to recover. CK wnl; ua w/ blood and protein but no infection Nephrology on board. Hematuria with proteinuria is new. No clear UTI present, however, urinary incontinence noted by . Per nephro - would not work up further at this point unless persistent wks to months Notably with immune workup last admission--normal complement levels, positive UMESH. Can be worked up outpatient with repeat antihistone and repeat urine test. #. 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 This has overall improved with some persistent desquamation. Per he gets no steroid creams and uses petrolatum TID all over his skin. #. Bradycardia Patient having bradycardia overnight in 40s to 50s, cardiology was consulted overnight. Carvedilol held due to concerns. Cardiology on board: Resume carvedilol at 6.25 mg every morning and 3.125 mg every afternoon. #. Diabetes mellitus, type II: Developed JAVON just prior to discharge from [facility] on 03/03 and glimepiride and metformin were stopped. He remains on Victoza daily injections. Will utilize basal bolus insulin while hospitalized. A1C recently checked and at goal. #. Lung mass: [id number] solid pulmonary nodule of the right middle lobe, cont to follow this per guidelines as outpatient. #. Hypertension: around goal, cont amlodipine, carvedilol per home regimen. #. Sleep apnea: CPAP at home settings. #. DVT prophylaxis: SCDs-hold chemoprophylaxis in setting of ?gross hematuria pending further workup. Full Code Dispo-to [facility] tele. PT/OT to assess and cm to help with disposition. He has failed a trial of being at home with home health and needs additional care at this time. PT/OT recommending inpatient rehab. Awaiting placement. Stable to go. 03/11 Called patient's Debra [[phone]] and updated about the plan of care. She seemed understanding and was agreeable. 03/13 did peer to peer for acute rehab, denied, instead approved for SNF for 1 week. Admission and Anticipated Discharge Date Admission Date: March 06, 2021 Subjective Patient was lying in bed, awake and alert, on room air, NAD, AOx3 but slow to respond. Patient is eating okay. Patient denies any fever/chest pain/headache/dizziness/any other review of symptoms. Patient looks better. Called [id number] line for [facility], accepted for SNF for 1 week and then will need reevaluation for further stay. Did not accept for acute rehab. Overnight, patient went into bradycardia and was consulted on pulmonologist/intensivist. Talk with telemetryhe went into bradycardia in 40s to 50s. Physical Exam 2 Physical Exam: GENERAL: AOx3. NAD, on RA. HEENT: No pallor, no icterus. Pupils equal, round and reactive to light. Oral mucosa moist. NECK: No JVD, no neck masses. HEART: S1 and S2 heard. Regular rate and rhythm. No murmur, no gallop. RESPIRATORY SYSTEM: Normal AP diameter. No accessory muscle use. No wheezing, no crackles. ABDOMEN: Soft, bowel sounds present, nontender, no distention. CENTRAL NERVOUS SYSTEM: No facial droop. Speech is clear. Obeys simple commands. Moves extremities. EXTREMITIES: 1+ edema, no erythema seen. Desquamation of skin all over patient's body. Few dried scabs over the knees. Results & Data Results & Data ([facility]) Vital Signs (Past 12 Hours) Vital Signs Temp Pulse Pulse Resp BP Pulse Ox 03/13/21 11:29 36.5 C 77 20 158/76 H 98 03/13/21 07:53 36.4 C L 84 20 163/83 H 98 03/13/21 04:51 35.8 C L 84 18 164/89 H 100 03/13/21 03:23 60 11 L 98
[2021-03-13] MEDS: TAMSULOSIN HCL 0.4 MG CAP PO SCH (20:18)
[2021-03-13] MEDS: TRAVOPROST Z 0.004% OPH SOLN 2.5 ML BTL OPB SCH (20:31)
[2021-03-13] MEDS ORDERED: carvediloL 3.125 MG TAB PO SCH (21:00)
[2021-03-14 07:07] LABS: Hematocrit (blood only) 27.4 % (42-52); Hemoglobin 9.3 g/dL (14.0-18.0); Mean Corpuscular Hemoglobin 31.2 pg (25-34); Mean Corpuscular Hgb Conc 33.9 g/dL (32-36); Mean Corpuscular Volume 91.9 fL (80-100); Platelet Count 261 K/uL (130-400); RDW Coefficient of Variation 14.4 % (11.5-14.5); RDW Standard Deviation 48.4 fL (36.4-46.3); Red Blood Count 2.98 M/uL (4.7-6.1); White Blood Count 4.39 K/uL (4.8-10.8)
[2021-03-14 07:25] LABS: BUN Creatinine Ratio 15.5 (10-20); Calcium 8.8 mg/dl (8.5-10.1); Creatinine Clr Calc Pharmacy 52.3 ml/min; Est GFR (Non-African American) 40.5 ml/min; Magnesium 2.3 mg/dl (1.8-2.4); Potassium 4.9 mmol/L (3.5-5.1)
[2021-03-14] MEDS ORDERED: INSULIN GLARGINE SOLOSTAR 100 UNITS/ML 3 ML PEN SC SCH (09:00)
[2021-03-14] MEDS: INSULIN ASPART 100 UNITS/ML 3 ML PEN SC SCH ×4 (10:40→21:41)
[2021-03-14] MEDS: EUCERIN CR 120 GM JAR EXT PRN (10:58)
[2021-03-14] MEDS: carvediloL 6.25 MG TAB PO SCH ×2 (10:59→21:54)
[2021-03-14] MEDS: ASPIRIN 81 MG ECTAB PO SCH (10:59)
[2021-03-14] MEDS: ASCORBIC ACID 500 MG TAB PO SCH (11:00)
[2021-03-14] MEDS: amLODIPine BESYLATE 5 MG TAB PO SCH (11:00)
[2021-03-14] MEDS: FAMOTIDINE 20 MG TAB PO SCH ×2 (11:01→21:54)
[2021-03-14] MEDS: FOLIC ACID 1 MG in SYRINGE 9.8 ML IV SCH (11:01)
[2021-03-14] MEDS: THIAMINE HCL 100 MG in SYRINGE 9 ML IV SCH (11:02)
--- NOTE | 2021-03-14 12:13 | Pharmacy Report ---
Pharmacy Glycemic Short Note 2 - Date of Service March 14, 2021 - Glycemic Short BSG Results (Last 24 hours): 03/13/21 03/13/21 03/14/21 16:20 20:00 06:43 Glucose 74 POC Glucose 110 H 120 H 03/14/21 03/14/21 07:29 11:58 Glucose POC Glucose 74 147 H OUTPATIENT ANTIDIABETIC REGIMEN: * Victoza 1.2mg SC HS * HbA1c = 6.9% (02/05/21) ASSESSMENT: 03/14 * Pt has received 34 units of insulin over the past 24hrs * 8 units of basal with Lantus * 16 units of bolus with NovoLog * BSGs in goal range since decreasing Lantus yesterday- however, they are still on the low end of the range. Will further reduce Lantus from 8 units to 5 units and continue to titrate based on BSG trends. 03/13 * Pt has received 19 units of insulin over the past 24hrs * 12 units of basal with Lantus * 7 units of bolus with NovoLog * BSGs 40-36-29-134-97-56/62 mg/dl * AM fasting BSG LOW this morning at 56/62. Will hold basal insulin this morning and give a reduced dose with lunch * No changes needed to CF/CR 03/12: * Madan received a total of 33 units of insulin yesterday (14 units basal + 19 units bolus) * BSGs were acceptable: 86-952-89-158 mg/dL * Episode hypoglycemia at dinner last evening. BSG was 61 mg/dL then improved to 83 mg/dL after 30 g of CHO were administered. * Fasting BSG well controlled at 82 mg/dL this AM. * Given hypoglycemia last night and trend down in fastings, will decrease basal insulin by ~15% today. Will also loosen carb coverage. 03/10: * Patient received total of 22 units of insulin yesterday, of which 20 units were basal insulin * Fasting BSG this AM 88 mg/dL - plan to scale back on basal today as PO intake very poor within last 24 hrs PLAN FOR INPATIENT GLYCEMIC CONTROL: * Hold outpatient Victoza * Basal insulin - decrease * Lantus 5 units SC daily * Bolus insulin * NovoLog per scale ACHS or Q6hrs while NPO * Goal Range: Low 110 mg/dL - High 140 mg/dL * Correction Factor: 25 mg/dL/unit * Nutritional / Prandial insulin per carb ratio of 1 unit per 9 grams CHO consumed PLAN FOR DISCHARGE: * HbA1c was 6.9% in February 2021 which is at goal for this patient. * Per notes, patient developed JAVON just prior to discharge from [facility] 03/03 and at that time glimepiride and metformin had been stopped. Victoza only med listed at home prior to arrival here * Likely could continue agent on discharge. Would ensure patient checking blood sugars at home at least daily. Would recommend followup if experiencing any hypo/hyperglycemia. Reinitiation of glimepiride/metformin could be assessed outpatient by PCP once renal function improves. Patient still with JAVON at this time and very poor oral intake to no oral intake
--- NOTE | 2021-03-14 13:07 | Cardiology Progress Note ---
Date of Service March 14, 2021 Assessment & Plan (1) Bradycardia: (2) Hypertensive heart disease: Plan: Telemetry overnight demonstrated no bradycardia Resume carvedilol at 6.25 mg a.m. twice daily dose Contact with any further question Admission and Anticipated Discharge Date Admission Date: March 06, 2021 Subjective Patient was seen and examined, chart, medications, telemetry reviewed. No cardiac complaints today. No arrhythmias on telemetry Physical Exam Constitutional: WD/WN, vitals as above + obese; no acute distress Eyes: PERRL, conjunctivae normal, anicteric sclerae ENMT: external ear and nose normal, oropharynx normal Neck: trachea midline, no thyromegaly Respiratory: normal respiratory effort, lungs clear to auscultation Cardiovascular: Rate/Rhythm: regular rate and regular rhythm Heart Sounds: normal S1 and normal S2; no gallop and no murmur Palpation: normal PMI Vessels: normal carotid upstroke and radial pulses present; no JVD and no carotid bruit Extremities: no edema Gastrointestinal (Abdomen): normal bowel sounds, soft, nontender, no hepatosplenomegaly Musculoskeletal: no cyanosis or clubbing, extremities motor strength 5/5 Skin: no rashes, warm and dry Neurologic: PERRL, EOMI, accommodation nl, no face palsy, no dysarthria Psychiatric: A+Ox3, euthymic affect Affect: + flat affect Results & Data ([facility]) Vital Signs (Past 12 Hours) Vital Signs Temp Pulse Resp BP Pulse Ox 03/14/21 11:39 36.1 C L 82 16 146/78 H 100 03/14/21 07:48 36.4 C L 82 16 137/72 100 03/14/21 04:01 36.4 C L 83 18 165/76 H 97 Laboratory Results Laboratory Results - last 24 hr 03/13/21 03/13/21 03/14/21 16:20 20:00 06:43 WBC 4.39 L RBC 2.98 L Hgb 9.3 L Hct 27.4 L MCV 91.9 MCH 31.2 MCHC 33.9 RDW Std Deviation 48.4 H RDW Coeff of Kaelyn 14.4 Plt Count 261 MPV 9.0 Sodium Potassium Chloride Carbon Dioxide Anion Gap BUN Creatinine Est Cr Clr Drug Dosing Est GFR ( Amer) Est GFR (Non-Af Amer) BUN/Creatinine Ratio Glucose POC Glucose 110 H 120 H Calcium Magnesium 03/14/21 03/14/21 03/14/21 06:43 07:29 11:58 WBC RBC Hgb Hct MCV MCH MCHC RDW Std Deviation RDW Coeff of Kaelyn Plt Count MPV Sodium 144 Potassium 4.9 Chloride 115 H Carbon Dioxide 25 Anion Gap 4.0 BUN 26 H Creatinine 1.68 H Est Cr Clr Drug Dosing 52.3 Est GFR ( Amer) 47.0 Est GFR (Non-Af Amer) 40.5 BUN/Creatinine Ratio 15.5 Glucose 74 POC Glucose 74 147 H Calcium 8.8 Magnesium 2.3
--- NOTE | 2021-03-14 14:33 | Hospitalist Progress Note ---
Date of Service March 14, 2021 Assessment & Plan (1) Weakness: (2) Encephalopathy: (3) Hematuria with proteinuria: (4) Acute on chronic renal failure: (5) Spongiotic dermatitis: Plan: Mr. Burroughs is a 70-year-old man who presents to the hospital with worsening w eakness, falls and questionable confusion at home since being discharged from the hospital in [place] on 03/03 is being managed for the following: #. Weakness: Likely multifactorial including possible persistent underlying medical issue or post infectious glomerulonephritis(see below) or recent rhabdomyolysis after septic shock a couple of weeks ago (CK trending down), etc, on top of physical deconditioning with recent prolonged hospitalization and prolonged illness. Will cont workup on these issues below, and c/w inpatient PT and OT. #. 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 -Resolved Pt evaluated by neurology at [place] Per review of the notes from February 21, reviewed - MRI at outside hospital ([facility]), which does show a cerebellar infarct and bilateral basal ganglia changes. LP at outside hospital ([facility]) was unremarkable and LTM has been negative. The cause of his encephalopathy is most likely hospital delirium and this should continue to improve daily. He has a lung mass so a paraneoplastic process is possible but his LP was negative. MRI does show multifocal infarcts in bilateral basal ganglia can contribute to confusion. Would recommend CTA head and neck and potentially CLARK given the likely cardiogenic source of multifocal strokes. EEG done in [place], was not concerning for seizure, showed mild diffuse encephalopathy Vitamin B12 WNL, folic acid slightly low, being replaced. Neurology consulted: Likely polyfactorial encephalopathy [post hypoxic with superimposed septic encephalopathy]. Agrees with supplemental folate and thiamine. Recommends holding statin which might be contributing to weakness. EEG done which revealed mild generalized abnormality consistent with a nonspecific nonfocal encephalopathy without associated potentially epileptiform activity. 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 A nerve conduction EMG should be performed as an outpatient. #. JAVON on CKD stage 3 #. Hematuria with Proteinuria JAVON on CKD stage 3 Nonoliguric. baseline c creatinine trending down. Reatinine is 1.4; has been plateau'd at about 2 since 02/28. may take weeks to recover. CK wnl; ua w/ blood and protein but no infection Nephrology on board. Creatinine trending down slowly. Hematuria with proteinuria is new. No clear UTI present, however, urinary incontinence noted by . Per nephro - would not work up further at this point unless persistent wks to months Notably with immune workup last admission--normal complement levels, positive UMESH. Can be worked up outpatient with repeat antihistone and repeat urine test. #. 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 This has overall improved with some persistent desquamation. Per he gets no steroid creams and uses petrolatum TID all over his skin. c/w with Eucerin #. Bradycardia Patient having bradycardia overnight in 40s to 50s, cardiology was consulted overnight. Carvedilol held due to concerns. Cardiology on board: Resume carvedilol at 6.25 mg BID. No bradycardia overnight per telemetry. Patient can be off of telemetry. #. Diabetes mellitus, type II: Developed JAVON just prior to discharge from [facility] on 03/03 and glimepiride and metformin were stopped. He remains on Victoza daily injections. Will utilize basal bolus insulin while hospitalized. A1C recently checked and at goal. Glycemic Pharmacy on board. #. Lung mass: [id number] solid pulmonary nodule of the right middle lobe, cont to follow this per guidelines as outpatient. #. Hypertension: around goal, cont amlodipine, carvedilol per home regimen. #. Sleep apnea: CPAP at home settings. #. DVT prophylaxis: SCDs-will put him on heparin, closely monitor Hb. Full Code Dispo-to [employer]. PT/OT to assess and cm to help with disposition. He has failed a trial of being at home with home health and needs additional care at this time. PT/OT recommending inpatient rehab. Awaiting placement. Stable to go. CM working on [facility] placement. 03/11 Called patient's Debra [[phone]] and updated about the plan of care. She seemed understanding and was agreeable. 03/13 did peer to peer for acute rehab, denied, instead approved for SNF for 1 w [place]. Admission and Anticipated Discharge Date Admission Date: March 06, 2021 Subjective Patient was lying in bed, on room air, NAD, no issues overnight. Patient is AO x3 at bedside, denies any pain/palpitations/dizziness/headache/other review of symptoms. Physical Exam Physical Exam: GENERAL: AOx3. NAD, on RA. HEENT: No pallor, no icterus. Pupils equal, round and reactive to light. Oral mucosa moist. NECK: No JVD, no neck masses. HEART: S1 and S2 heard. Regular rate and rhythm. No murmur, no gallop. RESPIRATORY SYSTEM: Normal AP diameter. No accessory muscle use. No wheezing, no crackles. ABDOMEN: Soft, bowel sounds present, nontender, no distention. CENTRAL NERVOUS SYSTEM: No facial droop. Speech is clear. Obeys simple commands. Moves extremities. EXTREMITIES: Trace edema, no erythema seen. Desquamation of skin all over patient's body. Few dried scabs over the knees. Results & Data Results & Data ([facility]) Vital Signs (Past 12 Hours) Vital Signs Temp Pulse Resp BP Pulse Ox 03/14/21 11:39 36.1 C L 82 16 146/78 H 100 03/14/21 07:48 36.4 C L 82 16 137/72 100 03/14/21 04:01 36.4 C L 83 18 165/76 H 97
[2021-03-14] MEDS: TAMSULOSIN HCL 0.4 MG CAP PO SCH (21:54)
[2021-03-14] MEDS: HEPARIN SOD 5,000 UNIT/0.5 ML VIAL SQ SCH (21:56)
[2021-03-14] MEDS: DOCUSATE SODIUM 100 MG CAP PO SCH (21:56)
[2021-03-14] MEDS: TRAVOPROST Z 0.004% OPH SOLN 2.5 ML BTL OPB SCH (21:56)
[2021-03-14] MEDS: ATORVASTATIN 10 MG TAB PO SCH (22:09)
[2021-03-15] MEDS: carvediloL 6.25 MG TAB PO SCH ×2 (08:58→21:03)
[2021-03-15] MEDS: DOCUSATE SODIUM 100 MG CAP PO SCH ×2 (08:58→21:03)
[2021-03-15] MEDS: HEPARIN SOD 5,000 UNIT/0.5 ML VIAL SQ SCH ×2 (08:59→21:04)
[2021-03-15] MEDS: ASPIRIN 81 MG ECTAB PO SCH (09:00)
[2021-03-15] MEDS: ASCORBIC ACID 500 MG TAB PO SCH (09:00)
[2021-03-15] MEDS: amLODIPine BESYLATE 5 MG TAB PO SCH (09:00)
[2021-03-15] MEDS: FAMOTIDINE 20 MG TAB PO SCH ×2 (09:01→21:19)
[2021-03-15] MEDS: INSULIN ASPART 100 UNITS/ML 3 ML PEN SC SCH ×4 (09:06→22:22)
[2021-03-15 09:10] LABS: BUN Creatinine Ratio 16.4 (10-20); Calcium 8.9 mg/dl (8.5-10.1); Creatinine Clr Calc Pharmacy 45.5 ml/min; Est GFR (African American) 39.7 ml/min; Est GFR (Non-African American) 34.3 ml/min
[2021-03-15] MEDS: FOLIC ACID 1 MG in SYRINGE 9.8 ML IV SCH (11:39)
[2021-03-15] MEDS: THIAMINE HCL 100 MG in SYRINGE 9 ML IV SCH (11:39)
--- NOTE | 2021-03-15 15:29 | Hospitalist Progress Note ---
Date of Service March 15, 2021 Assessment & Plan (1) Weakness: (2) Encephalopathy: (3) Hematuria with proteinuria: (4) Acute on chronic renal failure: (5) Spongiotic dermatitis: Plan: Mr. Burroughs is a 70-year-old man who presents to the hospital with worsening weakness, falls and questionable confusion at home since being discharged from the hospital in [place] on 03/03 is being managed for the following: #. Weakness: Likely multifactorial including possible persistent underlying medical issue or post infectious glomerulonephritis(see below) or recent rhabdomyolysis after septic shock a couple of weeks ago (CK trending down), etc, on top of physical deconditioning with recent prolonged hospitalization and prolonged illness. Will cont workup on these issues below, and c/w inpatient PT and OT. #. 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 -Resolved Pt evaluated by neurology at [place] Per review of the notes from February 21, reviewed - MRI at outside hospital ([facility]), which does show a cerebellar infarct and bilateral basal ganglia changes. LP at outside hospital ([facility]) was unremarkable and LTM has been negative. The cause of his encephalopathy is most likely hospital delirium and this should continue to improve daily. He has a lung mass so a paraneoplastic process is possible but his LP was negative. MRI does show multifocal infarcts in bilateral basal ganglia can contribute to confusion. Would recommend CTA hea d and neck and potentially CLARK given the likely cardiogenic source of multifocal strokes. EEG done in [place], was not concerning for seizure, showed mild diffuse encephalopathy Vitamin B12 WNL, folic acid slightly low, being replaced. Neurology consulted: Likely polyfactorial encephalopathy [post hypoxic with superimposed septic encephalopathy]. Agrees with supplemental folate and thiamine. Recommends holding statin which might be contributing to weakness. EEG done which revealed mild generalized abnormality consistent with a nonspecific nonfocal encephalopathy without associated potentially epileptiform activity. 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 A nerve conduction EMG should be performed as an outpatient. #. JAVON on CKD stage 3 #. Hematuria with Proteinuria JAVON on CKD stage 3 Nonoliguric. baseline c creatinine trending down. Reatinine is 1.4; has been plateau'd at about 2 since 02/28. may take weeks to recover. CK wnl; ua w/ blood and protein but no infection Nephrology on board. Creatinine trending down slowly. Hematuria with proteinuria is new. No clear UTI present, however, urinary incontinence noted by . Per nephro - would not work up further at this point unless persistent wks to months Notably with immune workup last admission--normal complement levels, positive UMESH. Can be worked up outpatient with repeat antihistone and repeat urine test. Slightly uptrending again. We will put him on gentle hydration. Will need outpatient BMP follow-up. #. 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 This has overall improved with some persistent desquamation. Per he gets no steroid creams and uses petrolatum TID all over his skin. c/w with Eucerin #. Bradycardia Patient having bradycardia overnight in 40s to 50s, cardiology was consulted overnight. Carvedilol held due to concerns. Cardiology on board: Resume carvedilol at 6.25 mg BID. Expected while sleeping, need not be followed. #. Diabetes mellitus, type II: Developed JAVON just prior to discharge from [facility] on 03/03 and glimepiride and metformin were stopped. He remains on Victoza daily injections. Will utilize basal bolus insulin while hospitalized. A1C recently checked and at goal. Glycemic Pharmacy on board. #. Lung mass: [id number] solid pulmonary nodule of the right middle lobe, cont to follow this per guidelines as outpatient. #. Hypertension: around goal, cont amlodipine, carvedilol per home regimen. #. Sleep apnea: CPAP at home settings. #. DVT prophylaxis: SCDs-will put him on heparin, closely monitor Hb. Full Code Dispo-to [facility]. PT/OT to assess and cm to help with disposition. He has failed a trial of being at home with home health and needs additional care at this time. PT/OT recommending inpatient rehab. Awaiting placement. Stable to go. CM working on [facility] placement. 03/11 Called patient's Debra [[phone]] and updated about the plan of care. She seemed understanding and was agreeable. 03/13 did peer to peer for acute rehab, denied, instead approved for SNF for 1 week. Admission and Anticipated Discharge Date Admission Date: March 06, 2021 Subjective Patient was lying in bed, on room air, NAD, no issues overnight. Patient is AO x3 at bedside, denies any pain/palpitations/dizziness/headache/other review of symptoms. Physical Exam Physical Exam: GENERAL: AOx3. NAD, on RA. HEENT: No pallor, no icterus. Pupils equal, round and reactive to light. Oral mucosa moist. NECK: No JVD, no neck masses. HEART: S1 and S2 heard. Regular rate and rhythm. No murmur, no gallop. RESPIRATORY SYSTEM: Normal AP diameter. No accessory muscle use. No wheezing, no crackles. ABDOMEN: Soft, bowel sounds present, nontender, no distention. CENTRAL NERVOUS SYSTEM: No facial droop. Speech is clear. Obeys simple commands. Moves extremities. EXTREMITIES: Trace edema, no erythema seen. Desquamation of skin all over patient's body. Few dried scabs over the knees. Results & Data Results & Data ([facility]) Vital Signs (Past 12 Hours) Vital Signs Temp Pulse Resp BP Pulse Ox 03/15/21 15:24 36.3 C L 78 20 152/77 H 99 03/15/21 07:35 36.1 C L 78 16 137/78 98
[2021-03-15] MEDS: LACTATED RINGER'S 1,000 ML IV SCH (17:56)
[2021-03-15] MEDS: TAMSULOSIN HCL 0.4 MG CAP PO SCH (21:03)
[2021-03-15] MEDS: ATORVASTATIN 10 MG TAB PO SCH (21:03)
[2021-03-15] MEDS: TRAVOPROST Z 0.004% OPH SOLN 2.5 ML BTL OPB SCH (21:04)
[2021-03-16] MEDS: LACTATED RINGER'S 1,000 ML IV SCH (05:16)
[2021-03-16 06:53] LABS: BUN Creatinine Ratio 17.8 (10-20); Calcium 9.2 mg/dl (8.5-10.1); Creatinine Clr Calc Pharmacy 46.7 ml/min; Est GFR (Non-African American) 35.4 ml/min
[2021-03-16] MEDS: THIAMINE HCL 100 MG in SYRINGE 9 ML IV SCH (08:34)
[2021-03-16] MEDS: ASCORBIC ACID 500 MG TAB PO SCH (08:34)
[2021-03-16] MEDS: FOLIC ACID 1 MG in SYRINGE 9.8 ML IV SCH (08:34)
[2021-03-16] MEDS: amLODIPine BESYLATE 5 MG TAB PO SCH (08:34)
[2021-03-16] MEDS: HEPARIN SOD 5,000 UNIT/0.5 ML VIAL SQ SCH ×2 (08:35→21:49)
[2021-03-16] MEDS: carvediloL 6.25 MG TAB PO SCH ×2 (08:35→21:49)
[2021-03-16] MEDS: ASPIRIN 81 MG ECTAB PO SCH (08:35)
[2021-03-16] MEDS: INSULIN ASPART 100 UNITS/ML 3 ML PEN SC SCH ×4 (08:38→22:18)
[2021-03-16] MEDS: FAMOTIDINE 20 MG TAB PO SCH ×2 (09:30→21:49)
[2021-03-16] MEDS: DOCUSATE SODIUM 100 MG CAP PO SCH ×2 (09:30→21:49)
[2021-03-16] MEDS: EUCERIN CR 120 GM JAR EXT PRN (13:02)
--- NOTE | 2021-03-16 13:05 | Nephrology Progress Note ---
Date of Service March 16, 2021 Assessment & Plan (1) Acute on chronic renal failure: Plan: nonoliguric stage 1 javon on ckd 3. baseline creatinine is 1.4; has been pl ateau'd at about 2 since 02/28. may take weeks to recover. CK wnl; ua w/ blood and protein but no infection -daily bmp -f/u pending blood cxs -meds ok for now (2) Hematuria with proteinuria: Plan: new and may reflect recent/ongoing JAVON and critical illness; would not work up further at this point unless persistent wks to months (3) Hypertension: Plan: on amlodipine max dose, coreg 12.5 mg bidl no diuretic; avoidig mario/arb d/t angio edema concerns; sbp ranging 130-150s, mostly 140s goal sbp less than 150 in hospital >may get better BP control if we stop LR Admission and Anticipated Discharge Date Admission Date: March 06, 2021 Subjective no interval acute events; wondering when he can go home; still seems confused. denies itch, denies pain, denies edema, denies sob Review of Systems Review of Systems: All systems reviewed & are unremarkable except as noted in Subjective Physical Exam Constitutional: well developed and well nourished lying flat on RA Eyes: EOM intact bilaterally ENMT: Ears: no external ear abnormality Nose: no external nose abnormality Mouth: + dry oral mucous membranes Neck: no nuchal rigidity Respiratory: normal respiratory effort Auscultation: + diminished lung sounds Cardiovascular: Rate/Rhythm: regular rate and regular rhythm Extremities: no edema Gastrointestinal (Abdomen): Inspection/Auscultation: normal bowel sounds Percussion/Palpation: abdomen soft; abdomen nontender Musculoskeletal: Extremities: strength 5/5 throughout Skin: no rashes, warm and dry Neurologic: ervin, fluent speech, no tremor Genitourinary: no tolentino Results & Data ([facility]) Vital Signs (Past 12 Hours) Vital Signs Temp Pulse Resp BP Pulse Ox 03/16/21 08:08 36.3 C L 78 16 135/83 98 Laboratory Results 03/14/21 06:43 03/16/21 06:20
--- NOTE | 2021-03-16 17:02 | Hospitalist Progress Note ---
Date of Service March 16, 2021 Assessment & Plan (1) Weakness: (2) Encephalopathy: (3) Hematuria with proteinuria: (4) Acute on chronic renal failure: (5) Spongiotic dermatitis: Plan: Mr. Burroughs is a 70-year-old man who presents to the hospital with worsening weakness, falls and questionable confusion at home since being discharged from the hospital in [place] on 03/03 is being managed for the following: #. Weakness: Likely multifactorial including possible persistent underlying medical issue or post infectious glomerulonephritis(see below) or recent rhabdomyolysis after septic shock a couple of weeks ago (CK trending down), etc, on top of physical deconditioning with recent prolonged hospitalization and prolonged illness. Will cont workup on these issues below, and c/w inpatient PT and OT. #. 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 -Resolved Pt evaluated by neurology at [place] Per review of the notes from February 21, reviewed - MRI at outside hospital ([facility]), which does show a cerebellar infarct and bilateral basal ganglia changes. LP at outside hospital ([facility]) was unremarkable and LTM has been negative. The cause of his encephalopathy is most likely hospital delirium and this should continue to improve daily. He has a lung mass so a paraneoplastic process is possible but his LP was negative. MRI does show multifocal infarcts in bilateral basal ganglia can contribute to confusion. Would recommend CTA hea d and neck and potentially CLARK given the likely cardiogenic source of multifocal strokes. EEG done in [place], was not concerning for seizure, showed mild diffuse encephalopathy Vitamin B12 WNL, folic acid slightly low, being replaced. Neurology consulted: Likely polyfactorial encephalopathy [post hypoxic with superimposed septic encephalopathy]. Agrees with supplemental folate and thiamine. Recommends holding statin which might be contributing to weakness. EEG done which revealed mild generalized abnormality consistent with a nonspecific nonfocal encephalopathy without associated potentially epileptiform activity. 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 A nerve conduction EMG should be performed as an outpatient. #. JAVON on CKD stage 3 #. Hematuria with Proteinuria AJVON on CKD stage 3 Nonoliguric. baseline c creatinine trending down. Reatinine is 1.4; has been plateau'd at about 2 since 02/28. may take weeks to recover. CK wnl; ua w/ blood and protein but no infection Nephrology on board. Creatinine trending down slowly. Hematuria with proteinuria is new. No clear UTI present, however, urinary incontinence noted by . Per nephro - would not work up further at this point unless persistent wks to months Notably with immune workup last admission--normal complement levels, positive UMESH. Can be worked up outpatient with repeat antihistone and repeat urine test. Fairly stable close to 2.0. Monitor off hydration. Will need outpatient BMP follow-up. #. 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 This has overall improved with some persistent desquamation. Per he gets no steroid creams and uses petrolatum TID all over his skin. c/w with Eucerin #. Bradycardia Patient having bradycardia overnight in 40s to 50s, cardiology was consulted overnight. Carvedilol held due to concerns. Cardiology on board: Resume carvedilol at 6.25 mg BID. Expected while sleeping, need not be followed. #. Diabetes mellitus, type II: Developed JAVON just prior to discharge from [facility] on 03/03 and glimepiride and metformin were stopped. He remains on Victoza daily injections. Will utilize basal bolus insulin while hospitalized. A1C recently checked and at goal. Glycemic Pharmacy on board. #. Lung mass: [id number] solid pulmonary nodule of the right middle lobe, cont to follow this per guidelines as outpatient. #. Hypertension: around goal, cont amlodipine, carvedilol per home regimen. #. Sleep apnea: CPAP at home settings. #. DVT prophylaxis: SCDs-continue with heparin, closely monitor Hb. Full Code Dispo-to [employer]. PT/OT to assess and cm to help with disposition. He has failed a trial of being at home with home health and needs additional care at this time. PT/OT recommending inpatient rehab. Awaiting placement. Stable to go. CM working on [facility] placement. 03/11 Called patient's Debra [[phone]] and updated about the plan of care. She seemed understanding and was agreeable. 03/13 did peer to peer for acute rehab, denied, instead approved for SNF for 1 week. Admission and Anticipated Discharge Date Admission Date: March 06, 2021 Subjective No interval change. Asking when he can go home. All ROS were reviewed and negative. Physical Exam Physical Exam: GENERAL: AOx3. NAD, on RA. HEENT: No pallor, no icterus. Pupils equal, round and reactive to light. Oral mucosa moist. NECK: No JVD, no neck masses. HEART: S1 and S2 heard. Regular rate and rhythm. No murmur, no gallop. RESPIRATORY SYSTEM: Normal AP diameter. No accessory muscle use. No wheezing, no crackles. ABDOMEN: Soft, bowel sounds present, nontender, no distention. CENTRAL NERVOUS SYSTEM: No facial droop. Speech is clear. Obeys simple commands. Moves extremities. EXTREMITIES: Trace edema, no erythema seen. Desquamation of skin all over patient's body. Few dried scabs over the knees. Results & Data Results & Data ([facility]) Vital Signs (Past 12 Hours) Vital Signs Temp Pulse Resp BP Pulse Ox 03/16/21 15:24 36.3 C L 73 18 154/83 H 100 03/16/21 08:08 36.3 C L 78 16 135/83 98
[2021-03-16] MEDS: TAMSULOSIN HCL 0.4 MG CAP PO SCH (21:49)
[2021-03-16] MEDS: ATORVASTATIN 10 MG TAB PO SCH (21:49)
[2021-03-16] MEDS: TRAVOPROST Z 0.004% OPH SOLN 2.5 ML BTL OPB SCH (22:27)
[2021-03-17 06:54] LABS: Hematocrit (blood only) 25.6 % (42-52); Hemoglobin 8.5 g/dL (14.0-18.0); Mean Corpuscular Hemoglobin 30.8 pg (25-34); Mean Corpuscular Hgb Conc 33.2 g/dL (32-36); Mean Corpuscular Volume 92.8 fL (80-100); Mean Platelet Volume 9.6 fL (7.4-10.4); Nucleated RBC # (auto) 0.02 K/uL (0-0); Nucleated RBC % (auto) 0.6 %; Platelet Count 239 K/uL (130-400); RDW Coefficient of Variation 14.6 % (11.5-14.5); RDW Standard Deviation 48.4 fL (36.4-46.3); Red Blood Count 2.76 M/uL (4.7-6.1); White Blood Count 4.06 K/uL (4.8-10.8)
[2021-03-17 07:12] LABS: BUN Creatinine Ratio 16.7 (10-20); Calcium 8.7 mg/dl (8.5-10.1); Creatinine Clr Calc Pharmacy 39.8 ml/min; Est GFR (African American) 33.7 ml/min; Est GFR (Non-African American) 29.1 ml/min; Potassium 4.9 mmol/L (3.5-5.1)
[2021-03-17] MEDS: amLODIPine BESYLATE 5 MG TAB PO SCH (09:27)
[2021-03-17] MEDS: FOLIC ACID 1 MG in SYRINGE 9.8 ML IV SCH (09:27)
[2021-03-17] MEDS: carvediloL 6.25 MG TAB PO SCH ×2 (09:27→20:48)
[2021-03-17] MEDS: ASCORBIC ACID 500 MG TAB PO SCH (09:27)
[2021-03-17] MEDS: THIAMINE HCL 100 MG in SYRINGE 9 ML IV SCH (09:27)
[2021-03-17] MEDS: HEPARIN SOD 5,000 UNIT/0.5 ML VIAL SQ SCH ×2 (09:28→20:49)
[2021-03-17] MEDS: ASPIRIN 81 MG ECTAB PO SCH (09:28)
[2021-03-17] MEDS: INSULIN ASPART 100 UNITS/ML 3 ML PEN SC SCH ×4 (09:29→22:40)
[2021-03-17] MEDS: FAMOTIDINE 20 MG TAB PO SCH ×2 (09:38→20:49)
[2021-03-17] MEDS: DOCUSATE SODIUM 100 MG CAP PO SCH ×2 (09:38→20:49)
--- NOTE | 2021-03-17 11:47 | Nephrology Progress Note ---
Date of Service March 17, 2021 Assessment & Plan (1) Acute on chronic renal failure: Plan: nonoliguric stage 1 javon on ckd 3. baseline creatinine is 1.4; has been pl ateau'd at about 2 since 02/28. may take weeks to recover. CK wnl; ua w/ blood and protein but no infection; some worsened renal function today after IVF turned off yesterday; would observe since bp is better controlled; cannot r/o need to resume IVF -daily bmp -meds ok for now >>given pruritis ordered hepatic enzymes for am (2) Hematuria with proteinuria: Plan: new and may reflect recent/ongoing JAVON and critical illness; would not work up further at this point unless persistent wks to months (3) Hypertension: Plan: on amlodipine max dose, coreg 6.25 mg bid; no diuretic; avoiding mario/arb d/t angio edema concerns; sbp ranging 130-150s, mostly 130- 140s goal sbp less than 150 in hospital >may maintain better BP control off of LR Admission and Anticipated Discharge Date Admission Date: March 06, 2021 Subjective no interval clinical events; waiting on placement Review of Systems Review of Systems: Other (limited by cognitive status; no sob, no pain, no n/v, no voiding concerns; + itch) Physical Exam Constitutional: well developed and well nourished Eyes: EOM intact bilaterally ENMT: Ears: no external ear abnormality Nose: no external nose abnormality Mouth: + dry oral mucous membranes Neck: no nuchal rigidity Respiratory: normal respiratory effort Auscultation: + diminished lung sounds Cardiovascular: Rate/Rhythm: regular rate and regular rhythm Extremities: no edema Gastrointestinal (Abdomen): Inspection/Auscultation: normal bowel sounds Percussion/Palpation: abdomen soft; abdomen nontender Musculoskeletal: Extremities: strength 5/5 throughout Skin: no rashes, warm and dry scratching constantly in exam; some desquamation palms Results & Data ([facility]) Vital Signs (Past 12 Hours) Vital Signs Temp Pulse Resp BP Pulse Ox 03/17/21 07:44 36.6 C 74 18 128/68 100 03/17/21 05:07 36.5 C Laboratory Results 03/17/21 06:06 03/17/21 06:06
[2021-03-17 16:36] LABS: Hematocrit (blood only) 30.7 % (42-52); Hemoglobin 10.4 g/dL (14.0-18.0)
--- NOTE | 2021-03-17 18:45 | Hospitalist Progress Note ---
Date of Service March 17, 2021 Assessment & Plan (1) Weakness: (2) Encephalopathy: (3) Hematuria with proteinuria: (4) Acute on chronic renal failure: (5) Spongiotic dermatitis: Plan: Mr. Burroughs is a 70-year-old man who presents to the hospital with worsening weakness, falls and questionable confusion at home since being discharged from the hospital in [place] on 03/03 is being managed for the following: #. Weakness: Likely multifactorial including possible persistent underlying medical issue or post infectious glomerulonephritis(see below) or recent rhabdomyolysis after septic shock a couple of weeks ago (CK trending down), etc, on top of physical deconditioning with recent prolonged hospitalization and prolonged illness. Will cont workup on these issues below, and c/w inpatient PT and OT. #. 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 -Resolved Pt evaluated by neurology at [place] Per review of the notes from February 21, reviewed - MRI at outside hospital ([facility]), which does show a cerebellar infarct and bilateral basal ganglia changes. LP at outside hospital ([facility]) was unremarkable and LTM has been negative. The cause of his encephalopathy is most likely hospital delirium and this should continue to improve daily. He has a lung mass so a paraneoplastic process is possible but his LP was negative. MRI does show multifocal infarcts in bilateral basal ganglia can contribute to confusion. Would recommend CTA hea d and neck and potentially CLARK given the likely cardiogenic source of multifocal strokes. EEG done in [place], was not concerning for seizure, showed mild diffuse encephalopathy Vitamin B12 WNL, folic acid slightly low, being replaced. Neurology consulted: Likely polyfactorial encephalopathy [post hypoxic with superimposed septic encephalopathy]. Agrees with supplemental folate and thiamine. Recommends holding statin which might be contributing to weakness. EEG done which revealed mild generalized abnormality consistent with a nonspecific nonfocal encephalopathy without associated potentially epileptiform activity. 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 A nerve conduction EMG should be performed as an outpatient. #. JAVON on CKD stage 3 #. Hematuria with Proteinuria JAVON on CKD stage 3 Nonoliguric. baseline c creatinine trending down. Reatinine is 1.4; has been plateau'd at about 2 since 02/28. may take weeks to recover. CK wnl; ua w/ blood and protein but no infection Nephrology on board. Creatinine stable/slightly trending up. Hematuria with proteinuria is new. No clear UTI present, however, urinary incontinence noted by . Per nephro - would not work up further at this point unless persistent wks to months Notably with immune workup last admission--normal complement levels, positive UMESH. Can be worked up outpatient with repeat antihistone and repeat urine test. Fairly stable close to 2.0. Monitor off hydration. Will need outpatient BMP follow-up. #. 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 This has overall improved with some persistent desquamation. Per he gets no steroid creams and uses petrolatum TID all over his skin. c/w with Eucerin #. Bradycardia Patient having bradycardia overnight in 40s to 50s, cardiology was consulted overnight. Carvedilol held due to concerns. Cardiology on board: Resume carvedilol at 6.25 mg BID. Expected while sleeping, need not be followed. #. Diabetes mellitus, type II: Developed JAVON just prior to discharge from [facility] on 03/03 and glimepiride and metformin were stopped. He remains on Victoza daily injections. Will utilize basal bolus insulin while hospitalized. A1C recently checked and at goal. Glycemic Pharmacy on board. #. Lung mass: 21x02xy solid pulmonary nodule of the right middle lobe, cont to follow this per guidelines as outpatient. #. Hypertension: around goal, cont amlodipine, carvedilol per home regimen. #. Sleep apnea: CPAP at home settings. #. DVT prophylaxis: SCDs-continue with heparin, closely monitor Hb. Full Code Dispo-to [employer]. PT/OT to assess and cm to help with disposition. He has failed a trial of being at home with home health and needs additional care at this time. PT/OT recommending inpatient rehab. Awaiting placement. Stable to go. CM working on [facility] placement. 03/11 Called patient's Debra [[phone]] and updated about the plan of care. She seemed understanding and was agreeable. 03/13 did peer to peer for acute rehab, denied, instead approved for SNF for 1 week. Admission and Anticipated Discharge Date Admission Date: March 06, 2021 Subjective Patient lying in bed, NAD, on room air, no acute events overnight. Patient denies any headache/fever/chills/other review of symptoms. No interval clinical developments. Awaiting placement. Physical Exam Physical Exam: GENERAL: AOx3. NAD, on RA. HEENT: No pallor, no icterus. Pupils equal, round and reactive to light. Oral mucosa moist. NECK: No JVD, no neck masses. HEART: S1 and S2 heard. Regular rate and rhythm. No murmur, no gallop. RESPIRATORY SYSTEM: Normal AP diameter. No accessory muscle use. No wheezing, no crackles. ABDOMEN: Soft, bowel sounds present, nontender, no distention. CENTRAL NERVOUS SYSTEM: No facial droop. Speech is clear. Obeys simple commands. Moves extremities. EXTREMITIES: Trace edema, no erythema seen. Desquamation of skin all over patient's body. Few dried scabs over the knees. Results & Data Results & Data ([facility]) Vital Signs (Past 12 Hours) Vital Signs Temp Pulse Resp BP Pulse Ox 03/17/21 14:59 36.6 C 83 18 131/67 98 03/17/21 07:44 36.6 C 74 18 128/68 100
[2021-03-17] MEDS: TRAVOPROST Z 0.004% OPH SOLN 2.5 ML BTL OPB SCH (20:48)
[2021-03-17] MEDS: ATORVASTATIN 10 MG TAB PO SCH (20:48)
[2021-03-17] MEDS: TAMSULOSIN HCL 0.4 MG CAP PO SCH (20:48)
[2021-03-18 03:36] LABS: Appearance Urine Clear (Clear); Bilirubin Urine Negative (Negative); Blood Urine 3+ (Negative); Color Urine Yellow; Glucose Urine UA Negative (Negative); Ketones Urine Negative (Negative); Leukocyte Esterase Urine Trace (Negative); Nitrite Urine Negative (Negative); Protein Urine 3+ (Negative); Specific Gravity Urine 1.018 (1.000-1.030); Urobilinogen Urine Negative (Negative)
[2021-03-18 05:06] LABS: Bacteria Urine Automated 1+ (Negative)
[2021-03-18 07:27] LABS: Albumin Level 2.5 gm/dl (3.4-5.0); BUN Creatinine Ratio 16.2 (10-20); Bilirubin,Total 0.4 mg/dl (0.2-1); Calcium 9.1 mg/dl (8.5-10.1); Creatinine Clr Calc Pharmacy 44.6 ml/min; Est GFR (African American) 38.8 ml/min; Est GFR (Non-African American) 33.4 ml/min; Total Protein 7.4 gm/dl (6.4-8.2)
[2021-03-18 07:48] LABS: Hematocrit (blood only) 28.4 % (42-52); Hemoglobin 9.4 g/dL (14.0-18.0); Mean Corpuscular Hemoglobin 30.6 pg (25-34); Mean Corpuscular Volume 92.5 fL (80-100); Mean Platelet Volume 9.4 fL (7.4-10.4); Platelet Count 212 K/uL (130-400); RDW Coefficient of Variation 14.5 % (11.5-14.5); RDW Standard Deviation 48.2 fL (36.4-46.3); Red Blood Count 3.07 M/uL (4.7-6.1); White Blood Count 5.07 K/uL (4.8-10.8)
[2021-03-18 08:09] LABS: Potassium 5.1 mmol/L (3.5-5.1)
[2021-03-18 08:14] LABS: Bilirubin Direct 0.1 mg/dl (0-0.2); Mean Corpuscular Hgb Conc 33.1 g/dL (32-36)
[2021-03-18] MEDS: ASPIRIN 81 MG ECTAB PO SCH (08:57)
[2021-03-18] MEDS: amLODIPine BESYLATE 5 MG TAB PO SCH (08:57)
[2021-03-18] MEDS: carvediloL 6.25 MG TAB PO SCH ×2 (08:57→20:47)
[2021-03-18] MEDS: ASCORBIC ACID 500 MG TAB PO SCH (08:58)
[2021-03-18] MEDS: HEPARIN SOD 5,000 UNIT/0.5 ML VIAL SQ SCH ×2 (08:58→20:47)
[2021-03-18] MEDS: DOCUSATE SODIUM 100 MG CAP PO SCH (08:58)
[2021-03-18] MEDS: FAMOTIDINE 20 MG TAB PO SCH (08:58)
[2021-03-18] MEDS: INSULIN ASPART 100 UNITS/ML 3 ML PEN SC SCH ×4 (09:07→21:36)
[2021-03-18] MEDS: FOLIC ACID 1 MG TAB PO SCH (10:20)
[2021-03-18] MEDS: THIAMINE HCL 100 MG TAB PO SCH (10:20)
--- NOTE | 2021-03-18 13:20 | Hospitalist Progress Note ---
Date of Service March 18, 2021 Assessment & Plan (1) Weakness: (2) Encephalopathy: (3) Hematuria with proteinuria: (4) Acute on chronic renal failure: (5) Spongiotic dermatitis: Plan: per Dr. Rabago's notes with addendum: Mr. Burroughs is a 70-year-old man who presents to the hospital with worsening weakness, falls and questionable confusion at home since being discharged from the hospital in [place] on 03/03 is being managed for the following: #. Weakness: Likely multifactorial including possible persistent underlying medical issue or post infectious glomerulonephritis(see below) or recent rhabdomyolysis after septic shock a couple of weeks ago (CK trending down), etc, on top of physical deconditioning with recent prolonged hospitalization and prolonged illness. PT/OT evaluation: recommend d/c home with 27/12 care, home PT/OT #. 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 -Resolved 03/18 patient awake, alert, conversant Pt evaluated by neurology at [place] Per review of the notes from February 21, reviewed - MRI at outside hospital ([facility]), which does show a cerebellar infarct and bilateral basal ganglia changes. LP at outside hospital ([facility]) was unremarkable and LTM has been negative. The cause of his encephalopathy is most likely hospital delirium and this should continue to improve daily. He has a lung mass so a paraneoplastic process is possible but his LP was negative. MRI does show multifocal infarcts in bilateral basal ganglia can contribute to confusion. Would recommend CTA head and neck and potentially CLARK given the likely cardiogenic source of multifocal strokes. EEG done in [place], was not concerning for seizure, showed mild diffuse encephalopathy Vitamin B12 WNL, folic acid slightly low, being replaced. Neurology consulted: Likely polyfactorial encephalopathy [post hypoxic with superimposed septic encephalopathy]. Agrees with supplemental folate and thiamine. Recommends holding statin which might be contributing to weakness. EEG done which revealed mild generalized abnormality consistent with a nonspecific nonfocal encephalopathy without associated potentially epileptiform activity. 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 A nerve conduction EMG should be performed as an outpatient. #. JAVON on CKD stage 3 #. Hematuria with Proteinuria JAVON on CKD stage 3 Nonoliguric. baseline c creatinine trending down. Ceatinine is 1.4; has been plateau'd at about 2 since 02/28. may take weeks to recover. CK wnl; ua w/ blood and protein but no infection Nephrology on board. Creatinine stable/slightly trending up. Hematuria with proteinuria is new. No clear UTI present, however, urinary incontinence noted by . Per nephro - would not work up further at this point unless persistent wks to months Notably with immune workup last admission--normal complement levels, positive UMESH. Can be worked up outpatient with repeat antihistone and repeat urine test. Fairly stable close to 2.0. Monitor off hydration. Will need outpatient BMP follow-up. Possible UTI UA: suggestive of UTI Urine culture: pending empiric Cefdinir 300mg BID x 10 days #. 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 This has overall improved with some persistent desquamation. Per he gets no steroid creams and uses petrolatum TID all over his skin. c/w with Eucerin #. Bradycardia Patient having bradycardia overnight in 40s to 50s, cardiology was consulted overnight. Carvedilol held due to concerns. Cardiology on board: Resume carvedilol at 6.25 mg BID. Expected while sleeping, need not be followed. #. Diabetes mellitus, type II: Developed JAVON just prior to discharge from [facility] on 03/03 and glimepiride and metformin were stopped. He remains on Victoza daily injections. Will utilize basal bolus insulin while hospitalized. A1C recently checked and at goal. Glycemic Pharmacy on board. #. Lung mass: [id number] solid pulmonary nodule of the right middle lobe, cont to follow this per guidelines as outpatient. #. Hypertension: around goal, cont amlodipine, carvedilol per home regimen. #. Sleep apnea: CPAP at home settings. #. DVT prophylaxis: SCDs-continue with heparin, closely monitor Hb. Full Code Disposition- per family preservation caseworker, d/c home with home health, 27/12 supervision 03/11 Called patient's Debra [[phone]] and updated about the plan of care. She seemed understanding and was agreeable. 03/13 did peer to peer for acute rehab, denied, instead approved for SNF for 1 week. Admission and Anticipated Discharge Date Admission Date: March 06, 2021 Subjective ff up for weakness, etc seen resting in bed, comfortable oriented x 3, answers questions appropriately no chest pain, dyspnea, palpitations, dizziness no headache, abdominal pain, nausea/vomiting, problems with urination no other symptoms states he is ready for discharge today Review of Systems Review of Systems: all noted and negative except for above Physical Exam Physical Exam: General- oriented x 3, not in distress, speaks in sentences with no effort or accessory muscle use Head- atraumatic Eyes- PERRL, EOMI, anicteric ENT- oropharynx clear Neck- supple, no JVD, no adenopathy, no thyromegaly; carotids +2/2, no bruits appreciated Lungs- clear to auscultation bilaterally, no rales/wheezes Heart- normal rate, regular rhythm; no murmur, no gallop, no rub appreciated Abdomen- normal bowel sounds, nondistended, soft, nontender, no masses or hepatosplenomegaly Extremities- mild edema Right lower ext- no erythema/warmth/tenderness Left LE essentially normal scabbed wounds on BL lower ext no calf tenderness; peripheral pulses intact Neuro- alert, oriented x 3; CN 2-12 grossly intact; motor 5/5 bi laterally;sensation 100% on all extremities; no other gross focal neurologic deficits Skin- warm & dry Results & Data Results & Data ([facility]) Vital Signs (Past 12 Hours) Vital Signs Temp Pulse Pulse Resp BP Pulse Ox 03/18/21 08:00 36.3 C L 70 16 139/66 100 03/18/21 02:47 75 12 97 all noted and reviewed including below
--- NOTE | 2021-03-18 13:37 | Ultrasound Report ---
ULTRASOUND RIGHT LOWER EXTREMITY VENOUS CLINICAL HISTORY: Right lower sternum edema. COMPARISON STUDY: No priors. TECHNIQUE: Real-time, grayscale, and color Doppler sonography of the deep veins of the right lower ex tremity was performed from the inguinal crease to the calf. Compression and augmentation were utilize d. FINDINGS: There is no sonographic evidence of deep venous thrombosis identified in the right lower ex tremity. The common femoral, superficial femoral, and popliteal veins are patent and normally jordyn sible. The greater saphenous vein and the profunda femoris vein at the junction with the common femor al vein are clear. The visualized calf veins are patent. Prominent right inguinal lymph nodes are lik ursula reactive. IMPRESSION: There is no sonographic evidence of deep venous thrombosis identified in the right lower extremity. ACT 112: Negative or not required by law. Electronically signed by: Warren Gan M.D. 03/18/2021 1:36 PM
[2021-03-18] MEDS: CEFDINIR 300 MG CAP PO SCH ×2 (15:10→20:47)
--- NOTE | 2021-03-18 15:28 | Pharmacy Report ---
Pharmacy Glycemic Short Note 2 - Date of Service March 18, 2021 - Glycemic Short BSG Results (Last 24 hours): 03/17/21 03/17/21 03/18/21 17:12 20:50 06:52 Glucose 83 POC Glucose 72 94 03/18/21 03/18/21 07:56 12:08 Glucose POC Glucose 80 107 H OUTPATIENT ANTIDIABETIC REGIMEN: * Victoza 1.2mg SC HS * HbA1c = 6.9% (02/05/21) ASSESSMENT: 03/18/21: * BSGs have been stable for several days, with very minimal changes in Novolog parameters. * BSGs remain largely below goal range, so Novolog parameters loosened again today. * No further changes required at this time. PLAN FOR INPATIENT GLYCEMIC CONTROL: * Hold outpatient Victoza * Basal insulin - * none * Bolus insulin * NovoLog per scale ACHS or Q6hrs while NPO * Goal Range: Low 110 mg/dL - High 140 mg/dL * Correction Factor: 35 mg/dL/unit * Nutritional / Prandial insulin per carb ratio of 1 unit per 12 grams CHO consumed PLAN FOR DISCHARGE: * HbA1c was 6.9% in February 2021 which is at goal for this patient. * Per notes, patient developed JAVON just prior to discharge from [facility] 03/03 and at that time glimepiride and metformin had been stopped. Victoza only med listed at home prior to arrival here * Likely could continue agent on discharge. Would ensure patient checking blood sugars at home at least daily. Would recommend followup if experiencing any hypo/hyperglycemia. Reinitiation of glimepiride/metformin could be assessed outpatient by PCP once renal function improves. Patient still with JAVON at this time and very poor oral intake to no oral intake
--- NOTE | 2021-03-18 15:33 | Nephrology Progress Note ---
Date of Service March 18, 2021 Assessment & Plan (1) Acute on chronic renal failure: Plan: nonoliguric stage 1 javon on ckd 3. baseline creatinine is 1.4; has been pl ateau'd at about 2 since 02/28. may take weeks to recover. CK wnl; ua w/ blood and protein but no infection; -daily bmp -meds ok for now >>given pruritis ordered hepatic enzymes for am >> mild transaminitis, ongoing hypoalbuminemia (2) Hematuria with proteinuria: Plan: new and may reflect recent/ongoing JAVON and critical illness; would not work up further at this point unless persistent wks to months; noted on repeat UA today (3) Hypertension: Plan: on amlodipine max dose, coreg 6.25 mg bid; no diuretic; avoiding mario/arb d/t angio edema concerns; sbp ranging 130-150s, mostly 130- 140s goal sbp less than 150 in hospital >>>will sign off; pls arrange BMP w/in one week of hospital d/c; pls arrange f/u w/ me in CKD clinic 2-4 wks after hospital d/c Admission and Anticipated Discharge Date Admission Date: March 06, 2021 Subjective more alert/coherent today than any other time I've seen him inpatient. seen on rounds at 0925. no c/o sob, edema, voiding concerns. ongoing significant generalized pruritis. had eaten full breakfast tray. for repeat PT/OT eval today in consideration of placement Review of Systems Review of Systems: All systems reviewed & are unremarkable except as noted in Subjective (limited ROS d/t cognitive status) Physical Exam Constitutional: well developed and well nourished Eyes: EOM intact bilaterally ENMT: Ears: no external ear abnormality Nose: no external nose abnormality Mouth: + dry oral mucous membranes Neck: no nuchal rigidity Respiratory: normal respiratory effort Auscultation: + diminished lung sounds Cardiovascular: Rate/Rhythm: regular rate and regular rhythm Extremities: no edema Gastrointestinal (Abdomen): Inspection/Auscultation: normal bowel sounds Percussion/Palpation: abdomen soft; abdomen nontender Musculoskeletal: Extremities: strength 5/5 throughout Skin: no rashes, warm and dry BL knee scabs/healing abrasions. also with ongoing desquamation Results & Data ([facility]) Vital Signs (Past 12 Hours) Vital Signs Temp Pulse Resp BP Pulse Ox 03/18/21 15:16 36.3 C L 79 16 135/75 99 03/18/21 08:00 36.3 C L 70 16 139/66 100 Laboratory Results 03/18/21 07:30 03/18/21 07:30
[2021-03-18] MEDS: TAMSULOSIN HCL 0.4 MG CAP PO SCH (20:46)
[2021-03-18] MEDS: ATORVASTATIN 10 MG TAB PO SCH (20:47)
[2021-03-18] MEDS: TRAVOPROST Z 0.004% OPH SOLN 2.5 ML BTL OPB SCH (20:47)
[2021-03-18] MEDS: PANTOprazole 40 MG TAB PO SCH (20:47)
[2021-03-19 06:19] LABS: Basophils # (auto) 0.01 K/uL (0-0.2); Basophils % (auto) 0.2 %; Eosinophils # (auto) 0.37 K/uL (0-0.5); Eosinophils % (auto) 7.8 %; Hematocrit (blood only) 27.7 % (42-52); Hemoglobin 9.3 g/dL (14.0-18.0); Immature Granulocytes # (auto) 0.03 K/uL (0.00-0.02); Immature Granulocytes % (auto) 0.6 %; Lymphocytes # (auto) 0.93 K/uL (1.2-3.4); Lymphocytes % (auto) 19.7 %; Mean Corpuscular Hemoglobin 30.7 pg (25-34); Mean Corpuscular Hgb Conc 33.6 g/dL (32-36); Mean Corpuscular Volume 91.4 fL (80-100); Mean Platelet Volume 9.7 fL (7.4-10.4); Monocytes # (auto) 0.35 K/uL (0.11-0.59); Monocytes % (auto) 7.4 %; Neutrophils # (auto) 3.04 K/uL (1.4-6.5); Neutrophils % (auto) 64.3 %; Platelet Count 219 K/uL (130-400); RDW Coefficient of Variation 14.6 % (11.5-14.5); RDW Standard Deviation 48.6 fL (36.4-46.3); Red Blood Count 3.03 M/uL (4.7-6.1); White Blood Count 4.73 K/uL (4.8-10.8)
[2021-03-19] MEDS: amLODIPine BESYLATE 5 MG TAB PO SCH (07:50)
[2021-03-19] MEDS: CEFDINIR 300 MG CAP PO SCH (07:51)
[2021-03-19] MEDS: ASPIRIN 81 MG ECTAB PO SCH (07:51)
[2021-03-19] MEDS: THIAMINE HCL 100 MG TAB PO SCH (07:51)
[2021-03-19] MEDS: FOLIC ACID 1 MG TAB PO SCH (07:51)
[2021-03-19] MEDS: PANTOprazole 40 MG TAB PO SCH (07:51)
[2021-03-19] MEDS: carvediloL 6.25 MG TAB PO SCH (07:51)
[2021-03-19] MEDS: ASCORBIC ACID 500 MG TAB PO SCH (07:52)
[2021-03-19] MEDS: HEPARIN SOD 5,000 UNIT/0.5 ML VIAL SQ SCH (07:52)
[2021-03-19] MEDS ORDERED: FERROUS SULFATE 325 MG TAB PO SCH (09:00)
[2021-03-19] MEDS: INSULIN ASPART 100 UNITS/ML 3 ML PEN SC SCH ×2 (09:01→12:26)
[2021-03-19 09:27] LABS: Albumin Level 2.5 gm/dl (3.4-5.0); BUN Creatinine Ratio 18.1 (10-20); Calcium 9.4 mg/dl (8.5-10.1); Creatinine Clr Calc Pharmacy 48.5 ml/min; Est GFR (African American) 42.9 ml/min; Est GFR (Non-African American) 37.1 ml/min; Potassium 5.3 mmol/L (3.5-5.1)
[2021-03-19 09:30] LABS: Albumin Globulin Ratio 0.5 (0.9-2); Bilirubin,Total 0.4 mg/dl (0.2-1); Globulin 4.7 gm/dl (2.5-4.0); Total Protein 7.2 gm/dl (6.4-8.2)
--- NOTE | 2021-03-19 10:04 | Gastrointestinal Consultation ---
Date of Consultation March 19, 2021 Assessment & Plan (1) Anemia: 70 year old male w/ medical comorbidities, admitted w/ hematuria, JAVON on CKD - gi asked to evaluate for anemia and heme + stools. He is passing brown, formed stools. He denies prior EGD/Colonoscopy. Would recommend OP EGD/Colonoscopy for evalation of anemia and heme + stools. Will sign off. Supervising Physician Co-Signing Physician Notes I have seen and examined the patient with JAS Augustine whose note reflects our findings and plan. Patient wiht multiple medical problems noted to have heme positive stools. Formed brown stool here. No menela or hematochezia. Has never had an EGD or colonoscopy. Once he is discharged after his primary admitting dx has been addressed, will arrange an outpatient EGD and colonoscopy. Please call with questions. History of Present Illness Reason for Consultation: anemia Requesting Physician: Lashonda Attending Physician: Timoteo Gallego MD History of Present Illness 70 year old male with history of HTN w/ LVH, HL, JENNIFER on CPAP, DM on metformin and GLP1 admitted w/ JAVON on CKD - GI asked to evaluate for anemia. Pt was seen and evaluated, chart reviewed. Feeling well from GI standpoint. Denies abd pain. No nausea, vomiting. No GERD. No dysphagia. Tolerating PO intake. On a regular diet. Denies change in bowel habits. Denies black/bloody stools. Has never had E Gd/Colon in past/ + FOBT Stools reported as brown HGB 9.3 iron 37 ferritin 400 Having hematuria Allergies Allergy/AdvReac Type Severity Reaction Status Date / Time lisinopril Allergy Severe Angioedema Verified 03/05/21 20:26 prednisone Allergy Severe FACE, Verified 03/05/21 20:26 LIPS, & TONGUE SWELLS Home Medications Medication Instructions Recorded Confirmed Type aspirin 81 mg tablet,delayed 81 mg PO DAILY 02/04/21 03/05/21 History release atorvastatin 10 mg tablet 10 mg PO HS 02/04/21 03/05/21 History carvedilol 12.5 mg tablet 12.5 mg PO BID 02/04/21 03/05/21 History ergocalciferol (vitamin D2) 1,250 1,250 mcg PO MONTHLY 02/04/21 03/05/21 History mcg (50,000 unit) capsule (Vitamin D2) liraglutide 0.6 mg/0.1 mL (18 mg/3 1.2 mg SUBCUT QPM 02/04/21 03/05/21 History mL) subcutaneous pen injector (Victoza 3-Everette) travoprost 0.004 % eye drops 1 drp OPB HS 02/04/21 03/05/21 History famotidine 20 mg tablet (Pepcid) 20 mg PO BID 02/16/21 03/05/21 History amlodipine 10 mg tablet 10 mg PO DAILY 03/05/21 03/05/21 History ascorbic acid (vitamin C) 1,000 mg 1 g PO DAILY 03/05/21 03/05/21 History tablet (Vitamin C) diphenhydramine HCl 25 mg capsule 25 mg PO Q6H PRN 03/05/21 03/05/21 History (Benadryl) tamsulosin 0.4 mg capsule 0.4 mg PO HS 03/05/21 03/05/21 History Patient History Medical History CKD (chronic kidney disease), stage III Diabetes mellitus, type II Diabetic retinopathy Dyslipidemia Femoral fracture massive trauma to femur-repaired with hardware-removed after 2 yrs Gout H/O: stroke Hypertension Near syncope Sleep apnea "CPAP" Spongiotic dermatitis Surgical History Hx of colonoscopy Family History Other Cancer Coronary heart disease Diabetes Hypertension Social History Smoking Status: Never smoker Hx Alcohol Use: No Hx Substance Use: No Preferred Language: Uzbek Communication Ability: Effective Accounting Clerk Required: No Beliefs That Will Affect Care: None Current Living Situation: Spouse and Family Other Information That Helps Us Care for You: No Feels Safe at Home: Yes Safety Concerns: Feels Safe At This Time Assistive Devices: Walker Review of Systems Review of Systems: All systems reviewed & are unremarkable except as noted in HPI & below Physical Exam Constitutional: WD/WN, vitals as above Neck: trachea midline, no thyromegaly Respiratory: normal respiratory effort, lungs clear to auscultation Cardiovascular: Rate/Rhythm: regular rate and regular rhythm Gastrointestinal (Abdomen): normal bowel sounds, soft, nontender, no hepatosplenomegaly Skin: no rashes, warm and dry Results & Data ([facility]) Vital Signs (Past 12 Hours) Vital Signs Temp Pulse Pulse Resp BP Pulse Ox 03/19/21 07:48 36.4 C L 77 16 140/71 98 03/19/21 03:03 65 11 L 96 03/18/21 23:17 58 L 10 L 100 Laboratory Results 03/19/21 03/19/21 03/19/21 Range/Units 07:53 05:41 05:41 WBC 4.73 L (4.8-10.8) K/uL RBC 3.03 L (4.7-6.1) M/uL Hgb 9.3 L (14.0-18.0) g/dL Hct 27.7 L (42-52) % MCV 91.4 (80-100) fL MCH 30.7 (25-34) pg MCHC 33.6 (32-36) g/dL RDW Std Deviation 48.6 H (36.4-46.3) fL RDW Coeff of Kaelyn 14.6 H (11.5-14.5) % Plt Count 219 (130-400) K/uL MPV 9.7 (7.4-10.4) fL Immature Gran % (Auto) 0.6 % Neut % (Auto) 64.3 % Lymph % (Auto) 19.7 % [place] % (Auto) 7.4 % Eos % (Auto) 7.8 % Baso % (Auto) 0.2 % Neut # (Auto) 3.04 (1.4-6.5) K/uL Lymph # (Auto) 0.93 L (1.2-3.4) K/uL [place] # (Auto) 0.35 (0.11-0.59) K/uL Eos # (Auto) 0.37 (0-0.5) K/uL Baso # (Auto) 0.01 (0-0.2) K/uL Immature Gran # (Auto) 0.03 H (0.00-0.02) K/uL Sodium 143 (136-145) mmol/L Potassium 5.3 H (3.5-5.1) mmol/L Chloride 113 H (98-107) mmol/L Carbon Dioxide 25 (21-32) mmol/L Anion Gap 5.0 (3-11) BUN 33 H (7-18) mg/dl Creatinine 1.81 H (0.6-1.4) mg/dl Est Cr Clr Drug Dosing 48.5 ml/min Est GFR ( Amer) 42.9 ml/min Est GFR (Non-Af Amer) 37.1 ml/min BUN/Creatinine Ratio 18.1 (10-20) Glucose 92 (70-99) mg/dl POC Glucose 101 H (70-99) mg/dl Calcium 9.4 (8.5-10.1) mg/dl Total Bilirubin 0.4 (0.2-1) mg/dl AST 43 H (15-37) U/L ALT 64 (12-78) U/L Alkaline Phosphatase 84 (45-117) U/L Total Protein 7.2 (6.4-8.2) gm/dl Albumin 2.5 L (3.4-5.0) gm/dl Globulin 4.7 H (2.5-4.0) gm/dl Albumin/Globulin Ratio 0.5 L (0.9-2) 03/18/21 03/18/21 03/18/21 Range/Units 21:35 17:08 12:08 WBC (4.8-10.8) K/uL RBC (4.7-6.1) M/uL Hgb (14.0-18.0) g/dL Hct (42-52) % MCV (80-100) fL MCH (25-34) pg MCHC (32-36) g/dL RDW Std Deviation (36.4-46.3) fL RDW Coeff of Kaelyn (11.5-14.5) % Plt Count (130-400) K/uL MPV (7.4-10.4) fL Immature Gran % (Auto) % Neut % (Auto) % Lymph % (Auto) % [place] % (Auto) % Eos % (Auto) % Baso % (Auto) % Neut # (Auto) (1.4-6.5) K/uL Lymph # (Auto) (1.2-3.4) K/uL Clarion # (Auto) (0.11-0.59) K/uL Eos # (Auto) (0-0.5) K/uL Baso # (Auto) (0-0.2) K/uL Immature Gran # (Auto) (0.00-0.02) K/uL Sodium (136-145) mmol/L Potassium (3.5-5.1) mmol/L Chloride (98-107) mmol/L Carbon Dioxide (21-32) mmol/L Anion Gap (3-11) BUN (7-18) mg/dl Creatinine (0.6-1.4) mg/dl Est Cr Clr Drug Dosing ml/min Est GFR ( Amer) ml/min Est GFR (Non-Af Amer) ml/min BUN/Creatinine Ratio (10-20) Glucose (70-99) mg/dl POC Glucose 150 H 179 H 107 H (70-99) mg/dl Calcium (8.5-10.1) mg/dl Total Bilirubin (0.2-1) mg/dl AST (15-37) U/L ALT (12-78) U/L Alkaline Phosphatase (45-117) U/L Total Protein (6.4-8.2) gm/dl Albumin (3.4-5.0) gm/dl Globulin (2.5-4.0) gm/dl Albumin/Globulin Ratio (0.9-2)
[2021-03-19] MEDS ORDERED: SODIUM POLYSTYRENE SULFONATE 15G/60ML SUSP PO STA (13:06)
--- NOTE | 2021-03-19 15:20 | Hospitalist Progress Note ---
Date of Service March 19, 2021 Assessment & Plan (1) Weakness: (2) Encephalopathy: (3) Hematuria with proteinuria: (4) Acute on chronic renal failure: (5) Spongiotic dermatitis: Plan: per Dr. Rabago's notes with addendum: Mr. Burroughs is a 70-year-old man who presents to the hospital with worsening weakness, falls and questionable confusion at home since being discharged from the hospital in [place] on 03/03 is being managed for the following: #. Weakness: Likely multifactorial including possible persistent underlying medical issue or post infectious glomerulonephritis(see below) or recent rhabdomyolysis after septic shock a couple of weeks ago (CK trending down), etc, on top of physical deconditioning with recent prolonged hospitalization and prolonged illness. PT/OT evaluation: recommend d/c home with 27/12 care, home PT/OT #. 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 -Resolved Pt evaluated by neurology at [place] Per review of the notes from February 21, reviewed - MRI at outside hospital ([facility]), which does show a cerebellar infarct and bilateral basal ganglia changes. LP at outside hospital ([facility]) was unremarkable and LTM has been negative. The cause of his encephalopathy is most likely hospital delirium and this should continue to improve daily. He has a lung mass so a paraneoplastic process is possible but his LP was negative. MRI does show multifocal infarcts in bilateral basal ganglia can contribute to confusion. Would recommend CTA head and neck and potentially CLARK given the likely cardiogenic source of multifocal strokes. EEG done in [place], was not concerning for seizure, showed mild diffuse encephalopathy Vitamin B12 WNL, folic acid slightly low, being replaced. Neurology consulted: Likely polyfactorial encephalopathy [post hypoxic with superimposed septic encephalopathy]. Agrees with supplemental folate and thiamine. Recommends holding statin which might be contributing to weakness. EEG done which revealed mild generalized abnormality consistent with a nonspecific nonfocal encephalopathy without associated potentially epileptiform activity. 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 A nerve conduction EMG should be performed as an outpatient. -- patient improved during admission on discharge day, alert, oriented x2, answers questions appropriately continue Folate and Thiamine supplementation ff up with Neurologist Dr. Schwab in 2 weeks #. JAVON on CKD stage 3 #. Hematuria with Proteinuria JAVON on CKD stage 3 Nonoliguric. baseline c creatinine trending down. Ceatinine is 1.4; has been plateau'd at about 2 since 02/28. may take weeks to recover. CK wnl; ua w/ blood and protein but no infection Nephrology on board. Creatinine stable/slightly trending up. Hematuria with proteinuria is new. No clear UTI present, however, urinary incontinence noted by . Per nephro - would not work up further at this point unless persistent wks to months Notably with immune workup last admission--normal complement levels, positive UMESH. Can be worked up outpatient with repeat antihistone and repeat urine test. Fairly stable close to 2.0. K 5.3 on discharge day discussed with Dr. Mueller- recommend Lasix 20mg MWF low potassium diet repeat BMP on ff up with PCP next week- Possible UTI UA: suggestive of UTI Urine culture: pending empiric Cefdinir 300mg BID x 10 days ff up final urine culture report #. 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 This has overall improved with some persistent desquamation. Per he gets no steroid creams and uses petrolatum TID all over his skin. c/w with Eucerin #. Bradycardia Patient having bradycardia overnight in 40s to 50s, cardiology was consulted overnight. Carvedilol held due to concerns. Cardiology on board: reduce carvedilol at 6.25 mg BID. #. Diabetes mellitus, type II: Developed JAVON just prior to discharge from [facility] on 03/03 and glimepiride and metformin were stopped. He remains on Victoza daily injections. basal bolus insulin while hospitalized. A1C recently checked and at goal. Glycemic Pharmacy on board. #. Lung mass: [id number] solid pulmonary nodule of the right middle lobe, cont to follow this per guidelines as outpatient. #. Hypertension: around goal, cont amlodipine, carvedilol per home regimen. #. Sleep apnea: CPAP at home settings. #. DVT prophylaxis: d/c home ff up with PCP in 1 week Inside Sales Advisor in 1-2 weeks Neurologist in 1-2 weeks Customer Account Technician as scheduled Admission and Anticipated Discharge Date Admission Date: March 06, 2021 Subjective ff up for weakness, etc seen resting in bed, watching TV alert, oriented x 2 answers questions appropriately ambulating in the room with no problems per RN denies headache, dizziness no chest pain, dyspnea, palpitations no abdominal pain, nausea/vomiting, problems with urination or BM no other symptoms states he is ready and would like to be discharged today Review of Systems Review of Systems: all noted and negative except for above Physical Exam Physical Exam: General- oriented x 2, not in distress, speaks in sentences with no effort or accessory muscle use Eyes- anicteric Neck- no JVD Lungs- clear breath sounds bilaterally, no rales/wheezes Heart- normal rate, regular rhythm; no murmurs Abdomen- normal bowel sounds, nondistended, soft, nontender Extremities-mild R LE edema- no warmth/tenderness/erythema L LE no pretibial edema, no calf tenderness Neuro- alert, oriented x 2; no gross focal neurologic deficits Skin- warm & dry Results & Data Results & Data ([facility]) Vital Signs (Past 12 Hours) Vital Signs Temp Pulse Resp BP BP Pulse Ox 03/19/21 14:07 36.4 C L 77 16 144/64 H 140/71 98 03/19/21 07:48 36.4 C L 77 16 140/71 98 all noted and reviewed including below
--- NOTE | 2021-03-19 15:21 | Discharge Summary ---
Date of Service March 19, 2021 Admission HPI Per Admitting Provider Mr. Burroughs is a 70-year-old man who presents to the hospital with worsening weakness, falls and questionable confusion at home since being discharged from the hospital in [place] on 03/03. He initially had a 3-month history of rash with biopsy showing subacute spongiotic dermatitis when he presented to [facility] for altered mental status sepsis secondary to MRSA bacteremia, diffuse rash and acute kidney injury. 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 He required ICU admission at that time with intubation, pressor support and NG tube placement. A lumbar puncture in the ER was performed and he was empirically covered broadly for meningitis, later deescalated. He continued on vancomycin as monotherapy for MRSA bacteremia secondary to translocation from skin lio as he had significant pruritus and disrupted skin architecture related to the rash. He was then transferred [place] [facility] [place] to help discern the etiology of his altered mental status and work-up concerns that symptoms may be crossing multiple systems including autoimmune or rheumatologic involvement. He notably developed an JAVON towards the end of admission, reportedly improved with small fluid boluses. Metformin and glimepiride were held at discharge. He has completed his two week course of vancomycin per infectious disease recommendations. Per his , he was doing okay the first night he was home but then declined quickly on day 2. She notes that he had a hard time walking to the bathroom secondary to weakness and the second night he fell in the middle of the night out of the bed. He also had multiple episodes of urinary incontinence onto the bed. She noted blood in his urine. A 12-lead EKG revealed sinus rhythm. Ammonia level was negative. ABG was within normal limits with a PCO2 of 35 and a PO2 of 52. The patient's pulse ox in the ER was in the mid to high 90s. Covid test was negative. CBC was unremarkable outside of some anemia with a hemoglobin 9.5 down from 11 on his prior visit. Potassium is 5.2. BUN is 50 and creatinine is 2.3. This is slightly higher than his previous creatinine levels of 1.6. Troponin was negative. CT of the brain did not reveal any acute process. The patient feels his skin is improving. Per his the steroids prescribed at discharge were incorrect per the event designer and he is to be putting petroleum jelly 3 times daily on his skin without steroids. agrees his skin has gotten better. The patient denies any fevers, chills, headache, GI upset, shortness of breath or chest pain. Admission Exam (Per Admitting) Constitutional CONSTITUTIONAL: WNWD, vitals as above, lethargic but will awaken and answer questions appropriately when propmted. EYES: normal conjunctivae, no scleral icterus ENT: external ear and nose normal, oropharynx clear, MMM NECK: trachea midline RESPIRATORY: clear to auscultation bilaterally, no crackles, rales or wheezes, normal respiratory effort CARDIOVASCULAR: regular rate and rhythm, S1 and 2 heard without murmurs, gallops or rubs, no JVD, no peripheral edema CHEST: inspection of chest was normal GASTROINTESTINAL: soft, nontender, ND, no guarding MUSCULOSKELETAL: strength 5/5 throughout, head is normocephalic and atraumatic, neck supple, normal palpation of chest wall without tenderness SKIN: warm and dry, desquamation of skin on bilateral hands and somewhat on bilateral forearms, but this is improved per patient. some open skin on extensor surfaces of elbows R>L. Otherwise skin generally looks good (note lmited exam as patient is wearing jeans, self-reports no other concerning skin findings elsewhere. NEUROLOGIC: CN 2-12 grossly intact, lethargic, otherwise no gross focal deficits. PSYCHIATRIC: cooperative and oriented to person, place and time. Discharge Data Consultations 03/05/21 20:47 ED Decision to Admit Stat 03/06/21 00:13 Consult Nephrology Stat 03/08/21 07:04 Consult Neurology Routine 03/12/21 19:55 Consult Cardiology Routine 03/19/21 08:36 Consult Gastroenterology Routine Hospital Course (1) Weakness: (2) Encephalopathy: (3) Hematuria with proteinuria: (4) Acute on chronic renal failure: (5) Spongiotic dermatitis: per Dr. Rabago's notes with addendum: Mr. Burroughs is a 70-year-old man who presents to the hospital with worsening weakness, falls and questionable confusion at home since being discharged from the hospital in [place] on 03/03 is being managed for the following: #. Weakness: Likely multifactorial including possible persistent underlying medical issue or post infectious glomerulonephritis(see below) or recent rhabdomyolysis after septic shock a couple of weeks ago (CK trending down), etc, on top of physical deconditioning with recent prolonged hospitalization and prolonged illness. PT/OT evaluation: recommend d/c home with 27/12 care, home PT/OT #. 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 -Resolved Pt evaluated by neurology at [place] Per review of the notes from February 21, reviewed - MRI at outside hospital ([facility]), which does show a cerebellar infarct and bilateral basal ganglia changes. LP at outside hospital ([facility]) was unremarkable and LTM has been negative. The cause of his encephalopathy is most likely hospital delirium and this should continue to improve daily. He has a lung mass so a paraneoplastic process is possible but his LP was negative. MRI does show multifocal infarcts in bilateral basal ganglia can contribute to confusion. Would recommend CTA head and neck and potentially CLARK given the likely cardiogenic source of multifocal strokes. EEG done in [place], was not concerning for seizure, showed mild diffuse encephalopathy Vitamin B12 WNL, folic acid slightly low, being replaced. Neurology consulted: Likely polyfactorial encephalopathy [post hypoxic with superimposed septic encephalopathy]. Agrees with supplemental folate and thiamine. Recommends holding statin which might be contributing to weakness. EEG done which revealed mild generalized abnormality consistent with a nonspecific nonfocal encephalopathy without associated potentially epileptiform activity. 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 A nerve conduction EMG should be performed as an outpatient. -- patient improved during admission on discharge day, alert, oriented x2, answers questions appropriately continue Folate and Thiamine supplementation ff up with Neurologist Dr. Schwab in 2 weeks #. JAVON on CKD stage 3 #. Hematuria with Proteinuria JAVON on CKD stage 3 Nonoliguric. baseline c creatinine trending down. Ceatinine is 1.4; has been plateau'd at about 2 since 02/28. may take weeks to recover. CK wnl; ua w/ blood and protein but no infection Nephrology on board. Creatinine stable/slightly trending up. Hematuria with proteinuria is new. No clear UTI present, however, urinary incontinence noted by . Per nephro - would not work up further at this point unless persistent wks to months Notably with immune workup last admission--normal complement levels, positive UMESH. Can be worked up outpatient with repeat antihistone and repeat urine test. Fairly stable close to 2.0. K 5.3 on discharge day discussed with Dr. Mueller- recommend Lasix 20mg MWF low potassium diet repeat BMP on ff up with PCP next week- Possible UTI UA: suggestive of UTI Urine culture: pending empiric Cefdinir 300mg BID x 10 days ff up final urine culture report Anemia hg stable ~9 no diana melena or hematochezia FOBT (+) GI consulted, outpatient EGD/Colonoscopy protonix added CBC on ff up with PCP #. 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 This has overall improved with some persistent desquamation. Per he gets no steroid creams and uses petrolatum TID all over his skin. c/w with Eucerin #. Bradycardia Patient having bradycardia overnight in 40s to 50s, cardiology was consulted overnight. Carvedilol held due to concerns. Cardiology on board: reduce carvedilol at 6.25 mg BID. #. Diabetes mellitus, type II: Developed JAVON just prior to discharge from [facility] on 03/03 and glimepiride and metformin were stopped. He remains on Victoza daily injections. basal bolus insulin while hospitalized. A1C recently checked and at goal. Glycemic Pharmacy on board. #. Lung mass: [id number] solid pulmonary nodule of the right middle lobe, cont to follow this per guidelines as outpatient. #. Hypertension: around goal, cont amlodipine, carvedilol per home regimen. #. Sleep apnea: CPAP at home settings. #. DVT prophylaxis: d/c home ff up with PCP in 1 week Family Resource Management Professor in 1-2 weeks Neurologist in 1-2 weeks Electroplater Helper as scheduled
--- NOTE | 2021-03-27 10:07 | Coding Query ---
To promote full compliance with coding requirements relating to patient care, provider participation is requested in all cases of graves registration specialist uncertainty. Please assist us with the question(s) below: Coding Question(s): The diagnosis(es) below was documented in the Neurology Progress Notes on 03/09 and 03/10, then subsequently fell off all further documentation. Please indicate if it is still a possible diagnosis or ruled out. Physician's Response(s): Sepsis with acute hypoxic respiratory failure () Diagnosed and POA ( ) Diagnosed and not POA ( x ) Ruled out ( ) Other (please specify) MTDD
== END 2021-03-19 15:33 | disposition home health service (06) | DRG 698 ==
LOC: ED 15:58 → 2W 15:58 → SUATTDRO 03-06 08:15 → 3E 03-15 00:47